=== PATIENT | male | born 1935 | race Caucasian/White ===

== ENCOUNTER → 2018-08-28 | Outpatient (CLI) | payer OTHER ==
[2014-10-12 15:00] VITALS: BP 136/66
[~2018-08-28] MED LIST: CYCL10TA2 PO; DIPH25CA58 PO; HYDR-3164 PO; IPRA4AER IH; METF10007 PO; METF500T16 PO; OXYC1TAB15 PO; POTA20TA12 PO; QUIN40TA16 PO; TORS20TA2 PO; TRAZ-85 PO
--- NOTE | 2018-08-28 11:48 | RAD ---
EXAM: Abdomen sonogram. HISTORY: Left upper quadrant pain. TECHNIQUE: Sonographic imaging of the abdomen was performed. COMPARISON: CT dated 01/02/2011. FINDINGS: The liver is normal in size. There is a 1 cm hepatic cyst. There is hepatic steatosis. The gallbladder is unremarkable. The common bile duct is normal in caliber. The kidneys are normal in size. There is a 6.5 cm cyst within the lower pole the left kidney. The pancreas, aorta and inferior vena cava are partially obscured due to bowel gas. The spleen is normal in size. IMPRESSION: 1. Hepatic steatosis and small hepatic cyst. 2. 6.5 cm left hepatic cyst. 3. Limited exam due to bowel gas. Electronically signed by: Nora Morrison MD (08/28/2018 11:45 AM) [id number]
== END | disposition home or self-care (01) ==
LOC: US 07:35
PROVIDERS: ATTEND Nurse Practitioner Gerontology
DX: K76.0 Fatty (change of) liver, not elsewhere classified (principal); K76.89 Other specified diseases of liver
CPT/HCPCS: 76700

== ENCOUNTER → 2018-09-17 | Outpatient (CLI) | payer MEDICARE, OTHER ==
[2014-10-12 15:00] VITALS: BP 136/66
[~2018-09-17] MED LIST changes: +TRAZ-118 PO; -TRAZ-85 PO
[2018-09-17 10:22] LABS: CREATININE 1.6 mg/dL (0.7-1.3); GFR 41.6
== END | disposition home or self-care (01) ==
LOC: CT 09:36
PROVIDERS: ATTEND Nurse Practitioner Gerontology
DX: R10.12 Left upper quadrant pain (principal)
CPT/HCPCS: 36415; 82565; 84520

== ENCOUNTER → 2018-10-07 | Outpatient (CLI) | payer MEDICARE ==
[2014-10-12 15:00] VITALS: BP 136/66
[~2018-10-07] MED LIST changes: +CONTRAST GIVEN. MC PRN; +IOHEXOL 240 MG/ML 50ML VIAL. PO ONE
--- NOTE | 2018-10-07 12:28 | RAD ---
CT of the abdomen and pelvis without contrast, 10/07/2018: HISTORY: Left upper quadrant pain Multidetector CT imaging was performed without IV contrast as requested. Oral contrast material was given for GI tract opacification. There is mild linear scarring and/or atelectasis in the lung bases. Scattered coronary artery calcifications are noted. The liver is of lower than normal density in a diffuse pattern compatible with hepatic steatosis. There are several tiny subcentimeter low-density lesions in the liver. These are too small to definitively characterize but are probably cysts. The unopacified liver is otherwise unremarkable. No dense gallstones are seen. No pancreatic abnormality is detected. The spleen is of normal size. A small accessory spleen is noted. There is a 7.5 cm cyst arising from the anterior aspect of left kidney. There is minimal calcification in its capsule anteriorly. A couple of other tiny vague low density areas in the left kidney are also probably cysts. There is a tiny cortical cyst arising from the anterolateral aspect of the right kidney. The kidneys show no evidence of obstruction. No adrenal abnormality is detected. Aortoiliac calcific plaquing is present without evidence of aneurysm. No abdominal or pelvic adenopathy is seen. The prostate gland measures 4.2 cm in width. Colonic diverticulosis is present, most extensive in the sigmoid region. No paracolonic inflammatory process is seen. The bowel loops are not dilated. No free fluid or free air is evident in the abdomen or pelvis. 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 There is fusion of the deformed L1 and T12 vertebral bodies with wedging of the T11 vertebral body. There is a vacuum disc phenomena at T11-12. IMPRESSION: 1. Extensive sigmoid diverticulosis. 2. Bilateral renal cysts, the largest of which lies on the left and measures 7.5 cm 3. Hepatic steatosis. 4. Probable small hepatic cysts. 5. 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 PQRS Compliance Statement: One or more of the following individualized dose reduction techniques were utilized for this examination: 1. Automated exposure control 2. Adjustment of the mA and/or kV according to patient size 3. Use of iterative reconstruction technique Electronically signed by: Donato Smith MD (10/07/2018 12:25 PM) [facility]
== END | disposition home or self-care (01) ==
LOC: CT 10:35
PROVIDERS: ATTEND Nurse Practitioner Gerontology
DX: K57.30 Diverticulosis of large intestine without perforation or abscess without bleeding (principal); K76.0 Fatty (change of) liver, not elsewhere classified; N28.1 Cyst of kidney, acquired; I25.10 Atherosclerotic heart disease of native coronary artery without angina pectoris; M43.8X5 Other specified deforming dorsopathies, thoracolumbar region
CPT/HCPCS: 74176; Q9966

== ENCOUNTER → 2018-10-28 | Outpatient (CLI) | payer MEDICARE ==
[2014-10-12 15:00] VITALS: BP 136/66
[~2018-10-28] MED LIST changes: -CONTRAST GIVEN. MC PRN; -IOHEXOL 240 MG/ML 50ML VIAL. PO ONE
--- NOTE | 2018-10-28 13:05 | RAD ---
CHEST PA LATERAL History: SHORT OF BREATH, WHEEZING Comparison: 01/20/2008 two-view chest x-ray exam. Findings: The cardiomediastinal silhouette is normal. Pulmonary vasculature is normal. The lungs are clear. No pleural effusion or pneumothorax is seen. Posterior basilar linear atelectasis is noted. Severe kyphosis at the low thoracic spine is noted with significant angulation dorsally at this site. It is unchanged compared to previous exam. Relatively less vertebral body height at this level is similar to prior examination. IMPRESSION: No acute cardiopulmonary process. Electronically signed by: Patrick Mckinnon MD (10/28/2018 1:02 PM) [id number]
== END | disposition home or self-care (01) ==
LOC: RAD 12:00
PROVIDERS: ATTEND Internal Medicine Pulmonary Disease
DX: J98.11 Atelectasis (principal); M40.294 Other kyphosis, thoracic region
CPT/HCPCS: 71046

== ENCOUNTER → 2019-01-05 | Outpatient (CLI) | payer MEDICARE ==
[2014-10-12 15:00] VITALS: BP 136/66
--- NOTE | 2019-01-05 11:04 | RAD ---
Examination: CT chest without contrast HISTORY: History of cough COMPARISON: None available TECHNIQUE: Axial CT images of the chest were performed without IV contrast. Coronal and sagittal reformats are performed Exposure: One or more of the following individualized dose reduction techniques were utilized for this examination: 1. Automated exposure control 2. Adjustment of the mA and/or kV according to patient size 3. Use of iterative reconstruction technique FINDINGS: The central airways are patent. Mild cardiomegaly. Diffuse coronary artery calcifications identified in the ascending aorta measures 3.5 cm in transverse dimension. Moderate aortic atherosclerosis Few minimally prominent mediastinal lymph nodes identified Mild linear bibasilar lung airspace opacities likely atelectasis or infiltrates. Calcified pleural plaque identified in the pleura of the left upper lobe of the lung posteriorly. Mild paraseptal emphysematous changes identified in the periphery the lungs. There is diffuse decreased attenuation noted in the liver likely hepatic steatosis. The visualized noncontrasted spleen, adrenals grossly appears unremarkable. Large cystic structure identified in the left kidney measuring 6.7 cm some peripheral calcification. Chronic gibbous deformity identified in the thoracolumbar junction with fusion of the deformed T12 and L1 vertebral bodies and wedging of the T11 vertebral body similar to prior exam. IMPRESSION: 1. Mild peripheral bilateral lung paraseptal emphysematous changes. 2. Hepatic steatosis. 2. 6.7 cm peripherally calcified cystic structure identified in the left kidney partially visualized probably a cyst. Electronically signed by: Shahbaz Topete MD (01/05/2019 11:00 AM) [id number]
== END | disposition home or self-care (01) ==
LOC: CT 10:02
PROVIDERS: ATTEND Internal Medicine Pulmonary Disease
DX: J43.9 Emphysema, unspecified (principal); K76.0 Fatty (change of) liver, not elsewhere classified; N28.89 Other specified disorders of kidney and ureter; I51.7 Cardiomegaly; I25.10 Atherosclerotic heart disease of native coronary artery without angina pectoris; J92.9 Pleural plaque without asbestos; I70.0 Atherosclerosis of aorta
CPT/HCPCS: 71250

== ENCOUNTER → 2019-11-26 | Outpatient (CLI) | payer MEDICARE ==
[2014-10-12 15:00] VITALS: BP 136/66
--- NOTE | 2019-11-26 10:04 | RAD ---
Examination: Ultrasound kidneys HISTORY: History of left renal cyst COMPARISON: CT from 10/07/2018 FINDINGS: The right kidney measures 9.9 x 4.6 x 5.1 cm. The left kidney measures 9.4 x 4.2 x 4.2 cm. There is a cystic structure identified in the left kidney in the inferior pole measuring 7.3 cm likely a cyst.The bilateral kidneys appear somewhat echogenic. Urinary bladder is mildly distended. No evidence of hydronephrosis. Partially visualized echogenic liver probably hepatic steatosis. IMPRESSION: 1. 7.3 cm cyst left kidney. 2. Mild echogenic kidneys probably due to medical renal disease. Electronically signed by: Shahbaz Topete MD (11/26/2019 10:01 AM) [id number]
== END ==
LOC: US 08:56
PROVIDERS: ATTEND Urology
DX: N28.1 Cyst of kidney, acquired (principal)
CPT/HCPCS: 76770

== ENCOUNTER → 2019-12-17 | Outpatient (CLI) | payer MEDICARE ==
[2014-10-12 15:00] VITALS: BP 136/66
--- NOTE | 2019-12-17 09:16 | RAD ---
CT CHEST WO CONTRAST History: Cough Technique: CT of the chest was performed without contrast. Coronal and sagittal reconstructions were performed. Exposure: One or more of the following individualized dose reduction techniques were utilized for this examination: 1. Automated exposure control 2. Adjustment of the mA and/or kV according to patient size 3. Use of iterative reconstruction technique. Comparison: January 05, 2019 Findings: Chest: Coronary artery calcification. Small subcarinal and paraseptal esophageal lymph nodes, unchanged. No pathologic lymphadenopathy. Atheromatous plaque throughout the aorta and branch vessels. Mild bilateral gynecomastia. Tortuous thoracic aorta. Mild emphysematous changes with peripheral reticulations, unchanged. No consolidation or pleural effusion. Mild bilateral lower lobe medial linear atelectasis. Secretions within the trachea. Mild bronchial wall thickening. 2 mm right upper lobe pulmonary nodule (series 3 image 24), unchanged. Calcified right upper lobe pulmonary nodule. Upper abdomen: Partially imaged left renal exophytic cyst with peripheral calcification, unchanged. Tiny right renal cyst, unchanged. Hepatic steatosis. Bones: Severe compression deformities and fusion with focal kyphosis at the lower thoracic and upper lumbar spine with associated degenerative changes, unchanged. There is moderate and mild neuroforaminal narrowing through this level, unchanged. Impression: 1. Tiny right upper lobe pulmonary nodule, unchanged. Recommend one-year follow-up. 2. Mild pulmonary emphysema. 3. Hepatic steatosis. 4. Left renal peripherally calcified cyst, unchanged. Electronically signed by: Markie Sepulveda DO (12/17/2019 9:14 AM) [facility]
== END ==
LOC: CT 08:39
PROVIDERS: ATTEND Internal Medicine Pulmonary Disease
DX: Z04.9 Encounter for examination and observation for unspecified reason (principal); R91.1 Solitary pulmonary nodule; J43.8 Other emphysema; K76.0 Fatty (change of) liver, not elsewhere classified; N28.1 Cyst of kidney, acquired; I25.10 Atherosclerotic heart disease of native coronary artery without angina pectoris
CPT/HCPCS: 71250

== ENCOUNTER 2020-02-29 09:48 | Inpatient (IN) | payer MEDICARE ==
[~2020-02-29] VITALS: Ht 160 cm; Wt 84.7 kg
--- NOTE | 2020-02-29 10:24 | PHYS DOC ---
Past Medical History Past Medical History: TB Additional Past Medical Histor: kyphosis Past Surgical History: Other Additional Past Surgical Histo: vasectomy Smoking Status: Current Every Day Smoker Alcohol Use: Rarely Drug Use: None General Adult EDM: Chief Complaint: SHORTNESS OF BREATH HPI: HPI: 84-year-old male who is hard of hearing presents with a variety of ailments today. Patient states he has been very short of breath over the last week or so. He has been coughing but it is been nonproductive. He denies any hemoptysis. He denies fever chills or sweats. There is report from the daughter that he has had some dark stool. Patient states that his biggest complaint is that he just feels wiped out like he has no energy at all. He states he is not been eating and drinking well lately. He denies any nausea or vomiting. He does not recall having dark stools. [] Review of Systems: Review of Systems: Constitutional: Denies fever or chills, reports generalized malaise. [] Eyes: Denies change in visual acuity. [] HENT: Denies nasal congestion or sore throat. [] Respiratory: Per HPI [] Cardiovascular: Denies chest pain or edema. [] GI: Dark stools per the daughter [] : Denies dysuria. [] Musculoskeletal: Denies back pain or joint pain. [] Integument: Denies rash. [] Neurologic: Denies headache, focal weakness or sensory changes. [] Endocrine: Denies polyuria or polydipsia. [] Lymphatic: Denies swollen glands. [] Psychiatric: Denies depression or anxiety. [] Heart Score: Risk Factors: Risk Factors: DM, Current or recent (<one month) smoker, HTN, HLP, family history of CAD, obesity. Risk Scores: Score 0 - 3: 2.5% MACE over next 6 weeks - Discharge Home Score 4 - 6: 20.3% MACE over next 6 weeks - Admit for Clinical Observation Score 7 - 10: 72.7% MACE over next 6 weeks - Early Invasive Strategies Allergies: Allergies: Allergies Coded Allergies Type Severity Reaction Last Updated Verified No Known Drug Allergies 10/07/14 No Physical Exam: PE: Constitutional: Frail, elderly appears acutely ill [] HENT: Normocephalic, atraumatic, bilateral external ears normal, oropharynx moist, no oral exudates, nose normal. [] Eyes: PERRLA, EOMI, conjunctiva normal, no discharge. [] Neck: Normal range of motion, no tenderness, supple, no stridor. [] Cardiovascular:Heart rate regular rhythm, no murmur [] Lungs & Thorax: Scattered wheezes throughout both lung [] Abdomen: Bowel sounds normal, soft, no tenderness, no masses, no pulsatile masses, dark red stool. [] Skin: Warm, dry, no erythema, no rash. [] Back: No tenderness, no CVA tenderness. [] Extremities: No tenderness, no cyanosis, no clubbing, ROM intact, no edema. [] Neurologic: Alert and oriented X 3, normal motor function, normal sensory function, no focal deficits noted. [] Psychologic: Depressed affect EKG: EKG: EKG: Normal sinus rhythm rate of [address]-T changes [] Radiology/Procedures: Radiology/Procedures: []REASON: SHORT OF BREATH PROCEDURE: CHEST AP ONLY Single AP view of the chest. Comparison: 10/28/2018. Indication: Shortness of breath Findings: The heart is at the upper limits of normal but stable. There is no pneumothorax or effusion. Mild pulmonary vascular congestion is identified. Impression: 1. Mild pulmonary vascular congestion seen. Course & Med Decision Making: Course & Med Decision Making Pertinent Labs and Imaging studies reviewed. (See chart for details) [ED course: Evaluation reveals an 84-year-old male who presents with shortness of breath and wheezing. He was given Solu-Medrol and a couple of duo nebs with resolution of his symptoms although he still maintains that he is short of breath. He does have an elevated d-dimer at 2.25 given his elevated creatinine were unable to perform a CT scan so a VQ scan is ordered. Given his bloody stool I held off on anticoagulation we will go ahead and wait for the VQ scan to come back before we decide on anticoagulation.] Ashleyon Disclaimer: Yanira Disclaimer: This electronic medical record was generated, in whole or in part, using a voice recognition dictation system. Departure Departure Impression: Primary Impression: COPD exacerbation Additional Impressions: Acute renal failure Qualified Codes: N17.9 - Acute kidney failure, unspecified GI bleeding Qualified Codes: K62.5 - Hemorrhage of anus and rectum Disposition: 09 ADMITTED INPATIENT Admitting Physician: LATASHA Condition: STABLE Referrals: DONNIE PARDO MD (PCP) Justicifation of Admission Dx: Justifications for Admission: Justification of Admission Dx: Yes Comments: COPD exacerbation MIGUEL GLOVER DO Feb 29, 2020 10:24
[2020-02-29] MEDS ORDERED: methylPREDNISolone SOD SUCC PF 125 MG/2 ML VIAL. IV ONE (10:30)
[2020-02-29] MEDS ORDERED: IPRATRPIUM/ALBUTEROL 0.5/2.5MG 3 ML NEBU. NEB ONE (10:30)
[2020-02-29 10:34] LABS: BASO % 0 % (0-3); EOS % 0 % (0-3); HEMATOCRIT 31.5 % (39.0-53.0); HEMOGLOBIN 10.4 g/dL (13.0-17.5); LYMPH # 1.1 x10^3/uL (1.0-4.8); LYMPH % 14 % (24-48); MEAN CORPUSCULAR HEMOGLOBIN 31 pg (25-35); MEAN CORPUSCULAR HGB CONC 33 g/dL (31-37); MEAN CORPUSCULAR VOLUME 95 fL (79-100); MONO # 0.8 x10^3/uL (0.0-1.1); MONO % 10 % (0-9); NEUT # 5.9 x10^3/uL (1.8-7.7); NEUT % 76 % (31-73); PLATELET COUNT 155 x10^3/uL (140-400); RED CELL DISTRIBUTION WIDTH 15.8 % (11.5-14.5); WHITE BLOOD COUNT 7.7 x10^3/uL (4.0-11.0)
[2020-02-29] MEDS ORDERED: OLME20TA17 PO (10:41)
[2020-02-29] MEDS ORDERED: TAMS0.4C97 PO (10:42)
[2020-02-29] MEDS ORDERED: FERR-36 PO (10:43)
[2020-02-29] MEDS ORDERED: ATOR20TA58 PO (10:45)
[2020-02-29] MEDS ORDERED: LEVO25TA4 PO (10:45)
[2020-02-29] MEDS ORDERED: PHOS250T3 PO (10:45)
[2020-02-29 10:55] LABS: CALCIUM 7.9 mg/dL (8.5-10.1); CREATININE 2.4 mg/dL (0.7-1.3); GFR 25.9
[2020-02-29 11:00] LABS: ALBUMIN 2.8 g/dL (3.4-5.0); ALBUMIN/GLOBULIN RATIO 0.8 (1.0-1.7); MAGNESIUM 2.1 mg/dL (1.8-2.4); TOTAL BILIRUBIN 0.5 mg/dL (0.2-1.0); TOTAL PROTEIN 6.3 g/dL (6.4-8.2)
--- NOTE | 2020-02-29 11:14 | RAD ---
Single AP view of the chest. Comparison: 10/28/2018. Indication: Shortness of breath Findings: The heart is at the upper limits of normal but stable. There is no pneumothorax or effusion. Mild pulmonary vascular congestion is identified. Impression: 1. Mild pulmonary vascular congestion seen. Electronically signed by: Patrick Basilio MD (02/29/2020 11:12 AM) [id number]
[2020-02-29 11:36] LABS: BASE EXCESS ABG -2 mmol/L (-3-3); HCO3 ABG 23 mmol/L (21-28); PCO2 ABG 41 mmHg (35-46); PO2 ABG 112 mmHg (65-108); SAT O2 ABG 98 % (92-99)
[2020-02-29 11:38] LABS: FIO2 ABG 28
--- NOTE | 2020-02-29 12:53 | EKG ---
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
[2020-02-29] MEDS ORDERED: IV NORMAL SALINE 1000ML BAG 1,000 ML IV ONE (13:15)
[2020-02-29] MEDS ORDERED: ONDANSETRON PF 4 MG/2 ML VIAL. IV PRN (13:30)
[2020-02-29] MEDS ORDERED: ACETAMINOPHEN 325 MG TABLET. PO PRN (13:30)
[2020-02-29] MEDS ORDERED: IPRATRPIUM/ALBUTEROL 0.5/2.5MG 3 ML NEBU. NEB PRN (14:00)
[2020-02-29 14:01] LABS: BILIRUBIN,URINE NEGATIVE (NEG); CLARITY,URINE CLEAR; COLOR,URINE YELLOW; NITRITE,URINE NEGATIVE (NEG); PROTEIN,URINE NEGATIVE (NEG-TRACE); UROBILINOGEN,URINE 0.2 mg/dL (0.2 mg/dL)
[2020-02-29 14:14] LABS: BACTERIA,URINE 0 /HPF (0-FEW); HYALINE CASTS, URINE MODERATE /HPF; RBC,URINE 0 /HPF (0-2); SQUAMOUS EPITHELIAL CELL,UR FEW /LPF; WBC,URINE 0 /HPF (0-4)
--- NOTE | 2020-02-29 14:19 | RAD ---
Perfusion lung scan Clinical history: shortness of breath COMPARISON: Chest x-ray 02/29/2020 at 10:45 AM TECHNIQUE: 5.5 mCi of Tc 99m MAA was administered intravenously and spot views were obtained the gamma camera for a nuclear medicine perfusion examination. Static images were reviewed as a Q scan in order to exclude pulmonary embolism. FINDINGS: There is mild diffuse heterogeneity of activity on the ventilation study. Perfusion images are without perfusion defects. This is low probability for pulmonary embolism based on the modified PIOPED criteria. Impression: low probability for pulmonary embolism. Electronically signed by: Jem Gordon MD (02/29/2020 2:16 PM) [facility]
--- NOTE | 2020-02-29 14:22 | HP ---
ADMIT DATE: 02/29/2020 CHIEF COMPLAINT: Shortness of breath. HISTORY OF PRESENT ILLNESS: The patient is a pleasant 84-year-old male who has been short of breath for a couple of days. He is also wheezing quite a bit. He also states he has some dark stool. While in the ER, we noticed that his D-dimer is little high, but his creatinine is also high, so we cannot do a CAT scan. We have sent him now for a V/Q scan where he is currently being examined. He also has azotemia with a BUN of 40, creatinine is 2.4. We gave him some steroids and breathing treatments because he was wheezing that seemed to have helped. He is satting in the mid 90s now. I discussed the case with ER physician. We are going to admit the patient and consult Nephrology, GI and Pulmonary. PAST MEDICAL HISTORY: Kyphosis, vasectomy, TB, tobacco abuse, probable COPD. ALLERGIES: None. FAMILY HISTORY: Diabetes. SOCIAL HISTORY: He smokes. No drinking or drugs. He is retired. MEDICATIONS: Reviewed, please refer to the MRAD. REVIEW OF SYSTEMS: GENERAL: No history of weight change, weakness or fevers. SKIN: No bruising, hair changes or rashes. EYES: No blurred, double or loss of vision. NOSE AND THROAT: No history of nosebleeds, hoarseness or sore throat. HEART: No history of palpitations, chest pain or shortness of breath on exertion. LUNGS: He complains of shortness of breath. GASTROINTESTINAL: He complains of dark stools. GENITOURINARY: No history of frequency, urgency, hesitancy or nocturia. NEUROLOGIC: Denies history of numbness, tingling, tremor or weakness. PSYCHIATRIC: No history of panic, anxiety or depression. ENDOCRINE: No history of heat or cold intolerance, polyuria or polydipsia. EXTREMITIES: Denies muscle weakness, joint pain, pain on walking or stiffness. PHYSICAL EXAMINATION: VITALS: Within normal limits and are stable. GENERAL: No apparent distress. Alert and oriented. HEENT: Normal cephalic atraumatic, external auditory canals are patent EYES: Extraocular muscles are intact, pupils are equally round and reactive to light and accommodation MUSCULOSKELETAL: Well developed, well nourished, good range of motion ENDOCRINE: No thyromegaly was palpated LYMPHATICS: No cervical chain or axillary nodes were noted HEMATOPOIETIC: No bruising NECK: Supple, no JVD, no thyromegaly was noted. LUNGS: He is wheezing quite a bit. HEART: RRR, S1, S2 present. Peripheral pulses intact, no obvious murmurs were noted. ABDOMEN: He has decreased bowel sounds. He abdomen is distended. EXTREMITIES: Trace edema. NEUROLOGIC: He has very decreased hearing. PSYCHIATRIC: He is stable. SKIN: No ulcerations or rashes, good skin turgor, no jaundice. VASCULAR: Good capillary refill, neurovascular bundle appears to be intact. ASSESSMENT: Shortness of breath with probable COPD exacerbation, probable incidental finding of a GI bleed, azotemia, acute renal failure, elevated D-dimer, hypoxia. PLAN: Consult Pulmonary. Consult GI. Consult Nephrology. We have sent him for a V/Q scan. IV steroids, DuoNebs. Trend hemoglobin. Home meds, DVT prophylaxis. Full code. PROGNOSIS: Guarded. MG TAPIA DO DR: GLENDA/maría JOB#: [id number] / [id number]
--- NOTE | 2020-02-29 14:58 | PDOC2 ---
GI CONSULT Date of Service: DATE: 02/29/20 TIME: 14:41 Reason For Consult: GI Bleed HPI: HPI: 84 y/o male to ER w/ SOA. Tells me has felt this way "for a long time," but might be worse recently. GI-carbone, there are reports of "tarry stools." He says stools always look dark because he takes iron, but he might have seen some "red and black mixed" blood in stools the last couple days. Labs notable for Hgb 10.4 (average 9-10 range on past labs), MCV 95, BUN 46, Cr 2.4, lactic 3.2, D- dimer 2.25, AST 65. Low probability for PE on VQ scan. COVID test pending. He denies reflux/heartburn, dysphagia, n/v, abd pain, change in appetite, bloating, early satiety, diarrhea, constipation, and weight loss. Called office for records - has seen Dr. Aldridge in the past. Colonoscopy @ [facility] in 2016 showed diverticulosis. EGD in 2017 showed nodular gastritis - biopsy +H. pylori. Then had SBCE in 2017 for anemia and hemoccult positive stool that showed numerous gastric erosions w/ recent bleeding, SB and cecal AVMs, and isolated area in jejunum w/ active oozing. Recommendation to continue Prilosec, add Carafate, and to avoid NSAIDs. Consideration for referral to for balloon enteroscopy w/ bleeding/anemia persisted. Past GI consult mentions h/o polyps and constipation. No GB, pancreas, or PUD history. Hepatic steatosis and hepatic cysts on past imaging. Denies NSAIDs - says takes Tylenol for pain. PMH: PMH: COPD, HLD, hypothyroidism, spinal TB, DM, neuropathy, DDD vasectomy FH: Family History: No pertinent hx Social History: Smoke: Quit ALCOHOL: rare Drugs: None ROS: GEN: Denies fevers, chills, sweats HEENT: Denies blurred vision, sore throat CV: Denies chest pain RESP: +SOA GI: Per HPI : Denies hematuria, dysuria ENDO: Denies weight changes NEURO: Denies confusion, dizziness MSK: Denies weakness, joint pain/swelling SKIN: Denies jaundice, pruritus Vitals: Vitals: Vital Signs Date Time Temp Pulse Resp B/P (MAP) Pulse Ox O2 Delivery O2 Flow Rate FiO2 02/29/20 13:00 78 24 142/63 (89) 98 Nasal Cannula 2.0 02/29/20 10:31 98.7 98.7 Labs: Labs: Laboratory Tests Test 02/29/20 10:18 02/29/20 11:20 02/29/20 13:10 White Blood Count 7.7 x10^3/uL (4.0-11.0) Red Blood Count 3.30 x10^6/uL (4.30-5.70) Hemoglobin 10.4 g/dL (13.0-17.5) Hematocrit 31.5 % (39.0-53.0) Mean Corpuscular Volume 95 fL (79-100) Mean Corpuscular Hemoglobin 31 pg (25-35) Mean Corpuscular Hemoglobin Concent 33 g/dL (31-37) Red Cell Distribution Width 15.8 % (11.5-14.5) Platelet Count 155 x10^3/uL (140-400) Neutrophils (%) (Auto) 76 % (31-73) Lymphocytes (%) (Auto) 14 % (24-48) Monocytes (%) (Auto) 10 % (0-9) Eosinophils (%) (Auto) 0 % (0-3) Basophils (%) (Auto) 0 % (0-3) Neutrophils # (Auto) 5.9 x10^3/uL (1.8-7.7) Lymphocytes # (Auto) 1.1 x10^3/uL (1.0-4.8) Monocytes # (Auto) 0.8 x10^3/uL (0.0-1.1) Eosinophils # (Auto) 0.0 x10^3/uL (0.0-0.7) Basophils # (Auto) 0.0 x10^3/uL (0.0-0.2) D-Dimer (Alisia) 2.25 ug/mlFEU (0.00-0.50) Sodium Level 140 mmol/L (136-145) Potassium Level 5.0 mmol/L (3.5-5.1) Chloride Level 103 mmol/L (98-107) Carbon Dioxide Level 24 mmol/L (21-32) Anion Gap 13 (6-14) Blood Urea Nitrogen 46 mg/dL (8-26) Creatinine 2.4 mg/dL (0.7-1.3) Estimated GFR (Cockcroft-Gault) 25.9 BUN/Creatinine Ratio 19 (6-20) Glucose Level 190 mg/dL (70-99) Lactic Acid Level 3.2 mmol/L (0.4-2.0) Calcium Level 7.9 mg/dL (8.5-10.1) Magnesium Level 2.1 mg/dL (1.8-2.4) Total Bilirubin 0.5 mg/dL (0.2-1.0) Aspartate Amino Transf (AST/SGOT) 65 U/L (15-37) Alanine Aminotransferase (ALT/SGPT) 51 U/L (16-63) Alkaline Phosphatase 56 U/L (46-116) Troponin I Quantitative < 0.017 ng/mL (0.000-0.055) ZS-Frb-A-Type Natriuretic Peptide 446 pg/mL (0-449) Total Protein 6.3 g/dL (6.4-8.2) Albumin 2.8 g/dL (3.4-5.0) Albumin/Globulin Ratio 0.8 (1.0-1.7) O2 Saturation 98 % (92-99) Arterial Blood pH 7.37 (7.35-7.45) Arterial Blood pCO2 at Patient Temp 41 mmHg (35-46) Arterial Blood pO2 at Patient Temp 112 mmHg (65-108) Arterial Blood HCO3 23 mmol/L (21-28) Arterial Blood Base Excess -2 mmol/L (-3-3) FiO2 28 Urine Collection Type Unknown Urine Color Yellow Urine Clarity Clear Urine pH 5.0 (<5.0-8.0) Urine Specific [place] 1.015 (1.000-1.030) Urine Protein Negative mg/dL (NEG-TRACE) Urine Glucose (UA) Negative mg/dL (NEG) Urine Ketones (Stick) Negative mg/dL (NEG) Urine Blood Negative (NEG) Urine Nitrite Negative (NEG) Urine Bilirubin Negative (NEG) Urine Urobilinogen Dipstick 0.2 mg/dL (0.2 mg/dL) Urine Leukocyte Esterase Negative (NEG) Urine RBC 0 /HPF (0-2) Urine WBC 0 /HPF (0-4) Urine Squamous Epithelial Cells Few /LPF Urine Bacteria 0 /HPF (0-FEW) Urine Hyaline Casts Moderate /HPF Urine Mucus Mod /LPF Allergies: Coded Allergies: No Known Drug Allergies (Unverified , 10/07/14) Medications: Current Medications Medications (Trade) Dose Ordered Sig/Ya Route PRN Reason Start Time Stop Time Status Last Admin Dose Admin Albuterol/ Ipratropium (Duoneb) 6 ml 1X ONCE NEB 02/29/20 10:30 02/29/20 10:31 DC 02/29/20 11:24 Methylprednisolone Sodium Succinate (SOLU-Medrol 125MG VIAL) 125 mg 1X ONCE IV 02/29/20 10:30 02/29/20 10:31 DC 02/29/20 10:23 Imaging: Imaging: CXR Impression: 1. Mild pulmonary vascular congestion seen. VQ Scan Impression: Low probability for pulmonary embolism. PE: GEN: NAD - was asleep, took a couple tries to rouse HEENT: Atraumatic, PERRL LUNGS: wheezing HEART: RRR ABD: NABS, S/ND/NT EXTREMITY: No edema SKIN: pale NEURO/PSYCH: A & O 3 A/P: A/P: SOA, dark stools DANIELA, elevated D-dimer, lactic acidosis Chronic anemia - stable, normocytic, on PO iron at home H/o H. pylori H/o SB/cecal AVMs CRC screen, ?h/o polyps - UTD (and no polyps on colonosocpy in 2016) Diverticulosis R/o COVID-19 -- Address pulm and renal issues, await COVID and Hemoccult tests. Check anemia parameters, add PPI (which I don't think he takes at home?) and Carafate. Monitor Hgb and for bleeding. Okay to eat per GI. Will review any additional recs w/ Dr. Aldridge. DEBBIE MURRAY Feb 29, 2020 14:58
[2020-02-29] MEDS ORDERED: POLYETHYLENE GLYCOL 3350 17 GM PACKET. PO PRN (15:15)
[2020-02-29] MEDS ORDERED: IPRATRPIUM/ALBUTEROL 0.5/2.5MG 3 ML NEBU. NEB SCH (16:00)
[2020-02-29 18:10] VITALS: BP 168/58
[2020-02-29 18:25] LABS: FECAL OB PT POSITIVE (NEG)
[2020-02-29] MEDS: SUCRALFATE 1 GM TABLET. PO SCH (20:09)
--- NOTE | 2020-02-29 20:56 | CONS ---
DATE OF CONSULTATION: 02/29/2020 PULMONARY CONSULTATION ATTENDING PHYSICIAN: Keny Christensen DO REASON FOR CONSULTATION: Dyspnea. HISTORY OF PRESENT ILLNESS: The patient is an 84-year-old male who has history of tobacco use for 60 years. He has recently been prescribed oxygen a few days ago. He was brought into the Emergency Room with complaint of shortness of breath and wheezing. His BUN and creatinine was high as well. He required 2 liters of oxygen in the Emergency Room with saturation of 92-98%. He denies any cough. No chest pain. He did have back pain. 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 The patient does not appear to be in any obvious respiratory distress at present. I have been asked to see him for further evaluation. He did receive IV steroids and his wheezing is better. PAST MEDICAL HISTORY: History of COPD, could be severe. 60 years of tobacco use. 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 He said he had treatment about close to 7-12 months. This was 70 years ago when he was arrested. PAST SURGICAL HISTORY: Vasectomy. ALLERGIES: None. FAMILY HISTORY: Diabetes. Noncontributory to lungs. SOCIAL HISTORY: Smoked for 60 years, quit 3 years ago. ALLERGIES: None. MEDICATIONS: Reviewed as listed in the [facility] including IV Solu-Medrol and DuoNeb, which he receives in the ER. REVIEW OF SYSTEMS: A 10-point system obtained. Pertinent positives discussed in my history of present illness, otherwise noncontributory. All systems that were negative were reviewed as well. PHYSICAL EXAMINATION: Which was done via telemedicine; VITAL SIGNS: Blood pressure was reviewed on the high side 162/58, afebrile, pulse ox 92% on 2 liters. He does not appear to be in any obvious respiratory distress. Appears to be obese. SKIN: No skin rash. LABORATORY DATA: Reviewed. White cell count 7.7, hemoglobin 10.4, platelets are 155. ABGs with a pH of 7.37, pCO2 of 41 and a pO2 of 112 on 28% FiO2. IMPRESSION: 1. Dyspnea with no significant hypoxia based on the ABG, likely related to mild congestive heart failure. However, cannot exclude the possibility of COVID pneumonia. 2. Abnormal chest x-ray with faint interstitial infiltrates, could be related to congestive heart failure versus COVID pneumonia. Although suspicion is less as he has been afebrile. 3. Suspected severe chronic obstructive pulmonary disease, 60 years of tobacco use, quit 3 years ago. 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 5. Acute kidney injury. RECOMMENDATIONS: 1. Continue present oxygen and keep saturations 92 and above. 2. The patient had wheezing in the Emergency Room, which according to the RN is improving. We will continue with IV steroids. 3. Continue with nebs. 4. The patient has DANIELA. We will hold off on any Lasix. 5. We will monitor the clinical course of his symptoms 6. Rule out COVID. 7. Discussed with RN and we will follow along with you. JIM DIAMOND MD DR: HELEN/maría JOB#: [id number] / [id number]
[2020-02-29 23:00] VITALS: BP 99/49
[2020-03-01 03:00] VITALS: BP 147/60
[2020-03-01 07:00] VITALS: BP 154/56
[2020-03-01 07:38] LABS: BASO % 0 % (0-3); EOS % 0 % (0-3); HEMATOCRIT 29.9 % (39.0-53.0); HEMOGLOBIN 9.8 g/dL (13.0-17.5); LYMPH # 0.5 x10^3/uL (1.0-4.8); LYMPH % 9 % (24-48); MEAN CORPUSCULAR HEMOGLOBIN 32 pg (25-35); MEAN CORPUSCULAR HGB CONC 33 g/dL (31-37); MEAN CORPUSCULAR VOLUME 96 fL (79-100); MONO # 0.5 x10^3/uL (0.0-1.1); MONO % 7 % (0-9); NEUT # 5.4 x10^3/uL (1.8-7.7); NEUT % 84 % (31-73); PLATELET COUNT 135 x10^3/uL (140-400); RED CELL DISTRIBUTION WIDTH 15.9 % (11.5-14.5); WHITE BLOOD COUNT 6.4 x10^3/uL (4.0-11.0)
[2020-03-01 08:09] LABS: ALBUMIN 2.2 g/dL (3.4-5.0); ALBUMIN/GLOBULIN RATIO 0.6 (1.0-1.7); CALCIUM 8.2 mg/dL (8.5-10.1); TOTAL BILIRUBIN 0.3 mg/dL (0.2-1.0); TOTAL PROTEIN 6.2 g/dL (6.4-8.2)
[2020-03-01 08:18] LABS: POTASSIUM 5.5 mmol/L (3.5-5.1)
[2020-03-01] MEDS: SUCRALFATE 1 GM TABLET. PO SCH ×2 (08:38→21:22)
[2020-03-01] MEDS: PANTOPRAZOLE 40 MG TABLET.DR. PO SCH (08:38)
--- NOTE | 2020-03-01 08:56 | PDOC ---
PULMONARY PROGRESS NOTES DATE: 03/01/20 TIME: 08:55 Subjective Pt. still having bloody stools, no increased SOB, or cough Remains on N/c oxygen Vitals Vital Signs Date Time Temp Pulse Resp B/P (MAP) Pulse Ox O2 Delivery O2 Flow Rate FiO2 03/01/20 07:00 97.6 80 16 154/56 (88) 96 Nasal Cannula 2.0 97.6 Comments pt. seen during ID pandemic visual exam preformed RRR N/C oxygen trace edema no rash Labs Laboratory Tests Test 02/29/20 04:30 02/29/20 10:18 02/29/20 11:20 02/29/20 13:10 Lactic Acid Level 2.3 mmol/L (0.4-2.0) 3.2 mmol/L (0.4-2.0) White Blood Count 7.7 x10^3/uL (4.0-11.0) Red Blood Count 3.30 x10^6/uL (4.30-5.70) Hemoglobin 10.4 g/dL (13.0-17.5) Hematocrit 31.5 % (39.0-53.0) Mean Corpuscular Volume 95 fL (79-100) Mean Corpuscular Hemoglobin 31 pg (25-35) Mean Corpuscular Hemoglobin Concent 33 g/dL (31-37) Red Cell Distribution Width 15.8 % (11.5-14.5) Platelet Count 155 x10^3/uL (140-400) Neutrophils (%) (Auto) 76 % (31-73) Lymphocytes (%) (Auto) 14 % (24-48) Monocytes (%) (Auto) 10 % (0-9) Eosinophils (%) (Auto) 0 % (0-3) Basophils (%) (Auto) 0 % (0-3) Neutrophils # (Auto) 5.9 x10^3/uL (1.8-7.7) Lymphocytes # (Auto) 1.1 x10^3/uL (1.0-4.8) Monocytes # (Auto) 0.8 x10^3/uL (0.0-1.1) Eosinophils # (Auto) 0.0 x10^3/uL (0.0-0.7) Basophils # (Auto) 0.0 x10^3/uL (0.0-0.2) D-Dimer (Alisia) 2.25 ug/mlFEU (0.00-0.50) Sodium Level 140 mmol/L (136-145) Potassium Level 5.0 mmol/L (3.5-5.1) Chloride Level 103 mmol/L (98-107) Carbon Dioxide Level 24 mmol/L (21-32) Anion Gap 13 (6-14) Blood Urea Nitrogen 46 mg/dL (8-26) Creatinine 2.4 mg/dL (0.7-1.3) Estimated GFR (Cockcroft-Gault) 25.9 BUN/Creatinine Ratio 19 (6-20) Glucose Level 190 mg/dL (70-99) Calcium Level 7.9 mg/dL (8.5-10.1) Magnesium Level 2.1 mg/dL (1.8-2.4) Iron Level 13 ug/dL (65-175) Total Iron Binding Capacity 289 ug/dL (250-450) Iron Saturation 4 % (15-34) Total Bilirubin 0.5 mg/dL (0.2-1.0) Aspartate Amino Transf (AST/SGOT) 65 U/L (15-37) Alanine Aminotransferase (ALT/SGPT) 51 U/L (16-63) Alkaline Phosphatase 56 U/L (46-116) Troponin I Quantitative < 0.017 ng/mL (0.000-0.055) GA-Sab-W-Type Natriuretic Peptide 446 pg/mL (0-449) Total Protein 6.3 g/dL (6.4-8.2) Albumin 2.8 g/dL (3.4-5.0) Albumin/Globulin Ratio 0.8 (1.0-1.7) O2 Saturation 98 % (92-99) Arterial Blood pH 7.37 (7.35-7.45) Arterial Blood pCO2 at Patient Temp 41 mmHg (35-46) Arterial Blood pO2 at Patient Temp 112 mmHg (65-108) Arterial Blood HCO3 23 mmol/L (21-28) Arterial Blood Base Excess -2 mmol/L (-3-3) FiO2 28 Urine Collection Type Unknown Urine Color Yellow Urine Clarity Clear Urine pH 5.0 (<5.0-8.0) Urine Specific [place] 1.015 (1.000-1.030) Urine Protein Negative mg/dL (NEG-TRACE) Urine Glucose (UA) Negative mg/dL (NEG) Urine Ketones (Stick) Negative mg/dL (NEG) Urine Blood Negative (NEG) Urine Nitrite Negative (NEG) Urine Bilirubin Negative (NEG) Urine Urobilinogen Dipstick 0.2 mg/dL (0.2 mg/dL) Urine Leukocyte Esterase Negative (NEG) Urine RBC 0 /HPF (0-2) Urine WBC 0 /HPF (0-4) Urine Squamous Epithelial Cells Few /LPF Urine Bacteria 0 /HPF (0-FEW) Urine Hyaline Casts Moderate /HPF Urine Mucus Mod /LPF Stool Occult Blood Positive (NEG) Test 02/29/20 16:45 02/29/20 19:25 03/01/20 05:40 Troponin I Quantitative < 0.017 ng/mL (0.000-0.055) < 0.017 ng/mL (0.000-0.055) White Blood Count 6.4 x10^3/uL (4.0-11.0) Red Blood Count 3.10 x10^6/uL (4.30-5.70) Hemoglobin 9.8 g/dL (13.0-17.5) Hematocrit 29.9 % (39.0-53.0) Mean Corpuscular Volume 96 fL (79-100) Mean Corpuscular Hemoglobin 32 pg (25-35) Mean Corpuscular Hemoglobin Concent 33 g/dL (31-37) Red Cell Distribution Width 15.9 % (11.5-14.5) Platelet Count 135 x10^3/uL (140-400) Neutrophils (%) (Auto) 84 % (31-73) Lymphocytes (%) (Auto) 9 % (24-48) Monocytes (%) (Auto) 7 % (0-9) Eosinophils (%) (Auto) 0 % (0-3) Basophils (%) (Auto) 0 % (0-3) Neutrophils # (Auto) 5.4 x10^3/uL (1.8-7.7) Lymphocytes # (Auto) 0.5 x10^3/uL (1.0-4.8) Monocytes # (Auto) 0.5 x10^3/uL (0.0-1.1) Eosinophils # (Auto) 0.0 x10^3/uL (0.0-0.7) Basophils # (Auto) 0.0 x10^3/uL (0.0-0.2) Sodium Level 141 mmol/L (136-145) Potassium Level 5.5 mmol/L (3.5-5.1) Chloride Level 107 mmol/L (98-107) Carbon Dioxide Level 24 mmol/L (21-32) Anion Gap 10 (6-14) Blood Urea Nitrogen 49 mg/dL (8-26) Creatinine 2.0 mg/dL (0.7-1.3) Estimated GFR (Cockcroft-Gault) 32.0 BUN/Creatinine Ratio 25 (6-20) Glucose Level 293 mg/dL (70-99) Calcium Level 8.2 mg/dL (8.5-10.1) Total Bilirubin 0.3 mg/dL (0.2-1.0) Aspartate Amino Transf (AST/SGOT) 82 U/L (15-37) Alanine Aminotransferase (ALT/SGPT) 68 U/L (16-63) Alkaline Phosphatase 44 U/L (46-116) Total Protein 6.2 g/dL (6.4-8.2) Albumin 2.2 g/dL (3.4-5.0) Albumin/Globulin Ratio 0.6 (1.0-1.7) Laboratory Tests Test 02/29/20 10:18 02/29/20 11:20 02/29/20 13:10 02/29/20 16:45 White Blood Count 7.7 x10^3/uL (4.0-11.0) Red Blood Count 3.30 x10^6/uL (4.30-5.70) Hemoglobin 10.4 g/dL (13.0-17.5) Hematocrit 31.5 % (39.0-53.0) Mean Corpuscular Volume 95 fL (79-100) Mean Corpuscular Hemoglobin 31 pg (25-35) Mean Corpuscular Hemoglobin Concent 33 g/dL (31-37) Red Cell Distribution Width 15.8 % (11.5-14.5) Platelet Count 155 x10^3/uL (140-400) Neutrophils (%) (Auto) 76 % (31-73) Lymphocytes (%) (Auto) 14 % (24-48) Monocytes (%) (Auto) 10 % (0-9) Eosinophils (%) (Auto) 0 % (0-3) Basophils (%) (Auto) 0 % (0-3) Neutrophils # (Auto) 5.9 x10^3/uL (1.8-7.7) Lymphocytes # (Auto) 1.1 x10^3/uL (1.0-4.8) Monocytes # (Auto) 0.8 x10^3/uL (0.0-1.1) Eosinophils # (Auto) 0.0 x10^3/uL (0.0-0.7) Basophils # (Auto) 0.0 x10^3/uL (0.0-0.2) D-Dimer (Alisia) 2.25 ug/mlFEU (0.00-0.50) Sodium Level 140 mmol/L (136-145) Potassium Level 5.0 mmol/L (3.5-5.1) Chloride Level 103 mmol/L (98-107) Carbon Dioxide Level 24 mmol/L (21-32) Anion Gap 13 (6-14) Blood Urea Nitrogen 46 mg/dL (8-26) Creatinine 2.4 mg/dL (0.7-1.3) Estimated GFR (Cockcroft-Gault) 25.9 BUN/Creatinine Ratio 19 (6-20) Glucose Level 190 mg/dL (70-99) Lactic Acid Level 3.2 mmol/L (0.4-2.0) Calcium Level 7.9 mg/dL (8.5-10.1) Magnesium Level 2.1 mg/dL (1.8-2.4) Iron Level 13 ug/dL (65-175) Total Iron Binding Capacity 289 ug/dL (250-450) Iron Saturation 4 % (15-34) Total Bilirubin 0.5 mg/dL (0.2-1.0) Aspartate Amino Transf (AST/SGOT) 65 U/L (15-37) Alanine Aminotransferase (ALT/SGPT) 51 U/L (16-63) Alkaline Phosphatase 56 U/L (46-116) Troponin I Quantitative < 0.017 ng/mL (0.000-0.055) < 0.017 ng/mL (0.000-0.055) VO-Lbu-X-Type Natriuretic Peptide 446 pg/mL (0-449) Total Protein 6.3 g/dL (6.4-8.2) Albumin 2.8 g/dL (3.4-5.0) Albumin/Globulin Ratio 0.8 (1.0-1.7) O2 Saturation 98 % (92-99) Arterial Blood pH 7.37 (7.35-7.45) Arterial Blood pCO2 at Patient Temp 41 mmHg (35-46) Arterial Blood pO2 at Patient Temp 112 mmHg (65-108) Arterial Blood HCO3 23 mmol/L (21-28) Arterial Blood Base Excess -2 mmol/L (-3-3) FiO2 28 Urine Collection Type Unknown Urine Color Yellow Urine Clarity Clear Urine pH 5.0 (<5.0-8.0) Urine Specific [place] 1.015 (1.000-1.030) Urine Protein Negative mg/dL (NEG-TRACE) Urine Glucose (UA) Negative mg/dL (NEG) Urine Ketones (Stick) Negative mg/dL (NEG) Urine Blood Negative (NEG) Urine Nitrite Negative (NEG) Urine Bilirubin Negative (NEG) Urine Urobilinogen Dipstick 0.2 mg/dL (0.2 mg/dL) Urine Leukocyte Esterase Negative (NEG) Urine RBC 0 /HPF (0-2) Urine WBC 0 /HPF (0-4) Urine Squamous Epithelial Cells Few /LPF Urine Bacteria 0 /HPF (0-FEW) Urine Hyaline Casts Moderate /HPF Urine Mucus Mod /LPF Stool Occult Blood Positive (NEG) Test 02/29/20 19:25 03/01/20 05:40 Troponin I Quantitative < 0.017 ng/mL (0.000-0.055) White Blood Count 6.4 x10^3/uL (4.0-11.0) Red Blood Count 3.10 x10^6/uL (4.30-5.70) Hemoglobin 9.8 g/dL (13.0-17.5) Hematocrit 29.9 % (39.0-53.0) Mean Corpuscular Volume 96 fL (79-100) Mean Corpuscular Hemoglobin 32 pg (25-35) Mean Corpuscular Hemoglobin Concent 33 g/dL (31-37) Red Cell Distribution Width 15.9 % (11.5-14.5) Platelet Count 135 x10^3/uL (140-400) Neutrophils (%) (Auto) 84 % (31-73) Lymphocytes (%) (Auto) 9 % (24-48) Monocytes (%) (Auto) 7 % (0-9) Eosinophils (%) (Auto) 0 % (0-3) Basophils (%) (Auto) 0 % (0-3) Neutrophils # (Auto) 5.4 x10^3/uL (1.8-7.7) Lymphocytes # (Auto) 0.5 x10^3/uL (1.0-4.8) Monocytes # (Auto) 0.5 x10^3/uL (0.0-1.1) Eosinophils # (Auto) 0.0 x10^3/uL (0.0-0.7) Basophils # (Auto) 0.0 x10^3/uL (0.0-0.2) Sodium Level 141 mmol/L (136-145) Potassium Level 5.5 mmol/L (3.5-5.1) Chloride Level 107 mmol/L (98-107) Carbon Dioxide Level 24 mmol/L (21-32) Anion Gap 10 (6-14) Blood Urea Nitrogen 49 mg/dL (8-26) Creatinine 2.0 mg/dL (0.7-1.3) Estimated GFR (Cockcroft-Gault) 32.0 BUN/Creatinine Ratio 25 (6-20) Glucose Level 293 mg/dL (70-99) Calcium Level 8.2 mg/dL (8.5-10.1) Total Bilirubin 0.3 mg/dL (0.2-1.0) Aspartate Amino Transf (AST/SGOT) 82 U/L (15-37) Alanine Aminotransferase (ALT/SGPT) 68 U/L (16-63) Alkaline Phosphatase 44 U/L (46-116) Total Protein 6.2 g/dL (6.4-8.2) Albumin 2.2 g/dL (3.4-5.0) Albumin/Globulin Ratio 0.6 (1.0-1.7) Medications Active Scripts Medications Dose Route/Sig Max Daily Dose Days Date Category Phospha 250 Neutral Tablet (Phosphorus #1) 250 Mg Tablet 1 Tab PO DAILY 30 02/29/20 Reported Atorvastatin Calcium 20 Mg Tablet 1 Tab PO DAILYWSUP 02/29/20 Reported Levothyroxine Sodium 25 Mcg Tablet 1 Tab PO DAILY 02/29/20 Reported Iron (Ferrous Sulfate) 325 Mg Tablet 1 Tab PO BID 30 02/29/20 Reported Flomax (Tamsulosin Hcl) 0.4 Mg Cap.er.24h 0.4 Mg PO DAILY 02/29/20 Reported Benicar (Olmesartan Medoxomil) 20 Mg Tablet 1 Tab PO DAILY 30 02/29/20 Reported Cyclobenzaprine Hcl 10 Mg Tablet 1 Tab PO BID PRN 10/08/14 Reported Torsemide 20 Mg Tablet 4 Tab PO DAILY 10/08/14 Reported Benadryl (Diphenhydramine Hcl) 25 Mg Capsule 1 Cap PO QHS 10/08/14 Reported Quinapril Hcl 40 Mg Tablet 1 Tab PO DAILY 10/08/14 Reported Metformin Hcl 500 Mg Tablet 1 Tab PO DAILYBFRSUP 10/08/14 Reported Trazodone Hcl 50 Mg Tablet 50 Mg PO HS 10/08/14 Reported [place] 5-325 Tablet (Acetaminophen/Hydrocodone Bitart) 1 Each Tablet 1 Tab PO Q8HRS PRN 10/08/14 Reported Percocet 5-325 Mg Tablet (Oxycodone/Acetaminophen) 1 Each Tablet 1-2 Tab PO Q6HRS PRN 10/08/14 Reported Potassium Chloride 20 Meq Tab.er.prt 20 Meq PO BID 10/08/14 Reported Combivent Respimat Inhal (Ipratropium/Albuterol Sulfate) 4 Gm Aer.w.adap 2 Inh IH QID PRN 10/08/14 Reported Metformin Hcl 1,000 Mg Tablet 1 Tab PO DAILY08 10/07/14 Reported Comments Impression: low probability for pulmonary embolism. Impression . IMPRESSION: 1. Dyspnea with no significant hypoxia based on the ABG, likely related to mild congestive heart failure. However, cannot exclude the possibility of COVID pneumonia.---improving 2. Abnormal chest x-ray with faint interstitial infiltrates, could be related to congestive heart failure versus COVID pneumonia. Although suspicion is less as he has been afebrile. 3. Suspected severe chronic obstructive pulmonary disease, 60 years of tobacco use, quit 3 years ago. 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 5. Acute kidney injury--improving Plan . RECOMMENDATIONS: Continue present oxygen and keep saturations 92 and above. continue steroids NEBS Follow renal function Follow GI recs and monitor HGB await COVID-19 results D/W JIM RODNEY MD Mar 01, 2020 08:56
--- NOTE | 2020-03-01 09:21 | PDOC2 ---
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 In the ER BUN and creatinine was high as well as LFTs elevated. He reports of "tarry stools." He says stools always look dark because he takes iron, but he might have seen some "red and black mixed" blood in stools the last couple days. He denies reflux/heartburn, dysphagia, n/v, abd pain, change in appetite, bloating, early satiety, diarrhea, constipation, and weight loss. Denies any urinary complaints Denies NSAIDs Colonoscopy in 2016 showed diverticulosis. EGD in 2017 showed nodular gastritis - biopsy +H. pylori. Then had SBCE in 2017 for anemia and hemoccult positive stool that showed numerous gastric erosions w/ recent bleeding, SB and cecal AVMs, and isolated area in jejunum w/ active oozing. Past Medical History Past Medical History COPD, HLD, hypothyroidism, spinal TB, DM, neuropathy, DDD vasectomy Cardiovascular: HTN, Hyperlipidemia Musculoskeletal: Other Past Surgical History Past Surgical History: Other Family History Family History: Hypertension Social History Quit ALCOHOL: rare Drugs: None Current Problem List Problem List Problems Medical Problems: (1) Acute renal failure Status: Acute (2) COPD exacerbation Status: Acute (3) GI bleeding Status: Acute Current Medications Current Medications Current Medications Albuterol/ Ipratropium (Duoneb) 6 ml 1X ONCE NEB Last administered on 02/29/20at 11:24; Start 02/29/20 at 10:30; Stop 02/29/20 at 10:31; Status DC Methylprednisolone Sodium Succinate (SOLU-Medrol 125MG VIAL) 125 mg 1X ONCE IV Last administered on 02/29/20at 10:23; Start 02/29/20 at 10:30; Stop 02/29/20 at 10:31; Status DC Sodium Chloride 1,000 ml @ 1,000 mls/hr 1X ONCE IV Last administered on 02/29/20at 17:42; Start 8/18/20 at 13:15; Stop 02/29/20 at 14:14; Status DC Ondansetron HCl (Zofran) 4 mg PRN Q8HRS PRN IV NAUSEA/VOMITING; Start 02/29/20 at 13:30; Stop 03/01/20 at 13:29 Acetaminophen (Tylenol) 650 mg PRN Q4HRS PRN PO FEVER > 100.3'F; Start 02/29/20 at 13:30; Stop 03/01/20 at 13:29 Albuterol/ Ipratropium (Duoneb) 3 ml RTQID NEB ; Start 02/29/20 at 16:00; Stop 02/29/20 at 13:58; Status DC Albuterol/ Ipratropium (Duoneb) 3 ml PRN QID PRN NEB SHORTNESS OF BREATH; Start 02/29/20 at 14:00; Stop 03/01/20 at 13:59 Pantoprazole Sodium (Protonix) 40 mg DAILYAC PO Last administered on 03/01/20at 08:38; Start 03/01/20 at 07:30 Sucralfate (Carafate) 1 gm BID PO Last administered on 03/01/20at 08:38; Start 02/29/20 at 21:00 Polyethylene Glycol (miraLAX PACKET) 17 gm PRN DAILY PRN PO CONSTIPATION; Start 02/29/20 at 15:15 Active Scripts Active Reported Phospha 250 Neutral Tablet (Phosphorus #1) 250 Mg Tablet 1 Tab PO DAILY 30 Days Atorvastatin Calcium 20 Mg Tablet 1 Tab PO DAILYWSUP Levothyroxine Sodium 25 Mcg Tablet 1 Tab PO DAILY Iron (Ferrous Sulfate) 325 Mg Tablet 1 Tab PO BID 30 Days Flomax (Tamsulosin Hcl) 0.4 Mg Cap.er.24h 0.4 Mg PO DAILY Benicar (Olmesartan Medoxomil) 20 Mg Tablet 1 Tab PO DAILY 30 Days Cyclobenzaprine Hcl 10 Mg Tablet 1 Tab PO BID PRN Torsemide 20 Mg Tablet 4 Tab PO DAILY Benadryl (Diphenhydramine Hcl) 25 Mg Capsule 1 Cap PO QHS Quinapril Hcl 40 Mg Tablet 1 Tab PO DAILY Metformin Hcl 500 Mg Tablet 1 Tab PO DAILYBFRSUP Trazodone Hcl 50 Mg Tablet 50 Mg PO HS Winner 5-325 Tablet (Acetaminophen/Hydrocodone Bitart) 1 Each Tablet 1 Tab PO Q8HRS PRN Percocet 5-325 Mg Tablet (Oxycodone/Acetaminophen) 1 Each Tablet 1-2 Tab PO Q6HRS PRN Potassium Chloride 20 Meq Tab.er.prt 20 Meq PO BID Combivent Respimat Inhal (Ipratropium/Albuterol Sulfate) 4 Gm Aer.w.adap 2 Inh IH QID PRN Metformin Hcl 1,000 Mg Tablet 1 Tab PO DAILY08 Allergies Allergies: Coded Allergies: No Known Drug Allergies (Unverified , 10/07/14) ROS Review of System As per HPI, rest of the ROS is negative Physical Exam Physical Exam GEN: NAD HEENT: OM mildly dry , O2 by NC Neck Supple LUNGS: wheezing, Non labored HEART: RRR ABD: Soft EXTREMITY: No edema SKIN: No rash NEURO: grossly normal No acevedo, NO CVA or SP tenderness Vital Signs Vital Signs Date Time Temp Pulse Resp B/P (MAP) Pulse Ox O2 Delivery O2 Flow Rate FiO2 03/01/20 07:00 97.6 80 16 154/56 (88) 96 Nasal Cannula 2.0 97.6 Assessment & Plan DANIELA - Suspect vasomotor , improving Per Home medlist on ?DANTE and ARB both and Loop Diuretic , Reconcile meds prior to dc US 11/2019- right kidney 9.9 x 4.6 x 5.1 cm, Lt kidney measures 9.4 x 4.2 x 4.2 cm. UA unremarkable , Per RN Good UOP (not recorded) Continue gentle IV hydration (2/2 Hx of CHF ) , Strict I/O , avoid Nephrotoxins, HyperKalemia- mild, Monitor CKD stage 3 - Baseline Cr 1.6- in 2014 and 2018 , No other records available Renal US in november - The bilateral kidneys appear somewhat echogenic. Urinary bladder is mildly distended. No evidence of hydronephrosis. Renal cyst- left kidney in the inferior pole measuring 7.3 cm likely a cyst. Ct in 2019 -Bilateral renal cysts, the largest of which lies on the left and measures 7.5 cm Dyspnea -Abnormal chest x-ray with faint interstitial infiltrates - likely CHF, COVID 19 negative COPD - 60 years of tobacco use, quit 3 years ago. 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 pylori- EGD in the past Diverticulosis- Ct in 09/2018- Extensive sigmoid diverticulosis. . Transaminitis- Hepatic steatosis/ Probable small hepatic cysts on CT Labs Labs Laboratory Tests Test 02/29/20 04:30 02/29/20 10:18 02/29/20 11:20 02/29/20 13:10 Lactic Acid Level 2.3 mmol/L (0.4-2.0) 3.2 mmol/L (0.4-2.0) White Blood Count 7.7 x10^3/uL (4.0-11.0) Red Blood Count 3.30 x10^6/uL (4.30-5.70) Hemoglobin 10.4 g/dL (13.0-17.5) Hematocrit 31.5 % (39.0-53.0) Mean Corpuscular Volume 95 fL (79-100) Mean Corpuscular Hemoglobin 31 pg (25-35) Mean Corpuscular Hemoglobin Concent 33 g/dL (31-37) Red Cell Distribution Width 15.8 % (11.5-14.5) Platelet Count 155 x10^3/uL (140-400) Neutrophils (%) (Auto) 76 % (31-73) Lymphocytes (%) (Auto) 14 % (24-48) Monocytes (%) (Auto) 10 % (0-9) Eosinophils (%) (Auto) 0 % (0-3) Basophils (%) (Auto) 0 % (0-3) Neutrophils # (Auto) 5.9 x10^3/uL (1.8-7.7) Lymphocytes # (Auto) 1.1 x10^3/uL (1.0-4.8) Monocytes # (Auto) 0.8 x10^3/uL (0.0-1.1) Eosinophils # (Auto) 0.0 x10^3/uL (0.0-0.7) Basophils # (Auto) 0.0 x10^3/uL (0.0-0.2) D-Dimer (Alisia) 2.25 ug/mlFEU (0.00-0.50) Sodium Level 140 mmol/L (136-145) Potassium Level 5.0 mmol/L (3.5-5.1) Chloride Level 103 mmol/L (98-107) Carbon Dioxide Level 24 mmol/L (21-32) Anion Gap 13 (6-14) Blood Urea Nitrogen 46 mg/dL (8-26) Creatinine 2.4 mg/dL (0.7-1.3) Estimated GFR (Cockcroft-Gault) 25.9 BUN/Creatinine Ratio 19 (6-20) Glucose Level 190 mg/dL (70-99) Calcium Level 7.9 mg/dL (8.5-10.1) Magnesium Level 2.1 mg/dL (1.8-2.4) Iron Level 13 ug/dL (65-175) Total Iron Binding Capacity 289 ug/dL (250-450) Iron Saturation 4 % (15-34) Total Bilirubin 0.5 mg/dL (0.2-1.0) Aspartate Amino Transf (AST/SGOT) 65 U/L (15-37) Alanine Aminotransferase (ALT/SGPT) 51 U/L (16-63) Alkaline Phosphatase 56 U/L (46-116) Troponin I Quantitative < 0.017 ng/mL (0.000-0.055) LO-Nof-O-Type Natriuretic Peptide 446 pg/mL (0-449) Total Protein 6.3 g/dL (6.4-8.2) Albumin 2.8 g/dL (3.4-5.0) Albumin/Globulin Ratio 0.8 (1.0-1.7) O2 Saturation 98 % (92-99) Arterial Blood pH 7.37 (7.35-7.45) Arterial Blood pCO2 at Patient Temp 41 mmHg (35-46) Arterial Blood pO2 at Patient Temp 112 mmHg (65-108) Arterial Blood HCO3 23 mmol/L (21-28) Arterial Blood Base Excess -2 mmol/L (-3-3) FiO2 28 Urine Collection Type Unknown Urine Color Yellow Urine Clarity Clear Urine pH 5.0 (<5.0-8.0) Urine Specific [place] 1.015 (1.000-1.030) Urine Protein Negative mg/dL (NEG-TRACE) Urine Glucose (UA) Negative mg/dL (NEG) Urine Ketones (Stick) Negative mg/dL (NEG) Urine Blood Negative (NEG) Urine Nitrite Negative (NEG) Urine Bilirubin Negative (NEG) Urine Urobilinogen Dipstick 0.2 mg/dL (0.2 mg/dL) Urine Leukocyte Esterase Negative (NEG) Urine RBC 0 /HPF (0-2) Urine WBC 0 /HPF (0-4) Urine Squamous Epithelial Cells Few /LPF Urine Bacteria 0 /HPF (0-FEW) Urine Hyaline Casts Moderate /HPF Urine Mucus Mod /LPF Stool Occult Blood Positive (NEG) Test 02/29/20 16:45 02/29/20 19:25 03/01/20 05:40 Troponin I Quantitative < 0.017 ng/mL (0.000-0.055) < 0.017 ng/mL (0.000-0.055) White Blood Count 6.4 x10^3/uL (4.0-11.0) Red Blood Count 3.10 x10^6/uL (4.30-5.70) Hemoglobin 9.8 g/dL (13.0-17.5) Hematocrit 29.9 % (39.0-53.0) Mean Corpuscular Volume 96 fL (79-100) Mean Corpuscular Hemoglobin 32 pg (25-35) Mean Corpuscular Hemoglobin Concent 33 g/dL (31-37) Red Cell Distribution Width 15.9 % (11.5-14.5) Platelet Count 135 x10^3/uL (140-400) Neutrophils (%) (Auto) 84 % (31-73) Lymphocytes (%) (Auto) 9 % (24-48) Monocytes (%) (Auto) 7 % (0-9) Eosinophils (%) (Auto) 0 % (0-3) Basophils (%) (Auto) 0 % (0-3) Neutrophils # (Auto) 5.4 x10^3/uL (1.8-7.7) Lymphocytes # (Auto) 0.5 x10^3/uL (1.0-4.8) Monocytes # (Auto) 0.5 x10^3/uL (0.0-1.1) Eosinophils # (Auto) 0.0 x10^3/uL (0.0-0.7) Basophils # (Auto) 0.0 x10^3/uL (0.0-0.2) Sodium Level 141 mmol/L (136-145) Potassium Level 5.5 mmol/L (3.5-5.1) Chloride Level 107 mmol/L (98-107) Carbon Dioxide Level 24 mmol/L (21-32) Anion Gap 10 (6-14) Blood Urea Nitrogen 49 mg/dL (8-26) Creatinine 2.0 mg/dL (0.7-1.3) Estimated GFR (Cockcroft-Gault) 32.0 BUN/Creatinine Ratio 25 (6-20) Glucose Level 293 mg/dL (70-99) Calcium Level 8.2 mg/dL (8.5-10.1) Total Bilirubin 0.3 mg/dL (0.2-1.0) Aspartate Amino Transf (AST/SGOT) 82 U/L (15-37) Alanine Aminotransferase (ALT/SGPT) 68 U/L (16-63) Alkaline Phosphatase 44 U/L (46-116) Total Protein 6.2 g/dL (6.4-8.2) Albumin 2.2 g/dL (3.4-5.0) Albumin/Globulin Ratio 0.6 (1.0-1.7) Laboratory Tests Test 02/29/20 10:18 02/29/20 11:20 02/29/20 13:10 02/29/20 16:45 White Blood Count 7.7 x10^3/uL (4.0-11.0) Red Blood Count 3.30 x10^6/uL (4.30-5.70) Hemoglobin 10.4 g/dL (13.0-17.5) Hematocrit 31.5 % (39.0-53.0) Mean Corpuscular Volume 95 fL (79-100) Mean Corpuscular Hemoglobin 31 pg (25-35) Mean Corpuscular Hemoglobin Concent 33 g/dL (31-37) Red Cell Distribution Width 15.8 % (11.5-14.5) Platelet Count 155 x10^3/uL (140-400) Neutrophils (%) (Auto) 76 % (31-73) Lymphocytes (%) (Auto) 14 % (24-48) Monocytes (%) (Auto) 10 % (0-9) Eosinophils (%) (Auto) 0 % (0-3) Basophils (%) (Auto) 0 % (0-3) Neutrophils # (Auto) 5.9 x10^3/uL (1.8-7.7) Lymphocytes # (Auto) 1.1 x10^3/uL (1.0-4.8) Monocytes # (Auto) 0.8 x10^3/uL (0.0-1.1) Eosinophils # (Auto) 0.0 x10^3/uL (0.0-0.7) Basophils # (Auto) 0.0 x10^3/uL (0.0-0.2) D-Dimer (Alisia) 2.25 ug/mlFEU (0.00-0.50) Sodium Level 140 mmol/L (136-145) Potassium Level 5.0 mmol/L (3.5-5.1) Chloride Level 103 mmol/L (98-107) Carbon Dioxide Level 24 mmol/L (21-32) Anion Gap 13 (6-14) Blood Urea Nitrogen 46 mg/dL (8-26) Creatinine 2.4 mg/dL (0.7-1.3) Estimated GFR (Cockcroft-Gault) 25.9 BUN/Creatinine Ratio 19 (6-20) Glucose Level 190 mg/dL (70-99) Lactic Acid Level 3.2 mmol/L (0.4-2.0) Calcium Level 7.9 mg/dL (8.5-10.1) Magnesium Level 2.1 mg/dL (1.8-2.4) Iron Level 13 ug/dL (65-175) Total Iron Binding Capacity 289 ug/dL (250-450) Iron Saturation 4 % (15-34) Total Bilirubin 0.5 mg/dL (0.2-1.0) Aspartate Amino Transf (AST/SGOT) 65 U/L (15-37) Alanine Aminotransferase (ALT/SGPT) 51 U/L (16-63) Alkaline Phosphatase 56 U/L (46-116) Troponin I Quantitative < 0.017 ng/mL (0.000-0.055) < 0.017 ng/mL (0.000-0.055) GJ-Cpe-P-Type Natriuretic Peptide 446 pg/mL (0-449) Total Protein 6.3 g/dL (6.4-8.2) Albumin 2.8 g/dL (3.4-5.0) Albumin/Globulin Ratio 0.8 (1.0-1.7) O2 Saturation 98 % (92-99) Arterial Blood pH 7.37 (7.35-7.45) Arterial Blood pCO2 at Patient Temp 41 mmHg (35-46) Arterial Blood pO2 at Patient Temp 112 mmHg (65-108) Arterial Blood HCO3 23 mmol/L (21-28) Arterial Blood Base Excess -2 mmol/L (-3-3) FiO2 28 Urine Collection Type Unknown Urine Color Yellow Urine Clarity Clear Urine pH 5.0 (<5.0-8.0) Urine Specific [place] 1.015 (1.000-1.030) Urine Protein Negative mg/dL (NEG-TRACE) Urine Glucose (UA) Negative mg/dL (NEG) Urine Ketones (Stick) Negative mg/dL (NEG) Urine Blood Negative (NEG) Urine Nitrite Negative (NEG) Urine Bilirubin Negative (NEG) Urine Urobilinogen Dipstick 0.2 mg/dL (0.2 mg/dL) Urine Leukocyte Esterase Negative (NEG) Urine RBC 0 /HPF (0-2) Urine WBC 0 /HPF (0-4) Urine Squamous Epithelial Cells Few /LPF Urine Bacteria 0 /HPF (0-FEW) Urine Hyaline Casts Moderate /HPF Urine Mucus Mod /LPF Stool Occult Blood Positive (NEG) Test 02/29/20 19:25 03/01/20 05:40 Troponin I Quantitative < 0.017 ng/mL (0.000-0.055) White Blood Count 6.4 x10^3/uL (4.0-11.0) Red Blood Count 3.10 x10^6/uL (4.30-5.70) Hemoglobin 9.8 g/dL (13.0-17.5) Hematocrit 29.9 % (39.0-53.0) Mean Corpuscular Volume 96 fL (79-100) Mean Corpuscular Hemoglobin 32 pg (25-35) Mean Corpuscular Hemoglobin Concent 33 g/dL (31-37) Red Cell Distribution Width 15.9 % (11.5-14.5) Platelet Count 135 x10^3/uL (140-400) Neutrophils (%) (Auto) 84 % (31-73) Lymphocytes (%) (Auto) 9 % (24-48) Monocytes (%) (Auto) 7 % (0-9) Eosinophils (%) (Auto) 0 % (0-3) Basophils (%) (Auto) 0 % (0-3) Neutrophils # (Auto) 5.4 x10^3/uL (1.8-7.7) Lymphocytes # (Auto) 0.5 x10^3/uL (1.0-4.8) Monocytes # (Auto) 0.5 x10^3/uL (0.0-1.1) Eosinophils # (Auto) 0.0 x10^3/uL (0.0-0.7) Basophils # (Auto) 0.0 x10^3/uL (0.0-0.2) Sodium Level 141 mmol/L (136-145) Potassium Level 5.5 mmol/L (3.5-5.1) Chloride Level 107 mmol/L (98-107) Carbon Dioxide Level 24 mmol/L (21-32) Anion Gap 10 (6-14) Blood Urea Nitrogen 49 mg/dL (8-26) Creatinine 2.0 mg/dL (0.7-1.3) Estimated GFR (Cockcroft-Gault) 32.0 BUN/Creatinine Ratio 25 (6-20) Glucose Level 293 mg/dL (70-99) Calcium Level 8.2 mg/dL (8.5-10.1) Total Bilirubin 0.3 mg/dL (0.2-1.0) Aspartate Amino Transf (AST/SGOT) 82 U/L (15-37) Alanine Aminotransferase (ALT/SGPT) 68 U/L (16-63) Alkaline Phosphatase 44 U/L (46-116) Total Protein 6.2 g/dL (6.4-8.2) Albumin 2.2 g/dL (3.4-5.0) Albumin/Globulin Ratio 0.6 (1.0-1.7) Review All relevant outside records, renal labs, imaging studies, telemetry/EKG's were reviewed. Images Images CT abdomen September 2018 1. Extensive sigmoid diverticulosis. 2. Bilateral renal cysts, the largest of which lies on the left and measures 7.5 cm 3. Hepatic steatosis. 4. Probable small hepatic cysts. 5. 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 WILNER DAVIS MD Mar 01, 2020 09:21
--- NOTE | 2020-03-01 09:51 | PDOC ---
[employer] PROGRESS NOTE Date of Service DOS: DATE: 03/01/20 TIME: 09:42 Chief Complaint Chief Complaint A/P: Dyspnea with no significant hypoxia based on the ABG, likely related to mild congestive heart failure. However, cannot exclude the possibility of COVID pneumonia. Abnormal chest x-ray with faint interstitial infiltrates - likely CHF, COVID 19 negative 3. Suspected severe chronic obstructive pulmonary disease, 60 years of tobacco use, quit 3 years ago. 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 5. Acute kidney injury. 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 His BUN and creatinine was high as well as LFTs. He required 2 liters of oxygen. LFTs also elevated. Still requiring O2. Significant wheezes and prolonged expiratory phase. He says he just wants to sleep. He says "Im 84 I have nothing to live for about my cats." Plan: Cont steroids Add zyprexa, consult psych Vitals/I&O Vitals/I&O: Vital Signs Date Time Temp Pulse Resp B/P (MAP) Pulse Ox O2 Delivery O2 Flow Rate FiO2 03/01/20 07:00 97.6 80 16 154/56 (88) 96 Nasal Cannula 2.0 97.6 Physical Exam General: Alert, Cooperative Lungs: Wheezing, Other Labs Labs: Laboratory Tests Test 02/29/20 10:18 02/29/20 11:20 02/29/20 13:10 02/29/20 16:45 White Blood Count 7.7 x10^3/uL (4.0-11.0) Red Blood Count 3.30 x10^6/uL (4.30-5.70) Hemoglobin 10.4 g/dL (13.0-17.5) Hematocrit 31.5 % (39.0-53.0) Mean Corpuscular Volume 95 fL (79-100) Mean Corpuscular Hemoglobin 31 pg (25-35) Mean Corpuscular Hemoglobin Concent 33 g/dL (31-37) Red Cell Distribution Width 15.8 % (11.5-14.5) Platelet Count 155 x10^3/uL (140-400) Neutrophils (%) (Auto) 76 % (31-73) Lymphocytes (%) (Auto) 14 % (24-48) Monocytes (%) (Auto) 10 % (0-9) Eosinophils (%) (Auto) 0 % (0-3) Basophils (%) (Auto) 0 % (0-3) Neutrophils # (Auto) 5.9 x10^3/uL (1.8-7.7) Lymphocytes # (Auto) 1.1 x10^3/uL (1.0-4.8) Monocytes # (Auto) 0.8 x10^3/uL (0.0-1.1) Eosinophils # (Auto) 0.0 x10^3/uL (0.0-0.7) Basophils # (Auto) 0.0 x10^3/uL (0.0-0.2) D-Dimer (Alisia) 2.25 ug/mlFEU (0.00-0.50) Sodium Level 140 mmol/L (136-145) Potassium Level 5.0 mmol/L (3.5-5.1) Chloride Level 103 mmol/L (98-107) Carbon Dioxide Level 24 mmol/L (21-32) Anion Gap 13 (6-14) Blood Urea Nitrogen 46 mg/dL (8-26) Creatinine 2.4 mg/dL (0.7-1.3) Estimated GFR (Cockcroft-Gault) 25.9 BUN/Creatinine Ratio 19 (6-20) Glucose Level 190 mg/dL (70-99) Lactic Acid Level 3.2 mmol/L (0.4-2.0) Calcium Level 7.9 mg/dL (8.5-10.1) Magnesium Level 2.1 mg/dL (1.8-2.4) Iron Level 13 ug/dL (65-175) Total Iron Binding Capacity 289 ug/dL (250-450) Iron Saturation 4 % (15-34) Total Bilirubin 0.5 mg/dL (0.2-1.0) Aspartate Amino Transf (AST/SGOT) 65 U/L (15-37) Alanine Aminotransferase (ALT/SGPT) 51 U/L (16-63) Alkaline Phosphatase 56 U/L (46-116) Troponin I Quantitative < 0.017 ng/mL (0.000-0.055) < 0.017 ng/mL (0.000-0.055) WK-Leo-Q-Type Natriuretic Peptide 446 pg/mL (0-449) Total Protein 6.3 g/dL (6.4-8.2) Albumin 2.8 g/dL (3.4-5.0) Albumin/Globulin Ratio 0.8 (1.0-1.7) O2 Saturation 98 % (92-99) Arterial Blood pH 7.37 (7.35-7.45) Arterial Blood pCO2 at Patient Temp 41 mmHg (35-46) Arterial Blood pO2 at Patient Temp 112 mmHg (65-108) Arterial Blood HCO3 23 mmol/L (21-28) Arterial Blood Base Excess -2 mmol/L (-3-3) FiO2 28 Urine Collection Type Unknown Urine Color Yellow Urine Clarity Clear Urine pH 5.0 (<5.0-8.0) Urine Specific [place] 1.015 (1.000-1.030) Urine Protein Negative mg/dL (NEG-TRACE) Urine Glucose (UA) Negative mg/dL (NEG) Urine Ketones (Stick) Negative mg/dL (NEG) Urine Blood Negative (NEG) Urine Nitrite Negative (NEG) Urine Bilirubin Negative (NEG) Urine Urobilinogen Dipstick 0.2 mg/dL (0.2 mg/dL) Urine Leukocyte Esterase Negative (NEG) Urine RBC 0 /HPF (0-2) Urine WBC 0 /HPF (0-4) Urine Squamous Epithelial Cells Few /LPF Urine Bacteria 0 /HPF (0-FEW) Urine Hyaline Casts Moderate /HPF Urine Mucus Mod /LPF Stool Occult Blood Positive (NEG) Test 02/29/20 19:25 03/01/20 05:40 Troponin I Quantitative < 0.017 ng/mL (0.000-0.055) White Blood Count 6.4 x10^3/uL (4.0-11.0) Red Blood Count 3.10 x10^6/uL (4.30-5.70) Hemoglobin 9.8 g/dL (13.0-17.5) Hematocrit 29.9 % (39.0-53.0) Mean Corpuscular Volume 96 fL (79-100) Mean Corpuscular Hemoglobin 32 pg (25-35) Mean Corpuscular Hemoglobin Concent 33 g/dL (31-37) Red Cell Distribution Width 15.9 % (11.5-14.5) Platelet Count 135 x10^3/uL (140-400) Neutrophils (%) (Auto) 84 % (31-73) Lymphocytes (%) (Auto) 9 % (24-48) Monocytes (%) (Auto) 7 % (0-9) Eosinophils (%) (Auto) 0 % (0-3) Basophils (%) (Auto) 0 % (0-3) Neutrophils # (Auto) 5.4 x10^3/uL (1.8-7.7) Lymphocytes # (Auto) 0.5 x10^3/uL (1.0-4.8) Monocytes # (Auto) 0.5 x10^3/uL (0.0-1.1) Eosinophils # (Auto) 0.0 x10^3/uL (0.0-0.7) Basophils # (Auto) 0.0 x10^3/uL (0.0-0.2) Sodium Level 141 mmol/L (136-145) Potassium Level 5.5 mmol/L (3.5-5.1) Chloride Level 107 mmol/L (98-107) Carbon Dioxide Level 24 mmol/L (21-32) Anion Gap 10 (6-14) Blood Urea Nitrogen 49 mg/dL (8-26) Creatinine 2.0 mg/dL (0.7-1.3) Estimated GFR (Cockcroft-Gault) 32.0 BUN/Creatinine Ratio 25 (6-20) Glucose Level 293 mg/dL (70-99) Calcium Level 8.2 mg/dL (8.5-10.1) Total Bilirubin 0.3 mg/dL (0.2-1.0) Aspartate Amino Transf (AST/SGOT) 82 U/L (15-37) Alanine Aminotransferase (ALT/SGPT) 68 U/L (16-63) Alkaline Phosphatase 44 U/L (46-116) Total Protein 6.2 g/dL (6.4-8.2) Albumin 2.2 g/dL (3.4-5.0) Albumin/Globulin Ratio 0.6 (1.0-1.7) Assessment and Plan Assessmemt and Plan Problems Medical Problems: (1) Acute renal failure Status: Acute (2) COPD exacerbation Status: Acute (3) GI bleeding Status: Acute Comment Review of Relevant I have reviewed the following items kamini (where applicable) has been applied. Medications: Current Medications Medications (Trade) Dose Ordered Sig/Ay Route PRN Reason Start Time Stop Time Status Last Admin Dose Admin Albuterol/ Ipratropium (Duoneb) 6 ml 1X ONCE NEB 02/29/20 10:30 02/29/20 10:31 DC 02/29/20 11:24 Methylprednisolone Sodium Succinate (SOLU-Medrol 125MG VIAL) 125 mg 1X ONCE IV 02/29/20 10:30 02/29/20 10:31 DC 02/29/20 10:23 Sodium Chloride 1,000 ml @ 1,000 mls/hr 1X ONCE IV 02/29/20 13:15 02/29/20 14:14 DC 02/29/20 17:42 Pantoprazole Sodium (Protonix) 40 mg DAILYAC PO 03/01/20 07:30 03/01/20 08:38 Sucralfate (Carafate) 1 gm BID PO 02/29/20 21:00 03/01/20 08:38 Justicifation of Admission Dx: Justifications for Admission: Justification of Admission Dx: Yes SAI SAN MD Mar 01, 2020 09:51
--- NOTE | 2020-03-01 10:09 | PDOC ---
Date of Service: DATE: 03/01/20 TIME: 09:59 Subjective: Subjective: Doesn't know if he's breathing better. Eating okay "I guess." Reports red and black stool. Denies abd pain. Objective: Vital Signs: Vital Signs Date Time Temp Pulse Resp B/P (MAP) Pulse Ox O2 Delivery O2 Flow Rate FiO2 03/01/20 07:00 97.6 80 16 154/56 (88) 96 Nasal Cannula 2.0 97.6 PE: GEN: NAD LUNGS: diminished - less wheezing HEART: RRR ABD: soft, tender epigastrium, left mid abdomen, also some in RLQ - nonspecific NEURO/PSYCH: A & O 3 A/P: Dyspnea (?CHF, h/o COPD, normal BNP), DANIELA, blood in stools LIZY, +Hemoccult - 'scopes in [id number], h/o AVMs and diverticulosis Elevated AST and ALT - new this admission; h/o hepatic steatosis and cysts R/o COVID-19 -- Continue PPI, Carafate. Resume iron. Awaiting COVID testing. Monitor LFTs. Justicifation of Admission Dx: Justifications for Admission: Justification of Admission Dx: Yes DEBBIE MURRAY Mar 01, 2020 10:09
[2020-03-01] MEDS ORDERED: POLYETHYLENE GLYCOL 3350 17 GM PACKET. PO PRN (10:15)
[2020-03-01 11:29] VITALS: BP 129/56
[2020-03-01] MEDS: methylPREDNISolone SOD SUCC PF 40 MG/ML VIAL. IV SCH (11:53)
--- NOTE | 2020-03-01 13:58 | NUR ---
critical result: SARS COV2 antigen positive, Dr. Licea notified at [id number].
[2020-03-01] MEDS ORDERED: PEG 3350/NA SULF,BICARB,CL/KCL 4,000 ML SOLUTION. PO ONE (14:00)
[2020-03-01 15:56] VITALS: BP 115/58
--- NOTE | 2020-03-01 16:44 | NUR ---
Notified Dr. Aldridge of the positive COVID result at 1645, order received to hold bowel prep. EGD and colonoscopy procedure will be cancelled.
[2020-03-01] MEDS: FERROUS SULFATE 325 MG TABLET. PO SCH (17:16)
--- NOTE | 2020-03-01 17:36 | NUR ---
SW following. Reviewed chart and discussed with RN. Pt from home, 2l 02, clear liquid diet. GI consulted per blood in stool per RN. Pt COVID positive. SW to follow.
[2020-03-01 19:00] VITALS: BP 164/71
[2020-03-01] MEDS: diphenhydrAMINE HCL 25 MG CAPSULE PO PRN (22:31)
[2020-03-01 23:00] VITALS: BP 110/54
[2020-03-02 03:00] VITALS: BP 133/60
[2020-03-02] MEDS: ACETAMINOPHEN 325 MG TABLET. PO PRN (03:42)
[2020-03-02] MEDS: ALBUTEROL SULFATE 8GM INHALER. INH PRN (03:43)
[2020-03-02 04:48] LABS: HEMATOCRIT 28.3 % (39.0-53.0); HEMOGLOBIN 9.2 g/dL (13.0-17.5); RED BLOOD COUNT 2.97 x10^6/uL (4.30-5.70); RED CELL DISTRIBUTION WIDTH 15.8 % (11.5-14.5)
[2020-03-02 04:54] LABS: ALBUMIN 2.3 g/dL (3.4-5.0); CALCIUM 7.6 mg/dL (8.5-10.1); CREATININE 1.9 mg/dL (0.7-1.3); GFR 33.9; PHOSPHORUS 2.4 mg/dL (2.6-4.7); POTASSIUM 5.2 mmol/L (3.5-5.1)
[2020-03-02 04:59] LABS: ALBUMIN 2.2 g/dL (3.4-5.0); DIRECT BILIRUBIN 0.2 mg/dL (0.0-0.2); TOTAL BILIRUBIN 0.4 mg/dL (0.2-1.0); TOTAL PROTEIN 6.1 g/dL (6.4-8.2)
[2020-03-02 07:00] VITALS: BP 122/62
[2020-03-02] MEDS ORDERED: IV RINGERS,LACTATED 1000ML 1,000 ML IV SCH (07:00)
--- NOTE | 2020-03-02 08:23 | PDOC ---
GI PROGRESS NOTES Date of Service: Date/Time DATE: 03/02/20 TIME: 08:19 Subjective Subjective Now COVID positive - plans for EGD and colonoscopy on hold. Hgb stable but trending slowly down and iron levels support chronic low grade GI blood loss Objective Vitals Vital Signs Date Time Temp Pulse Resp B/P (MAP) Pulse Ox O2 Delivery O2 Flow Rate FiO2 03/02/20 06:00 98.6 98.6 03/02/20 03:00 101.3 85 17 133/60 (84) 96 Nasal Cannula 2.0 101.3 03/01/20 23:00 99.8 82 16 110/54 (72) 98 Nasal Cannula 2.0 99.8 03/01/20 20:00 Nasal Cannula 2.0 03/01/20 19:00 98.6 82 17 164/71 (102) 98 Nasal Cannula 2.0 98.6 03/01/20 15:56 98.0 72 18 115/58 (77) 97 Nasal Cannula 2.0 98.0 03/01/20 11:29 97.5 67 18 129/56 (80) 98 Nasal Cannula 2.0 97.5 Labs Labs Laboratory Tests Test 03/01/20 13:10 03/02/20 04:00 SARS-CoV-2 Antigen (Rapid) Positive (NEGATIVE) White Blood Count 14.0 x10^3/uL (4.0-11.0) Red Blood Count 2.97 x10^6/uL (4.30-5.70) Hemoglobin 9.2 g/dL (13.0-17.5) Hematocrit 28.3 % (39.0-53.0) Mean Corpuscular Volume 95 fL (79-100) Mean Corpuscular Hemoglobin 31 pg (25-35) Mean Corpuscular Hemoglobin Concent 32 g/dL (31-37) Red Cell Distribution Width 15.8 % (11.5-14.5) Platelet Count 192 x10^3/uL (140-400) Sodium Level 142 mmol/L (136-145) Potassium Level 5.2 mmol/L (3.5-5.1) Chloride Level 107 mmol/L (98-107) Carbon Dioxide Level 28 mmol/L (21-32) Anion Gap 7 (6-14) Blood Urea Nitrogen 48 mg/dL (8-26) Creatinine 1.9 mg/dL (0.7-1.3) Estimated GFR (Cockcroft-Gault) 33.9 Glucose Level 276 mg/dL (70-99) Calcium Level 7.6 mg/dL (8.5-10.1) Phosphorus Level 2.4 mg/dL (2.6-4.7) Total Bilirubin 0.4 mg/dL (0.2-1.0) Direct Bilirubin 0.2 mg/dL (0.0-0.2) Aspartate Amino Transf (AST/SGOT) 53 U/L (15-37) Alanine Aminotransferase (ALT/SGPT) 54 U/L (16-63) Alkaline Phosphatase 48 U/L (46-116) Total Protein 6.1 g/dL (6.4-8.2) Albumin 2.3 g/dL (3.4-5.0) Assessment Assessment Anemia- iron def. with heme + stool and history of dark stools and some small amount of red blood in stool- planned EGD and colonoscopy but symptoms of SOA and fever with + COVID test have put those plans on hold Plan Plan Supportive care consider iron infusion at some point Justicifation of Admission Dx: Justifications for Admission: Justification of Admission Dx: Yes CLAUDY HUI MD Mar 02, 2020 08:23
[2020-03-02] MEDS: SUCRALFATE 1 GM TABLET. PO SCH ×2 (10:53→21:35)
[2020-03-02] MEDS: FERROUS SULFATE 325 MG TABLET. PO SCH ×2 (10:53→16:55)
[2020-03-02] MEDS: PANTOPRAZOLE 40 MG TABLET.DR. PO SCH (10:55)
[2020-03-02] MEDS: methylPREDNISolone SOD SUCC PF 40 MG/ML VIAL. IV SCH ×3 (10:56→21:35)
[2020-03-02 11:00] VITALS: BP 142/63
--- NOTE | 2020-03-02 11:03 | PDOC ---
PULMONARY PROGRESS NOTES DATE: 03/02/20 TIME: 11:00 Subjective Pt. still having bloody stools, Fever overnight per nursing no increased SOB, or cough Remains on N/C oxygen Vitals Vital Signs Date Time Temp Pulse Resp B/P (MAP) Pulse Ox O2 Delivery O2 Flow Rate FiO2 03/02/20 07:00 98.9 83 16 122/62 (82) 93 Nasal Cannula 2.0 98.9 Comments pt. seen during pandemic visual exam preformed RRR N/C oxygen audible wheezing SOB trace edema no rash Labs Laboratory Tests Test 02/29/20 11:20 02/29/20 13:10 02/29/20 16:45 02/29/20 19:25 O2 Saturation 98 % (92-99) Arterial Blood pH 7.37 (7.35-7.45) Arterial Blood pCO2 at Patient Temp 41 mmHg (35-46) Arterial Blood pO2 at Patient Temp 112 mmHg (65-108) Arterial Blood HCO3 23 mmol/L (21-28) Arterial Blood Base Excess -2 mmol/L (-3-3) FiO2 28 Urine Collection Type Unknown Urine Color Yellow Urine Clarity Clear Urine pH 5.0 (<5.0-8.0) Urine Specific [place] 1.015 (1.000-1.030) Urine Protein Negative mg/dL (NEG-TRACE) Urine Glucose (UA) Negative mg/dL (NEG) Urine Ketones (Stick) Negative mg/dL (NEG) Urine Blood Negative (NEG) Urine Nitrite Negative (NEG) Urine Bilirubin Negative (NEG) Urine Urobilinogen Dipstick 0.2 mg/dL (0.2 mg/dL) Urine Leukocyte Esterase Negative (NEG) Urine RBC 0 /HPF (0-2) Urine WBC 0 /HPF (0-4) Urine Squamous Epithelial Cells Few /LPF Urine Bacteria 0 /HPF (0-FEW) Urine Hyaline Casts Moderate /HPF Urine Mucus Mod /LPF Stool Occult Blood Positive (NEG) Troponin I Quantitative < 0.017 ng/mL (0.000-0.055) < 0.017 ng/mL (0.000-0.055) Test 03/01/20 05:40 03/01/20 13:10 03/02/20 04:00 White Blood Count 6.4 x10^3/uL (4.0-11.0) 14.0 x10^3/uL (4.0-11.0) Red Blood Count 3.10 x10^6/uL (4.30-5.70) 2.97 x10^6/uL (4.30-5.70) Hemoglobin 9.8 g/dL (13.0-17.5) 9.2 g/dL (13.0-17.5) Hematocrit 29.9 % (39.0-53.0) 28.3 % (39.0-53.0) Mean Corpuscular Volume 96 fL (79-100) 95 fL (79-100) Mean Corpuscular Hemoglobin 32 pg (25-35) 31 pg (25-35) Mean Corpuscular Hemoglobin Concent 33 g/dL (31-37) 32 g/dL (31-37) Red Cell Distribution Width 15.9 % (11.5-14.5) 15.8 % (11.5-14.5) Platelet Count 135 x10^3/uL (140-400) 192 x10^3/uL (140-400) Neutrophils (%) (Auto) 84 % (31-73) Lymphocytes (%) (Auto) 9 % (24-48) Monocytes (%) (Auto) 7 % (0-9) Eosinophils (%) (Auto) 0 % (0-3) Basophils (%) (Auto) 0 % (0-3) Neutrophils # (Auto) 5.4 x10^3/uL (1.8-7.7) Lymphocytes # (Auto) 0.5 x10^3/uL (1.0-4.8) Monocytes # (Auto) 0.5 x10^3/uL (0.0-1.1) Eosinophils # (Auto) 0.0 x10^3/uL (0.0-0.7) Basophils # (Auto) 0.0 x10^3/uL (0.0-0.2) Sodium Level 141 mmol/L (136-145) 142 mmol/L (136-145) Potassium Level 5.5 mmol/L (3.5-5.1) 5.2 mmol/L (3.5-5.1) Chloride Level 107 mmol/L (98-107) 107 mmol/L (98-107) Carbon Dioxide Level 24 mmol/L (21-32) 28 mmol/L (21-32) Anion Gap 10 (6-14) 7 (6-14) Blood Urea Nitrogen 49 mg/dL (8-26) 48 mg/dL (8-26) Creatinine 2.0 mg/dL (0.7-1.3) 1.9 mg/dL (0.7-1.3) Estimated GFR (Cockcroft-Gault) 32.0 33.9 BUN/Creatinine Ratio 25 (6-20) Glucose Level 293 mg/dL (70-99) 276 mg/dL (70-99) Calcium Level 8.2 mg/dL (8.5-10.1) 7.6 mg/dL (8.5-10.1) Total Bilirubin 0.3 mg/dL (0.2-1.0) 0.4 mg/dL (0.2-1.0) Aspartate Amino Transf (AST/SGOT) 82 U/L (15-37) 53 U/L (15-37) Alanine Aminotransferase (ALT/SGPT) 68 U/L (16-63) 54 U/L (16-63) Alkaline Phosphatase 44 U/L (46-116) 48 U/L (46-116) Total Protein 6.2 g/dL (6.4-8.2) 6.1 g/dL (6.4-8.2) Albumin 2.2 g/dL (3.4-5.0) 2.3 g/dL (3.4-5.0) Albumin/Globulin Ratio 0.6 (1.0-1.7) SARS-CoV-2 Antigen (Rapid) Positive (NEGATIVE) Phosphorus Level 2.4 mg/dL (2.6-4.7) Direct Bilirubin 0.2 mg/dL (0.0-0.2) Laboratory Tests Test 03/01/20 13:10 03/02/20 04:00 SARS-CoV-2 Antigen (Rapid) Positive (NEGATIVE) White Blood Count 14.0 x10^3/uL (4.0-11.0) Red Blood Count 2.97 x10^6/uL (4.30-5.70) Hemoglobin 9.2 g/dL (13.0-17.5) Hematocrit 28.3 % (39.0-53.0) Mean Corpuscular Volume 95 fL (79-100) Mean Corpuscular Hemoglobin 31 pg (25-35) Mean Corpuscular Hemoglobin Concent 32 g/dL (31-37) Red Cell Distribution Width 15.8 % (11.5-14.5) Platelet Count 192 x10^3/uL (140-400) Sodium Level 142 mmol/L (136-145) Potassium Level 5.2 mmol/L (3.5-5.1) Chloride Level 107 mmol/L (98-107) Carbon Dioxide Level 28 mmol/L (21-32) Anion Gap 7 (6-14) Blood Urea Nitrogen 48 mg/dL (8-26) Creatinine 1.9 mg/dL (0.7-1.3) Estimated GFR (Cockcroft-Gault) 33.9 Glucose Level 276 mg/dL (70-99) Calcium Level 7.6 mg/dL (8.5-10.1) Phosphorus Level 2.4 mg/dL (2.6-4.7) Total Bilirubin 0.4 mg/dL (0.2-1.0) Direct Bilirubin 0.2 mg/dL (0.0-0.2) Aspartate Amino Transf (AST/SGOT) 53 U/L (15-37) Alanine Aminotransferase (ALT/SGPT) 54 U/L (16-63) Alkaline Phosphatase 48 U/L (46-116) Total Protein 6.1 g/dL (6.4-8.2) Albumin 2.3 g/dL (3.4-5.0) Medications Active Scripts Medications Dose Route/Sig Max Daily Dose Days Date Category Phospha 250 Neutral Tablet (Phosphorus #1) 250 Mg Tablet 1 Tab PO DAILY 30 02/29/20 Reported Atorvastatin Calcium 20 Mg Tablet 1 Tab PO DAILYWSUP 02/29/20 Reported Levothyroxine Sodium 25 Mcg Tablet 1 Tab PO DAILY 02/29/20 Reported Iron (Ferrous Sulfate) 325 Mg Tablet 1 Tab PO BID 30 02/29/20 Reported Flomax (Tamsulosin Hcl) 0.4 Mg Cap.er.24h 0.4 Mg PO DAILY 02/29/20 Reported Benicar (Olmesartan Medoxomil) 20 Mg Tablet 1 Tab PO DAILY 30 02/29/20 Reported Cyclobenzaprine Hcl 10 Mg Tablet 1 Tab PO BID PRN 10/08/14 Reported Torsemide 20 Mg Tablet 4 Tab PO DAILY 10/08/14 Reported Benadryl (Diphenhydramine Hcl) 25 Mg Capsule 1 Cap PO QHS 10/08/14 Reported Quinapril Hcl 40 Mg Tablet 1 Tab PO DAILY 10/08/14 Reported Metformin Hcl 500 Mg Tablet 1 Tab PO DAILYBFRSUP 10/08/14 Reported Trazodone Hcl 50 Mg Tablet 50 Mg PO HS 10/08/14 Reported [place] 5-325 Tablet (Acetaminophen/Hydrocodone Bitart) 1 Each Tablet 1 Tab PO Q8HRS PRN 10/08/14 Reported Percocet 5-325 Mg Tablet (Oxycodone/Acetaminophen) 1 Each Tablet 1-2 Tab PO Q6HRS PRN 10/08/14 Reported Potassium Chloride 20 Meq Tab.er.prt 20 Meq PO BID 10/08/14 Reported Combivent Respimat Inhal (Ipratropium/Albuterol Sulfate) 4 Gm Aer.w.adap 2 Inh IH QID PRN 10/08/14 Reported Metformin Hcl 1,000 Mg Tablet 1 Tab PO DAILY08 10/07/14 Reported Comments Impression: low probability for pulmonary embolism. Impression . IMPRESSION: 1. Dyspnea with no significant hypoxia based on the ABG, likely related to mild congestive heart failure. However, cannot exclude the possibility of COVID pneumonia.---improving 2. Abnormal chest x-ray with faint interstitial infiltrates, could be related to congestive heart failure versus COVID pneumonia. Although suspicion is less as he has been afebrile. 3. Suspected severe chronic obstructive pulmonary disease, 60 years of tobacco use, quit 3 years ago. 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 5. Acute kidney injury--improving Plan . RECOMMENDATIONS: Continue present oxygen and keep saturations 92 and above continue steroids will increase dose bronchodilators Follow renal function Follow GI recs and monitor HGB COVID-19 positive will start antibiotics today D/W JIM RODNEY MD Mar 02, 2020 11:03
[2020-03-02] MEDS ORDERED: PIP/TAZO PER PHARMACY MC PRN (11:15)
[2020-03-02] MEDS ORDERED: methylPREDNISolone SOD SUCC PF 40 MG/ML VIAL. IV ONE (11:15)
--- NOTE | 2020-03-02 11:29 | PDOC ---
DATE OF SERVICE DATE: 03/02/20 TIME: 11:29 SUBJECTIVE ROS CoVid positive Still having blood in stools OBJECTIVE Vital Signs Vital Signs Date Time Temp Pulse Resp B/P (MAP) Pulse Ox O2 Delivery O2 Flow Rate FiO2 03/02/20 07:00 98.9 83 16 122/62 (82) 93 Nasal Cannula 2.0 98.9 I & 0 Intake and Output 03/02/20 07:00 Intake Total 1105 ml Output Total 800 ml Balance 305 ml Intake Oral 1105 ml Output Urine Total 800 ml # Voids 4 # Bowel Movements 6 PHYSICAL EXAM Physical Exam GEN: NAD HEENT: OM mildly dry , O2 by NC Neck Supple LUNGS: wheezing, Non labored HEART: RRR ABD: Soft EXTREMITY: No edema SKIN: No rash NEURO: grossly normal No acevedo, NO CVA or SP tenderness DIAGNOSIS/ASSESSMENT Assessment & Plan DANIELA - Suspect vasomotor , improving Per Home medlist on ?DANTE and ARB both and Loop Diuretic US 11/2019- right kidney 9.9 x 4.6 x 5.1 cm, Lt kidney measures 9.4 x 4.2 x 4.2 cm. UA unremarkable, Uop not accurate Strict I/O , avoid Nephrotoxins, HyperKalemia- mild, Monitor CKD stage 3 - Baseline Cr 1.6- in 2014 and 2018 , No other records available Renal US in november - The bilateral kidneys appear somewhat echogenic. Urinary bladder is mildly distended. No evidence of hydronephrosis. Renal cyst- left kidney in the inferior pole measuring 7.3 cm likely a cyst. Ct in 2019 -Bilateral renal cysts, the largest of which lies on the left and measures 7.5 cm Dyspnea -Abnormal chest x-ray with faint interstitial infiltrates - CoVid positive , On steroids, Pulm managing COPD - 60 years of tobacco use, quit 3 years ago. 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 pylori- EGD in the past Diverticulosis- Ct in 09/2018- Extensive sigmoid diverticulosis. . Transaminitis- Hepatic steatosis/ Probable small hepatic cysts on CT COMMENT/RELEVANT DATA Meds Current Medications Medications (Trade) Dose Ordered Sig/Ya Start Time Stop Time Status Last Admin Dose Admin Acetaminophen (Tylenol) 650 mg PRN Q6HRS PRN 03/02/20 03:30 03/02/20 03:42 650 MG Albuterol Sulfate (Ventolin Hfa) 1 puff PRN QID PRN 03/02/20 01:00 03/02/20 03:43 1 PUFF Albuterol/ Ipratropium (Duoneb) 3 ml PRN QID PRN 02/29/20 14:00 03/01/20 13:59 DC Diphenhydramine HCl (Benadryl) 25 mg PRN QHS PRN 03/01/20 22:15 03/01/20 22:31 25 MG Ferrous Sulfate (Feosol) 325 mg BIDWMEALS 03/01/20 17:00 03/02/20 10:53 325 MG Methylprednisolone Sodium Succinate (SOLU-Medrol 40MG VIAL) 60 mg Q8HRS 03/02/20 14:00 Methylprednisolone Sodium Succinate (SOLU-Medrol 125MG VIAL) 125 mg 1X ONCE 02/29/20 10:30 02/29/20 10:31 DC 02/29/20 10:23 125 MG Olanzapine (ZyPREXA ZYDIS) 5 mg PRN BID PRN 03/01/20 11:15 Ondansetron HCl (Zofran) 4 mg PRN Q8HRS PRN 02/29/20 13:30 03/01/20 13:29 DC Pantoprazole Sodium (Protonix) 40 mg DAILYAC 03/01/20 07:30 03/02/20 10:55 40 MG Piperacillin Sod/ Tazobactam Sod (Zosyn Per Pharmacy) 1 each PRN DAILY PRN 03/02/20 11:15 Piperacillin Sod/ Tazobactam Sod 2.25 gm/Sodium Chloride 50 ml @ 100 mls/hr Q6HRS 03/02/20 12:00 Polyethylene Glycol (miraLAX PACKET) 17 gm PRN DAILY PRN 03/01/20 10:15 03/01/20 10:12 DC Ringer's Solution 1,000 ml @ 50 mls/hr Q20H 03/02/20 07:00 03/02/20 18:59 Sodium Chloride 1,000 ml @ 1,000 mls/hr 1X ONCE 02/29/20 13:15 02/29/20 14:14 DC 02/29/20 17:42 1,000 MLS/HR Sodium Cl/Sod Bicarb/Potass Cl/ PEG (Golytely) 4,000 ml 1X ONCE 03/01/20 14:00 03/01/20 14:01 DC 03/01/20 14:47 4,000 ML Sucralfate (Carafate) 1 gm BID 02/29/20 21:00 03/02/20 10:53 1 GM Lab Laboratory Tests Test 03/01/20 13:10 03/02/20 04:00 SARS-CoV-2 Antigen (Rapid) Positive (NEGATIVE) White Blood Count 14.0 x10^3/uL (4.0-11.0) Red Blood Count 2.97 x10^6/uL (4.30-5.70) Hemoglobin 9.2 g/dL (13.0-17.5) Hematocrit 28.3 % (39.0-53.0) Mean Corpuscular Volume 95 fL (79-100) Mean Corpuscular Hemoglobin 31 pg (25-35) Mean Corpuscular Hemoglobin Concent 32 g/dL (31-37) Red Cell Distribution Width 15.8 % (11.5-14.5) Platelet Count 192 x10^3/uL (140-400) Sodium Level 142 mmol/L (136-145) Potassium Level 5.2 mmol/L (3.5-5.1) Chloride Level 107 mmol/L (98-107) Carbon Dioxide Level 28 mmol/L (21-32) Anion Gap 7 (6-14) Blood Urea Nitrogen 48 mg/dL (8-26) Creatinine 1.9 mg/dL (0.7-1.3) Estimated GFR (Cockcroft-Gault) 33.9 Glucose Level 276 mg/dL (70-99) Calcium Level 7.6 mg/dL (8.5-10.1) Phosphorus Level 2.4 mg/dL (2.6-4.7) Total Bilirubin 0.4 mg/dL (0.2-1.0) Direct Bilirubin 0.2 mg/dL (0.0-0.2) Aspartate Amino Transf (AST/SGOT) 53 U/L (15-37) Alanine Aminotransferase (ALT/SGPT) 54 U/L (16-63) Alkaline Phosphatase 48 U/L (46-116) Total Protein 6.1 g/dL (6.4-8.2) Albumin 2.3 g/dL (3.4-5.0) Results All relevant outside records, renal labs, imaging studies, telemetry/EKG's were reviewed. Justicifation of Admission Dx: Justifications for Admission: Justification of Admission Dx: Yes WILNER DAVIS MD Mar 02, 2020 11:29
[2020-03-02] MEDS: PIPERACILLIN/TAZOBACTAM 2.25 GM in IV NORMAL SALINE 50ML 50 ML IV SCH ×3 (12:00→23:57)
--- NOTE | 2020-03-02 12:10 | PDOC ---
[facility] PROGRESS NOTE Date of Service DOS: DATE: 03/02/20 TIME: 12:10 Chief Complaint Chief Complaint A/P: Dyspnea with no significant hypoxia based on the ABG, likely related to mild congestive heart failure. However, cannot exclude the possibility of COVID pneumonia. Abnormal chest x-ray with faint interstitial infiltrates - likely CHF and COVID 19 POSTIVE Severe chronic obstructive pulmonary disease, 60 years of tobacco use, quit 3 years ago. 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 His BUN and creatinine was high as well as LFTs. He required 2 liters of oxygen. LFTs also elevated. 03/01: Still requiring O2. Significant wheezes and prolonged expiratory phase. He says he just wants to sleep. He says "Im 84 I have nothing to live for about my cats." COVID-19 positive. He is having some back pain today. Still little hypoxic. EGD and colonoscopy on hold due to his COVID-19 positive status Plan: Cont steroids Add zyprexa, consult psych Lidoderm patch on back Vitals/I&O Vitals/I&O: Vital Signs Date Time Temp Pulse Resp B/P (MAP) Pulse Ox O2 Delivery O2 Flow Rate FiO2 03/02/20 11:00 98.7 92 18 142/63 (89) 95 Nasal Cannula 98.7 03/02/20 07:00 2.0 I & O 03/01/20 03/01/20 03/02/20 15:00 23:00 07:00 Intake Total 550 ml 555 ml Output Total 600 ml 200 ml Balance 550 ml -45 ml -200 ml Physical Exam General: Alert, Cooperative Labs Labs: Laboratory Tests Test 03/01/20 13:10 03/02/20 04:00 SARS-CoV-2 Antigen (Rapid) Positive (NEGATIVE) White Blood Count 14.0 x10^3/uL (4.0-11.0) Red Blood Count 2.97 x10^6/uL (4.30-5.70) Hemoglobin 9.2 g/dL (13.0-17.5) Hematocrit 28.3 % (39.0-53.0) Mean Corpuscular Volume 95 fL (79-100) Mean Corpuscular Hemoglobin 31 pg (25-35) Mean Corpuscular Hemoglobin Concent 32 g/dL (31-37) Red Cell Distribution Width 15.8 % (11.5-14.5) Platelet Count 192 x10^3/uL (140-400) Sodium Level 142 mmol/L (136-145) Potassium Level 5.2 mmol/L (3.5-5.1) Chloride Level 107 mmol/L (98-107) Carbon Dioxide Level 28 mmol/L (21-32) Anion Gap 7 (6-14) Blood Urea Nitrogen 48 mg/dL (8-26) Creatinine 1.9 mg/dL (0.7-1.3) Estimated GFR (Cockcroft-Gault) 33.9 Glucose Level 276 mg/dL (70-99) Calcium Level 7.6 mg/dL (8.5-10.1) Phosphorus Level 2.4 mg/dL (2.6-4.7) Total Bilirubin 0.4 mg/dL (0.2-1.0) Direct Bilirubin 0.2 mg/dL (0.0-0.2) Aspartate Amino Transf (AST/SGOT) 53 U/L (15-37) Alanine Aminotransferase (ALT/SGPT) 54 U/L (16-63) Alkaline Phosphatase 48 U/L (46-116) Total Protein 6.1 g/dL (6.4-8.2) Albumin 2.3 g/dL (3.4-5.0) Assessment and Plan Assessmemt and Plan Problems Medical Problems: (1) Acute renal failure Status: Acute (2) COPD exacerbation Status: Acute (3) GI bleeding Status: Acute Comment Review of Relevant I have reviewed the following items kamini (where applicable) has been applied. Medications: Current Medications Medications (Trade) Dose Ordered Sig/Ya Route PRN Reason Start Time Stop Time Status Last Admin Dose Admin Ferrous Sulfate (Feosol) 325 mg BIDWMEALS PO 03/01/20 17:00 03/02/20 10:53 Sodium Cl/Sod Bicarb/Potass Cl/ PEG (Golytely) 4,000 ml 1X ONCE PO 03/01/20 14:00 03/01/20 14:01 DC 03/01/20 14:47 Diphenhydramine HCl (Benadryl) 25 mg PRN QHS PRN PO INSOMNIA 03/01/20 22:15 03/01/20 22:31 Albuterol Sulfate (Ventolin Hfa) 1 puff PRN QID PRN INH SHORTNESS OF BREATH 03/02/20 01:00 03/02/20 03:43 Acetaminophen (Tylenol) 650 mg PRN Q6HRS PRN PO temperature 03/02/20 03:30 03/02/20 03:42 Methylprednisolone Sodium Succinate (SOLU-Medrol 40MG VIAL) 20 mg 1X ONCE IV 03/02/20 11:15 03/02/20 11:16 DC 03/02/20 11:15 Justicifation of Admission Dx: Justifications for Admission: Justification of Admission Dx: Yes SAI SAN MD Mar 02, 2020 12:10
--- NOTE | 2020-03-02 12:58 | NUR ---
SW following. Reviewed chart and discussed with RN. Pt from home alone. Pt on 2l 02 and has home 02. Pt NPO. Pt COVID positive. Pt remains on IV abx. Spoke with dtr Colleen ([phone]) who stated she has been trying to get pt to move in with her for the last several years. Pt's dtr stated pt went to [facility] 4 years ago and is agreeable to SNU referral on this admission. [facility] is taking COVID positive patients. JAVIER phoned and faxed a referral to [facility], , (fax). Patient Choice of Vendor form completed. SW to follow.
[2020-03-02] MEDS: LIDOCAINE (700MG/PATCH) PATCH. TD SCH (14:30)
[2020-03-02 15:00] VITALS: BP 142/68
[2020-03-02 19:00] VITALS: BP 136/75
--- NOTE | 2020-03-02 19:10 | NUR ---
PTS DAUGHTER NIK CALLED AD SPOKE WITH STAFF. PER PT DAUGHTER TO TAKE HOME PTS CLOTHES, [employer]. PTS DAUGHTER NIK
--- NOTE | 2020-03-02 19:13 | NUR ---
PTS DAUGHTER NIK PICKED UP BELONGINGS.
[2020-03-02] MEDS: PATCH REMOVAL. MC SCH (21:00)
[2020-03-02] MEDS: diphenhydrAMINE HCL 25 MG CAPSULE PO PRN (21:35)
--- NOTE | 2020-03-02 21:47 | PDOC1 ---
History & Psych Evaluation Date of Service: DOS: DATE: 03/02/20 TIME: 21:36 Source: Source: Caregiver, Chart review, Patient Identification: Identification 84-year-old gentleman with no prior psychiatric history appears to be struggling with depression Chief Complaint: Chief Complaint Depression, passive thoughts of not wanting to live History of Present Illness: HPI: Gentleman with multiple comorbidities seen for initial psychiatric assessment. Reportedly, he endorsed depression and said that he did not want to live. Upon interview he has severe hard of hearing at times very difficult to make him understand. Questions were asked in very short sentences. Endorsing depression and anxiety. Depression is rated as little bit. Mood is down and anxious. Regarding anxiety he could not rated " I do not know". Reporting insomnia which is far more troublesome for him. Last night he used Benadryl but did not get good sleep. Recommending to give trazodone for sleep. Denies suicidal or homicidal thoughts. Denies auditory or visual hallucinations. No evidence of cora or hypomania. Ruminating " I need a sleeping pill". Past Psychiatric History: No prior psych history Past Medical History: See medical chart for details. Family History: Denies family history of psychiatric illness or suicidality. Current Medications: Current Medications Current Medications Medications (Trade) Dose Ordered Sig/Ya Start Time Stop Time Status Last Admin Dose Admin Acetaminophen (Tylenol) 650 mg PRN Q6HRS PRN 03/02/20 03:30 03/02/20 03:42 650 MG Albuterol Sulfate (Ventolin Hfa) 1 puff PRN QID PRN 03/02/20 01:00 03/02/20 03:43 1 PUFF Albuterol/ Ipratropium (Duoneb) 3 ml PRN QID PRN 02/29/20 14:00 03/01/20 13:59 DC Diphenhydramine HCl (Benadryl) 25 mg PRN QHS PRN 03/01/20 22:15 03/01/20 22:31 25 MG Ferrous Sulfate (Feosol) 325 mg BIDWMEALS 03/01/20 17:00 03/02/20 16:55 325 MG Lidocaine (Lidoderm) 1 patch DAILY 03/02/20 14:30 03/02/20 14:30 1 PATCH Methylprednisolone Sodium Succinate (SOLU-Medrol 40MG VIAL) 60 mg Q8HRS 03/02/20 14:00 03/02/20 13:22 60 MG Methylprednisolone Sodium Succinate (SOLU-Medrol 125MG VIAL) 125 mg 1X ONCE 02/29/20 10:30 02/29/20 10:31 DC 02/29/20 10:23 125 MG Miscellaneous (Lidoderm Patch Removal) 1 ea QHS 03/02/20 21:00 Olanzapine (ZyPREXA ZYDIS) 5 mg PRN BID PRN 03/01/20 11:15 Ondansetron HCl (Zofran) 4 mg PRN Q8HRS PRN 02/29/20 13:30 03/01/20 13:29 DC Pantoprazole Sodium (Protonix) 40 mg DAILYAC 03/01/20 07:30 03/02/20 10:55 40 MG Piperacillin Sod/ Tazobactam Sod (Zosyn Per Pharmacy) 1 each PRN DAILY PRN 03/02/20 11:15 Piperacillin Sod/ Tazobactam Sod 2.25 gm/Sodium Chloride 50 ml @ 100 mls/hr Q6HRS 03/02/20 12:00 03/02/20 16:55 100 MLS/HR Polyethylene Glycol (miraLAX PACKET) 17 gm PRN DAILY PRN 03/01/20 10:15 03/01/20 10:12 DC Ringer's Solution 1,000 ml @ 50 mls/hr Q20H 03/02/20 07:00 03/02/20 18:59 DC Sodium Chloride 1,000 ml @ 1,000 mls/hr 1X ONCE 02/29/20 13:15 02/29/20 14:14 DC 02/29/20 17:42 1,000 MLS/HR Sodium Cl/Sod Bicarb/Potass Cl/ PEG (Golytely) 4,000 ml 1X ONCE 03/01/20 14:00 03/01/20 14:01 DC 03/01/20 14:47 4,000 ML Sucralfate (Carafate) 1 gm BID 02/29/20 21:00 03/02/20 10:53 1 GM Allergies: Allergies: Coded Allergies: No Known Drug Allergies (Unverified , 10/07/14) Mental Status Examination: Mental Status Examination gentleman with severe hard of hearing Cooperative Disoriented Thought process goal-directed Denies auditory or visual hallucinations Denies suicidal or homicidal thoughts Mood is depressed and anxious Affect is dysthymic Insight is fair Judgment is fair Impulse control is fair attention span and concentration fair Recent memory impaired Remote memory intact ROS: 14 point review of system is essentially negative except for stated above. Physical Exam: Refer to Physician's note. 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 MSK: No EPS, TDK, or abnormal involuntary movements Vitals: Vitals Vital Signs Date Time Temp Pulse Resp B/P (MAP) Pulse Ox O2 Delivery O2 Flow Rate FiO2 03/02/20 19:00 98.2 78 20 136/75 (95) 93 Nasal Cannula 3.0 98.2 Labs: Labs Laboratory Tests Test 03/01/20 05:40 03/01/20 13:10 03/02/20 04:00 White Blood Count 6.4 x10^3/uL (4.0-11.0) 14.0 x10^3/uL (4.0-11.0) Red Blood Count 3.10 x10^6/uL (4.30-5.70) 2.97 x10^6/uL (4.30-5.70) Hemoglobin 9.8 g/dL (13.0-17.5) 9.2 g/dL (13.0-17.5) Hematocrit 29.9 % (39.0-53.0) 28.3 % (39.0-53.0) Mean Corpuscular Volume 96 fL (79-100) 95 fL (79-100) Mean Corpuscular Hemoglobin 32 pg (25-35) 31 pg (25-35) Mean Corpuscular Hemoglobin Concent 33 g/dL (31-37) 32 g/dL (31-37) Red Cell Distribution Width 15.9 % (11.5-14.5) 15.8 % (11.5-14.5) Platelet Count 135 x10^3/uL (140-400) 192 x10^3/uL (140-400) Neutrophils (%) (Auto) 84 % (31-73) Lymphocytes (%) (Auto) 9 % (24-48) Monocytes (%) (Auto) 7 % (0-9) Eosinophils (%) (Auto) 0 % (0-3) Basophils (%) (Auto) 0 % (0-3) Neutrophils # (Auto) 5.4 x10^3/uL (1.8-7.7) Lymphocytes # (Auto) 0.5 x10^3/uL (1.0-4.8) Monocytes # (Auto) 0.5 x10^3/uL (0.0-1.1) Eosinophils # (Auto) 0.0 x10^3/uL (0.0-0.7) Basophils # (Auto) 0.0 x10^3/uL (0.0-0.2) Sodium Level 141 mmol/L (136-145) 142 mmol/L (136-145) Potassium Level 5.5 mmol/L (3.5-5.1) 5.2 mmol/L (3.5-5.1) Chloride Level 107 mmol/L (98-107) 107 mmol/L (98-107) Carbon Dioxide Level 24 mmol/L (21-32) 28 mmol/L (21-32) Anion Gap 10 (6-14) 7 (6-14) Blood Urea Nitrogen 49 mg/dL (8-26) 48 mg/dL (8-26) Creatinine 2.0 mg/dL (0.7-1.3) 1.9 mg/dL (0.7-1.3) Estimated GFR (Cockcroft-Gault) 32.0 33.9 BUN/Creatinine Ratio 25 (6-20) Glucose Level 293 mg/dL (70-99) 276 mg/dL (70-99) Calcium Level 8.2 mg/dL (8.5-10.1) 7.6 mg/dL (8.5-10.1) Total Bilirubin 0.3 mg/dL (0.2-1.0) 0.4 mg/dL (0.2-1.0) Aspartate Amino Transf (AST/SGOT) 82 U/L (15-37) 53 U/L (15-37) Alanine Aminotransferase (ALT/SGPT) 68 U/L (16-63) 54 U/L (16-63) Alkaline Phosphatase 44 U/L (46-116) 48 U/L (46-116) Total Protein 6.2 g/dL (6.4-8.2) 6.1 g/dL (6.4-8.2) Albumin 2.2 g/dL (3.4-5.0) 2.3 g/dL (3.4-5.0) Albumin/Globulin Ratio 0.6 (1.0-1.7) SARS-CoV-2 Antigen (Rapid) Positive (NEGATIVE) Phosphorus Level 2.4 mg/dL (2.6-4.7) Direct Bilirubin 0.2 mg/dL (0.0-0.2) Laboratory Tests Test 03/02/20 04:00 White Blood Count 14.0 x10^3/uL (4.0-11.0) Red Blood Count 2.97 x10^6/uL (4.30-5.70) Hemoglobin 9.2 g/dL (13.0-17.5) Hematocrit 28.3 % (39.0-53.0) Mean Corpuscular Volume 95 fL (79-100) Mean Corpuscular Hemoglobin 31 pg (25-35) Mean Corpuscular Hemoglobin Concent 32 g/dL (31-37) Red Cell Distribution Width 15.8 % (11.5-14.5) Platelet Count 192 x10^3/uL (140-400) Sodium Level 142 mmol/L (136-145) Potassium Level 5.2 mmol/L (3.5-5.1) Chloride Level 107 mmol/L (98-107) Carbon Dioxide Level 28 mmol/L (21-32) Anion Gap 7 (6-14) Blood Urea Nitrogen 48 mg/dL (8-26) Creatinine 1.9 mg/dL (0.7-1.3) Estimated GFR (Cockcroft-Gault) 33.9 Glucose Level 276 mg/dL (70-99) Calcium Level 7.6 mg/dL (8.5-10.1) Phosphorus Level 2.4 mg/dL (2.6-4.7) Total Bilirubin 0.4 mg/dL (0.2-1.0) Direct Bilirubin 0.2 mg/dL (0.0-0.2) Aspartate Amino Transf (AST/SGOT) 53 U/L (15-37) Alanine Aminotransferase (ALT/SGPT) 54 U/L (16-63) Alkaline Phosphatase 48 U/L (46-116) Total Protein 6.1 g/dL (6.4-8.2) Albumin 2.3 g/dL (3.4-5.0) Diagnosis: Diagnosis: Unspecified depression, rule out major depressive disorder Unspecified anxiety, rule out major depression anxiety disorder Assessment: Gentleman is a struggling with depression likely to his psychosocial circumstances. Additionally, he has multiple medical comorbidities which are perpetuating his depression. He is in agreement to start Zoloft 25 mg and trazodone for sleep. Plan: Zoloft 25 mg daily for depression and anxiety Trazodone 50 mg nightly for insomnia. Risks, benefits, alternatives of the treatment are discussed. Adverse drug reaction of the medications are also discussed Psychoeducation provided Supportive psychotherapy provided. VERONICA JACKSON MD Mar 02, 2020 21:47
[2020-03-02 23:00] VITALS: BP 146/78
[2020-03-03 03:00] VITALS: BP 130/60
[2020-03-03] MEDS: methylPREDNISolone SOD SUCC PF 40 MG/ML VIAL. IV SCH ×3 (06:03→21:52)
[2020-03-03] MEDS: PIPERACILLIN/TAZOBACTAM 2.25 GM in IV NORMAL SALINE 50ML 50 ML IV SCH ×4 (06:04→21:52)
[2020-03-03 07:00] VITALS: BP 148/69
--- NOTE | 2020-03-03 07:01 | PDOC ---
[employer] PROGRESS NOTE Date of Service DOS: DATE: 03/03/20 TIME: 07:01 Chief Complaint Chief Complaint A/P: Dyspnea with no significant hypoxia based on the ABG, likely related to mild congestive heart failure. also with COVID pneumonia. SARS-CoV-2 - with pneumonia. On steroids, Lovenox. Pulm consulted Abnormal chest x-ray with faint interstitial infiltrates - likely CHF and COVID 19 POSTIVE Severe chronic obstructive pulmonary disease, 60 years of tobacco use, quit 3 years ago. 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 His BUN and creatinine was high as well as LFTs. He required 2 liters of oxygen. LFTs also elevated. 03/01: Still requiring O2. Significant wheezes and prolonged expiratory phase. He says he just wants to sleep. He says "Im 84 I have nothing to live for about my cats." 03/02: COVID-19 positive. He is having some back pain today. Still little hypoxic. EGD and colonoscopy on hold due to his COVID-19 positive status Afebrile. Seen on 4 L nasal cannula, he is having a bowel movement, notes that he is having he is eating but is having loose bowels currently they are a little dark. No significant pain. His shortness of breath is stable. Slight cough. Back pain improved with Lidoderm patch. Plan: Cont steroids Lidoderm patch on back Wean O2 as tolerated Vitals/I&O Vitals/I&O: Vital Signs Date Time Temp Pulse Resp B/P (MAP) Pulse Ox O2 Delivery O2 Flow Rate FiO2 03/03/20 03:00 97.4 74 23 130/60 (83) 93 Nasal Cannula 3.0 97.4 I & O 03/02/20 03/02/20 03/03/20 15:00 23:00 07:00 Intake Total 100 ml Output Total 300 ml 450 ml Balance 100 ml -300 ml -450 ml Physical Exam General: Alert, Cooperative Assessment and Plan Assessmemt and Plan Problems Medical Problems: (1) Acute renal failure Status: Acute (2) COPD exacerbation Status: Acute (3) GI bleeding Status: Acute Comment Review of Relevant I have reviewed the following items kamini (where applicable) has been applied. Medications: Current Medications Medications (Trade) Dose Ordered Sig/Ya Route PRN Reason Start Time Stop Time Status Last Admin Dose Admin Methylprednisolone Sodium Succinate (SOLU-Medrol 40MG VIAL) 20 mg 1X ONCE IV 03/02/20 11:15 03/02/20 11:16 DC 03/02/20 11:15 Piperacillin Sod/ Tazobactam Sod 2.25 gm/Sodium Chloride 50 ml @ 100 mls/hr Q6HRS IV 03/02/20 12:00 03/03/20 06:04 Methylprednisolone Sodium Succinate (SOLU-Medrol 40MG VIAL) 60 mg Q8HRS IV 03/02/20 14:00 03/03/20 06:03 Lidocaine (Lidoderm) 1 patch DAILY TD 03/02/20 14:30 03/02/20 14:30 Miscellaneous (Lidoderm Patch Removal) 1 ea QHS MC 03/02/20 21:00 03/02/20 21:00 Justicifation of Admission Dx: Justifications for Admission: Justification of Admission Dx: Yes SAI SAN MD Mar 03, 2020 07:01
--- NOTE | 2020-03-03 09:31 | PDOC ---
DATE OF SERVICE DATE: 03/03/20 TIME: 09:31 SUBJECTIVE ROS Stable O2 4-5 lts OBJECTIVE Vital Signs Vital Signs Date Time Temp Pulse Resp B/P (MAP) Pulse Ox O2 Delivery O2 Flow Rate FiO2 03/03/20 07:00 96.9 83 18 148/69 (95) 92 Room Air 96.9 03/03/20 03:00 3.0 I & 0 Intake and Output 03/03/20 07:00 Intake Total 100 ml Output Total 750 ml Balance -650 ml Intake Oral 100 ml Output Urine Total 300 ml Stool Total 450 ml # Bowel Movements 3 PHYSICAL EXAM Physical Exam GEN: NAD HEENT: OM mildly dry , O2 by NC Neck Supple LUNGS: wheezing, Non labored HEART: RRR ABD: Soft EXTREMITY: No edema SKIN: No rash NEURO: grossly normal No acevedo, NO CVA or SP tenderness DIAGNOSIS/ASSESSMENT Assessment & Plan DANIELA - Suspect vasomotor , improving , No labs this am US 11/2019- right kidney 9.9 x 4.6 x 5.1 cm, Lt kidney measures 9.4 x 4.2 x 4.2 cm. UA unremarkable, Uop not accurate Strict I/O , avoid Nephrotoxins, daily BMP HyperKalemia- mild, Monitor CKD stage 3 - Baseline Cr 1.6- in 2014 and 2018 , No other records available Renal US in november - The bilateral kidneys appear somewhat echogenic. Urinary blanca dder is mildly distended. No evidence of hydronephrosis. Renal cyst- left kidney in the inferior pole measuring 7.3 cm likely a cyst. Ct in 2019 -Bilateral renal cysts, the largest of which lies on the left and measures 7.5 cm Dyspnea -Abnormal chest x-ray with faint interstitial infiltrates - CoVid positive , On steroids and Abx per Pulm COPD - 60 years of tobacco use, quit 3 years ago. 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 pylori- EGD in the past Diverticulosis- Ct in 09/2018- Extensive sigmoid diverticulosis. . Transaminitis- Hepatic steatosis/ Probable small hepatic cysts on CT HTN - Home meds listed in his chart- both ?DANTE and ARB both and Loop Diuretic COMMENT/RELEVANT DATA Meds Current Medications Medications (Trade) Dose Ordered Sig/Ya Start Time Stop Time Status Last Admin Dose Admin Acetaminophen (Tylenol) 650 mg PRN Q6HRS PRN 03/02/20 03:30 03/02/20 03:42 650 MG Albuterol Sulfate (Ventolin Hfa) 1 puff PRN QID PRN 03/02/20 01:00 03/02/20 03:43 1 PUFF Albuterol/ Ipratropium (Duoneb) 3 ml PRN QID PRN 02/29/20 14:00 03/01/20 13:59 DC Diphenhydramine HCl (Benadryl) 25 mg PRN QHS PRN 03/01/20 22:15 03/02/20 21:35 25 MG Ferrous Sulfate (Feosol) 325 mg BIDWMEALS 03/01/20 17:00 03/02/20 16:55 325 MG Lidocaine (Lidoderm) 1 patch DAILY 03/02/20 14:30 03/02/20 14:30 1 PATCH Methylprednisolone Sodium Succinate (SOLU-Medrol 40MG VIAL) 60 mg Q8HRS 03/02/20 14:00 03/03/20 06:03 60 MG Methylprednisolone Sodium Succinate (SOLU-Medrol 125MG VIAL) 125 mg 1X ONCE 02/29/20 10:30 02/29/20 10:31 DC 02/29/20 10:23 125 MG Miscellaneous (Lidoderm Patch Removal) 1 ea QHS 03/02/20 21:00 03/02/20 21:00 1 EA Olanzapine (ZyPREXA ZYDIS) 5 mg PRN BID PRN 03/01/20 11:15 Ondansetron HCl (Zofran) 4 mg PRN Q8HRS PRN 02/29/20 13:30 03/01/20 13:29 DC Pantoprazole Sodium (Protonix) 40 mg DAILYAC 03/01/20 07:30 03/02/20 10:55 40 MG Piperacillin Sod/ Tazobactam Sod (Zosyn Per Pharmacy) 1 each PRN DAILY PRN 03/02/20 11:15 Piperacillin Sod/ Tazobactam Sod 2.25 gm/Sodium Chloride 50 ml @ 100 mls/hr Q6HRS 03/02/20 12:00 03/03/20 06:04 100 MLS/HR Polyethylene Glycol (miraLAX PACKET) 17 gm PRN DAILY PRN 03/01/20 10:15 03/01/20 10:12 DC Ringer's Solution 1,000 ml @ 50 mls/hr Q20H 03/02/20 07:00 03/02/20 18:59 DC Sertraline HCl (Zoloft) 25 mg DAILY 03/03/20 09:00 Sodium Chloride 1,000 ml @ 1,000 mls/hr 1X ONCE 02/29/20 13:15 02/29/20 14:14 DC 02/29/20 17:42 1,000 MLS/HR Sodium Cl/Sod Bicarb/Potass Cl/ PEG (Golytely) 4,000 ml 1X ONCE 03/01/20 14:00 03/01/20 14:01 DC 03/01/20 14:47 4,000 ML Sucralfate (Carafate) 1 gm BID 02/29/20 21:00 03/02/20 21:35 1 GM Results All relevant outside records, renal labs, imaging studies, telemetry/EKG's were reviewed. Justicifation of Admission Dx: Justifications for Admission: Justification of Admission Dx: Yes WILNER DAVIS MD Mar 03, 2020 09:31
[2020-03-03] MEDS: FERROUS SULFATE 325 MG TABLET. PO SCH ×2 (09:39→17:26)
[2020-03-03] MEDS: SUCRALFATE 1 GM TABLET. PO SCH ×2 (09:39→21:52)
[2020-03-03] MEDS: PANTOPRAZOLE 40 MG TABLET.DR. PO SCH (09:39)
[2020-03-03] MEDS: SERTRALINE 25 MG TABLET. PO SCH (09:39)
[2020-03-03] MEDS: LIDOCAINE (700MG/PATCH) PATCH. TD SCH (09:44)
--- NOTE | 2020-03-03 10:28 | PDOC ---
Date of Service: DATE: 03/03/20 TIME: 10:24 Objective: Objective: D/w nurse - NPO this morning and not sure why - gave okay to eat from GI standpoint. Reports of "dark liquid stool" last night - no bleeding observed today. Vital Signs: Vital Signs Date Time Temp Pulse Resp B/P (MAP) Pulse Ox O2 Delivery O2 Flow Rate FiO2 03/03/20 07:00 96.9 83 18 148/69 (95) 92 Room Air 96.9 03/03/20 03:00 3.0 PE: GEN: in COVID isolation LUNGS: NC 3L HEART: RRR ABD: non-distended NEURO/PSYCH: A & O 3 A/P: +COVID-19 LIZY, +Hemoccult - 'scopes in [id number], h/o AVMs and diverticulosis Elevated AST and ALT - better; h/o hepatic steatosis and cysts COPD, CKD, depression -- Monitor Hgb and for bleeding. Continue PPI, Carafate, iron. Repeat 'scopes on hold w/ COVID. Justicifation of Admission Dx: Justifications for Admission: Justification of Admission Dx: Yes DEBBIE MURRAY Mar 03, 2020 10:28
[2020-03-03 11:00] VITALS: BP 154/67
--- NOTE | 2020-03-03 11:09 | PDOC ---
PULMONARY PROGRESS NOTES DATE: 03/03/20 TIME: 11:08 Subjective Remains on 4-5 liters N/C no increased SOB, or cough Vitals Vital Signs Date Time Temp Pulse Resp B/P (MAP) Pulse Ox O2 Delivery O2 Flow Rate FiO2 03/03/20 07:00 96.9 83 18 148/69 (95) 92 Room Air 96.9 03/03/20 03:00 3.0 Comments pt. seen during COVID- pandemic visual exam preformed RRR N/C oxygen audible wheezing SOB trace edema no rash Labs Laboratory Tests Test 03/01/20 13:10 03/02/20 04:00 SARS-CoV-2 Antigen (Rapid) Positive (NEGATIVE) White Blood Count 14.0 x10^3/uL (4.0-11.0) Red Blood Count 2.97 x10^6/uL (4.30-5.70) Hemoglobin 9.2 g/dL (13.0-17.5) Hematocrit 28.3 % (39.0-53.0) Mean Corpuscular Volume 95 fL (79-100) Mean Corpuscular Hemoglobin 31 pg (25-35) Mean Corpuscular Hemoglobin Concent 32 g/dL (31-37) Red Cell Distribution Width 15.8 % (11.5-14.5) Platelet Count 192 x10^3/uL (140-400) Sodium Level 142 mmol/L (136-145) Potassium Level 5.2 mmol/L (3.5-5.1) Chloride Level 107 mmol/L (98-107) Carbon Dioxide Level 28 mmol/L (21-32) Anion Gap 7 (6-14) Blood Urea Nitrogen 48 mg/dL (8-26) Creatinine 1.9 mg/dL (0.7-1.3) Estimated GFR (Cockcroft-Gault) 33.9 Glucose Level 276 mg/dL (70-99) Calcium Level 7.6 mg/dL (8.5-10.1) Phosphorus Level 2.4 mg/dL (2.6-4.7) Total Bilirubin 0.4 mg/dL (0.2-1.0) Direct Bilirubin 0.2 mg/dL (0.0-0.2) Aspartate Amino Transf (AST/SGOT) 53 U/L (15-37) Alanine Aminotransferase (ALT/SGPT) 54 U/L (16-63) Alkaline Phosphatase 48 U/L (46-116) Total Protein 6.1 g/dL (6.4-8.2) Albumin 2.3 g/dL (3.4-5.0) Medications Active Scripts Medications Dose Route/Sig Max Daily Dose Days Date Category Phospha 250 Neutral Tablet (Phosphorus #1) 250 Mg Tablet 1 Tab PO DAILY 30 02/29/20 Reported Atorvastatin Calcium 20 Mg Tablet 1 Tab PO DAILYWSUP 02/29/20 Reported Levothyroxine Sodium 25 Mcg Tablet 1 Tab PO DAILY 02/29/20 Reported Iron (Ferrous Sulfate) 325 Mg Tablet 1 Tab PO BID 30 02/29/20 Reported Flomax (Tamsulosin Hcl) 0.4 Mg Cap.er.24h 0.4 Mg PO DAILY 02/29/20 Reported Benicar (Olmesartan Medoxomil) 20 Mg Tablet 1 Tab PO DAILY 30 02/29/20 Reported Cyclobenzaprine Hcl 10 Mg Tablet 1 Tab PO BID PRN 10/08/14 Reported Torsemide 20 Mg Tablet 4 Tab PO DAILY 10/08/14 Reported Benadryl (Diphenhydramine Hcl) 25 Mg Capsule 1 Cap PO QHS 10/08/14 Reported Quinapril Hcl 40 Mg Tablet 1 Tab PO DAILY 10/08/14 Reported Metformin Hcl 500 Mg Tablet 1 Tab PO DAILYBFRSUP 10/08/14 Reported Trazodone Hcl 50 Mg Tablet 50 Mg PO HS 10/08/14 Reported [place] 5-325 Tablet (Acetaminophen/Hydrocodone Bitart) 1 Each Tablet 1 Tab PO Q8HRS PRN 10/08/14 Reported Percocet 5-325 Mg Tablet (Oxycodone/Acetaminophen) 1 Each Tablet 1-2 Tab PO Q6HRS PRN 10/08/14 Reported Potassium Chloride 20 Meq Tab.er.prt 20 Meq PO BID 10/08/14 Reported Combivent Respimat Inhal (Ipratropium/Albuterol Sulfate) 4 Gm Aer.w.adap 2 Inh IH QID PRN 10/08/14 Reported Metformin Hcl 1,000 Mg Tablet 1 Tab PO DAILY08 10/07/14 Reported Comments Impression: low probability for pulmonary embolism. Impression . IMPRESSION: 1. Dyspnea with no significant hypoxia based on the ABG, likely related to mild congestive heart failure. However, cannot exclude the possibility of COVID pneumonia.---improving 2. Abnormal chest x-ray with faint interstitial infiltrates, could be related to congestive heart failure versus COVID pneumonia. Although suspicion is less as he has been afebrile. 3. Suspected severe chronic obstructive pulmonary disease, 60 years of tobacco use, quit 3 years ago. 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 5. Acute kidney injury--improving Plan . RECOMMENDATIONS: Continue present oxygen and keep saturations 92 and above, remains on 4-5 liters NC continue steroids Continue antibiotics bronchodilators Follow renal function and nephrology recommendations Follow GI recs and monitor HGB-- stable COVID-19 positive D/W RN PT. is DNR JIM DIAMOND MD Mar 03, 2020 11:09
[2020-03-03] MEDS: ALBUTEROL SULFATE 8GM INHALER. INH PRN (12:43)
[2020-03-03 13:41] LABS: BASO % 0 % (0-3); EOS % 0 % (0-3); HEMATOCRIT 28.2 % (39.0-53.0); LYMPH # 0.3 x10^3/uL (1.0-4.8); LYMPH % 2 % (24-48); MEAN CORPUSCULAR HEMOGLOBIN 31 pg (25-35); MEAN CORPUSCULAR HGB CONC 32 g/dL (31-37); MEAN CORPUSCULAR VOLUME 97 fL (79-100); MONO # 0.6 x10^3/uL (0.0-1.1); MONO % 5 % (0-9); NEUT # 11.6 x10^3/uL (1.8-7.7); NEUT % 93 % (31-73); PLATELET COUNT 238 x10^3/uL (140-400); RED BLOOD COUNT 2.91 x10^6/uL (4.30-5.70); RED CELL DISTRIBUTION WIDTH 16.1 % (11.5-14.5); WHITE BLOOD COUNT 12.4 x10^3/uL (4.0-11.0)
[2020-03-03 13:50] LABS: ALBUMIN 2.2 g/dL (3.4-5.0); ALBUMIN/GLOBULIN RATIO 0.5 (1.0-1.7); CALCIUM 8.4 mg/dL (8.5-10.1); CREATININE 1.8 mg/dL (0.7-1.3); GFR 36.1; POTASSIUM 4.6 mmol/L (3.5-5.1); TOTAL BILIRUBIN 0.5 mg/dL (0.2-1.0); TOTAL PROTEIN 6.7 g/dL (6.4-8.2)
[2020-03-03 14:03] LABS: % BANDS 4 % (0-9); % LYMPHS 4 % (24-48); % MONOS 4 % (0-10); % SEGS 88 % (35-66)
[2020-03-03 14:05] LABS: ANISOCYTOSIS SLIGHT; PLT ESTIMATE ADEQUATE (ADEQUATE); POLYCHROMASIA SLIGHT; TOXIC GRANULATION SLIGHT
[2020-03-03 14:32] VITALS: BP 143/65
--- NOTE | 2020-03-03 17:33 | NUR ---
JAVIER following. Reviewed chart and discussed with RN. Pt has been accepted at [facility] and they have submitted for insurance authorization. Pt added to the weekend discharge list. Dtr updated. JAVIER following.
[2020-03-03 19:00] VITALS: BP 153/67
[2020-03-03] MEDS: PATCH REMOVAL. MC SCH (21:00)
[2020-03-03] MEDS: diphenhydrAMINE HCL 25 MG CAPSULE PO PRN (21:51)
[2020-03-03 23:00] VITALS: BP 166/75
[2020-03-04 03:00] VITALS: BP 175/71
[2020-03-04 04:16] LABS: CALCIUM 7.4 mg/dL (8.5-10.1); POTASSIUM 4.6 mmol/L (3.5-5.1)
[2020-03-04] MEDS: methylPREDNISolone SOD SUCC PF 40 MG/ML VIAL. IV SCH ×3 (06:29→21:13)
[2020-03-04] MEDS: PIPERACILLIN/TAZOBACTAM 2.25 GM in IV NORMAL SALINE 50ML 50 ML IV SCH ×4 (06:29→23:44)
[2020-03-04 07:15] VITALS: BP 152/69
[2020-03-04] MEDS: SUCRALFATE 1 GM TABLET. PO SCH ×2 (08:49→20:27)
[2020-03-04] MEDS: LIDOCAINE (700MG/PATCH) PATCH. TD SCH (08:49)
[2020-03-04] MEDS: SERTRALINE 25 MG TABLET. PO SCH (08:49)
[2020-03-04] MEDS: FERROUS SULFATE 325 MG TABLET. PO SCH ×2 (08:50→17:40)
[2020-03-04] MEDS: PANTOPRAZOLE 40 MG TABLET.DR. PO SCH (08:50)
--- NOTE | 2020-03-04 10:38 | PDOC ---
PULMONARY PROGRESS NOTES DATE: 03/04/20 TIME: 10:36 Subjective Remains on 4-5 liters N/C SOB at rest and exertion reports increased cough as well Vitals Vital Signs Date Time Temp Pulse Resp B/P (MAP) Pulse Ox O2 Delivery O2 Flow Rate FiO2 03/04/20 07:15 97.4 72 22 152/69 (96) 92 Nasal Cannula 5.0 97.4 Comments pt. seen during COVID- pandemic visual exam preformed RRR N/C oxygen audible wheezing SOB trace edema no rash Labs Laboratory Tests Test 03/03/20 13:20 03/04/20 03:40 White Blood Count 12.4 x10^3/uL (4.0-11.0) Red Blood Count 2.91 x10^6/uL (4.30-5.70) Hemoglobin 9.0 g/dL (13.0-17.5) Hematocrit 28.2 % (39.0-53.0) Mean Corpuscular Volume 97 fL (79-100) Mean Corpuscular Hemoglobin 31 pg (25-35) Mean Corpuscular Hemoglobin Concent 32 g/dL (31-37) Red Cell Distribution Width 16.1 % (11.5-14.5) Platelet Count 238 x10^3/uL (140-400) Neutrophils (%) (Auto) 93 % (31-73) Lymphocytes (%) (Auto) 2 % (24-48) Monocytes (%) (Auto) 5 % (0-9) Eosinophils (%) (Auto) 0 % (0-3) Basophils (%) (Auto) 0 % (0-3) Neutrophils # (Auto) 11.6 x10^3/uL (1.8-7.7) Lymphocytes # (Auto) 0.3 x10^3/uL (1.0-4.8) Monocytes # (Auto) 0.6 x10^3/uL (0.0-1.1) Eosinophils # (Auto) 0.0 x10^3/uL (0.0-0.7) Basophils # (Auto) 0.0 x10^3/uL (0.0-0.2) Segmented Neutrophils % 88 % (35-66) Band Neutrophils % 4 % (0-9) Lymphocytes % 4 % (24-48) Monocytes % 4 % (0-10) Toxic Granulation Slight Platelet Estimate Adequate (ADEQUATE) Polychromasia Slight Anisocytosis Slight Sodium Level 140 mmol/L (136-145) 141 mmol/L (136-145) Potassium Level 4.6 mmol/L (3.5-5.1) 4.6 mmol/L (3.5-5.1) Chloride Level 107 mmol/L (98-107) 107 mmol/L (98-107) Carbon Dioxide Level 23 mmol/L (21-32) 25 mmol/L (21-32) Anion Gap 10 (6-14) 9 (6-14) Blood Urea Nitrogen 45 mg/dL (8-26) 54 mg/dL (8-26) Creatinine 1.8 mg/dL (0.7-1.3) 2.0 mg/dL (0.7-1.3) Estimated GFR (Cockcroft-Gault) 36.1 32.0 BUN/Creatinine Ratio 25 (6-20) Glucose Level 434 mg/dL (70-99) 457 mg/dL (70-99) Calcium Level 8.4 mg/dL (8.5-10.1) 7.4 mg/dL (8.5-10.1) Total Bilirubin 0.5 mg/dL (0.2-1.0) Aspartate Amino Transf (AST/SGOT) 50 U/L (15-37) Alanine Aminotransferase (ALT/SGPT) 57 U/L (16-63) Alkaline Phosphatase 49 U/L (46-116) Total Protein 6.7 g/dL (6.4-8.2) Albumin 2.2 g/dL (3.4-5.0) Albumin/Globulin Ratio 0.5 (1.0-1.7) Laboratory Tests Test 03/03/20 13:20 03/04/20 03:40 White Blood Count 12.4 x10^3/uL (4.0-11.0) Red Blood Count 2.91 x10^6/uL (4.30-5.70) Hemoglobin 9.0 g/dL (13.0-17.5) Hematocrit 28.2 % (39.0-53.0) Mean Corpuscular Volume 97 fL (79-100) Mean Corpuscular Hemoglobin 31 pg (25-35) Mean Corpuscular Hemoglobin Concent 32 g/dL (31-37) Red Cell Distribution Width 16.1 % (11.5-14.5) Platelet Count 238 x10^3/uL (140-400) Neutrophils (%) (Auto) 93 % (31-73) Lymphocytes (%) (Auto) 2 % (24-48) Monocytes (%) (Auto) 5 % (0-9) Eosinophils (%) (Auto) 0 % (0-3) Basophils (%) (Auto) 0 % (0-3) Neutrophils # (Auto) 11.6 x10^3/uL (1.8-7.7) Lymphocytes # (Auto) 0.3 x10^3/uL (1.0-4.8) Monocytes # (Auto) 0.6 x10^3/uL (0.0-1.1) Eosinophils # (Auto) 0.0 x10^3/uL (0.0-0.7) Basophils # (Auto) 0.0 x10^3/uL (0.0-0.2) Segmented Neutrophils % 88 % (35-66) Band Neutrophils % 4 % (0-9) Lymphocytes % 4 % (24-48) Monocytes % 4 % (0-10) Toxic Granulation Slight Platelet Estimate Adequate (ADEQUATE) Polychromasia Slight Anisocytosis Slight Sodium Level 140 mmol/L (136-145) 141 mmol/L (136-145) Potassium Level 4.6 mmol/L (3.5-5.1) 4.6 mmol/L (3.5-5.1) Chloride Level 107 mmol/L (98-107) 107 mmol/L (98-107) Carbon Dioxide Level 23 mmol/L (21-32) 25 mmol/L (21-32) Anion Gap 10 (6-14) 9 (6-14) Blood Urea Nitrogen 45 mg/dL (8-26) 54 mg/dL (8-26) Creatinine 1.8 mg/dL (0.7-1.3) 2.0 mg/dL (0.7-1.3) Estimated GFR (Cockcroft-Gault) 36.1 32.0 BUN/Creatinine Ratio 25 (6-20) Glucose Level 434 mg/dL (70-99) 457 mg/dL (70-99) Calcium Level 8.4 mg/dL (8.5-10.1) 7.4 mg/dL (8.5-10.1) Total Bilirubin 0.5 mg/dL (0.2-1.0) Aspartate Amino Transf (AST/SGOT) 50 U/L (15-37) Alanine Aminotransferase (ALT/SGPT) 57 U/L (16-63) Alkaline Phosphatase 49 U/L (46-116) Total Protein 6.7 g/dL (6.4-8.2) Albumin 2.2 g/dL (3.4-5.0) Albumin/Globulin Ratio 0.5 (1.0-1.7) Medications Active Scripts Medications Dose Route/Sig Max Daily Dose Days Date Category Phospha 250 Neutral Tablet (Phosphorus #1) 250 Mg Tablet 1 Tab PO DAILY 30 02/29/20 Reported Atorvastatin Calcium 20 Mg Tablet 1 Tab PO DAILYWSUP 02/29/20 Reported Levothyroxine Sodium 25 Mcg Tablet 1 Tab PO DAILY 02/29/20 Reported Iron (Ferrous Sulfate) 325 Mg Tablet 1 Tab PO BID 30 02/29/20 Reported Flomax (Tamsulosin Hcl) 0.4 Mg Cap.er.24h 0.4 Mg PO DAILY 02/29/20 Reported Benicar (Olmesartan Medoxomil) 20 Mg Tablet 1 Tab PO DAILY 30 02/29/20 Reported Cyclobenzaprine Hcl 10 Mg Tablet 1 Tab PO BID PRN 10/08/14 Reported Torsemide 20 Mg Tablet 4 Tab PO DAILY 10/08/14 Reported Benadryl (Diphenhydramine Hcl) 25 Mg Capsule 1 Cap PO QHS 10/08/14 Reported Quinapril Hcl 40 Mg Tablet 1 Tab PO DAILY 10/08/14 Reported Metformin Hcl 500 Mg Tablet 1 Tab PO DAILYBFRSUP 10/08/14 Reported Trazodone Hcl 50 Mg Tablet 50 Mg PO HS 10/08/14 Reported [place] 5-325 Tablet (Acetaminophen/Hydrocodone Bitart) 1 Each Tablet 1 Tab PO Q8HRS PRN 10/08/14 Reported Percocet 5-325 Mg Tablet (Oxycodone/Acetaminophen) 1 Each Tablet 1-2 Tab PO Q6HRS PRN 10/08/14 Reported Potassium Chloride 20 Meq Tab.er.prt 20 Meq PO BID 10/08/14 Reported Combivent Respimat Inhal (Ipratropium/Albuterol Sulfate) 4 Gm Aer.w.adap 2 Inh IH QID PRN 10/08/14 Reported Metformin Hcl 1,000 Mg Tablet 1 Tab PO DAILY08 10/07/14 Reported Comments Impression: low probability for pulmonary embolism. Impression . IMPRESSION: 1. Dyspnea with no significant hypoxia based on the ABG, likely related to mild congestive heart failure. However, cannot exclude the possibility of COVID pneumonia.---improving 2. Abnormal chest x-ray with faint interstitial infiltrates, could be related to congestive heart failure versus COVID pneumonia. Although suspicion is less as he has been afebrile. 3. Suspected severe chronic obstructive pulmonary disease, 60 years of tobacco use, quit 3 years ago. 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 5. Acute kidney injury Plan . RECOMMENDATIONS: Continue present oxygen and keep saturations 92 and above, remains on 4-5 liters NC continue steroids Continue antibiotics bronchodilators MDI changed to 2 puffs and Q4 scheduled one time lasix today Follow renal function and nephrology recommendations Follow GI recs and monitor HGB-- stable COVID-19 positive D/W RN PT. is DNR JIM DIAMOND MD Mar 04, 2020 10:38
[2020-03-04] MEDS ORDERED: FUROSEMIDE 20 MG/2 ML VIAL. IVP ONE (11:00)
--- NOTE | 2020-03-04 11:18 | PDOC ---
DATE OF SERVICE DATE: 03/04/20 TIME: 11:18 SUBJECTIVE ROS On stable O2 4-5 lts Still having loose , black stools On Fe, GI following OBJECTIVE Vital Signs Vital Signs Date Time Temp Pulse Resp B/P (MAP) Pulse Ox O2 Delivery O2 Flow Rate FiO2 03/04/20 07:15 97.4 72 22 152/69 (96) 92 Nasal Cannula 5.0 97.4 I & 0 Intake and Output 03/04/20 07:00 Intake Total 1040 ml Output Total 250 ml Balance 790 ml Intake Oral 1040 ml Stool Total 250 ml # Bowel Movements 1 PHYSICAL EXAM Physical Exam GEN: NAD HEENT: OM mildly dry , O2 by NC Neck Supple LUNGS: wheezing, Non labored HEART: RRR ABD: Soft EXTREMITY: No edema SKIN: No rash NEURO: grossly normal No acevedo, NO CVA or SP tenderness DIAGNOSIS/ASSESSMENT Assessment & Plan DANIELA - Suspect vasomotor US 11/2019- right kidney 9.9 x 4.6 x 5.1 cm, Lt kidney measures 9.4 x 4.2 x 4.2 cm. UA unremarkable, Uop not accurate , Having Loose stools Strict I/O , avoid Nephrotoxins, daily BMP HyperKalemia- mild, Monitor CKD stage 3 - Baseline Cr 1.6- in 2014 and 2018 , No other records available Renal US in november - The bilateral kidneys appear somewhat echogenic. Urinary bladder is mildly distended. No evidence of hydronephrosis. Renal cyst- left kidney in the inferior pole measuring 7.3 cm likely a cyst. Ct in 2019 -Bilateral renal cysts, the largest of which lies on the left and measures 7.5 cm Dyspnea -Abnormal chest x-ray with faint interstitial infiltrates - CoVid positive , On steroids and Abx per Pulm COPD - 60 years of tobacco use, quit 3 years ago. 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 pylori- EGD in the past Diverticulosis- Ct in 09/2018- Extensive sigmoid diverticulosis. . Transaminitis- Hepatic steatosis/ Probable small hepatic cysts on CT HTN - Home meds listed in his chart- both ?DANTE and ARB both and Loop Diuretic COMMENT/RELEVANT DATA Meds Current Medications Medications (Trade) Dose Ordered Sig/Ya Start Time Stop Time Status Last Admin Dose Admin Acetaminophen (Tylenol) 650 mg PRN Q6HRS PRN 03/02/20 03:30 03/02/20 03:42 650 MG Albuterol Sulfate (Ventolin Hfa) 2 puff Q4HRS 03/04/20 12:00 Albuterol/ Ipratropium (Duoneb) 3 ml PRN QID PRN 02/29/20 14:00 03/01/20 13:59 DC Diphenhydramine HCl (Benadryl) 25 mg PRN QHS PRN 03/01/20 22:15 03/03/20 21:51 25 MG Ferrous Sulfate (Feosol) 325 mg BIDWMEALS 03/01/20 17:00 03/04/20 08:50 325 MG Furosemide (Lasix) 20 mg 1X ONCE 03/04/20 11:00 03/04/20 11:01 DC Lidocaine (Lidoderm) 1 patch DAILY 03/02/20 14:30 03/04/20 08:49 1 PATCH Methylprednisolone Sodium Succinate (SOLU-Medrol 40MG VIAL) 60 mg Q8HRS 03/02/20 14:00 03/04/20 06:29 60 MG Methylprednisolone Sodium Succinate (SOLU-Medrol 125MG VIAL) 125 mg 1X ONCE 02/29/20 10:30 02/29/20 10:31 DC 02/29/20 10:23 125 MG Miscellaneous (Lidoderm Patch Removal) 1 ea QHS 03/02/20 21:00 03/02/20 21:00 1 EA Olanzapine (ZyPREXA ZYDIS) 5 mg PRN BID PRN 03/01/20 11:15 Ondansetron HCl (Zofran) 4 mg PRN Q8HRS PRN 02/29/20 13:30 03/01/20 13:29 DC Pantoprazole Sodium (Protonix) 40 mg DAILYAC 03/01/20 07:30 03/04/20 08:50 40 MG Piperacillin Sod/ Tazobactam Sod (Zosyn Per Pharmacy) 1 each PRN DAILY PRN 03/02/20 11:15 Piperacillin Sod/ Tazobactam Sod 2.25 gm/Sodium Chloride 50 ml @ 100 mls/hr Q6HRS 03/02/20 12:00 03/04/20 06:29 100 MLS/HR Polyethylene Glycol (miraLAX PACKET) 17 gm PRN DAILY PRN 03/01/20 10:15 03/01/20 10:12 DC Ringer's Solution 1,000 ml @ 50 mls/hr Q20H 03/02/20 07:00 03/02/20 18:59 DC Sertraline HCl (Zoloft) 25 mg DAILY 03/03/20 09:00 03/04/20 08:49 25 MG Sodium Chloride 1,000 ml @ 1,000 mls/hr 1X ONCE 02/29/20 13:15 02/29/20 14:14 DC 02/29/20 17:42 1,000 MLS/HR Sodium Cl/Sod Bicarb/Potass Cl/ PEG (Golytely) 4,000 ml 1X ONCE 03/01/20 14:00 03/01/20 14:01 DC 03/01/20 14:47 4,000 ML Sucralfate (Carafate) 1 gm BID 02/29/20 21:00 03/04/20 08:49 1 GM Lab Laboratory Tests Test 03/03/20 13:20 03/04/20 03:40 White Blood Count 12.4 x10^3/uL (4.0-11.0) Red Blood Count 2.91 x10^6/uL (4.30-5.70) Hemoglobin 9.0 g/dL (13.0-17.5) Hematocrit 28.2 % (39.0-53.0) Mean Corpuscular Volume 97 fL (79-100) Mean Corpuscular Hemoglobin 31 pg (25-35) Mean Corpuscular Hemoglobin Concent 32 g/dL (31-37) Red Cell Distribution Width 16.1 % (11.5-14.5) Platelet Count 238 x10^3/uL (140-400) Neutrophils (%) (Auto) 93 % (31-73) Lymphocytes (%) (Auto) 2 % (24-48) Monocytes (%) (Auto) 5 % (0-9) Eosinophils (%) (Auto) 0 % (0-3) Basophils (%) (Auto) 0 % (0-3) Neutrophils # (Auto) 11.6 x10^3/uL (1.8-7.7) Lymphocytes # (Auto) 0.3 x10^3/uL (1.0-4.8) Monocytes # (Auto) 0.6 x10^3/uL (0.0-1.1) Eosinophils # (Auto) 0.0 x10^3/uL (0.0-0.7) Basophils # (Auto) 0.0 x10^3/uL (0.0-0.2) Segmented Neutrophils % 88 % (35-66) Band Neutrophils % 4 % (0-9) Lymphocytes % 4 % (24-48) Monocytes % 4 % (0-10) Toxic Granulation Slight Platelet Estimate Adequate (ADEQUATE) Polychromasia Slight Anisocytosis Slight Sodium Level 140 mmol/L (136-145) 141 mmol/L (136-145) Potassium Level 4.6 mmol/L (3.5-5.1) 4.6 mmol/L (3.5-5.1) Chloride Level 107 mmol/L (98-107) 107 mmol/L (98-107) Carbon Dioxide Level 23 mmol/L (21-32) 25 mmol/L (21-32) Anion Gap 10 (6-14) 9 (6-14) Blood Urea Nitrogen 45 mg/dL (8-26) 54 mg/dL (8-26) Creatinine 1.8 mg/dL (0.7-1.3) 2.0 mg/dL (0.7-1.3) Estimated GFR (Cockcroft-Gault) 36.1 32.0 BUN/Creatinine Ratio 25 (6-20) Glucose Level 434 mg/dL (70-99) 457 mg/dL (70-99) Calcium Level 8.4 mg/dL (8.5-10.1) 7.4 mg/dL (8.5-10.1) Total Bilirubin 0.5 mg/dL (0.2-1.0) Aspartate Amino Transf (AST/SGOT) 50 U/L (15-37) Alanine Aminotransferase (ALT/SGPT) 57 U/L (16-63) Alkaline Phosphatase 49 U/L (46-116) Total Protein 6.7 g/dL (6.4-8.2) Albumin 2.2 g/dL (3.4-5.0) Albumin/Globulin Ratio 0.5 (1.0-1.7) Results All relevant outside records, renal labs, imaging studies, telemetry/EKG's were reviewed. Justicifation of Admission Dx: Justifications for Admission: Justification of Admission Dx: Yes WILNER DAVIS MD Mar 04, 2020 11:18
[2020-03-04 11:37] VITALS: BP 155/68
[2020-03-04] MEDS: ALBUTEROL SULFATE 8GM INHALER. INH SCH ×4 (12:18→23:44)
--- NOTE | 2020-03-04 12:57 | PDOC ---
[facility] [facility] PROGRESS NOTE Date of Service DOS: DATE: 03/04/20 TIME: 12:56 Chief Complaint Chief Complaint A/P: Dyspnea with no significant hypoxia based on the ABG, likely related to mild congestive heart failure. also with COVID pneumonia. SARS-CoV-2 - with pneumonia. On steroids, Lovenox. Pulm consulted Abnormal chest x-ray with faint interstitial infiltrates - likely CHF and COVID 19 POSTIVE Severe chronic obstructive pulmonary disease, 60 years of tobacco use, quit 3 years ago. 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 His BUN and creatinine was high as well as LFTs. He required 2 liters of oxygen. LFTs also elevated. 03/01: Still requiring O2. Significant wheezes and prolonged expiratory phase. He says he just wants to sleep. He says "Im 84 I have nothing to live for about my cats." 03/02: COVID-19 positive. He is having some back pain today. Still little hypoxic. EGD and colonoscopy on hold due to his COVID-19 positive status 03/03: Afebrile. Seen on 4 L nasal cannula, he is having a bowel movement, notes that he is having he is eating but is having loose bowels currently they are a little dark. No significant pain. His shortness of breath is stable. Slight cough. Back pain improved with Lidoderm patch. Still afebrile with 4 liters nasal cannula O2. His glucose has become very elevated. He feels no worse than yesterday. Plan: Cont steroids Lidoderm patch on back Wean O2 as tolerated Vitals/I&O Vitals/I&O: Vital Signs Date Time Temp Pulse Resp B/P (MAP) Pulse Ox O2 Delivery O2 Flow Rate FiO2 03/04/20 11:37 98.0 82 18 155/68 (97) 94 Nasal Cannula 5.0 98.0 I & O 03/03/20 03/03/20 03/04/20 15:00 23:00 07:00 Intake Total 600 ml 240 ml 200 ml Output Total 150 ml 100 ml Balance 600 ml 90 ml 100 ml Physical Exam General: Alert, Cooperative Labs Labs: Laboratory Tests Test 03/03/20 13:20 03/04/20 03:40 White Blood Count 12.4 x10^3/uL (4.0-11.0) Red Blood Count 2.91 x10^6/uL (4.30-5.70) Hemoglobin 9.0 g/dL (13.0-17.5) Hematocrit 28.2 % (39.0-53.0) Mean Corpuscular Volume 97 fL (79-100) Mean Corpuscular Hemoglobin 31 pg (25-35) Mean Corpuscular Hemoglobin Concent 32 g/dL (31-37) Red Cell Distribution Width 16.1 % (11.5-14.5) Platelet Count 238 x10^3/uL (140-400) Neutrophils (%) (Auto) 93 % (31-73) Lymphocytes (%) (Auto) 2 % (24-48) Monocytes (%) (Auto) 5 % (0-9) Eosinophils (%) (Auto) 0 % (0-3) Basophils (%) (Auto) 0 % (0-3) Neutrophils # (Auto) 11.6 x10^3/uL (1.8-7.7) Lymphocytes # (Auto) 0.3 x10^3/uL (1.0-4.8) Monocytes # (Auto) 0.6 x10^3/uL (0.0-1.1) Eosinophils # (Auto) 0.0 x10^3/uL (0.0-0.7) Basophils # (Auto) 0.0 x10^3/uL (0.0-0.2) Segmented Neutrophils % 88 % (35-66) Band Neutrophils % 4 % (0-9) Lymphocytes % 4 % (24-48) Monocytes % 4 % (0-10) Toxic Granulation Slight Platelet Estimate Adequate (ADEQUATE) Polychromasia Slight Anisocytosis Slight Sodium Level 140 mmol/L (136-145) 141 mmol/L (136-145) Potassium Level 4.6 mmol/L (3.5-5.1) 4.6 mmol/L (3.5-5.1) Chloride Level 107 mmol/L (98-107) 107 mmol/L (98-107) Carbon Dioxide Level 23 mmol/L (21-32) 25 mmol/L (21-32) Anion Gap 10 (6-14) 9 (6-14) Blood Urea Nitrogen 45 mg/dL (8-26) 54 mg/dL (8-26) Creatinine 1.8 mg/dL (0.7-1.3) 2.0 mg/dL (0.7-1.3) Estimated GFR (Cockcroft-Gault) 36.1 32.0 BUN/Creatinine Ratio 25 (6-20) Glucose Level 434 mg/dL (70-99) 457 mg/dL (70-99) Calcium Level 8.4 mg/dL (8.5-10.1) 7.4 mg/dL (8.5-10.1) Total Bilirubin 0.5 mg/dL (0.2-1.0) Aspartate Amino Transf (AST/SGOT) 50 U/L (15-37) Alanine Aminotransferase (ALT/SGPT) 57 U/L (16-63) Alkaline Phosphatase 49 U/L (46-116) Total Protein 6.7 g/dL (6.4-8.2) Albumin 2.2 g/dL (3.4-5.0) Albumin/Globulin Ratio 0.5 (1.0-1.7) Assessment and Plan Assessmemt and Plan Problems Medical Problems: (1) Acute renal failure Status: Acute (2) COPD exacerbation Status: Acute (3) GI bleeding Status: Acute Comment Review of Relevant I have reviewed the following items kamini (where applicable) has been applied. Medications: Current Medications Medications (Trade) Dose Ordered Sig/Ya Route PRN Reason Start Time Stop Time Status Last Admin Dose Admin Furosemide (Lasix) 20 mg 1X ONCE IVP 03/04/20 11:00 03/04/20 11:01 DC 03/04/20 12:17 Albuterol Sulfate (Ventolin Hfa) 2 puff Q4HRS INH 03/04/20 12:00 03/04/20 12:18 Justicifation of Admission Dx: Justifications for Admission: Justification of Admission Dx: Yes SAI SAN MD Mar 04, 2020 12:56
[2020-03-04] MEDS ORDERED: DEXTROSE 50% 25 GM / 50ML DISP.SYRIN. IV PRN (13:00)
[2020-03-04] MEDS ORDERED: INSULIN LISPRO 300 UNITS/3 ML VIAL. SQ ONE (13:30)
[2020-03-04] MEDS: LACTOBACILLUS RHAMNOSUS GG 1 CAPSULE. PO SCH ×2 (13:49→20:27)
[2020-03-04] MEDS: INSULIN LISPRO 300 UNITS/3 ML VIAL. SQ SCH ×3 (13:53→21:00)
[2020-03-04 15:30] VITALS: BP 177/70
[2020-03-04] MEDS: PATCH REMOVAL. MC SCH (20:28)
[2020-03-04 20:40] VITALS: BP 150/68
[2020-03-04] MEDS ORDERED: INSULIN GLARGINE SYRINGE. SQ SCH (21:00)
[2020-03-04 23:40] VITALS: BP 171/76
[2020-03-05] MEDS: ALBUTEROL SULFATE 8GM INHALER. INH SCH ×5 (02:32→21:04)
[2020-03-05 04:40] VITALS: BP 175/74
[2020-03-05] MEDS: methylPREDNISolone SOD SUCC PF 40 MG/ML VIAL. IV SCH ×3 (05:22→21:13)
[2020-03-05] MEDS: PIPERACILLIN/TAZOBACTAM 2.25 GM in IV NORMAL SALINE 50ML 50 ML IV SCH ×3 (05:23→17:58)
--- NOTE | 2020-03-05 07:42 | PDOC ---
[facility] [facility] PROGRESS NOTE Date of Service DOS: DATE: 03/05/20 TIME: 07:42 Chief Complaint Chief Complaint A/P: Dyspnea with no significant hypoxia based on the ABG, likely related to mild congestive heart failure. also with COVID pneumonia. SARS-CoV-2 - with pneumonia. On steroids, Lovenox. Pulm consulted Abnormal chest x-ray with faint interstitial infiltrates - likely CHF and COVID 19 POSTIVE Severe chronic obstructive pulmonary disease, 60 years of tobacco use, quit 3 years ago. 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 His BUN and creatinine was high as well as LFTs. He required 2 liters of oxygen. LFTs also elevated. 03/01: Still requiring O2. Significant wheezes and prolonged expiratory phase. He says he just wants to sleep. He says "Im 84 I have nothing to live for about my cats." 03/02: COVID-19 positive. He is having some back pain today. Still little hypoxic. EGD and colonoscopy on hold due to his COVID-19 positive status 03/03: Afebrile. Seen on 4 L nasal cannula, he is having a bowel movement, notes that he is having he is eating but is having loose bowels currently they are a little dark. No significant pain. His shortness of breath is stable. Slight cough. Back pain improved with Lidoderm patch. 03/03: Still afebrile with 4 liters nasal cannula O2. His glucose has become very elevated. He feels no worse than yesterday. Afebrile, now on 6 L nasal cannula, he is having more diarrhea, he does not notice much blood. Glucose has been in the 400s, unfortunately he did not receive his Lantus in the evening yesterday evening. C diff negative Plan: Cont steroids Increase insulin coverage Wean O2 as tolerated Vitals/I&O Vitals/I&O: Vital Signs Date Time Temp Pulse Resp B/P (MAP) Pulse Ox O2 Delivery O2 Flow Rate FiO2 03/05/20 04:40 97.6 67 22 175/74 (107) 94 Nasal Cannula 6.0 97.6 I & O 03/04/20 03/04/20 03/05/20 15:00 23:00 07:00 Intake Total 580 ml 400 ml 120 ml Output Total 850 ml 650 ml Balance -270 ml -250 ml 120 ml Physical Exam General: Alert, Cooperative Labs Labs: Laboratory Tests Test 03/04/20 13:24 03/04/20 16:04 03/04/20 21:00 03/05/20 07:08 Glucose (Fingerstick) 503 mg/dL (70-99) 342 mg/dL (70-99) 124 mg/dL (70-99) 375 mg/dL (70-99) Assessment and Plan Assessmemt and Plan Problems Medical Problems: (1) Acute renal failure Status: Acute (2) COPD exacerbation Status: Acute (3) GI bleeding Status: Acute Comment Review of Relevant I have reviewed the following items kamini (where applicable) has been applied. Medications: Current Medications Medications (Trade) Dose Ordered Sig/Ya Route PRN Reason Start Time Stop Time Status Last Admin Dose Admin Furosemide (Lasix) 20 mg 1X ONCE IVP 03/04/20 11:00 03/04/20 11:01 DC 03/04/20 12:17 Albuterol Sulfate (Ventolin Hfa) 2 puff Q4HRS INH 03/04/20 12:00 03/05/20 02:32 Insulin Human Lispro (HumaLOG) 0-9 UNITS TIDACHC SQ 03/04/20 13:00 03/04/20 16:24 Lactobacillus Rhamnosus (Culturelle) 1 cap BID PO 03/04/20 13:00 03/04/20 20:27 Insulin Human Lispro (HumaLOG) 9 units 1X ONCE SQ 03/04/20 13:30 03/04/20 13:35 DC 03/04/20 13:53 Justicifation of Admission Dx: Justifications for Admission: Justification of Admission Dx: Yes SAI SAN MD Mar 05, 2020 07:42
[2020-03-05 07:45] VITALS: BP 175/82
[2020-03-05] MEDS: PANTOPRAZOLE 40 MG TABLET.DR. PO SCH (08:39)
[2020-03-05] MEDS: LIDOCAINE (700MG/PATCH) PATCH. TD SCH (08:39)
[2020-03-05] MEDS: FERROUS SULFATE 325 MG TABLET. PO SCH ×2 (08:39→17:58)
[2020-03-05] MEDS: SUCRALFATE 1 GM TABLET. PO SCH ×2 (08:39→21:05)
[2020-03-05] MEDS: LACTOBACILLUS RHAMNOSUS GG 1 CAPSULE. PO SCH ×2 (08:39→21:05)
[2020-03-05] MEDS: SERTRALINE 25 MG TABLET. PO SCH (08:39)
[2020-03-05] MEDS: INSULIN LISPRO 300 UNITS/3 ML VIAL. SQ SCH ×7 (08:43→21:07)
--- NOTE | 2020-03-05 08:47 | PDOC ---
PULMONARY PROGRESS NOTES DATE: 03/05/20 TIME: 08:46 Subjective Remains on N/C Feeling much better today S/P lasix NO increase cough or SOA Vitals Vital Signs Date Time Temp Pulse Resp B/P (MAP) Pulse Ox O2 Delivery O2 Flow Rate FiO2 03/05/20 04:40 97.6 67 22 175/74 (107) 94 Nasal Cannula 6.0 97.6 Comments pt. seen during COVID- pandemic visual exam preformed RRR N/C oxygen audible wheezing SOB trace edema no rash Labs Laboratory Tests Test 03/03/20 13:20 03/04/20 03:40 03/04/20 13:24 03/04/20 16:04 White Blood Count 12.4 x10^3/uL (4.0-11.0) Red Blood Count 2.91 x10^6/uL (4.30-5.70) Hemoglobin 9.0 g/dL (13.0-17.5) Hematocrit 28.2 % (39.0-53.0) Mean Corpuscular Volume 97 fL (79-100) Mean Corpuscular Hemoglobin 31 pg (25-35) Mean Corpuscular Hemoglobin Concent 32 g/dL (31-37) Red Cell Distribution Width 16.1 % (11.5-14.5) Platelet Count 238 x10^3/uL (140-400) Neutrophils (%) (Auto) 93 % (31-73) Lymphocytes (%) (Auto) 2 % (24-48) Monocytes (%) (Auto) 5 % (0-9) Eosinophils (%) (Auto) 0 % (0-3) Basophils (%) (Auto) 0 % (0-3) Neutrophils # (Auto) 11.6 x10^3/uL (1.8-7.7) Lymphocytes # (Auto) 0.3 x10^3/uL (1.0-4.8) Monocytes # (Auto) 0.6 x10^3/uL (0.0-1.1) Eosinophils # (Auto) 0.0 x10^3/uL (0.0-0.7) Basophils # (Auto) 0.0 x10^3/uL (0.0-0.2) Segmented Neutrophils % 88 % (35-66) Band Neutrophils % 4 % (0-9) Lymphocytes % 4 % (24-48) Monocytes % 4 % (0-10) Toxic Granulation Slight Platelet Estimate Adequate (ADEQUATE) Polychromasia Slight Anisocytosis Slight Sodium Level 140 mmol/L (136-145) 141 mmol/L (136-145) Potassium Level 4.6 mmol/L (3.5-5.1) 4.6 mmol/L (3.5-5.1) Chloride Level 107 mmol/L (98-107) 107 mmol/L (98-107) Carbon Dioxide Level 23 mmol/L (21-32) 25 mmol/L (21-32) Anion Gap 10 (6-14) 9 (6-14) Blood Urea Nitrogen 45 mg/dL (8-26) 54 mg/dL (8-26) Creatinine 1.8 mg/dL (0.7-1.3) 2.0 mg/dL (0.7-1.3) Estimated GFR (Cockcroft-Gault) 36.1 32.0 BUN/Creatinine Ratio 25 (6-20) Glucose Level 434 mg/dL (70-99) 457 mg/dL (70-99) Calcium Level 8.4 mg/dL (8.5-10.1) 7.4 mg/dL (8.5-10.1) Total Bilirubin 0.5 mg/dL (0.2-1.0) Aspartate Amino Transf (AST/SGOT) 50 U/L (15-37) Alanine Aminotransferase (ALT/SGPT) 57 U/L (16-63) Alkaline Phosphatase 49 U/L (46-116) Total Protein 6.7 g/dL (6.4-8.2) Albumin 2.2 g/dL (3.4-5.0) Albumin/Globulin Ratio 0.5 (1.0-1.7) Glucose (Fingerstick) 503 mg/dL (70-99) 342 mg/dL (70-99) Test 03/04/20 21:00 03/05/20 07:08 Glucose (Fingerstick) 124 mg/dL (70-99) 375 mg/dL (70-99) Laboratory Tests Test 03/04/20 13:24 03/04/20 16:04 03/04/20 21:00 03/05/20 07:08 Glucose (Fingerstick) 503 mg/dL (70-99) 342 mg/dL (70-99) 124 mg/dL (70-99) 375 mg/dL (70-99) Medications Active Scripts Medications Dose Route/Sig Max Daily Dose Days Date Category Phospha 250 Neutral Tablet (Phosphorus #1) 250 Mg Tablet 1 Tab PO DAILY 30 02/29/20 Reported Atorvastatin Calcium 20 Mg Tablet 1 Tab PO DAILYWSUP 02/29/20 Reported Levothyroxine Sodium 25 Mcg Tablet 1 Tab PO DAILY 02/29/20 Reported Iron (Ferrous Sulfate) 325 Mg Tablet 1 Tab PO BID 30 02/29/20 Reported Flomax (Tamsulosin Hcl) 0.4 Mg Cap.er.24h 0.4 Mg PO DAILY 02/29/20 Reported Benicar (Olmesartan Medoxomil) 20 Mg Tablet 1 Tab PO DAILY 30 02/29/20 Reported Cyclobenzaprine Hcl 10 Mg Tablet 1 Tab PO BID PRN 10/08/14 Reported Torsemide 20 Mg Tablet 4 Tab PO DAILY 10/08/14 Reported Benadryl (Diphenhydramine Hcl) 25 Mg Capsule 1 Cap PO QHS 10/08/14 Reported Quinapril Hcl 40 Mg Tablet 1 Tab PO DAILY 10/08/14 Reported Metformin Hcl 500 Mg Tablet 1 Tab PO DAILYBFRSUP 10/08/14 Reported Trazodone Hcl 50 Mg Tablet 50 Mg PO HS 10/08/14 Reported [place] 5-325 Tablet (Acetaminophen/Hydrocodone Bitart) 1 Each Tablet 1 Tab PO Q8HRS PRN 10/08/14 Reported Percocet 5-325 Mg Tablet (Oxycodone/Acetaminophen) 1 Each Tablet 1-2 Tab PO Q6HRS PRN 10/08/14 Reported Potassium Chloride 20 Meq Tab.er.prt 20 Meq PO BID 10/08/14 Reported Combivent Respimat Inhal (Ipratropium/Albuterol Sulfate) 4 Gm Aer.w.adap 2 Inh IH QID PRN 10/08/14 Reported Metformin Hcl 1,000 Mg Tablet 1 Tab PO DAILY08 10/07/14 Reported Comments Impression: low probability for pulmonary embolism. Impression . IMPRESSION: 1. Dyspnea with no significant hypoxia based on the ABG, likely related to mild congestive heart failure. However, cannot exclude the possibility of COVID pneumonia.---improving 2. Abnormal chest x-ray with faint interstitial infiltrates, could be related to congestive heart failure versus COVID pneumonia. Although suspicion is less as he has been afebrile. 3. Suspected severe chronic obstructive pulmonary disease, 60 years of tobacco use, quit 3 years ago. 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 5. Acute kidney injury Plan . RECOMMENDATIONS: Continue present oxygen and keep saturations 92 and above, remains on 4-5 liters NC continue steroids Continue antibiotics bronchodilators MDI 2 puffs and Q4 scheduled Follow renal function and nephrology recommendations Follow GI recs and monitor HGB-- stable COVID-19 positive D/W RN PT. is DNR JIM DIAMOND MD Mar 05, 2020 08:47
[2020-03-05 11:33] VITALS: BP 165/68
[2020-03-05] MEDS ORDERED: LOPERAMIDE 2 MG CAPSULE PO PRN (15:15)
--- NOTE | 2020-03-05 15:46 | PDOC ---
DATE OF SERVICE DATE: 03/05/20 TIME: 1300 SUBJECTIVE ROS c/o Diarrhea OBJECTIVE Vital Signs Vital Signs Date Time Temp Pulse Resp B/P (MAP) Pulse Ox O2 Delivery O2 Flow Rate FiO2 03/05/20 11:33 98.1 100 26 165/68 (100) 91 Nasal Cannula 6.0 98.1 I & 0 Intake and Output 03/05/20 07:00 Intake Total 1100 ml Output Total 1500 ml Balance -400 ml Intake Oral 1100 ml Output Urine Total 500 ml Stool Total 1000 ml # Voids 3 # Bowel Movements 6 PHYSICAL EXAM Physical Exam GEN: NAD HEENT: OM mildly dry , O2 by NC Neck Supple LUNGS: wheezing, Non labored HEART: RRR ABD: Soft EXTREMITY: No edema SKIN: No rash NEURO: grossly normal No acevedo, NO CVA or SP tenderness DIAGNOSIS/ASSESSMENT Assessment & Plan DANIELA - Suspect vasomotor UA unremarkable, Uop not accurate , Having diarrhea , High BS Strict I/O , avoid Nephrotoxins, daily BMP CKD stage 3 - Baseline Cr 1.6- in 2014 and 2018 Renal cyst- left kidney in the inferior pole measuring 7.3 cm likely a cyst. Ct in 2019 -Bilateral renal cysts, the largest of which lies on the left and measures 7.5 cm Dyspnea -Abnormal chest x-ray with faint interstitial infiltrates - CoVid positive , On steroids and Abx per Pulm COPD - 60 years of tobacco use, quit 3 years ago. 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 pylori- EGD in the past Diverticulosis- Ct in 09/2018- Extensive sigmoid diverticulosis. . Transaminitis- Hepatic steatosis/ Probable small hepatic cysts on CT HTN - Home meds listed in his chart- both ?DANTE and ARB both and Loop Diuretic COMMENT/RELEVANT DATA Meds Current Medications Medications (Trade) Dose Ordered Sig/Ya Start Time Stop Time Status Last Admin Dose Admin Acetaminophen (Tylenol) 650 mg PRN Q6HRS PRN 03/02/20 03:30 03/02/20 03:42 650 MG Albuterol Sulfate (Ventolin Hfa) 2 puff Q4HRS 03/04/20 12:00 03/05/20 13:02 2 PUFF Albuterol/ Ipratropium (Duoneb) 3 ml PRN QID PRN 02/29/20 14:00 03/01/20 13:59 DC Dextrose (Dextrose 50%-Water Syringe) 12.5 gm PRN Q15MIN PRN 03/04/20 13:00 Diphenhydramine HCl (Benadryl) 25 mg PRN QHS PRN 03/01/20 22:15 03/03/20 21:51 25 MG Ferrous Sulfate (Feosol) 325 mg BIDWMEALS 03/01/20 17:00 03/05/20 08:39 325 MG Furosemide (Lasix) 20 mg 1X ONCE 03/04/20 11:00 03/04/20 11:01 DC 03/04/20 12:17 20 MG Insulin Glargine (Lantus Syringe) 25 unit QHS 03/05/20 21:00 Insulin Human Lispro (HumaLOG) 5 units TIDAC 03/05/20 08:00 03/05/20 13:02 5 UNITS Lactobacillus Rhamnosus (Culturelle) 1 cap BID 03/04/20 13:00 03/05/20 08:39 1 CAP Lidocaine (Lidoderm) 1 patch DAILY 03/02/20 14:30 03/05/20 08:39 1 PATCH Loperamide HCl (Imodium) 2 mg PRN Q15MIN PRN 03/05/20 15:15 Methylprednisolone Sodium Succinate (SOLU-Medrol 40MG VIAL) 60 mg Q8HRS 03/02/20 14:00 03/05/20 14:05 60 MG Methylprednisolone Sodium Succinate (SOLU-Medrol 125MG VIAL) 125 mg 1X ONCE 02/29/20 10:30 02/29/20 10:31 DC 02/29/20 10:23 125 MG Miscellaneous (Lidoderm Patch Removal) 1 ea QHS 03/02/20 21:00 03/02/20 21:00 1 EA Olanzapine (ZyPREXA ZYDIS) 5 mg PRN BID PRN 03/01/20 11:15 Ondansetron HCl (Zofran) 4 mg PRN Q8HRS PRN 02/29/20 13:30 03/01/20 13:29 DC Pantoprazole Sodium (Protonix) 40 mg DAILYAC 03/01/20 07:30 03/05/20 08:39 40 MG Piperacillin Sod/ Tazobactam Sod (Zosyn Per Pharmacy) 1 each PRN DAILY PRN 03/02/20 11:15 Piperacillin Sod/ Tazobactam Sod 2.25 gm/Sodium Chloride 50 ml @ 100 mls/hr Q6HRS 03/02/20 12:00 03/05/20 13:03 100 MLS/HR Polyethylene Glycol (miraLAX PACKET) 17 gm PRN DAILY PRN 03/01/20 10:15 03/01/20 10:12 DC Ringer's Solution 1,000 ml @ 50 mls/hr Q20H 03/02/20 07:00 03/02/20 18:59 DC Sertraline HCl (Zoloft) 25 mg DAILY 03/03/20 09:00 03/05/20 08:39 25 MG Sodium Chloride 1,000 ml @ 1,000 mls/hr 1X ONCE 02/29/20 13:15 02/29/20 14:14 DC 02/29/20 17:42 1,000 MLS/HR Sodium Cl/Sod Bicarb/Potass Cl/ PEG (Golytely) 4,000 ml 1X ONCE 03/01/20 14:00 03/01/20 14:01 DC 03/01/20 14:47 4,000 ML Sucralfate (Carafate) 1 gm BID 02/29/20 21:00 03/05/20 08:39 1 GM Lab Laboratory Tests Test 03/04/20 16:04 03/04/20 18:10 03/04/20 21:00 03/05/20 07:08 Glucose (Fingerstick) 342 mg/dL (70-99) 124 mg/dL (70-99) 375 mg/dL (70-99) Clostridium difficile Toxin (PCR) Negative (NEGATIVE) Test 03/05/20 10:55 Glucose (Fingerstick) 354 mg/dL (70-99) Results All relevant outside records, renal labs, imaging studies, telemetry/EKG's were reviewed. Justicifation of Admission Dx: Justifications for Admission: Justification of Admission Dx: Yes WILNER DAVIS MD Mar 05, 2020 15:46
[2020-03-05 15:56] VITALS: BP 165/71
--- NOTE | 2020-03-05 15:57 | PDOC ---
F/U PHYSCH PROG NOTE Subjective: Gentleman is seen for routine follow-up. Progress is reviewed with nursing staff. No major event reported overnight. Stating, with respect to depression he is feeling all right, mood is improving gradually. Denies overt anxiety. Denies suicidal or homicidal thoughts. Denies auditory or visual hallucinations. No evidence of cora or hypomania. Tolerating Zoloft 25 denies adverse drug reaction. He is in agreement to increase the dose of Zoloft. Objective: 14 point review of system is otherwise negative except for stated above. Vital Signs: Vital Signs Date Time Temp Pulse Resp B/P (MAP) Pulse Ox O2 Delivery O2 Flow Rate FiO2 03/05/20 11:33 98.1 100 26 165/68 (100) 91 Nasal Cannula 6.0 98.1 Labs: Laboratory Tests Test 03/04/20 16:04 03/04/20 18:10 03/04/20 21:00 03/05/20 07:08 Glucose (Fingerstick) 342 mg/dL (70-99) H 124 mg/dL (70-99) H 375 mg/dL (70-99) H Clostridioides difficile Toxin (PCR) Negative (NEGATIVE) Test 03/05/20 10:55 Glucose (Fingerstick) 354 mg/dL (70-99) H Medications: Current Medications Medications (Trade) Dose Ordered Sig/Ya Start Time Stop Time Status Last Admin Dose Admin Acetaminophen (Tylenol) 650 mg PRN Q6HRS PRN 03/02/20 03:30 03/02/20 03:42 650 MG Albuterol Sulfate (Ventolin Hfa) 2 puff Q4HRS 03/04/20 12:00 03/05/20 13:02 2 PUFF Albuterol/ Ipratropium (Duoneb) 3 ml PRN QID PRN 02/29/20 14:00 03/01/20 13:59 DC Dextrose (Dextrose 50%-Water Syringe) 12.5 gm PRN Q15MIN PRN 03/04/20 13:00 Diphenhydramine HCl (Benadryl) 25 mg PRN QHS PRN 03/01/20 22:15 03/03/20 21:51 25 MG Ferrous Sulfate (Feosol) 325 mg BIDWMEALS 03/01/20 17:00 03/05/20 08:39 325 MG Furosemide (Lasix) 20 mg 1X ONCE 03/04/20 11:00 03/04/20 11:01 DC 03/04/20 12:17 20 MG Insulin Glargine (Lantus Syringe) 25 unit QHS 03/05/20 21:00 Insulin Human Lispro (HumaLOG) 5 units TIDAC 03/05/20 08:00 03/05/20 13:02 5 UNITS Lactobacillus Rhamnosus (Culturelle) 1 cap BID 03/04/20 13:00 03/05/20 08:39 1 CAP Lidocaine (Lidoderm) 1 patch DAILY 03/02/20 14:30 03/05/20 08:39 1 PATCH Loperamide HCl (Imodium) 2 mg PRN Q15MIN PRN 03/05/20 15:15 Methylprednisolone Sodium Succinate (SOLU-Medrol 40MG VIAL) 60 mg Q8HRS 03/02/20 14:00 03/05/20 14:05 60 MG Methylprednisolone Sodium Succinate (SOLU-Medrol 125MG VIAL) 125 mg 1X ONCE 02/29/20 10:30 02/29/20 10:31 DC 02/29/20 10:23 125 MG Miscellaneous (Lidoderm Patch Removal) 1 ea QHS 03/02/20 21:00 03/02/20 21:00 1 EA Olanzapine (ZyPREXA ZYDIS) 5 mg PRN BID PRN 03/01/20 11:15 Ondansetron HCl (Zofran) 4 mg PRN Q8HRS PRN 02/29/20 13:30 03/01/20 13:29 DC Pantoprazole Sodium (Protonix) 40 mg DAILYAC 03/01/20 07:30 03/05/20 08:39 40 MG Piperacillin Sod/ Tazobactam Sod (Zosyn Per Pharmacy) 1 each PRN DAILY PRN 03/02/20 11:15 Piperacillin Sod/ Tazobactam Sod 2.25 gm/Sodium Chloride 50 ml @ 100 mls/hr Q6HRS 03/02/20 12:00 03/05/20 13:03 100 MLS/HR Polyethylene Glycol (miraLAX PACKET) 17 gm PRN DAILY PRN 03/01/20 10:15 03/01/20 10:12 DC Ringer's Solution 1,000 ml @ 50 mls/hr Q20H 03/02/20 07:00 03/02/20 18:59 DC Sertraline HCl (Zoloft) 25 mg DAILY 03/03/20 09:00 03/05/20 08:39 25 MG Sodium Chloride 1,000 ml @ 1,000 mls/hr 1X ONCE 02/29/20 13:15 02/29/20 14:14 DC 02/29/20 17:42 1,000 MLS/HR Sodium Cl/Sod Bicarb/Potass Cl/ PEG (Golytely) 4,000 ml 1X ONCE 03/01/20 14:00 03/01/20 14:01 DC 03/01/20 14:47 4,000 ML Sucralfate (Carafate) 1 gm BID 02/29/20 21:00 03/05/20 08:39 1 GM Physical Exam: Mental Status Exam: gentleman with severe hard of hearing Cooperative Disoriented Thought process goal-directed Denies auditory or visual hallucinations Denies suicidal or homicidal thoughts Mood is depressed and anxious Affect is dysthymic Insight is fair Judgment is fair Impulse control is fair attention span and concentration fair Recent memory impaired Remote memory intact Physical Exam: Refer to Physician's note. OUTPATIENT PHYSICAL THERAPIST ASSISTANT: No focal deficit MSK: No EPS, TDK, or abnormal involuntary movements Diagnosis: Unspecified depression, rule out major depressive disorder Unspecified anxiety, rule out major depression anxiety disorder Assessment: Gentleman is a struggling with depression likely to his psychosocial circumstances. Additionally, he has multiple medical comorbidities which are perpetuating his depression. He is in agreement to start Zoloft 25 mg and trazodone for sleep. 03/05/2020 today he is reporting improvement in mood and depression. Plan: Increase Zoloft to 50 mg daily for depression and anxiety Trazodone 50 mg nightly for insomnia. Risks, benefits, alternatives of the treatment are discussed. Adverse drug reaction of the medications are also discussed Psychoeducation provided Supportive psychotherapy provided. VERONICA JACKSON MD Mar 05, 2020 15:57
[2020-03-05 19:45] VITALS: BP 188/74
[2020-03-05] MEDS: PATCH REMOVAL. MC SCH (21:00)
[2020-03-05] MEDS: INSULIN GLARGINE SYRINGE. SQ SCH (21:06)
[2020-03-05 23:44] VITALS: BP 167/71
[2020-03-06] MEDS: PIPERACILLIN/TAZOBACTAM 2.25 GM in IV NORMAL SALINE 50ML 50 ML IV SCH ×5 (00:48→23:27)
[2020-03-06] MEDS: ALBUTEROL SULFATE 8GM INHALER. INH SCH ×7 (00:49→23:27)
[2020-03-06 03:53] VITALS: BP 138/63
[2020-03-06] MEDS: methylPREDNISolone SOD SUCC PF 40 MG/ML VIAL. IV SCH ×3 (05:22→21:23)
[2020-03-06 07:00] VITALS: BP 172/74
[2020-03-06] MEDS: PANTOPRAZOLE 40 MG TABLET.DR. PO SCH (08:34)
[2020-03-06] MEDS: SERTRALINE 50 MG TABLET. PO SCH (08:34)
[2020-03-06] MEDS: LACTOBACILLUS RHAMNOSUS GG 1 CAPSULE. PO SCH ×2 (08:34→21:23)
[2020-03-06] MEDS: SUCRALFATE 1 GM TABLET. PO SCH ×2 (08:34→21:23)
[2020-03-06] MEDS: LIDOCAINE (700MG/PATCH) PATCH. TD SCH (08:34)
[2020-03-06] MEDS: FERROUS SULFATE 325 MG TABLET. PO SCH ×2 (08:35→18:00)
[2020-03-06] MEDS: INSULIN LISPRO 300 UNITS/3 ML VIAL. SQ SCH ×7 (08:37→21:00)
[2020-03-06 08:41] LABS: BASO % 0 % (0-3); EOS % 0 % (0-3); HEMATOCRIT 24.9 % (39.0-53.0); LYMPH # 0.4 x10^3/uL (1.0-4.8); LYMPH % 3 % (24-48); MEAN CORPUSCULAR HEMOGLOBIN 31 pg (25-35); MEAN CORPUSCULAR HGB CONC 32 g/dL (31-37); MEAN CORPUSCULAR VOLUME 97 fL (79-100); MONO # 0.5 x10^3/uL (0.0-1.1); MONO % 4 % (0-9); NEUT # 11.2 x10^3/uL (1.8-7.7); NEUT % 92 % (31-73); PLATELET COUNT 323 x10^3/uL (140-400); RED BLOOD COUNT 2.57 x10^6/uL (4.30-5.70); RED CELL DISTRIBUTION WIDTH 15.8 % (11.5-14.5); WHITE BLOOD COUNT 12.2 x10^3/uL (4.0-11.0)
[2020-03-06 09:13] LABS: ALBUMIN 2.2 g/dL (3.4-5.0); ALBUMIN/GLOBULIN RATIO 0.5 (1.0-1.7); CREATININE 1.8 mg/dL (0.7-1.3); GFR 36.1; POTASSIUM 4.8 mmol/L (3.5-5.1); TOTAL BILIRUBIN 0.7 mg/dL (0.2-1.0); TOTAL PROTEIN 6.3 g/dL (6.4-8.2)
[2020-03-06 11:00] VITALS: BP 161/67
--- NOTE | 2020-03-06 11:14 | PDOC ---
Date of Service: DATE: 03/06/20 TIME: 11:06 Objective: Objective: D/w nurse - 3 stools so far today - dark brown with some dark red - looks more normal compared to when she cared for him last week. Increasing oxygen demands. Has Imodium PRN ordered (but hasn't taken). On IV antibiotics and IV steroids. Vital Signs: Vital Signs Date Time Temp Pulse Resp B/P (MAP) Pulse Ox O2 Delivery O2 Flow Rate FiO2 03/06/20 08:00 Venturi Mask 15.0 03/06/20 07:00 98.0 71 20 172/74 (106) 94 98.0 Labs: Laboratory Tests Test 03/05/20 16:14 03/05/20 21:01 03/06/20 08:05 03/06/20 08:07 Glucose (Fingerstick) 164 mg/dL 168 mg/dL 327 mg/dL White Blood Count 12.2 x10^3/uL Red Blood Count 2.57 x10^6/uL Hemoglobin 8.0 g/dL Hematocrit 24.9 % Mean Corpuscular Volume 97 fL Mean Corpuscular Hemoglobin 31 pg Mean Corpuscular Hemoglobin Concent 32 g/dL Red Cell Distribution Width 15.8 % Platelet Count 323 x10^3/uL Neutrophils (%) (Auto) 92 % Lymphocytes (%) (Auto) 3 % Monocytes (%) (Auto) 4 % Eosinophils (%) (Auto) 0 % Basophils (%) (Auto) 0 % Neutrophils # (Auto) 11.2 x10^3/uL Lymphocytes # (Auto) 0.4 x10^3/uL Monocytes # (Auto) 0.5 x10^3/uL Eosinophils # (Auto) 0.0 x10^3/uL Basophils # (Auto) 0.0 x10^3/uL Sodium Level 144 mmol/L Potassium Level 4.8 mmol/L Chloride Level 109 mmol/L Carbon Dioxide Level 26 mmol/L Anion Gap 9 Blood Urea Nitrogen 57 mg/dL Creatinine 1.8 mg/dL Estimated GFR (Cockcroft-Gault) 36.1 BUN/Creatinine Ratio 32 Glucose Level 338 mg/dL Calcium Level 8.0 mg/dL Total Bilirubin 0.7 mg/dL Aspartate Amino Transf (AST/SGOT) 55 U/L Alanine Aminotransferase (ALT/SGPT) 58 U/L Alkaline Phosphatase 53 U/L Total Protein 6.3 g/dL Albumin 2.2 g/dL Albumin/Globulin Ratio 0.5 Note was checked for C Diff and negative. PE: GEN: in COVID isolation LUNGS: venturi mask HEART: RR ABD: NABS, S/ND/NT, no masses NEURO/PSYCH: A & O 3 A/P: +COVID-19 resp failure, h/o COPD LIZY, melena/hematochezia - slowing? - last EGD, colonoscopy, SBCE in [id number], h/o AVMs and diverticulosis - on PO iron, PPI, Carafate Diarrhea - C Diff negative Mildly elevated AST, h/o hepatic steatosis and cysts CKD, depression -- Continue treatment of respiratory issues. Can also check stool culture for completeness. ?IV iron Justicifation of Admission Dx: Justifications for Admission: Justification of Admission Dx: Yes DEBBIE MURRAY Mar 06, 2020 11:14
--- NOTE | 2020-03-06 11:17 | PDOC ---
PULMONARY PROGRESS NOTES DATE: 03/06/20 TIME: 11:16 Subjective Remains on N/C Feeling much better today S/P lasix NO increase cough or SOA Vitals Vital Signs Date Time Temp Pulse Resp B/P (MAP) Pulse Ox O2 Delivery O2 Flow Rate FiO2 03/06/20 08:00 Venturi Mask 15.0 03/06/20 07:00 98.0 71 20 172/74 (106) 94 98.0 Comments pt. seen during ID- pandemic visual exam preformed RRR N/C oxygen audible wheezing SOB trace edema no rash Labs Laboratory Tests Test 03/04/20 13:24 03/04/20 16:04 03/04/20 18:10 03/04/20 21:00 Glucose (Fingerstick) 503 mg/dL (70-99) 342 mg/dL (70-99) 124 mg/dL (70-99) Clostridium difficile Toxin (PCR) Negative (NEGATIVE) Test 03/05/20 07:08 03/05/20 10:55 03/05/20 16:14 03/05/20 21:01 Glucose (Fingerstick) 375 mg/dL (70-99) 354 mg/dL (70-99) 164 mg/dL (70-99) 168 mg/dL (70-99) Test 03/06/20 08:05 03/06/20 08:07 White Blood Count 12.2 x10^3/uL (4.0-11.0) Red Blood Count 2.57 x10^6/uL (4.30-5.70) Hemoglobin 8.0 g/dL (13.0-17.5) Hematocrit 24.9 % (39.0-53.0) Mean Corpuscular Volume 97 fL (79-100) Mean Corpuscular Hemoglobin 31 pg (25-35) Mean Corpuscular Hemoglobin Concent 32 g/dL (31-37) Red Cell Distribution Width 15.8 % (11.5-14.5) Platelet Count 323 x10^3/uL (140-400) Neutrophils (%) (Auto) 92 % (31-73) Lymphocytes (%) (Auto) 3 % (24-48) Monocytes (%) (Auto) 4 % (0-9) Eosinophils (%) (Auto) 0 % (0-3) Basophils (%) (Auto) 0 % (0-3) Neutrophils # (Auto) 11.2 x10^3/uL (1.8-7.7) Lymphocytes # (Auto) 0.4 x10^3/uL (1.0-4.8) Monocytes # (Auto) 0.5 x10^3/uL (0.0-1.1) Eosinophils # (Auto) 0.0 x10^3/uL (0.0-0.7) Basophils # (Auto) 0.0 x10^3/uL (0.0-0.2) Sodium Level 144 mmol/L (136-145) Potassium Level 4.8 mmol/L (3.5-5.1) Chloride Level 109 mmol/L (98-107) Carbon Dioxide Level 26 mmol/L (21-32) Anion Gap 9 (6-14) Blood Urea Nitrogen 57 mg/dL (8-26) Creatinine 1.8 mg/dL (0.7-1.3) Estimated GFR (Cockcroft-Gault) 36.1 BUN/Creatinine Ratio 32 (6-20) Glucose Level 338 mg/dL (70-99) Calcium Level 8.0 mg/dL (8.5-10.1) Total Bilirubin 0.7 mg/dL (0.2-1.0) Aspartate Amino Transf (AST/SGOT) 55 U/L (15-37) Alanine Aminotransferase (ALT/SGPT) 58 U/L (16-63) Alkaline Phosphatase 53 U/L (46-116) Total Protein 6.3 g/dL (6.4-8.2) Albumin 2.2 g/dL (3.4-5.0) Albumin/Globulin Ratio 0.5 (1.0-1.7) Glucose (Fingerstick) 327 mg/dL (70-99) Laboratory Tests Test 03/05/20 16:14 03/05/20 21:01 03/06/20 08:05 03/06/20 08:07 Glucose (Fingerstick) 164 mg/dL (70-99) 168 mg/dL (70-99) 327 mg/dL (70-99) White Blood Count 12.2 x10^3/uL (4.0-11.0) Red Blood Count 2.57 x10^6/uL (4.30-5.70) Hemoglobin 8.0 g/dL (13.0-17.5) Hematocrit 24.9 % (39.0-53.0) Mean Corpuscular Volume 97 fL (79-100) Mean Corpuscular Hemoglobin 31 pg (25-35) Mean Corpuscular Hemoglobin Concent 32 g/dL (31-37) Red Cell Distribution Width 15.8 % (11.5-14.5) Platelet Count 323 x10^3/uL (140-400) Neutrophils (%) (Auto) 92 % (31-73) Lymphocytes (%) (Auto) 3 % (24-48) Monocytes (%) (Auto) 4 % (0-9) Eosinophils (%) (Auto) 0 % (0-3) Basophils (%) (Auto) 0 % (0-3) Neutrophils # (Auto) 11.2 x10^3/uL (1.8-7.7) Lymphocytes # (Auto) 0.4 x10^3/uL (1.0-4.8) Monocytes # (Auto) 0.5 x10^3/uL (0.0-1.1) Eosinophils # (Auto) 0.0 x10^3/uL (0.0-0.7) Basophils # (Auto) 0.0 x10^3/uL (0.0-0.2) Sodium Level 144 mmol/L (136-145) Potassium Level 4.8 mmol/L (3.5-5.1) Chloride Level 109 mmol/L (98-107) Carbon Dioxide Level 26 mmol/L (21-32) Anion Gap 9 (6-14) Blood Urea Nitrogen 57 mg/dL (8-26) Creatinine 1.8 mg/dL (0.7-1.3) Estimated GFR (Cockcroft-Gault) 36.1 BUN/Creatinine Ratio 32 (6-20) Glucose Level 338 mg/dL (70-99) Calcium Level 8.0 mg/dL (8.5-10.1) Total Bilirubin 0.7 mg/dL (0.2-1.0) Aspartate Amino Transf (AST/SGOT) 55 U/L (15-37) Alanine Aminotransferase (ALT/SGPT) 58 U/L (16-63) Alkaline Phosphatase 53 U/L (46-116) Total Protein 6.3 g/dL (6.4-8.2) Albumin 2.2 g/dL (3.4-5.0) Albumin/Globulin Ratio 0.5 (1.0-1.7) Medications Active Scripts Medications Dose Route/Sig Max Daily Dose Days Date Category Phospha 250 Neutral Tablet (Phosphorus #1) 250 Mg Tablet 1 Tab PO DAILY 30 02/29/20 Reported Atorvastatin Calcium 20 Mg Tablet 1 Tab PO DAILYWSUP 02/29/20 Reported Levothyroxine Sodium 25 Mcg Tablet 1 Tab PO DAILY 02/29/20 Reported Iron (Ferrous Sulfate) 325 Mg Tablet 1 Tab PO BID 30 02/29/20 Reported Flomax (Tamsulosin Hcl) 0.4 Mg Cap.er.24h 0.4 Mg PO DAILY 02/29/20 Reported Benicar (Olmesartan Medoxomil) 20 Mg Tablet 1 Tab PO DAILY 30 02/29/20 Reported Cyclobenzaprine Hcl 10 Mg Tablet 1 Tab PO BID PRN 10/08/14 Reported Torsemide 20 Mg Tablet 4 Tab PO DAILY 10/08/14 Reported Benadryl (Diphenhydramine Hcl) 25 Mg Capsule 1 Cap PO QHS 10/08/14 Reported Quinapril Hcl 40 Mg Tablet 1 Tab PO DAILY 10/08/14 Reported Metformin Hcl 500 Mg Tablet 1 Tab PO DAILYBFRSUP 10/08/14 Reported Trazodone Hcl 50 Mg Tablet 50 Mg PO HS 10/08/14 Reported [place] 5-325 Tablet (Acetaminophen/Hydrocodone Bitart) 1 Each Tablet 1 Tab PO Q8HRS PRN 10/08/14 Reported Percocet 5-325 Mg Tablet (Oxycodone/Acetaminophen) 1 Each Tablet 1-2 Tab PO Q6HRS PRN 10/08/14 Reported Potassium Chloride 20 Meq Tab.er.prt 20 Meq PO BID 10/08/14 Reported Combivent Respimat Inhal (Ipratropium/Albuterol Sulfate) 4 Gm Aer.w.adap 2 Inh IH QID PRN 10/08/14 Reported Metformin Hcl 1,000 Mg Tablet 1 Tab PO DAILY08 10/07/14 Reported Comments Impression: low probability for pulmonary embolism. Impression . IMPRESSION: 1. Dyspnea with no significant hypoxia based on the ABG, likely related to mild congestive heart failure. in addition to COVID pneumonia.---improving 2. Abnormal chest x-ray with faint interstitial infiltrates, related to congestive heart failure / COVID pneumonia. 3. Suspected severe chronic obstructive pulmonary disease, 60 years of tobacco use, quit 3 years ago. 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 5. Acute kidney injury Plan . RECOMMENDATIONS: Continue present oxygen and keep saturations 92 and above, remains on 4-5 liters NC continue steroids Continue antibiotics bronchodilators MDI 2 puffs and Q4 scheduled Follow renal function and nephrology recommendations Follow GI recs and monitor HGB-- stable COVID-19 positive D/W RN PT. is DNR JIM DIAMOND MD Mar 06, 2020 11:17
--- NOTE | 2020-03-06 12:39 | NUR ---
SW following. Reviewed chart and discussed with RN. Pt on a venti-mask and IV abx. Spoke with Sabine today and insurance approved SN[facility]. Notified RN and Dr. Arroyo. Pt likely not ready for discharge today. Nephrology following. Returned call to dtr Colleen at [phone] to update. SW to continue following.
--- NOTE | 2020-03-06 13:54 | PDOC ---
Renal-Progress Notes Subjective Notes Notes NO NEW COMPLAINTS History of Present Illness Hx of present illness SOME MILD SOB Vitals Vitals Vital Signs Date Time Temp Pulse Resp B/P (MAP) Pulse Ox O2 Delivery O2 Flow Rate FiO2 03/06/20 11:00 98.1 107 24 161/67 (98) 91 98.1 03/06/20 08:00 Venturi Mask 15.0 Weight Weight [ ] I.O. Intake and Output Intake and Output 03/06/20 07:00 Intake Total 1080 ml Output Total 550 ml Balance 530 ml Intake Oral 880 ml Other 200 ml Output Urine Total 200 ml Stool Total 350 ml # Bowel Movements 5 Labs Labs Laboratory Tests Test 03/05/20 16:14 03/05/20 21:01 03/06/20 08:05 03/06/20 08:07 Glucose (Fingerstick) 164 mg/dL (70-99) 168 mg/dL (70-99) 327 mg/dL (70-99) White Blood Count 12.2 x10^3/uL (4.0-11.0) Red Blood Count 2.57 x10^6/uL (4.30-5.70) Hemoglobin 8.0 g/dL (13.0-17.5) Hematocrit 24.9 % (39.0-53.0) Mean Corpuscular Volume 97 fL (79-100) Mean Corpuscular Hemoglobin 31 pg (25-35) Mean Corpuscular Hemoglobin Concent 32 g/dL (31-37) Red Cell Distribution Width 15.8 % (11.5-14.5) Platelet Count 323 x10^3/uL (140-400) Neutrophils (%) (Auto) 92 % (31-73) Lymphocytes (%) (Auto) 3 % (24-48) Monocytes (%) (Auto) 4 % (0-9) Eosinophils (%) (Auto) 0 % (0-3) Basophils (%) (Auto) 0 % (0-3) Neutrophils # (Auto) 11.2 x10^3/uL (1.8-7.7) Lymphocytes # (Auto) 0.4 x10^3/uL (1.0-4.8) Monocytes # (Auto) 0.5 x10^3/uL (0.0-1.1) Eosinophils # (Auto) 0.0 x10^3/uL (0.0-0.7) Basophils # (Auto) 0.0 x10^3/uL (0.0-0.2) Sodium Level 144 mmol/L (136-145) Potassium Level 4.8 mmol/L (3.5-5.1) Chloride Level 109 mmol/L (98-107) Carbon Dioxide Level 26 mmol/L (21-32) Anion Gap 9 (6-14) Blood Urea Nitrogen 57 mg/dL (8-26) Creatinine 1.8 mg/dL (0.7-1.3) Estimated GFR (Cockcroft-Gault) 36.1 BUN/Creatinine Ratio 32 (6-20) Glucose Level 338 mg/dL (70-99) Calcium Level 8.0 mg/dL (8.5-10.1) Total Bilirubin 0.7 mg/dL (0.2-1.0) Aspartate Amino Transf (AST/SGOT) 55 U/L (15-37) Alanine Aminotransferase (ALT/SGPT) 58 U/L (16-63) Alkaline Phosphatase 53 U/L (46-116) Total Protein 6.3 g/dL (6.4-8.2) Albumin 2.2 g/dL (3.4-5.0) Albumin/Globulin Ratio 0.5 (1.0-1.7) Test 03/06/20 11:24 Glucose (Fingerstick) 385 mg/dL (70-99) Micro Micro Microbiology 02/29/20 Blood Culture - Final, Complete NO GROWTH AFTER 5 DAYS Review of Systems Constitutional: yes: other (CONFUSED) Physical Exam General Appearance: no apparent distress Skin: warm Respiratory: decreased breath sounds Heart: S1S2 Abdomen: soft, bowel sounds present Genitourinary: bladder flat Extremities: pulses present Neurology: alert, confused Musculoskeletal: Other Assessment Assessment . IMP CKD STAGE 3B WITH CR OF 1.6 DANIELA - ATN WITH CR OF 2.4 COVID 19 PNEUMONIA HX OF ZAVALA DZ COPD HX DM II HYPERGLYCEMIA PLAN GENTLY HYDRATION CONTROL BG WILL FOLLOW LUKE ALCANTARA MD Mar 06, 2020 13:54
[2020-03-06] MEDS: IV NORMAL SALINE 1000ML BAG 1,000 ML IV SCH (14:22)
[2020-03-06 15:00] VITALS: BP 167/66
--- NOTE | 2020-03-06 16:20 | PDOC ---
[employer] PROGRESS NOTE Date of Service DOS: DATE: 03/06/20 TIME: 16:18 Chief Complaint Chief Complaint A/P: Dyspnea with no significant hypoxia based on the ABG, likely related to mild congestive heart failure. also with COVID pneumonia. SARS-CoV-2 - with pneumonia. On steroids, Lovenox. Pulm consulted Abnormal chest x-ray with faint interstitial infiltrates - likely CHF and COVID 19 POSTIVE Severe chronic obstructive pulmonary disease, 60 years of tobacco use, quit 3 years ago. 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 His BUN and creatinine was high as well as LFTs. He required 2 liters of oxygen. LFTs also elevated. 03/01: Still requiring O2. Significant wheezes and prolonged expiratory phase. He says he just wants to sleep. He says "Im 84 I have nothing to live for about my cats." 03/02: COVID-19 positive. He is having some back pain today. Still little hypoxic. EGD and colonoscopy on hold due to his COVID-19 positive status 03/03: Afebrile. Seen on 4 L nasal cannula, he is having a bowel movement, notes that he is having he is eating but is having loose bowels currently they are a little dark. No significant pain. His shortness of breath is stable. Slight cough. Back pain improved with Lidoderm patch. 03/03: Still afebrile with 4 liters nasal cannula O2. His glucose has become very elevated. He feels no worse than yesterday. Afebrile, now on 6 L nasal cannula, he is having more diarrhea, he does not notice much blood. Glucose has been in the 400s, unfortunately he did not receive his Lantus in the evening yesterday evening. C diff negative Plan: Cont steroids Increase insulin coverage Wean O2 as tolerated Vitals/I&O Vitals/I&O: Vital Signs Date Time Temp Pulse Resp B/P (MAP) Pulse Ox O2 Delivery O2 Flow Rate FiO2 03/06/20 15:00 98.0 107 22 167/66 (99) 90 98.0 03/06/20 08:00 Venturi Mask 15.0 l I & O 03/05/20 03/05/20 03/06/20 15:00 23:00 07:00 Intake Total 480 ml 400 ml 200 ml Output Total 350 ml 200 ml Balance 130 ml 200 ml 200 ml Physical Exam Physical Exam: GEN: No apparent distress. Alert and oriented HEENT: Normal cephalic, atraumatic, external auditory canals are patent NECK: Supple, no JVD, no thyromegaly was noted LUNGS: Bilateral crackles HEART: RRR, S1, S2 present. Peripheral pulses intact, no obvious murmurs noted ABDOMEN: Soft, nontender. Positive bowel sounds, no organomegaly, normal bowel sounds EXTREMITIES: Without clubbing, cyanosis, or edema. Pedal pulses intact. Negative Homans sign General: Alert, Cooperative Labs Labs: Laboratory Tests Test 03/05/20 21:01 03/06/20 08:05 03/06/20 08:07 03/06/20 11:24 Glucose (Fingerstick) 168 mg/dL (70-99) 327 mg/dL (70-99) 385 mg/dL (70-99) White Blood Count 12.2 x10^3/uL (4.0-11.0) Red Blood Count 2.57 x10^6/uL (4.30-5.70) Hemoglobin 8.0 g/dL (13.0-17.5) Hematocrit 24.9 % (39.0-53.0) Mean Corpuscular Volume 97 fL (79-100) Mean Corpuscular Hemoglobin 31 pg (25-35) Mean Corpuscular Hemoglobin Concent 32 g/dL (31-37) Red Cell Distribution Width 15.8 % (11.5-14.5) Platelet Count 323 x10^3/uL (140-400) Neutrophils (%) (Auto) 92 % (31-73) Lymphocytes (%) (Auto) 3 % (24-48) Monocytes (%) (Auto) 4 % (0-9) Eosinophils (%) (Auto) 0 % (0-3) Basophils (%) (Auto) 0 % (0-3) Neutrophils # (Auto) 11.2 x10^3/uL (1.8-7.7) Lymphocytes # (Auto) 0.4 x10^3/uL (1.0-4.8) Monocytes # (Auto) 0.5 x10^3/uL (0.0-1.1) Eosinophils # (Auto) 0.0 x10^3/uL (0.0-0.7) Basophils # (Auto) 0.0 x10^3/uL (0.0-0.2) Sodium Level 144 mmol/L (136-145) Potassium Level 4.8 mmol/L (3.5-5.1) Chloride Level 109 mmol/L (98-107) Carbon Dioxide Level 26 mmol/L (21-32) Anion Gap 9 (6-14) Blood Urea Nitrogen 57 mg/dL (8-26) Creatinine 1.8 mg/dL (0.7-1.3) Estimated GFR (Cockcroft-Gault) 36.1 BUN/Creatinine Ratio 32 (6-20) Glucose Level 338 mg/dL (70-99) Calcium Level 8.0 mg/dL (8.5-10.1) Total Bilirubin 0.7 mg/dL (0.2-1.0) Aspartate Amino Transf (AST/SGOT) 55 U/L (15-37) Alanine Aminotransferase (ALT/SGPT) 58 U/L (16-63) Alkaline Phosphatase 53 U/L (46-116) Total Protein 6.3 g/dL (6.4-8.2) Albumin 2.2 g/dL (3.4-5.0) Albumin/Globulin Ratio 0.5 (1.0-1.7) Assessment and Plan Assessmemt and Plan Problems Medical Problems: (1) Acute renal failure Status: Acute (2) COPD exacerbation Status: Acute (3) GI bleeding Status: Acute Comment Review of Relevant I have reviewed the following items kamini (where applicable) has been applied. Medications: Current Medications Medications (Trade) Dose Ordered Sig/Ya Route PRN Reason Start Time Stop Time Status Last Admin Dose Admin Insulin Glargine (Lantus Syringe) 25 unit QHS SQ 8/23/20 21:00 03/05/20 21:06 Sertraline HCl (Zoloft) 50 mg DAILY PO 03/06/20 09:00 03/06/20 08:34 Sodium Chloride 1,000 ml @ 75 mls/hr [id number] IV 03/06/20 14:00 03/06/20 14:22 BENSON WATERS MD Mar 06, 2020 16:20
--- NOTE | 2020-03-06 18:55 | PDOC ---
F/U PHYSCH PROG NOTE Subjective: Gentleman is seen for routine follow-up. Progress is reviewed with nursing staff. No major event reported overnight. He states, I do not know what is going on. Feeling not good. Sleep is fragmented and nonrestorative. Appears s omewhat dysphoric likely to lack of sleep. Denies suicidal or homicidal thoughts. Denies auditory or visual hallucinations. Objective: 14 point review of system is otherwise negative except for stated above Vital Signs: Vital Signs Date Time Temp Pulse Resp B/P (MAP) Pulse Ox O2 Delivery O2 Flow Rate FiO2 03/06/20 15:00 98.0 107 22 167/66 (99) 90 98.0 03/06/20 08:00 Venturi Mask 15.0 Labs: Laboratory Tests Test 03/05/20 21:01 03/06/20 08:05 03/06/20 08:07 03/06/20 11:24 Glucose (Fingerstick) 168 mg/dL (70-99) H 327 mg/dL (70-99) H 385 mg/dL (70-99) H White Blood Count 12.2 x10^3/uL (4.0-11.0) H Red Blood Count 2.57 x10^6/uL (4.30-5.70) L Hemoglobin 8.0 g/dL (13.0-17.5) L Hematocrit 24.9 % (39.0-53.0) L Mean Corpuscular Volume 97 fL (79-100) Mean Corpuscular Hemoglobin 31 pg (25-35) Mean Corpuscular Hemoglobin Concent 32 g/dL (31-37) Red Cell Distribution Width 15.8 % (11.5-14.5) H Platelet Count 323 x10^3/uL (140-400) Neutrophils (%) (Auto) 92 % (31-73) H Lymphocytes (%) (Auto) 3 % (24-48) L Monocytes (%) (Auto) 4 % (0-9) Eosinophils (%) (Auto) 0 % (0-3) Basophils (%) (Auto) 0 % (0-3) Neutrophils # (Auto) 11.2 x10^3/uL (1.8-7.7) H Lymphocytes # (Auto) 0.4 x10^3/uL (1.0-4.8) L Monocytes # (Auto) 0.5 x10^3/uL (0.0-1.1) Eosinophils # (Auto) 0.0 x10^3/uL (0.0-0.7) Basophils # (Auto) 0.0 x10^3/uL (0.0-0.2) Sodium Level 144 mmol/L (136-145) Potassium Level 4.8 mmol/L (3.5-5.1) Chloride Level 109 mmol/L (98-107) H Carbon Dioxide Level 26 mmol/L (21-32) Anion Gap 9 (6-14) Blood Urea Nitrogen 57 mg/dL (8-26) H Creatinine 1.8 mg/dL (0.7-1.3) H Estimated GFR (Cockcroft-Gault) 36.1 BUN/Creatinine Ratio 32 (6-20) H Glucose Level 338 mg/dL (70-99) H Calcium Level 8.0 mg/dL (8.5-10.1) L Total Bilirubin 0.7 mg/dL (0.2-1.0) Aspartate Amino Transferase (AST) 55 U/L (15-37) H Alanine Aminotransferase (ALT) 58 U/L (16-63) Alkaline Phosphatase 53 U/L (46-116) Total Protein 6.3 g/dL (6.4-8.2) L Albumin 2.2 g/dL (3.4-5.0) L Albumin/Globulin Ratio 0.5 (1.0-1.7) L Test 03/06/20 17:18 Glucose (Fingerstick) 353 mg/dL (70-99) H Laboratory Tests 03/06/20 08:05 Laboratory Tests 03/06/20 08:05 Medications: Current Medications Medications (Trade) Dose Ordered Sig/Ya Start Time Stop Time Status Last Admin Dose Admin Acetaminophen (Tylenol) 650 mg PRN Q6HRS PRN 03/02/20 03:30 03/02/20 03:42 650 MG Albuterol Sulfate (Ventolin Hfa) 2 puff Q4HRS 03/04/20 12:00 03/06/20 18:00 2 PUFF Albuterol/ Ipratropium (Duoneb) 3 ml PRN QID PRN 02/29/20 14:00 03/01/20 13:59 DC Dextrose (Dextrose 50%-Water Syringe) 12.5 gm PRN Q15MIN PRN 03/04/20 13:00 Diphenhydramine HCl (Benadryl) 25 mg PRN QHS PRN 03/01/20 22:15 03/03/20 21:51 25 MG Ferrous Sulfate (Feosol) 325 mg BIDWMEALS 03/01/20 17:00 03/06/20 18:00 325 MG Furosemide (Lasix) 20 mg 1X ONCE 03/04/20 11:00 03/04/20 11:01 DC 03/04/20 12:17 20 MG Insulin Glargine (Lantus Syringe) 25 unit QHS 03/05/20 21:00 03/05/20 21:06 25 UNIT Insulin Human Lispro (HumaLOG) 5 units TIDAC 03/05/20 08:00 03/06/20 18:03 5 UNITS Lactobacillus Rhamnosus (Culturelle) 1 cap BID 03/04/20 13:00 03/06/20 08:34 1 CAP Lidocaine (Lidoderm) 1 patch DAILY 03/02/20 14:30 03/06/20 08:34 1 PATCH Loperamide HCl (Imodium) 2 mg PRN Q15MIN PRN 03/05/20 15:15 Methylprednisolone Sodium Succinate (SOLU-Medrol 40MG VIAL) 60 mg Q8HRS 03/02/20 14:00 03/06/20 14:22 60 MG Methylprednisolone Sodium Succinate (SOLU-Medrol 125MG VIAL) 125 mg 1X ONCE 02/29/20 10:30 02/29/20 10:31 DC 02/29/20 10:23 125 MG Miscellaneous (Lidoderm Patch Removal) 1 ea QHS 03/02/20 21:00 03/02/20 21:00 1 EA Olanzapine (ZyPREXA ZYDIS) 5 mg PRN BID PRN 03/01/20 11:15 Ondansetron HCl (Zofran) 4 mg PRN Q8HRS PRN 02/29/20 13:30 03/01/20 13:29 DC Pantoprazole Sodium (Protonix) 40 mg DAILYAC 03/01/20 07:30 03/06/20 08:34 40 MG Piperacillin Sod/ Tazobactam Sod (Zosyn Per Pharmacy) 1 each PRN DAILY PRN 03/02/20 11:15 Piperacillin Sod/ Tazobactam Sod 2.25 gm/Sodium Chloride 50 ml @ 100 mls/hr Q6HRS 03/02/20 12:00 03/06/20 18:00 100 MLS/HR Polyethylene Glycol (miraLAX PACKET) 17 gm PRN DAILY PRN 03/01/20 10:15 03/01/20 10:12 DC Ringer's Solution 1,000 ml @ 50 mls/hr Q20H 03/02/20 07:00 03/02/20 18:59 DC Sertraline HCl (Zoloft) 50 mg DAILY 03/06/20 09:00 03/06/20 08:34 50 MG Sodium Chloride 1,000 ml @ 75 mls/hr [id number] 03/06/20 14:00 03/06/20 14:22 75 MLS/HR Sodium Cl/Sod Bicarb/Potass Cl/ PEG (Golytely) 4,000 ml 1X ONCE 03/01/20 14:00 03/01/20 14:01 DC 03/01/20 14:47 4,000 ML Sucralfate (Carafate) 1 gm BID 02/29/20 21:00 03/06/20 08:34 1 GM Physical Exam: Mental Status Exam: gentleman with severe hard of hearing Cooperative Disoriented Thought process goal-directed Denies auditory or visual hallucinations Denies suicidal or homicidal thoughts Mood is depressed and anxious Affect is dysthymic Insight is fair Judgment is fair Impulse control is fair attention span and concentration fair Recent memory impaired Remote memory intact Physical Exam: Refer to Physician's note. AIR BAG STRIPPER: No focal deficit MSK: No EPS, TDK, or abnormal involuntary movements Diagnosis: Unspecified depression, rule out major depressive disorder Unspecified anxiety, rule out major depression anxiety disorder Assessment: Gentleman is struggling with depression likely to his psychosocial circumstances. Additionally, he has multiple medical comorbidities which are perpetuating his depression. He is in agreement to start Zoloft 25 mg and trazodone for sleep. 03/05/2020 today he is reporting improvement in mood and depression. 03/06/2020. Today he appears somewhat dysphoric and ambivalent likely due to lack of sleep. Requesting something for sleep as trazodone is not helpful Plan: Add Remeron 15 mg nightly for depression adjunct, anxiety, and insomnia. Continue Zoloft to 50 mg daily for depression and anxiety Trazodone 50 mg nightly for insomnia. Risks, benefits, alternatives of the treatment are discussed. Adverse drug reaction of the medications are also discussed Psychoeducation provided Supportive psychotherapy provided. VERONICA JACKSON MD Mar 06, 2020 18:55
[2020-03-06 19:00] VITALS: BP 164/73
--- NOTE | 2020-03-06 19:16 | NUR ---
Blood glucose in the 300s today, notified Dr. Arroyo, pt on sliding scale and glargine, no new orders received.
[2020-03-06] MEDS: PATCH REMOVAL. MC SCH (19:54)
[2020-03-06] MEDS: INSULIN GLARGINE SYRINGE. SQ SCH (21:23)
[2020-03-06] MEDS: MIRTAZAPINE 15 MG TABLET PO SCH (21:23)
[2020-03-06 23:00] VITALS: BP 183/78
[2020-03-07] VITALS (15 sets, daily range): BP systolic 150–200; BP diastolic 63–84
[2020-03-07] MEDS: IV NORMAL SALINE 1000ML BAG 1,000 ML IV SCH (00:53)
[2020-03-07] MEDS: ALBUTEROL SULFATE 8GM INHALER. INH SCH ×3 (04:08→12:00)
[2020-03-07] MEDS: PIPERACILLIN/TAZOBACTAM 2.25 GM in IV NORMAL SALINE 50ML 50 ML IV SCH ×4 (05:00→23:18)
[2020-03-07] MEDS: methylPREDNISolone SOD SUCC PF 40 MG/ML VIAL. IV SCH ×3 (05:00→20:56)
[2020-03-07 07:37] LABS: CALCIUM 8.1 mg/dL (8.5-10.1); CREATININE 1.6 mg/dL (0.7-1.3); GFR 41.4; POTASSIUM 4.6 mmol/L (3.5-5.1)
[2020-03-07] MEDS: FERROUS SULFATE 325 MG TABLET. PO SCH ×2 (07:51→17:43)
[2020-03-07] MEDS: PANTOPRAZOLE 40 MG TABLET.DR. PO SCH (07:51)
[2020-03-07] MEDS: INSULIN LISPRO 300 UNITS/3 ML VIAL. SQ SCH ×7 (07:58→20:55)
[2020-03-07] MEDS: SUCRALFATE 1 GM TABLET. PO SCH ×2 (08:00→20:56)
[2020-03-07] MEDS: LACTOBACILLUS RHAMNOSUS GG 1 CAPSULE. PO SCH ×2 (08:00→20:56)
[2020-03-07] MEDS: SERTRALINE 50 MG TABLET. PO SCH (08:01)
[2020-03-07] MEDS: LIDOCAINE (700MG/PATCH) PATCH. TD SCH (08:01)
--- NOTE | 2020-03-07 09:39 | NUR ---
JAVIER following. Reviewed chart and discussed with RN. Spoke with Dr. Arroyo. Pt remains on a venturi mask and IV abx. Pt not ready for discharge today as pt remains at 15l on the venturi mask. Coordinated care with Sabine at [facility]. Pt will discharge to [facility] when stable and dtr agreeable. JAVIER following. Addendum: 03/07/20 at 1615 by LEV HERRERA Pt transferred to ICU. Sabine with [employer] notified. Addendum: 03/07/20 at 1632 by LEV HERRERA Phone call from genna Macias ([phone]). JAVIER notified dtr that pt was transferred to ICU. Dtr tearful. JAVIER provided support.
[2020-03-07] MEDS: hydrALAZINE 20 MG/ML VIAL. IVP PRN ×2 (09:47→23:18)
[2020-03-07] MEDS ORDERED: methylPREDNISolone SOD SUCC PF 125 MG/2 ML VIAL. IV ONE (10:45)
--- NOTE | 2020-03-07 10:55 | NUR ---
Patient complained of increasing shortness of breath. He's alert, awake, oriented VS 170/69 HR 114 RR 26 O2 sat 92 % 50% FiO2 at [address] Toledo, new orders received. Patient encouraged to have head of bed elevated. We will continue to monitor.
[2020-03-07] MEDS: FLUTICASONE/VILANTEROL 100/25 INHALER. INH SCH ×2 (11:12→11:25)
[2020-03-07] MEDS ORDERED: FLUTICASONE/VILANTEROL 100/25 INHALER. INH SCH ×2 (11:30)
--- NOTE | 2020-03-07 11:31 | RAD ---
EXAM: CHEST AP ONLY INDICATION: Reason: increasing dyspnea, COPD, COVID / Spl. Instructions: / History: . TECHNIQUE: Single view COMPARISON: 02/29/2020 chest x-ray FINDINGS: The heart size is normal. The great vessels appear unremarkable. There is no hilar or mediastinal mass. The lungs are lower in volume and show patchy bilateral peripheral predominant airspace opacities, more conspicuous in the interval. There is no pleural effusion or pneumothorax. There are no significant osseous abnormalities. IMPRESSION: Developing bilateral peripheral predominant patchy airspace opacities, compatible with atypical pneumonia in the appropriate clinical context. Electronically signed by: Jem Gordon MD (03/07/2020 11:28 AM) [id number]
--- NOTE | 2020-03-07 12:38 | PDOC ---
PULMONARY PROGRESS NOTES DATE: 03/07/20 TIME: 12:34 Subjective Remains on VM increase soa/ wheezing Vitals Vital Signs Date Time Temp Pulse Resp B/P (MAP) Pulse Ox O2 Delivery O2 Flow Rate FiO2 03/07/20 11:01 108 26 170/69 (102) 92 Venturi Mask 15.0 03/07/20 11:00 96.7 96.7 Comments pt. seen during COVID-19 pandemic visual exam preformed RRR N/C oxygen faint audible wheezing SOB trace edema no rash General: Lethargic Labs Laboratory Tests Test 03/05/20 16:14 03/05/20 21:01 03/06/20 08:05 03/06/20 08:07 Glucose (Fingerstick) 164 mg/dL (70-99) 168 mg/dL (70-99) 327 mg/dL (70-99) White Blood Count 12.2 x10^3/uL (4.0-11.0) Red Blood Count 2.57 x10^6/uL (4.30-5.70) Hemoglobin 8.0 g/dL (13.0-17.5) Hematocrit 24.9 % (39.0-53.0) Mean Corpuscular Volume 97 fL (79-100) Mean Corpuscular Hemoglobin 31 pg (25-35) Mean Corpuscular Hemoglobin Concent 32 g/dL (31-37) Red Cell Distribution Width 15.8 % (11.5-14.5) Platelet Count 323 x10^3/uL (140-400) Neutrophils (%) (Auto) 92 % (31-73) Lymphocytes (%) (Auto) 3 % (24-48) Monocytes (%) (Auto) 4 % (0-9) Eosinophils (%) (Auto) 0 % (0-3) Basophils (%) (Auto) 0 % (0-3) Neutrophils # (Auto) 11.2 x10^3/uL (1.8-7.7) Lymphocytes # (Auto) 0.4 x10^3/uL (1.0-4.8) Monocytes # (Auto) 0.5 x10^3/uL (0.0-1.1) Eosinophils # (Auto) 0.0 x10^3/uL (0.0-0.7) Basophils # (Auto) 0.0 x10^3/uL (0.0-0.2) Sodium Level 144 mmol/L (136-145) Potassium Level 4.8 mmol/L (3.5-5.1) Chloride Level 109 mmol/L (98-107) Carbon Dioxide Level 26 mmol/L (21-32) Anion Gap 9 (6-14) Blood Urea Nitrogen 57 mg/dL (8-26) Creatinine 1.8 mg/dL (0.7-1.3) Estimated GFR (Cockcroft-Gault) 36.1 BUN/Creatinine Ratio 32 (6-20) Glucose Level 338 mg/dL (70-99) Calcium Level 8.0 mg/dL (8.5-10.1) Total Bilirubin 0.7 mg/dL (0.2-1.0) Aspartate Amino Transf (AST/SGOT) 55 U/L (15-37) Alanine Aminotransferase (ALT/SGPT) 58 U/L (16-63) Alkaline Phosphatase 53 U/L (46-116) Total Protein 6.3 g/dL (6.4-8.2) Albumin 2.2 g/dL (3.4-5.0) Albumin/Globulin Ratio 0.5 (1.0-1.7) Test 03/06/20 11:24 03/06/20 17:18 03/06/20 20:54 03/07/20 06:30 Glucose (Fingerstick) 385 mg/dL (70-99) 353 mg/dL (70-99) 352 mg/dL (70-99) Sodium Level 147 mmol/L (136-145) Potassium Level 4.6 mmol/L (3.5-5.1) Chloride Level 113 mmol/L (98-107) Carbon Dioxide Level 25 mmol/L (21-32) Anion Gap 9 (6-14) Blood Urea Nitrogen 54 mg/dL (8-26) Creatinine 1.6 mg/dL (0.7-1.3) Estimated GFR (Cockcroft-Gault) 41.4 Glucose Level 314 mg/dL (70-99) Calcium Level 8.1 mg/dL (8.5-10.1) Test 03/07/20 07:38 03/07/20 11:24 Glucose (Fingerstick) 281 mg/dL (70-99) 339 mg/dL (70-99) Laboratory Tests Test 03/06/20 17:18 03/06/20 20:54 03/07/20 06:30 03/07/20 07:38 Glucose (Fingerstick) 353 mg/dL (70-99) 352 mg/dL (70-99) 281 mg/dL (70-99) Sodium Level 147 mmol/L (136-145) Potassium Level 4.6 mmol/L (3.5-5.1) Chloride Level 113 mmol/L (98-107) Carbon Dioxide Level 25 mmol/L (21-32) Anion Gap 9 (6-14) Blood Urea Nitrogen 54 mg/dL (8-26) Creatinine 1.6 mg/dL (0.7-1.3) Estimated GFR (Cockcroft-Gault) 41.4 Glucose Level 314 mg/dL (70-99) Calcium Level 8.1 mg/dL (8.5-10.1) Test 03/07/20 11:24 Glucose (Fingerstick) 339 mg/dL (70-99) Medications Active Scripts Medications Dose Route/Sig Max Daily Dose Days Date Category Phospha 250 Neutral Tablet (Phosphorus #1) 250 Mg Tablet 1 Tab PO DAILY 30 02/29/20 Reported Atorvastatin Calcium 20 Mg Tablet 1 Tab PO DAILYWSUP 02/29/20 Reported Levothyroxine Sodium 25 Mcg Tablet 1 Tab PO DAILY 02/29/20 Reported Iron (Ferrous Sulfate) 325 Mg Tablet 1 Tab PO BID 30 02/29/20 Reported Flomax (Tamsulosin Hcl) 0.4 Mg Cap.er.24h 0.4 Mg PO DAILY 02/29/20 Reported Benicar (Olmesartan Medoxomil) 20 Mg Tablet 1 Tab PO DAILY 30 02/29/20 Reported Cyclobenzaprine Hcl 10 Mg Tablet 1 Tab PO BID PRN 10/08/14 Reported Torsemide 20 Mg Tablet 4 Tab PO DAILY 10/08/14 Reported Benadryl (Diphenhydramine Hcl) 25 Mg Capsule 1 Cap PO QHS 10/08/14 Reported Quinapril Hcl 40 Mg Tablet 1 Tab PO DAILY 10/08/14 Reported Metformin Hcl 500 Mg Tablet 1 Tab PO DAILYBFRSUP 10/08/14 Reported Trazodone Hcl 50 Mg Tablet 50 Mg PO HS 10/08/14 Reported Remington 5-325 Tablet (Acetaminophen/Hydrocodone Bitart) 1 Each Tablet 1 Tab PO Q8HRS PRN 10/08/14 Reported Percocet 5-325 Mg Tablet (Oxycodone/Acetaminophen) 1 Each Tablet 1-2 Tab PO Q6HRS PRN 10/08/14 Reported Potassium Chloride 20 Meq Tab.er.prt 20 Meq PO BID 10/08/14 Reported Combivent Respimat Inhal (Ipratropium/Albuterol Sulfate) 4 Gm Aer.w.adap 2 Inh IH QID PRN 10/08/14 Reported Metformin Hcl 1,000 Mg Tablet 1 Tab PO DAILY08 10/07/14 Reported Comments Impression: low probability for pulmonary embolism. Impression . IMPRESSION: 1. Dyspnea ,worse cxr with bilateral interstitial infiltrates 03/07. suspect combination of congestive heart failure. in addition to COVID pneumonia.--/ AECOPD 2. Abnormal chest x-ray with interstitial infiltrates, related to congestive heart failure / COVID pneumonia. 3. Suspected severe chronic obstructive pulmonary disease, 60 years of tobacco use, quit 3 years ago. 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 5. Acute kidney injury Plan . RECOMMENDATIONS: Transfer to neg flow room and initiate BIPAP extra IV lasix continue steroids Continue antibiotics bronchodilators MDI 2 puffs and Q4 scheduled / add Breo Follow renal function and nephrology recommendations Follow GI recs and monitor HGB-- stable COVID-19 positive D/W RN /RT PT. is DNR JIM DIAMOND MD Mar 07, 2020 12:38
[2020-03-07] MEDS ORDERED: FUROSEMIDE 40 MG/4 ML VIAL. IVP ONE (12:45)
--- NOTE | 2020-03-07 13:07 | PDOC ---
Date of Service: DATE: 03/07/20 TIME: 13:04 Objective: Objective: D/w nurse - once black liquid stool this morning. Resp status worse - thinks transitioning to BiPAP. Vital Signs: Vital Signs Date Time Temp Pulse Resp B/P (MAP) Pulse Ox O2 Delivery O2 Flow Rate FiO2 03/07/20 11:01 108 26 170/69 (102) 92 Venturi Mask 15.0 03/07/20 11:00 96.7 96.7 Labs: Laboratory Tests Test 03/06/20 17:18 03/06/20 20:54 03/07/20 06:30 03/07/20 07:38 Glucose (Fingerstick) 353 mg/dL 352 mg/dL 281 mg/dL Sodium Level 147 mmol/L Potassium Level 4.6 mmol/L Chloride Level 113 mmol/L Carbon Dioxide Level 25 mmol/L Anion Gap 9 Blood Urea Nitrogen 54 mg/dL Creatinine 1.6 mg/dL Estimated GFR (Cockcroft-Gault) 41.4 Glucose Level 314 mg/dL Calcium Level 8.1 mg/dL Test 03/07/20 11:24 Glucose (Fingerstick) 339 mg/dL PE: GEN: in COVID isolation LUNGS: per chart - 15L Venturi mask HEART: tachycardic per monitor A/P: Resp failure - +COVID-19, COPD LIZY, melena, h/o SB AVMs - on PPI, Carafate, iron -- Recheck Hgb. Scopes on hold. Justicifation of Admission Dx: Justifications for Admission: Justification of Admission Dx: Yes DEBBIE MURRAY Mar 07, 2020 13:07
[2020-03-07 13:27] LABS: HEMATOCRIT 25.5 % (39.0-53.0); HEMOGLOBIN 8.2 g/dL (13.0-17.5)
--- NOTE | 2020-03-07 13:49 | PDOC ---
Renal-Progress Notes Subjective Notes Notes NO NEW COMPLAINTS History of Present Illness Hx of present illness STABLE Vitals Vitals Vital Signs Date Time Temp Pulse Resp B/P (MAP) Pulse Ox O2 Delivery O2 Flow Rate FiO2 03/07/20 11:01 108 26 170/69 (102) 92 Venturi Mask 15.0 03/07/20 11:00 96.7 96.7 Weight Weight [ ] I.O. Intake and Output Intake and Output 03/07/20 07:00 Intake Total 320 ml Output Total 0 ml Balance 320 ml Intake Oral 320 ml Output Urine Total 0 ml # Voids 6 # Bowel Movements 4 Labs Labs Laboratory Tests Test 03/06/20 17:18 03/06/20 20:54 03/07/20 06:30 03/07/20 07:38 Glucose (Fingerstick) 353 mg/dL (70-99) 352 mg/dL (70-99) 281 mg/dL (70-99) Hemoglobin 8.2 g/dL (13.0-17.5) Hematocrit 25.5 % (39.0-53.0) Mean Corpuscular Hemoglobin Concent 32 g/dL (31-37) Sodium Level 147 mmol/L (136-145) Potassium Level 4.6 mmol/L (3.5-5.1) Chloride Level 113 mmol/L (98-107) Carbon Dioxide Level 25 mmol/L (21-32) Anion Gap 9 (6-14) Blood Urea Nitrogen 54 mg/dL (8-26) Creatinine 1.6 mg/dL (0.7-1.3) Estimated GFR (Cockcroft-Gault) 41.4 Glucose Level 314 mg/dL (70-99) Calcium Level 8.1 mg/dL (8.5-10.1) Test 03/07/20 11:24 Glucose (Fingerstick) 339 mg/dL (70-99) Micro Micro Microbiology 02/29/20 Blood Culture - Final, Complete NO GROWTH AFTER 5 DAYS Review of Systems Constitutional: yes: other (CONFUSED) Physical Exam General Appearance: no apparent distress Skin: warm Respiratory: decreased breath sounds Heart: S1S2 Abdomen: soft, bowel sounds present Genitourinary: bladder flat Extremities: pulses present Neurology: alert, confused Musculoskeletal: Other Assessment Assessment . IMP CKD STAGE 3B WITH CR OF 1.6 DANIELA - ATN WITH IMPROVEMENT-CR OF 1.6 TODAY NEAR BL HYPERKALEMIA-RESOLVED HYPERNATREMIA COVID 19 PNEUMONIA HX OF ZAVALA DZ COPD HX DM II HYPERGLYCEMIA PLAN GENTLY HYDRATION CHANGE IVF TO HYPOTONIC SALINE CONTROL BG WILL FOLLOW LUKE ALCANTARA MD Mar 07, 2020 13:49
[2020-03-07] MEDS: IV 1/2 NORMAL SALINE 1,000 ML IV SCH (14:06)
--- NOTE | 2020-03-07 15:03 | RAD ---
Perfusion lung scan Clinical history: shortness of breath COMPARISON: Chest x-ray 02/29/2020 at 10:45 AM TECHNIQUE: 5.5 mCi of Tc 99m MAA was administered intravenously and spot views were obtained the gamma camera for a nuclear medicine perfusion examination. Static images were reviewed as a Q scan in order to exclude pulmonary embolism. FINDINGS: There is mild diffuse heterogeneity of activity on the ventilation study. Perfusion images are without perfusion defects. This is low probability for pulmonary embolism based on the modified PIOPED criteria. Impression: low probability for pulmonary embolism. MTDD
--- NOTE | 2020-03-07 15:44 | PDOC ---
[facility] [facility] PROGRESS NOTE Date of Service DOS: DATE: 03/07/20 TIME: 15:42 Chief Complaint Chief Complaint A/P: Dyspnea with no significant hypoxia based on the ABG, likely related to mild congestive heart failure. also with COVID pneumonia. SARS-CoV-2 - with pneumonia. On steroids, Lovenox. Pulm consulted Abnormal chest x-ray with faint interstitial infiltrates - likely CHF and COVID 19 POSTIVE Severe chronic obstructive pulmonary disease, 60 years of tobacco use, quit 3 years ago. 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 His BUN and creatinine was high as well as LFTs. He required 2 liters of oxygen. LFTs also elevated. 03/01: Still requiring O2. Significant wheezes and prolonged expiratory phase. He says he just wants to sleep. He says "Im 84 I have nothing to live for about my cats." 03/02: COVID-19 positive. He is having some back pain today. Still little hypoxic. EGD and colonoscopy on hold due to his COVID-19 positive status 03/03: Afebrile. Seen on 4 L nasal cannula, he is having a bowel movement, notes that he is having he is eating but is having loose bowels currently they are a little dark. No significant pain. His shortness of breath is stable. Slight cough. Back pain improved with Lidoderm patch. 03/03: Still afebrile with 4 liters nasal cannula O2. His glucose has become very elevated. He feels no worse than yesterday. Afebrile, now on 6 L nasal cannula, he is having more diarrhea, he does not notice much blood. Glucose has been in the 400s, unfortunately he did not receive his Lantus in the evening yesterday evening. C diff negative 03/06/2020 Patient with increasing O2 requirements this morning. Patient has increasing dyspnea but still maintaining sats of 94% on 15 L Venturi mask. Pulmonary evaluated and recommends for patient to be transferred to the ICU with BiPAP. Vitals/I&O Vitals/I&O: Vital Signs Date Time Temp Pulse Resp B/P (MAP) Pulse Ox O2 Delivery O2 Flow Rate FiO2 03/07/20 11:01 108 26 170/69 (102) 92 Venturi Mask 15.0 03/07/20 11:00 96.7 96.7 I & O 03/06/20 03/06/20 03/07/20 15:00 23:00 07:00 Intake Total 200 ml 120 ml Output Total 0 ml Balance 200 ml 120 ml 0 ml Physical Exam Physical Exam: GEN: No apparent distress. Alert and oriented HEENT: Normal cephalic, atraumatic, external auditory canals are patent NECK: Supple, no JVD, no thyromegaly was noted LUNGS: Bilateral crackles and wheezing HEART: RRR, S1, S2 present. Peripheral pulses intact, no obvious murmurs noted ABDOMEN: Soft, nontender. Positive bowel sounds, no organomegaly, normal bowel sounds EXTREMITIES: Without clubbing, cyanosis, or edema. Pedal pulses intact. Negative Homans sign General: Alert, Cooperative Labs Labs: Laboratory Tests Test 03/06/20 17:18 03/06/20 18:55 03/06/20 20:54 03/07/20 06:30 Glucose (Fingerstick) 353 mg/dL (70-99) 352 mg/dL (70-99) Stool Campylobacter PCR Negative (NEGATIVE) Stool E. coli Shiga Toxins (PCR) Negative (NEGATIVE) Stool Salmonella PCR Negative (NEGATIVE) Stool Shigella PCR Negative (NEGATIVE) Hemoglobin 8.2 g/dL (13.0-17.5) Hematocrit 25.5 % (39.0-53.0) Mean Corpuscular Hemoglobin Concent 32 g/dL (31-37) Sodium Level 147 mmol/L (136-145) Potassium Level 4.6 mmol/L (3.5-5.1) Chloride Level 113 mmol/L (98-107) Carbon Dioxide Level 25 mmol/L (21-32) Anion Gap 9 (6-14) Blood Urea Nitrogen 54 mg/dL (8-26) Creatinine 1.6 mg/dL (0.7-1.3) Estimated GFR (Cockcroft-Gault) 41.4 Glucose Level 314 mg/dL (70-99) Calcium Level 8.1 mg/dL (8.5-10.1) Test 03/07/20 07:38 03/07/20 11:24 Glucose (Fingerstick) 281 mg/dL (70-99) 339 mg/dL (70-99) Assessment and Plan Assessmemt and Plan Problems Medical Problems: (1) Acute renal failure Status: Acute (2) COPD exacerbation Status: Acute (3) GI bleeding Status: Acute Comment Review of Relevant I have reviewed the following items kamini (where applicable) has been applied. Medications: Current Medications Medications (Trade) Dose Ordered Sig/Ya Route PRN Reason Start Time Stop Time Status Last Admin Dose Admin Mirtazapine (Remeron) 15 mg QHS PO 03/06/20 21:00 03/06/20 21:23 Hydralazine HCl (Apresoline Inj) 10 mg PRN Q4HRS PRN IVP ELEVATED BP, SEE COMMENTS 03/07/20 09:30 03/07/20 09:47 Methylprednisolone Sodium Succinate (SOLU-Medrol 125MG VIAL) 125 mg 1X ONCE IV 03/07/20 10:45 03/07/20 10:46 DC 03/07/20 10:48 Furosemide (Lasix) 40 mg 1X ONCE IVP 03/07/20 12:45 03/07/20 12:46 DC 03/07/20 12:49 Sodium Chloride 1,000 ml @ 75 mls/hr [id number] IV 03/07/20 14:00 03/07/20 14:06 BENSON WATERS MD Mar 07, 2020 15:44
[2020-03-07 15:46] LABS: BASE EXCESS ABG -1 mmol/L (-3-3); HCO3 ABG 23 mmol/L (21-28); PCO2 ABG 32 mmHg (35-46); PO2 ABG 68 mmHg (65-108); SAT O2 ABG 93 % (92-99)
--- NOTE | 2020-03-07 16:58 | NUR ---
Pt to room 111 via bed from 6s with nurse, and nurse aide. Pt on venti mask with 15L or 505 FiO2. Pt transferred to ICU bed and placed on monitoring equipment. 16 Green[place]ic acevedo placed without difficulties with return of clear yellow urine. #22 IV in right wrist flushed easily. SR with PAC's noted on monitor. Pt placed on Bipap with O2 sats improving to 95% with FiO2 of 50%.
--- NOTE | 2020-03-07 17:05 | PDOC ---
PULMONARY PROGRESS NOTES DATE: 03/07/20 TIME: 17:01 Subjective Remains on VM increase soa/ wheezing Vitals Vital Signs Date Time Temp Pulse Resp B/P (MAP) Pulse Ox O2 Delivery O2 Flow Rate FiO2 03/07/20 15:00 96.2 81 24 168/72 (104) 94 Venturi Mask 15.0 96.2 Comments pt. seen during COVID-19 pandemic visual exam preformed RRR N/C oxygen faint audible wheezing SOB trace edema no rash General: Lethargic Labs Laboratory Tests Test 03/05/20 21:01 03/06/20 08:05 03/06/20 08:07 03/06/20 11:24 Glucose (Fingerstick) 168 mg/dL (70-99) 327 mg/dL (70-99) 385 mg/dL (70-99) White Blood Count 12.2 x10^3/uL (4.0-11.0) Red Blood Count 2.57 x10^6/uL (4.30-5.70) Hemoglobin 8.0 g/dL (13.0-17.5) Hematocrit 24.9 % (39.0-53.0) Mean Corpuscular Volume 97 fL (79-100) Mean Corpuscular Hemoglobin 31 pg (25-35) Mean Corpuscular Hemoglobin Concent 32 g/dL (31-37) Red Cell Distribution Width 15.8 % (11.5-14.5) Platelet Count 323 x10^3/uL (140-400) Neutrophils (%) (Auto) 92 % (31-73) Lymphocytes (%) (Auto) 3 % (24-48) Monocytes (%) (Auto) 4 % (0-9) Eosinophils (%) (Auto) 0 % (0-3) Basophils (%) (Auto) 0 % (0-3) Neutrophils # (Auto) 11.2 x10^3/uL (1.8-7.7) Lymphocytes # (Auto) 0.4 x10^3/uL (1.0-4.8) Monocytes # (Auto) 0.5 x10^3/uL (0.0-1.1) Eosinophils # (Auto) 0.0 x10^3/uL (0.0-0.7) Basophils # (Auto) 0.0 x10^3/uL (0.0-0.2) Sodium Level 144 mmol/L (136-145) Potassium Level 4.8 mmol/L (3.5-5.1) Chloride Level 109 mmol/L (98-107) Carbon Dioxide Level 26 mmol/L (21-32) Anion Gap 9 (6-14) Blood Urea Nitrogen 57 mg/dL (8-26) Creatinine 1.8 mg/dL (0.7-1.3) Estimated GFR (Cockcroft-Gault) 36.1 BUN/Creatinine Ratio 32 (6-20) Glucose Level 338 mg/dL (70-99) Calcium Level 8.0 mg/dL (8.5-10.1) Total Bilirubin 0.7 mg/dL (0.2-1.0) Aspartate Amino Transf (AST/SGOT) 55 U/L (15-37) Alanine Aminotransferase (ALT/SGPT) 58 U/L (16-63) Alkaline Phosphatase 53 U/L (46-116) Total Protein 6.3 g/dL (6.4-8.2) Albumin 2.2 g/dL (3.4-5.0) Albumin/Globulin Ratio 0.5 (1.0-1.7) Test 03/06/20 17:18 03/06/20 18:55 03/06/20 20:54 03/07/20 06:30 Glucose (Fingerstick) 353 mg/dL (70-99) 352 mg/dL (70-99) Stool Campylobacter PCR Negative (NEGATIVE) Stool E. coli Shiga Toxins (PCR) Negative (NEGATIVE) Stool Salmonella PCR Negative (NEGATIVE) Stool Shigella PCR Negative (NEGATIVE) Hemoglobin 8.2 g/dL (13.0-17.5) Hematocrit 25.5 % (39.0-53.0) Mean Corpuscular Hemoglobin Concent 32 g/dL (31-37) Sodium Level 147 mmol/L (136-145) Potassium Level 4.6 mmol/L (3.5-5.1) Chloride Level 113 mmol/L (98-107) Carbon Dioxide Level 25 mmol/L (21-32) Anion Gap 9 (6-14) Blood Urea Nitrogen 54 mg/dL (8-26) Creatinine 1.6 mg/dL (0.7-1.3) Estimated GFR (Cockcroft-Gault) 41.4 Glucose Level 314 mg/dL (70-99) Calcium Level 8.1 mg/dL (8.5-10.1) Test 03/07/20 07:38 03/07/20 11:24 03/07/20 15:48 Glucose (Fingerstick) 281 mg/dL (70-99) 339 mg/dL (70-99) 213 mg/dL (70-99) Laboratory Tests Test 03/06/20 17:18 03/06/20 18:55 03/06/20 20:54 03/07/20 06:30 Glucose (Fingerstick) 353 mg/dL (70-99) 352 mg/dL (70-99) Stool Campylobacter PCR Negative (NEGATIVE) Stool E. coli Shiga Toxins (PCR) Negative (NEGATIVE) Stool Salmonella PCR Negative (NEGATIVE) Stool Shigella PCR Negative (NEGATIVE) Hemoglobin 8.2 g/dL (13.0-17.5) Hematocrit 25.5 % (39.0-53.0) Mean Corpuscular Hemoglobin Concent 32 g/dL (31-37) Sodium Level 147 mmol/L (136-145) Potassium Level 4.6 mmol/L (3.5-5.1) Chloride Level 113 mmol/L (98-107) Carbon Dioxide Level 25 mmol/L (21-32) Anion Gap 9 (6-14) Blood Urea Nitrogen 54 mg/dL (8-26) Creatinine 1.6 mg/dL (0.7-1.3) Estimated GFR (Cockcroft-Gault) 41.4 Glucose Level 314 mg/dL (70-99) Calcium Level 8.1 mg/dL (8.5-10.1) Test 03/07/20 07:38 03/07/20 11:24 03/07/20 15:48 Glucose (Fingerstick) 281 mg/dL (70-99) 339 mg/dL (70-99) 213 mg/dL (70-99) Medications Active Scripts Medications Dose Route/Sig Max Daily Dose Days Date Category Phospha 250 Neutral Tablet (Phosphorus #1) 250 Mg Tablet 1 Tab PO DAILY 30 02/29/20 Reported Atorvastatin Calcium 20 Mg Tablet 1 Tab PO DAILYWSUP 02/29/20 Reported Levothyroxine Sodium 25 Mcg Tablet 1 Tab PO DAILY 02/29/20 Reported Iron (Ferrous Sulfate) 325 Mg Tablet 1 Tab PO BID 30 02/29/20 Reported Flomax (Tamsulosin Hcl) 0.4 Mg Cap.er.24h 0.4 Mg PO DAILY 02/29/20 Reported Benicar (Olmesartan Medoxomil) 20 Mg Tablet 1 Tab PO DAILY 30 02/29/20 Reported Cyclobenzaprine Hcl 10 Mg Tablet 1 Tab PO BID PRN 10/08/14 Reported Torsemide 20 Mg Tablet 4 Tab PO DAILY 10/08/14 Reported Benadryl (Diphenhydramine Hcl) 25 Mg Capsule 1 Cap PO QHS 10/08/14 Reported Quinapril Hcl 40 Mg Tablet 1 Tab PO DAILY 10/08/14 Reported Metformin Hcl 500 Mg Tablet 1 Tab PO DAILYBFRSUP 10/08/14 Reported Trazodone Hcl 50 Mg Tablet 50 Mg PO HS 10/08/14 Reported Tuttle 5-325 Tablet (Acetaminophen/Hydrocodone Bitart) 1 Each Tablet 1 Tab PO Q8HRS PRN 10/08/14 Reported Percocet 5-325 Mg Tablet (Oxycodone/Acetaminophen) 1 Each Tablet 1-2 Tab PO Q6HRS PRN 10/08/14 Reported Potassium Chloride 20 Meq Tab.er.prt 20 Meq PO BID 10/08/14 Reported Combivent Respimat Inhal (Ipratropium/Albuterol Sulfate) 4 Gm Aer.w.adap 2 Inh IH QID PRN 10/08/14 Reported Metformin Hcl 1,000 Mg Tablet 1 Tab PO DAILY08 10/07/14 Reported Comments Impression: low probability for pulmonary embolism. Impression . IMPRESSION: 1. Dyspnea worse due to AECOPD.. 2. cxr with bilateral interstitial infiltrates 03/07. suspect combination of congestive heart failure. COVID pneumonia. 3. Suspected severe chronic obstructive pulmonary disease, 60 years of tobacco use, quit 3 years ago. 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 5. Acute kidney injury Plan . RECOMMENDATIONS: Transfer to neg flow room and initiate BIPAP/ will move to ICU for close observation. extra IV lasix continue steroids Continue antibiotics bronchodilators MDI 2 puffs and Q4 scheduled / add Breo will give Plasma today and start Remdedvir in am d/w daughter in detail. will update the progress. Follow renal function and nephrology recommendations Follow GI recs and monitor HGB-- stable COVID-19 positive D/W RN /RT PT. is DNR but daughter would like to re discuss intubation option if hypoxia worsens JIM DIAMOND MD Mar 07, 2020 17:05
[2020-03-07 17:34] LABS: FIO2 ABG 50
[2020-03-07] MEDS: IPRATRPIUM/ALBUTEROL 0.5/2.5MG 3 ML NEBU. NEB SCH ×2 (20:00→23:20)
[2020-03-07] MEDS: BUDESONIDE 0.5 MG/2 ML NEBU. NEB SCH (20:00)
[2020-03-07] MEDS: PATCH REMOVAL. MC SCH (20:48)
[2020-03-07] MEDS: INSULIN GLARGINE SYRINGE. SQ SCH (20:55)
[2020-03-07] MEDS: MIRTAZAPINE 15 MG TABLET PO SCH (20:56)
[2020-03-08] VITALS (25 sets, daily range): BP systolic 127–171; BP diastolic 52–75
--- NOTE | 2020-03-08 03:00 | NUR ---
Pt's unit of convalescent plasma complete. No signs/symptoms of a reaction seen. Will continue to monitor.
[2020-03-08] MEDS: IPRATRPIUM/ALBUTEROL 0.5/2.5MG 3 ML NEBU. NEB SCH ×5 (03:50→20:00)
[2020-03-08] MEDS: PIPERACILLIN/TAZOBACTAM 2.25 GM in IV NORMAL SALINE 50ML 50 ML IV SCH ×2 (05:32→12:38)
[2020-03-08] MEDS: methylPREDNISolone SOD SUCC PF 40 MG/ML VIAL. IV SCH ×3 (05:32→20:57)
[2020-03-08] MEDS: IV 1/2 NORMAL SALINE 1,000 ML IV SCH ×2 (05:33→20:47)
[2020-03-08 05:47] LABS: CALCIUM 7.9 mg/dL (8.5-10.1); CREATININE 1.6 mg/dL (0.7-1.3); GFR 41.4; POTASSIUM 4.1 mmol/L (3.5-5.1)
[2020-03-08] MEDS: INSULIN LISPRO 300 UNITS/3 ML VIAL. SQ SCH ×7 (07:30→21:05)
[2020-03-08] MEDS: BUDESONIDE 0.5 MG/2 ML NEBU. NEB SCH ×2 (08:23→20:00)
[2020-03-08 08:32] LABS: BASE EXCESS ABG 1 mmol/L (-3-3); HCO3 ABG 24 mmol/L (21-28); PCO2 ABG 30 mmHg (35-46); PO2 ABG 83 mmHg (65-108); SAT O2 ABG 95 % (92-99)
[2020-03-08 08:34] LABS: FIO2 ABG 50
[2020-03-08] MEDS: LIDOCAINE (700MG/PATCH) PATCH. TD SCH (08:56)
[2020-03-08] MEDS: LACTOBACILLUS RHAMNOSUS GG 1 CAPSULE. PO SCH ×2 (08:57→20:58)
[2020-03-08] MEDS: SUCRALFATE 1 GM TABLET. PO SCH ×2 (08:57→20:58)
[2020-03-08] MEDS: FERROUS SULFATE 325 MG TABLET. PO SCH ×2 (08:57→17:11)
[2020-03-08] MEDS: SERTRALINE 50 MG TABLET. PO SCH (08:57)
[2020-03-08] MEDS: PANTOPRAZOLE 40 MG TABLET.DR. PO SCH (08:57)
[2020-03-08] MEDS ORDERED: REMDESIVIR LOAD in IV NORMAL SALINE 250ML TV IV ONE (09:00)
--- NOTE | 2020-03-08 09:13 | PDOC ---
Date of Service: DATE: 03/08/20 TIME: 09:11 Objective: Objective: Moved to ICU, on BiPAP. No melena per nurse. Vital Signs: Vital Signs Date Time Temp Pulse Resp B/P (MAP) Pulse Ox O2 Delivery O2 Flow Rate FiO2 03/08/20 08:23 98 Ventilator 03/08/20 08:00 97.4 73 18 171/74 (106) 97.4 03/07/20 16:45 15.0 Labs: Laboratory Tests Test 03/07/20 11:24 03/07/20 15:48 03/07/20 17:48 03/07/20 20:52 Glucose (Fingerstick) 339 mg/dL (70-99) 213 mg/dL (70-99) 306 mg/dL (70-99) 288 mg/dL (70-99) PE: GEN: in COVID isolation LUNGS: BiPAP HEART: RR ABD: non-distended NEURO/PSYCH: A & O 3 A/P: Resp failure ---> +COVID-19, COPD LIZY, melena, h/o SB AVMs - on PPI, Carafate, iron - Hgb stable (checked 03/07) -- Continue same per GI. Justicifation of Admission Dx: Justifications for Admission: Justification of Admission Dx: Yes DEBBIE MURRAY Mar 08, 2020 09:13
--- NOTE | 2020-03-08 10:05 | PDOC ---
PROGRESS NOTES Date of Service: DATE: 03/08/20 TIME: 09:56 Chief Complaint Chief Complaint A/P: Dyspnea with no significant hypoxia based on the ABG, likely related to mild congestive heart failure. also with COVID pneumonia. SARS-CoV-2 - with pneumonia. On steroids, Lovenox. Pulm consulted Abnormal chest x-ray with faint interstitial infiltrates - likely CHF and COVID 19 POSTIVE Severe chronic obstructive pulmonary disease, 60 years of tobacco use, quit 3 years ago. 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 His BUN and creatinine was high as well as LFTs. He required 2 liters of oxygen. LFTs also elevated. 03/01: Still requiring O2. Significant wheezes and prolonged expiratory phase. He says he just wants to sleep. He says "Im 84 I have nothing to live for about my cats." 03/02: COVID-19 positive. He is having some back pain today. Still little hypoxic. EGD and colonoscopy on hold due to his COVID-19 positive status 03/03: Afebrile. Seen on 4 L nasal cannula, he is having a bowel movement, notes that he is having he is eating but is having loose bowels currently they are a little dark. No significant pain. His shortness of breath is stable. Slight cough. Back pain improved with Lidoderm patch. 03/03: Still afebrile with 4 liters nasal cannula O2. His glucose has become very elevated. He feels no worse than yesterday. Afebrile, now on 6 L nasal cannula, he is having more diarrhea, he does not notice much blood. Glucose has been in the 400s, unfortunately he did not receive his Lantus in the evening yesterday evening. C diff negative 03/06/2020 Patient with increasing O2 requirements this morning. Patient has increasing dyspnea but still maintaining sats of 94% on 15 L Venturi mask. Pulmonary ev aluated and recommends for patient to be transferred to the ICU with BiPAP. 03/08 Breathing on BiPAP. VTE held due to GI bleed, H&H stable. Vitals Vitals Vital Signs Date Time Temp Pulse Resp B/P (MAP) Pulse Ox O2 Delivery O2 Flow Rate FiO2 03/08/20 08:23 98 Ventilator 03/08/20 08:00 97.4 73 18 171/74 (106) 97.4 03/07/20 16:45 15.0 Physical Exam Physical Exam GEN: No apparent distress. Alert and oriented HEENT: Normal cephalic, atraumatic, external auditory canals are patent NECK: Supple, no JVD, no thyromegaly was noted LUNGS: Bilateral crackles and wheezing HEART: RRR, S1, S2 present. Peripheral pulses intact, no obvious murmurs n oted ABDOMEN: Soft, nontender. Positive bowel sounds, no organomegaly, normal bowel sounds EXTREMITIES: Without clubbing, cyanosis, or edema. Pedal pulses intact. Negative Homans sign General: Alert, Cooperative Heart: Regular rate Lungs: Other (Normal work of breathing on BiPAP, no tachypnea) Abdomen: Other (Nondistended) Extremities: No clubbing, No cyanosis, No edema Skin: No rashes, No breakdown Labs LABS Laboratory Tests Test 03/07/20 11:24 03/07/20 13:37 03/07/20 15:48 03/07/20 17:48 Glucose (Fingerstick) 339 mg/dL (70-99) 213 mg/dL (70-99) 306 mg/dL (70-99) O2 Saturation 93 % (92-99) Arterial Blood pH 7.47 (7.35-7.45) Arterial Blood pCO2 at Patient Temp 32 mmHg (35-46) Arterial Blood pO2 at Patient Temp 68 mmHg (65-108) Arterial Blood HCO3 23 mmol/L (21-28) Arterial Blood Base Excess -1 mmol/L (-3-3) FiO2 50 Test 03/07/20 20:52 03/08/20 04:45 03/08/20 08:25 Glucose (Fingerstick) 288 mg/dL (70-99) Sodium Level 149 mmol/L (136-145) Potassium Level 4.1 mmol/L (3.5-5.1) Chloride Level 113 mmol/L (98-107) Carbon Dioxide Level 28 mmol/L (21-32) Anion Gap 8 (6-14) Blood Urea Nitrogen 45 mg/dL (8-26) Creatinine 1.6 mg/dL (0.7-1.3) Estimated GFR (Cockcroft-Gault) 41.4 Glucose Level 216 mg/dL (70-99) Calcium Level 7.9 mg/dL (8.5-10.1) O2 Saturation 95 % (92-99) Arterial Blood pH 7.52 (7.35-7.45) Arterial Blood pCO2 at Patient Temp 30 mmHg (35-46) Arterial Blood pO2 at Patient Temp 83 mmHg (65-108) Arterial Blood HCO3 24 mmol/L (21-28) Arterial Blood Base Excess 1 mmol/L (-3-3) FiO2 50 Review of Systems Review of Systems Unable to obtain due to clinical condition Assessment and Plan Assessmemt and Plan Problems Medical Problems: (1) Acute renal failure Status: Acute (2) COPD exacerbation Status: Acute (3) GI bleeding Status: Acute Comment Review of Relevant I have reviewed the following items kamini (where applicable) has been applied. Labs Laboratory Tests Test 03/06/20 11:24 03/06/20 17:18 03/06/20 18:55 03/06/20 20:54 Glucose (Fingerstick) 385 mg/dL (70-99) 353 mg/dL (70-99) 352 mg/dL (70-99) Stool Campylobacter PCR Negative (NEGATIVE) Stool E. coli Shiga Toxins (PCR) Negative (NEGATIVE) Stool Salmonella PCR Negative (NEGATIVE) Stool Shigella PCR Negative (NEGATIVE) Test 03/07/20 06:30 03/07/20 07:38 03/07/20 11:24 03/07/20 13:37 Hemoglobin 8.2 g/dL (13.0-17.5) Hematocrit 25.5 % (39.0-53.0) Mean Corpuscular Hemoglobin Concent 32 g/dL (31-37) Sodium Level 147 mmol/L (136-145) Potassium Level 4.6 mmol/L (3.5-5.1) Chloride Level 113 mmol/L (98-107) Carbon Dioxide Level 25 mmol/L (21-32) Anion Gap 9 (6-14) Blood Urea Nitrogen 54 mg/dL (8-26) Creatinine 1.6 mg/dL (0.7-1.3) Estimated GFR (Cockcroft-Gault) 41.4 Glucose Level 314 mg/dL (70-99) Calcium Level 8.1 mg/dL (8.5-10.1) Glucose (Fingerstick) 281 mg/dL (70-99) 339 mg/dL (70-99) O2 Saturation 93 % (92-99) Arterial Blood pH 7.47 (7.35-7.45) Arterial Blood pCO2 at Patient Temp 32 mmHg (35-46) Arterial Blood pO2 at Patient Temp 68 mmHg (65-108) Arterial Blood HCO3 23 mmol/L (21-28) Arterial Blood Base Excess -1 mmol/L (-3-3) FiO2 50 Test 03/07/20 15:48 03/07/20 17:48 03/07/20 20:52 03/08/20 04:45 Glucose (Fingerstick) 213 mg/dL (70-99) 306 mg/dL (70-99) 288 mg/dL (70-99) Sodium Level 149 mmol/L (136-145) Potassium Level 4.1 mmol/L (3.5-5.1) Chloride Level 113 mmol/L (98-107) Carbon Dioxide Level 28 mmol/L (21-32) Anion Gap 8 (6-14) Blood Urea Nitrogen 45 mg/dL (8-26) Creatinine 1.6 mg/dL (0.7-1.3) Estimated GFR (Cockcroft-Gault) 41.4 Glucose Level 216 mg/dL (70-99) Calcium Level 7.9 mg/dL (8.5-10.1) Test 03/08/20 08:25 O2 Saturation 95 % (92-99) Arterial Blood pH 7.52 (7.35-7.45) Arterial Blood pCO2 at Patient Temp 30 mmHg (35-46) Arterial Blood pO2 at Patient Temp 83 mmHg (65-108) Arterial Blood HCO3 24 mmol/L (21-28) Arterial Blood Base Excess 1 mmol/L (-3-3) FiO2 50 Laboratory Tests Test 03/07/20 11:24 03/07/20 13:37 03/07/20 15:48 03/07/20 17:48 Glucose (Fingerstick) 339 mg/dL (70-99) 213 mg/dL (70-99) 306 mg/dL (70-99) O2 Saturation 93 % (92-99) Arterial Blood pH 7.47 (7.35-7.45) Arterial Blood pCO2 at Patient Temp 32 mmHg (35-46) Arterial Blood pO2 at Patient Temp 68 mmHg (65-108) Arterial Blood HCO3 23 mmol/L (21-28) Arterial Blood Base Excess -1 mmol/L (-3-3) FiO2 50 Test 03/07/20 20:52 03/08/20 04:45 03/08/20 08:25 Glucose (Fingerstick) 288 mg/dL (70-99) Sodium Level 149 mmol/L (136-145) Potassium Level 4.1 mmol/L (3.5-5.1) Chloride Level 113 mmol/L (98-107) Carbon Dioxide Level 28 mmol/L (21-32) Anion Gap 8 (6-14) Blood Urea Nitrogen 45 mg/dL (8-26) Creatinine 1.6 mg/dL (0.7-1.3) Estimated GFR (Cockcroft-Gault) 41.4 Glucose Level 216 mg/dL (70-99) Calcium Level 7.9 mg/dL (8.5-10.1) O2 Saturation 95 % (92-99) Arterial Blood pH 7.52 (7.35-7.45) Arterial Blood pCO2 at Patient Temp 30 mmHg (35-46) Arterial Blood pO2 at Patient Temp 83 mmHg (65-108) Arterial Blood HCO3 24 mmol/L (21-28) Arterial Blood Base Excess 1 mmol/L (-3-3) FiO2 50 Microbiology 02/29/20 Blood Culture - Final, Complete NO GROWTH AFTER 5 DAYS Medications Current Medications Albuterol/ Ipratropium (Duoneb) 6 ml 1X ONCE NEB Last administered on 02/29/20at 11:24; Start 02/29/20 at 10:30; Stop 02/29/20 at 10:31; Status DC Methylprednisolone Sodium Succinate (SOLU-Medrol 125MG VIAL) 125 mg 1X ONCE IV Last administered on 02/29/20at 10:23; Start 02/29/20 at 10:30; Stop 02/29/20 at 10:31; Status DC Sodium Chloride 1,000 ml @ 1,000 mls/hr 1X ONCE IV Last administered on 02/29/20at 17:42; Start 02/29/20 at 13:15; Stop 02/29/20 at 14:14; Status DC Ondansetron HCl (Zofran) 4 mg PRN Q8HRS PRN IV NAUSEA/VOMITING; Start 02/29/20 at 13:30; Stop 03/01/20 at 13:29; Status DC Acetaminophen (Tylenol) 650 mg PRN Q4HRS PRN PO FEVER > 100.3'F; Start 02/29/20 at 13:30; Stop 03/01/20 at 13:29; Status DC Albuterol/ Ipratropium (Duoneb) 3 ml RTQID NEB ; Start 02/29/20 at 16:00; Stop 02/29/20 at 13:58; Status DC Albuterol/ Ipratropium (Duoneb) 3 ml PRN QID PRN NEB SHORTNESS OF BREATH; Start 02/29/20 at 14:00; Stop 03/01/20 at 13:59; Status DC Pantoprazole Sodium (Protonix) 40 mg DAILYAC PO Last administered on 03/08/20at 08:57; Start 03/01/20 at 07:30 Sucralfate (Carafate) 1 gm BID PO Last administered on 03/08/20at 08:57; Start 02/29/20 at 21:00 Polyethylene Glycol (miraLAX PACKET) 17 gm PRN DAILY PRN PO CONSTIPATION; Start 02/29/20 at 15:15 Ferrous Sulfate (Feosol) 325 mg BIDWMEALS PO Last administered on 03/08/20at 08:57; Start 03/01/20 at 17:00 Polyethylene Glycol (miraLAX PACKET) 17 gm PRN DAILY PRN PO CONSTIPATION; Start 03/01/20 at 10:15; Stop 03/01/20 at 10:12; Status DC Methylprednisolone Sodium Succinate (SOLU-Medrol 40MG VIAL) 40 mg DAILY IV Last administered on 03/02/20at 10:56; Start 03/01/20 at 11:00; Stop 03/02/20 at 11:11; Status DC Olanzapine (ZyPREXA ZYDIS) 5 mg PRN BID PRN PO AGITATION; Start 03/01/20 at 11:15 Sodium Cl/Sod Bicarb/Potass Cl/ PEG (Golytely) 4,000 ml 1X ONCE PO Last administered on 03/01/20at 14:47; Start 03/01/20 at 14:00; Stop 03/01/20 at 14:01; Status DC Ringer's Solution 1,000 ml @ 50 mls/hr Q20H IV ; Start 03/02/20 at 07:00; Stop 03/02/20 at 18:59; Status DC Diphenhydramine HCl (Benadryl) 25 mg PRN QHS PRN PO INSOMNIA Last administered on 03/03/20at 21:51; Start 03/01/20 at 22:15 Albuterol Sulfate (Ventolin Hfa) 1 puff PRN QID PRN INH SHORTNESS OF BREATH Last administered on 03/03/20at 12:43; Start 03/02/20 at 01:00; Stop 03/04/20 at 10:34; Status DC Acetaminophen (Tylenol) 650 mg PRN Q6HRS PRN PO temperature Last administered on 03/02/20at 03:42; Start 03/02/20 at 03:30 Methylprednisolone Sodium Succinate (SOLU-Medrol 40MG VIAL) 20 mg 1X ONCE IV Last administered on 03/02/20at 11:15; Start 03/02/20 at 11:15; Stop 03/02/20 at 11:16; Status DC Piperacillin Sod/ Tazobactam Sod (Zosyn Per Pharmacy) 1 each PRN DAILY PRN MC SEE COMMENTS; Start 03/02/20 at 11:15 Piperacillin Sod/ Tazobactam Sod 2.25 gm/Sodium Chloride 50 ml @ 100 mls/hr Q6HRS IV Last administered on 03/08/20at 05:32; Start 03/02/20 at 12:00 Methylprednisolone Sodium Succinate (SOLU-Medrol 40MG VIAL) 60 mg Q8HRS IV Last administered on 03/08/20at 05:32; Start 03/02/20 at 14:00 Lidocaine (Lidoderm) 1 patch DAILY TD Last administered on 03/08/20at 08:56; Start 03/02/20 at 14:30 Miscellaneous (Lidoderm Patch Removal) 1 ea QHS MC Last administered on 03/07/20at 20:48; Start 03/02/20 at 21:00 Sertraline HCl (Zoloft) 25 mg DAILY PO Last administered on 03/05/20at 08:39; Start 03/03/20 at 09:00; Stop 03/05/20 at 19:23; Status DC Furosemide (Lasix) 20 mg 1X ONCE IVP Last administered on 03/04/20at 12:17; Start 03/04/20 at 11:00; Stop 03/04/20 at 11:01; Status DC Albuterol Sulfate (Ventolin Hfa) 2 puff Q4HRS INH Last administered on 03/07/20at 07:51; Start 03/04/20 at 12:00; Stop 03/07/20 at 17:37; Status DC Insulin Glargine (Lantus Syringe) 20 unit QHS SQ ; Start 03/04/20 at 21:00; Stop 03/05/20 at 15:08; Status DC Insulin Human Lispro (HumaLOG) 0-9 UNITS TIDACHC SQ Last administered on 03/07/20at 20:55; Start 03/04/20 at 13:00 Dextrose (Dextrose 50%-Water Syringe) 12.5 gm PRN Q15MIN PRN IV SEE COMMENTS; Start 03/04/20 at 13:00 Lactobacillus Rhamnosus (Culturelle) 1 cap BID PO Last administered on 03/08/20at 08:57; Start 03/04/20 at 13:00 Insulin Human Lispro (HumaLOG) 9 units 1X ONCE SQ Last administered on 03/04/20at 13:53; Start 03/04/20 at 13:30; Stop 03/04/20 at 13:35; Status DC Insulin Human Lispro (HumaLOG) 5 units TIDAC SQ Last administered on 03/08/20at 07:59; Start 03/05/20 at 08:00 Insulin Glargine (Lantus Syringe) 25 unit QHS SQ Last administered on 03/07/20at 20:55; Start 03/05/20 at 21:00 Loperamide HCl (Imodium) 2 mg PRN Q15MIN PRN PO DIARRHEA; Start 03/05/20 at 15:15 Sertraline HCl (Zoloft) 50 mg DAILY PO Last administered on 03/08/20at 08:57; Start 03/06/20 at 09:00 Sodium Chloride 1,000 ml @ 75 mls/hr [id number] IV Last administered on 03/07/20at 00:53; Start 03/06/20 at 14:00; Stop 03/07/20 at 13:50; Status DC Mirtazapine (Remeron) 15 mg QHS PO Last administered on 03/07/20at 20:56; Start 03/06/20 at 21:00 Hydralazine HCl (Apresoline Inj) 10 mg PRN Q4HRS PRN IVP ELEVATED BP, SEE COMMENTS Last administered on 03/07/20at 23:18; Start 03/07/20 at 09:30 Methylprednisolone Sodium Succinate (SOLU-Medrol 125MG VIAL) 125 mg 1X ONCE IV Last administered on 03/07/20at 10:48; Start 03/07/20 at 10:45; Stop 03/07/20 at 10:46; Status DC Fluticasone/ Vilanterol (Breo Ellipta 100-25 Mcg) 1 puff DAILY INH ; Start 03/07/20 at 11:30; Stop 03/07/20 at 11:02; Status DC Fluticasone/ Vilanterol (Breo Ellipta 100-25 Mcg) 1 puff DAILY INH ; Start 03/07/20 at 11:30; Stop 03/07/20 at 11:02; Status DC Fluticasone/ Vilanterol (Breo Ellipta 100-25 Mcg) 1 puff DAILY INH ; Start 03/07/20 at 11:30; Stop 03/07/20 at 17:37; Status DC Furosemide (Lasix) 40 mg 1X ONCE IVP Last administered on 03/07/20at 12:49; Start 03/07/20 at 12:45; Stop 03/07/20 at 12:46; Status DC Sodium Chloride 1,000 ml @ 75 mls/hr [id number] IV Last administered on 03/08/20at 05:33; Start 03/07/20 at 14:00 Non-Formulary Medication 1 ea/ Sodium Chloride 210 ml @ 210 mls/hr 1X ONCE IV Last administered on 03/08/20at 08:57; Start 03/08/20 at 09:00; Stop 03/08/20 at 09:59 Non-Formulary Medication 1 ea/ Sodium Chloride 230 ml @ 460 mls/hr Q24H IV ; Start 03/09/20 at 09:00; Stop 03/12/20 at 09:29 Albuterol/ Ipratropium (Duoneb) 3 ml Q4HRS NEB Last administered on 03/08/20at 08:23; Start 03/07/20 at 20:00 Budesonide (Pulmicort) 0.5 mg RTBID NEB Last administered on 03/08/20at 08:23; Start 03/07/20 at 20:00 Active Scripts Active Reported Phospha 250 Neutral Tablet (Phosphorus #1) 250 Mg Tablet 1 Tab PO DAILY 30 Days Atorvastatin Calcium 20 Mg Tablet 1 Tab PO DAILYWSUP Levothyroxine Sodium 25 Mcg Tablet 1 Tab PO DAILY Iron (Ferrous Sulfate) 325 Mg Tablet 1 Tab PO BID 30 Days Flomax (Tamsulosin Hcl) 0.4 Mg Cap.er.24h 0.4 Mg PO DAILY Benicar (Olmesartan Medoxomil) 20 Mg Tablet 1 Tab PO DAILY 30 Days Cyclobenzaprine Hcl 10 Mg Tablet 1 Tab PO BID PRN Torsemide 20 Mg Tablet 4 Tab PO DAILY Benadryl (Diphenhydramine Hcl) 25 Mg Capsule 1 Cap PO QHS Quinapril Hcl 40 Mg Tablet 1 Tab PO DAILY Metformin Hcl 500 Mg Tablet 1 Tab PO DAILYBFRSUP Trazodone Hcl 50 Mg Tablet 50 Mg PO HS [place] 5-325 Tablet (Acetaminophen/Hydrocodone Bitart) 1 Each Tablet 1 Tab PO Q8HRS PRN Percocet 5-325 Mg Tablet (Oxycodone/Acetaminophen) 1 Each Tablet 1-2 Tab PO Q6HRS PRN Potassium Chloride 20 Meq Tab.er.prt 20 Meq PO BID Combivent Respimat Inhal (Ipratropium/Albuterol Sulfate) 4 Gm Aer.w.adap 2 Inh IH QID PRN Metformin Hcl 1,000 Mg Tablet 1 Tab PO DAILY08 Vitals/I & O Vital Sign - Last 24 Hours 03/07/20 03/07/20 03/07/20 03/07/20 11:00 11:01 15:00 16:30 Temp 96.7 96.2 97.3 96.7 96.2 97.3 Pulse 108 81 92 Resp 26 24 24 B/P (MAP) 170/69 (102) 168/72 (104) 167/76 (106) Pulse Ox 92 94 92 O2 Delivery Venturi Mask Venturi Mask Venturi Mask O2 Flow Rate 15.0 15.0 15.0 03/07/20 03/07/20 03/07/20 03/07/20 16:45 17:00 17:15 17:35 Pulse 86 82 80 Resp 24 B/P (MAP) 154/65 (94) 150/67 (94) 154/63 (93) Pulse Ox 86 94 93 96 O2 Delivery Venturi Mask BiPAP/CPAP BiPAP/CPAP Ventilator O2 Flow Rate 15.0 03/07/20 03/07/20 03/07/20 03/07/20 18:00 19:00 19:15 20:00 Temp 98.3 98.3 Pulse 80 75 81 Resp 24 19 20 B/P (MAP) 155/80 (105) 160/75 (103) 155/73 (100) Pulse Ox 96 98 99 O2 Delivery BiPAP/CPAP BiPAP/CPAP Bi-pap BiPAP/CPAP 03/07/20 03/07/20 03/07/20 03/07/20 20:00 21:00 22:00 23:11 Pulse 78 79 77 Resp 21 21 20 B/P (MAP) 163/84 (110) 151/66 (94) 180/79 (112) Pulse Ox 98 95 97 98 O2 Delivery Ventilator BiPAP/CPAP BiPAP/CPAP BiPAP/CPAP 03/07/20 03/07/20 03/08/20 03/08/20 23:18 23:20 00:01 00:01 Temp 96.5 96.5 Pulse 77 82 Resp 23 B/P (MAP) 180/79 137/56 (83) Pulse Ox 99 98 O2 Delivery Ventilator BiPAP/CPAP Bi-pap 03/08/20 03/08/20 03/08/20 03/08/20 00:43 01:00 01:00 02:00 Temp 96.5 97.1 97.1 98.1 96.5 97.1 97.1 98.1 Pulse 82 81 81 78 Resp 23 17 17 19 B/P (MAP) 137/56 154/75 (101) 154/75 149/66 (93) Pulse Ox 95 94 O2 Delivery BiPAP/CPAP BiPAP/CPAP 03/08/20 03/08/20 03/08/20 03/08/20 02:00 03:00 03:00 03:50 Temp 98.1 98.2 98.2 98.1 98.2 98.2 Pulse 78 71 71 Resp 19 21 21 B/P (MAP) 149/66 142/61 142/61 (88) Pulse Ox 99 98 O2 Delivery BiPAP/CPAP Ventilator 03/08/20 03/08/20 03/08/20 03/08/20 04:00 04:00 04:00 05:00 Temp 98.1 98.1 98.1 98.1 Pulse 67 67 73 Resp 20 20 19 B/P (MAP) 151/67 (95) 151/67 164/68 (100) Pulse Ox 98 96 O2 Delivery Bi-pap BiPAP/CPAP BiPAP/CPAP 03/08/20 03/08/20 03/08/20 03/08/20 06:00 07:00 08:00 08:00 Temp 97.4 97.4 Pulse 66 63 73 Resp 21 18 18 B/P (MAP) 135/60 (85) 140/56 (84) 171/74 (106) Pulse Ox 95 95 95 O2 Delivery BiPAP/CPAP BiPAP/CPAP Bi-pap BiPAP/CPAP 03/08/20 08:23 Pulse Ox 98 O2 Delivery Ventilator Intake and Output 0 03/07/20 03/07/20 03/08/20 15:00 23:00 07:00 Intake Total 180 ml 150 ml 1300 ml Output Total 800 ml 975 ml 745 ml Balance -620 ml -825 ml 555 ml Justicifation of Admission Dx: Justifications for Admission: Justification of Admission Dx: Yes SALEEM WHITE MD Mar 08, 2020 10:05
--- NOTE | 2020-03-08 11:15 | PDOC ---
PULMONARY PROGRESS NOTES DATE: 03/08/20 TIME: 11:10 Subjective Remains on BIPAP 40% No increased SOA or cough No concerns from nursing a-febrile Vitals Vital Signs Date Time Temp Pulse Resp B/P (MAP) Pulse Ox O2 Delivery O2 Flow Rate FiO2 03/08/20 10:00 88 20 144/59 (87) 92 BiPAP/CPAP 03/08/20 08:00 97.4 97.4 03/07/20 16:45 15.0 Comments pt. seen during COVID- pandemic visual exam preformed RRR BIPAP no distress trace edema no rash General: Alert Lungs: Other Labs Laboratory Tests Test 03/06/20 11:24 03/06/20 17:18 03/06/20 18:55 03/06/20 20:54 Glucose (Fingerstick) 385 mg/dL (70-99) 353 mg/dL (70-99) 352 mg/dL (70-99) Stool Campylobacter PCR Negative (NEGATIVE) Stool E. coli Shiga Toxins (PCR) Negative (NEGATIVE) Stool Salmonella PCR Negative (NEGATIVE) Stool Shigella PCR Negative (NEGATIVE) Test 03/07/20 06:30 03/07/20 07:38 03/07/20 11:24 03/07/20 13:37 Hemoglobin 8.2 g/dL (13.0-17.5) Hematocrit 25.5 % (39.0-53.0) Mean Corpuscular Hemoglobin Concent 32 g/dL (31-37) Sodium Level 147 mmol/L (136-145) Potassium Level 4.6 mmol/L (3.5-5.1) Chloride Level 113 mmol/L (98-107) Carbon Dioxide Level 25 mmol/L (21-32) Anion Gap 9 (6-14) Blood Urea Nitrogen 54 mg/dL (8-26) Creatinine 1.6 mg/dL (0.7-1.3) Estimated GFR (Cockcroft-Gault) 41.4 Glucose Level 314 mg/dL (70-99) Calcium Level 8.1 mg/dL (8.5-10.1) Glucose (Fingerstick) 281 mg/dL (70-99) 339 mg/dL (70-99) O2 Saturation 93 % (92-99) Arterial Blood pH 7.47 (7.35-7.45) Arterial Blood pCO2 at Patient Temp 32 mmHg (35-46) Arterial Blood pO2 at Patient Temp 68 mmHg (65-108) Arterial Blood HCO3 23 mmol/L (21-28) Arterial Blood Base Excess -1 mmol/L (-3-3) FiO2 50 Test 03/07/20 15:48 03/07/20 17:48 03/07/20 20:52 03/08/20 04:45 Glucose (Fingerstick) 213 mg/dL (70-99) 306 mg/dL (70-99) 288 mg/dL (70-99) Sodium Level 149 mmol/L (136-145) Potassium Level 4.1 mmol/L (3.5-5.1) Chloride Level 113 mmol/L (98-107) Carbon Dioxide Level 28 mmol/L (21-32) Anion Gap 8 (6-14) Blood Urea Nitrogen 45 mg/dL (8-26) Creatinine 1.6 mg/dL (0.7-1.3) Estimated GFR (Cockcroft-Gault) 41.4 Glucose Level 216 mg/dL (70-99) Calcium Level 7.9 mg/dL (8.5-10.1) Test 03/08/20 08:25 O2 Saturation 95 % (92-99) Arterial Blood pH 7.52 (7.35-7.45) Arterial Blood pCO2 at Patient Temp 30 mmHg (35-46) Arterial Blood pO2 at Patient Temp 83 mmHg (65-108) Arterial Blood HCO3 24 mmol/L (21-28) Arterial Blood Base Excess 1 mmol/L (-3-3) FiO2 50 Laboratory Tests Test 03/07/20 11:24 03/07/20 13:37 03/07/20 15:48 03/07/20 17:48 Glucose (Fingerstick) 339 mg/dL (70-99) 213 mg/dL (70-99) 306 mg/dL (70-99) O2 Saturation 93 % (92-99) Arterial Blood pH 7.47 (7.35-7.45) Arterial Blood pCO2 at Patient Temp 32 mmHg (35-46) Arterial Blood pO2 at Patient Temp 68 mmHg (65-108) Arterial Blood HCO3 23 mmol/L (21-28) Arterial Blood Base Excess -1 mmol/L (-3-3) FiO2 50 Test 03/07/20 20:52 03/08/20 04:45 03/08/20 08:25 Glucose (Fingerstick) 288 mg/dL (70-99) Sodium Level 149 mmol/L (136-145) Potassium Level 4.1 mmol/L (3.5-5.1) Chloride Level 113 mmol/L (98-107) Carbon Dioxide Level 28 mmol/L (21-32) Anion Gap 8 (6-14) Blood Urea Nitrogen 45 mg/dL (8-26) Creatinine 1.6 mg/dL (0.7-1.3) Estimated GFR (Cockcroft-Gault) 41.4 Glucose Level 216 mg/dL (70-99) Calcium Level 7.9 mg/dL (8.5-10.1) O2 Saturation 95 % (92-99) Arterial Blood pH 7.52 (7.35-7.45) Arterial Blood pCO2 at Patient Temp 30 mmHg (35-46) Arterial Blood pO2 at Patient Temp 83 mmHg (65-108) Arterial Blood HCO3 24 mmol/L (21-28) Arterial Blood Base Excess 1 mmol/L (-3-3) FiO2 50 Medications Active Scripts Medications Dose Route/Sig Max Daily Dose Days Date Category Phospha 250 Neutral Tablet (Phosphorus #1) 250 Mg Tablet 1 Tab PO DAILY 30 02/29/20 Reported Atorvastatin Calcium 20 Mg Tablet 1 Tab PO DAILYWSUP 02/29/20 Reported Levothyroxine Sodium 25 Mcg Tablet 1 Tab PO DAILY 02/29/20 Reported Iron (Ferrous Sulfate) 325 Mg Tablet 1 Tab PO BID 30 02/29/20 Reported Flomax (Tamsulosin Hcl) 0.4 Mg Cap.er.24h 0.4 Mg PO DAILY 02/29/20 Reported Benicar (Olmesartan Medoxomil) 20 Mg Tablet 1 Tab PO DAILY 30 02/29/20 Reported Cyclobenzaprine Hcl 10 Mg Tablet 1 Tab PO BID PRN 10/08/14 Reported Torsemide 20 Mg Tablet 4 Tab PO DAILY 10/08/14 Reported Benadryl (Diphenhydramine Hcl) 25 Mg Capsule 1 Cap PO QHS 10/08/14 Reported Quinapril Hcl 40 Mg Tablet 1 Tab PO DAILY 10/08/14 Reported Metformin Hcl 500 Mg Tablet 1 Tab PO DAILYBFRSUP 10/08/14 Reported Trazodone Hcl 50 Mg Tablet 50 Mg PO HS 10/08/14 Reported [place] 5-325 Tablet (Acetaminophen/Hydrocodone Bitart) 1 Each Tablet 1 Tab PO Q8HRS PRN 10/08/14 Reported Percocet 5-325 Mg Tablet (Oxycodone/Acetaminophen) 1 Each Tablet 1-2 Tab PO Q6HRS PRN 10/08/14 Reported Potassium Chloride 20 Meq Tab.er.prt 20 Meq PO BID 10/08/14 Reported Combivent Respimat Inhal (Ipratropium/Albuterol Sulfate) 4 Gm Aer.w.adap 2 Inh IH QID PRN 10/08/14 Reported Metformin Hcl 1,000 Mg Tablet 1 Tab PO DAILY08 10/07/14 Reported Comments Impression: low probability for pulmonary embolism. Impression . IMPRESSION: 1. Dyspnea worse due to AECOPD.--improving 2. cxr with bilateral interstitial infiltrates 03/07. suspect combination of congestive heart failure. COVID pneumonia. 3. Suspected severe chronic obstructive pulmonary disease, 60 years of tobacco use, quit 3 years ago. 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 5. Acute kidney injury--improving Plan . RECOMMENDATIONS: continue BIPAP at 40%, can attempt N/C high flow oxygen if needed, keep oxygen saturations above 92 % continue steroids Continue antibiotics bronchodilators MDI 2 puffs and Q4 scheduled / add Breo S/P plasma start Remdesvir today Follow renal function and nephrology recommendations Follow GI recs and monitor HGB-- stable COVID-19 positive DVT/GI PPX Monitor clinical course D/W RN /RT PT. is DNR but daughter would like to re-discuss intubation option if hypoxia worsens JIM DIAMOND MD Mar 08, 2020 11:15
--- NOTE | 2020-03-08 14:17 | PDOC ---
Renal-Progress Notes Subjective Notes Notes SOME SOB BUT FEELING BETTER, THIRSTY History of Present Illness Hx of present illness STABLE Vitals Vitals Vital Signs Date Time Temp Pulse Resp B/P (MAP) Pulse Ox O2 Delivery O2 Flow Rate FiO2 03/08/20 13:00 112 27 150/62 (91) 90 High Flow Nasal Cannula 10.0 03/08/20 12:00 98.4 98.4 Weight Weight [ ] I.O. Intake and Output Intake and Output 03/08/20 07:00 Intake Total 1630 ml Output Total 2520 ml Balance -890 ml Intake Oral 530 ml IV Total 1100 ml Output Urine Total 2520 ml Labs Labs Laboratory Tests Test 03/07/20 15:48 03/07/20 17:48 03/07/20 20:52 03/08/20 04:45 Glucose (Fingerstick) 213 mg/dL (70-99) 306 mg/dL (70-99) 288 mg/dL (70-99) Sodium Level 149 mmol/L (136-145) Potassium Level 4.1 mmol/L (3.5-5.1) Chloride Level 113 mmol/L (98-107) Carbon Dioxide Level 28 mmol/L (21-32) Anion Gap 8 (6-14) Blood Urea Nitrogen 45 mg/dL (8-26) Creatinine 1.6 mg/dL (0.7-1.3) Estimated GFR (Cockcroft-Gault) 41.4 Glucose Level 216 mg/dL (70-99) Calcium Level 7.9 mg/dL (8.5-10.1) Test 03/08/20 08:25 03/08/20 11:42 O2 Saturation 95 % (92-99) Arterial Blood pH 7.52 (7.35-7.45) Arterial Blood pCO2 at Patient Temp 30 mmHg (35-46) Arterial Blood pO2 at Patient Temp 83 mmHg (65-108) Arterial Blood HCO3 24 mmol/L (21-28) Arterial Blood Base Excess 1 mmol/L (-3-3) FiO2 50 Glucose (Fingerstick) 384 mg/dL (70-99) Micro Micro Microbiology 02/29/20 Blood Culture - Final, Complete NO GROWTH AFTER 5 DAYS Review of Systems Constitutional: yes: other (CONFUSED) Physical Exam General Appearance: no apparent distress Skin: warm Respiratory: decreased breath sounds Heart: S1S2 Abdomen: soft, bowel sounds present Genitourinary: bladder flat Extremities: pulses present Neurology: alert, confused Musculoskeletal: Other Assessment Assessment . IMP CKD STAGE 3B WITH CR OF 1.6 DANIELA - ATN WITH IMPROVEMENT-CR OF 1.6 TODAY NEAR BL HYPERKALEMIA-RESOLVED HYPERNATREMIA-MILD COVID 19 PNEUMONIA HX OF ZAVALA DZ COPD HX-AECOPD DM II HYPERGLYCEMIA PLAN GENTLY HYDRATION CHANGED IVF TO HYPOTONIC SALINE CONTROL BG WILL FOLLOW LUKE ALCANTARA MD Mar 08, 2020 14:17
--- NOTE | 2020-03-08 15:05 | NUR ---
SS following up with discharge planning. SS reviewed pt chart and discussed with pt RN. Pt is on high flow nasal canula oxygen. COVID19 positive. SS will continue to follow for discharge planning.
--- NOTE | 2020-03-08 18:21 | NUR ---
patient had 4 different stools that were dark and tarry.
[2020-03-08] MEDS: MIRTAZAPINE 15 MG TABLET PO SCH (20:58)
[2020-03-08] MEDS: PATCH REMOVAL. MC SCH (20:58)
[2020-03-08] MEDS: diphenhydrAMINE HCL 25 MG CAPSULE PO PRN (21:02)
[2020-03-08] MEDS: INSULIN GLARGINE SYRINGE. SQ SCH (21:05)
[2020-03-09] VITALS (28 sets, daily range): BP systolic 129–172; BP diastolic 59–80
[2020-03-09] MEDS: IPRATRPIUM/ALBUTEROL 0.5/2.5MG 3 ML NEBU. NEB SCH ×6 (04:00→20:00)
[2020-03-09] MEDS: methylPREDNISolone SOD SUCC PF 40 MG/ML VIAL. IV SCH ×3 (05:05→21:25)
[2020-03-09 06:06] LABS: BASO % 0 % (0-3); EOS % 0 % (0-3); LYMPH # 0.2 x10^3/uL (1.0-4.8); LYMPH % 2 % (24-48); MEAN CORPUSCULAR HEMOGLOBIN 31 pg (25-35); MEAN CORPUSCULAR HGB CONC 33 g/dL (31-37); MEAN CORPUSCULAR VOLUME 97 fL (79-100); MONO # 0.4 x10^3/uL (0.0-1.1); MONO % 4 % (0-9); NEUT # 9.5 x10^3/uL (1.8-7.7); NEUT % 94 % (31-73); PLATELET COUNT 265 x10^3/uL (140-400); RED BLOOD COUNT 2.11 x10^6/uL (4.30-5.70); RED CELL DISTRIBUTION WIDTH 16.5 % (11.5-14.5)
[2020-03-09 06:36] LABS: HEMATOCRIT 20.4 % (39.0-53.0); HEMOGLOBIN 6.6 g/dL (13.0-17.5)
[2020-03-09 07:03] LABS: C-REACTIVE PROTEIN 5.7 mg/L (0-3.3); CALCIUM 7.6 mg/dL (8.5-10.1); CREATININE 1.4 mg/dL (0.7-1.3); GFR 48.3; POTASSIUM 3.9 mmol/L (3.5-5.1)
[2020-03-09] MEDS: BUDESONIDE 0.5 MG/2 ML NEBU. NEB SCH ×2 (08:00→20:00)
[2020-03-09] MEDS: PANTOPRAZOLE 40 MG TABLET.DR. PO SCH (08:33)
[2020-03-09] MEDS: IV 1/2 NORMAL SALINE 1,000 ML IV SCH (08:33)
[2020-03-09] MEDS: SERTRALINE 50 MG TABLET. PO SCH (08:33)
[2020-03-09] MEDS: SUCRALFATE 1 GM TABLET. PO SCH ×2 (08:33→21:14)
[2020-03-09] MEDS: LACTOBACILLUS RHAMNOSUS GG 1 CAPSULE. PO SCH ×2 (08:33→21:14)
[2020-03-09] MEDS: FERROUS SULFATE 325 MG TABLET. PO SCH ×2 (08:33→17:00)
[2020-03-09] MEDS: INSULIN LISPRO 300 UNITS/3 ML VIAL. SQ SCH ×7 (08:34→21:24)
[2020-03-09] MEDS: LIDOCAINE (700MG/PATCH) PATCH. TD SCH ×2 (08:35→09:00)
[2020-03-09] MEDS: REMDESIVIR 100mg in NORMAL SALINE 250ML X 4 DAYS IV SCH (09:32)
--- NOTE | 2020-03-09 09:49 | PDOC ---
Date of Service: DATE: 03/09/20 TIME: 09:45 Objective: Objective: Nursing notes indicate dark tarry stools yesterday. D/w nurse today - not much out from rectal tube. Off BiPAP. Vital Signs: Vital Signs Date Time Temp Pulse Resp B/P (MAP) Pulse Ox O2 Delivery O2 Flow Rate FiO2 03/09/20 09:29 98.3 95 29 148/59 (88) 95 High Flow Nasal Cannula 8.0 98.3 Labs: Laboratory Tests Test 03/08/20 11:42 03/08/20 16:56 03/08/20 20:45 03/09/20 04:00 Glucose (Fingerstick) 384 mg/dL 352 mg/dL 233 mg/dL White Blood Count 10.0 x10^3/uL Red Blood Count 2.11 x10^6/uL Hemoglobin 6.6 g/dL Hematocrit 20.4 % Mean Corpuscular Volume 97 fL Mean Corpuscular Hemoglobin 31 pg Mean Corpuscular Hemoglobin Concent 33 g/dL Red Cell Distribution Width 16.5 % Platelet Count 265 x10^3/uL Neutrophils (%) (Auto) 94 % Lymphocytes (%) (Auto) 2 % Monocytes (%) (Auto) 4 % Eosinophils (%) (Auto) 0 % Basophils (%) (Auto) 0 % Neutrophils # (Auto) 9.5 x10^3/uL Lymphocytes # (Auto) 0.2 x10^3/uL Monocytes # (Auto) 0.4 x10^3/uL Eosinophils # (Auto) 0.0 x10^3/uL Basophils # (Auto) 0.0 x10^3/uL D-Dimer (Alisia) 2.13 ug/mlFEU Sodium Level 147 mmol/L Potassium Level 3.9 mmol/L Chloride Level 111 mmol/L Carbon Dioxide Level 26 mmol/L Anion Gap 10 Blood Urea Nitrogen 35 mg/dL Creatinine 1.4 mg/dL Estimated GFR (Cockcroft-Gault) 48.3 Glucose Level 207 mg/dL Calcium Level 7.6 mg/dL Ferritin 556 ng/mL C-Reactive Protein, Quantitative 5.7 mg/L Procalcitonin 0.28 ng/mL PE: GEN: in COVID isolation, RT present LUNGS: NC 8L HEART: RRR ABD: non-distended, rectal tube - can't see there's much output NEURO/PSYCH: awake and alert A/P: +COVID, resp failure, h/o COPD LIZY, melena, 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 Difficult situation w/ resp issues and COVID infection - had planned for EGD and colonoscopy but these have been on hold. Will d/w Dr. Aldridge. Justicifation of Admission Dx: Justifications for Admission: Justification of Admission Dx: Yes DEBBIE MURRAY Mar 09, 2020 09:49
--- NOTE | 2020-03-09 10:13 | PDOC ---
PROGRESS NOTES Date of Service: DATE: 03/09/20 TIME: 10:10 Chief Complaint Chief Complaint A/P: Dyspnea with no significant hypoxia based on the ABG, likely related to mild congestive heart failure. also with COVID pneumonia. SARS-CoV-2 - with pneumonia. On steroids, Lovenox. Pulm consulted Abnormal chest x-ray with faint interstitial infiltrates - likely CHF and COVID 19 POSTIVE Severe chronic obstructive pulmonary disease, 60 years of tobacco use, quit 3 years ago. 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 His BUN and creatinine was high as well as LFTs. He required 2 liters of oxygen. LFTs also elevated. 03/01: Still requiring O2. Significant wheezes and prolonged expiratory phase. He says he just wants to sleep. He says "Im 84 I have nothing to live for about my cats." 03/02: COVID-19 positive. He is having some back pain today. Still little hypoxic. EGD and colonoscopy on hold due to his COVID-19 positive status 03/03: Afebrile. Seen on 4 L nasal cannula, he is having a bowel movement, notes that he is having he is eating but is having loose bowels currently they are a little dark. No significant pain. His shortness of breath is stable. Slight cough. Back pain improved with Lidoderm patch. 03/03: Still afebrile with 4 liters nasal cannula O2. His glucose has become very elevated. He feels no worse than yesterday. Afebrile, now on 6 L nasal cannula, he is having more diarrhea, he does not notice much blood. Glucose has been in the 400s, unfortunately he did not receive his Lantus in the evening yesterday evening. C diff negative 03/06/2020 Patient with increasing O2 requirements this morning. Patient has increasing dyspnea but still maintaining sats of 94% on 15 L Venturi mask. Pulmonary evaluated and recommends for patient to be transferred to the ICU with BiPAP. 03/08 Breathing on BiPAP. VTE held due to GI bleed, H&H stable. 03/09: Patient is off BiPAP currently breathing on 8 L high flow nasal cannula. H & H dropped to 6.6 today, transfuse 1 unit packed red blood cells. GI to follow, thank you for your expertise. No scope plan due to COVID-19 positive. Vitals Vitals Vital Signs Date Time Temp Pulse Resp B/P (MAP) Pulse Ox O2 Delivery O2 Flow Rate FiO2 03/09/20 09:29 98.3 95 29 148/59 (88) 95 High Flow Nasal Cannula 8.0 98.3 Physical Exam Physical Exam GEN: No apparent distress. Alert and oriented HEENT: Normal cephalic, atraumatic, external auditory canals are patent NECK: Supple, no JVD, no thyromegaly was noted LUNGS: Bilateral crackles and wheezing HEART: RRR, S1, S2 present. Peripheral pulses intact, no obvious murmurs noted ABDOMEN: Soft, nontender. Positive bowel sounds, no organomegaly, normal bowel sounds EXTREMITIES: Without clubbing, cyanosis, or edema. Pedal pulses intact. Negative Homans sign General: Alert, Cooperative Heart: Regular rate Lungs: Other Abdomen: Other (Nondistended) Extremities: No clubbing, No cyanosis, No edema Skin: No rashes, No breakdown Labs LABS Laboratory Tests Test 03/08/20 11:42 03/08/20 16:56 03/08/20 20:45 03/09/20 04:00 Glucose (Fingerstick) 384 mg/dL (70-99) 352 mg/dL (70-99) 233 mg/dL (70-99) White Blood Count 10.0 x10^3/uL (4.0-11.0) Red Blood Count 2.11 x10^6/uL (4.30-5.70) Hemoglobin 6.6 g/dL (13.0-17.5) Hematocrit 20.4 % (39.0-53.0) Mean Corpuscular Volume 97 fL (79-100) Mean Corpuscular Hemoglobin 31 pg (25-35) Mean Corpuscular Hemoglobin Concent 33 g/dL (31-37) Red Cell Distribution Width 16.5 % (11.5-14.5) Platelet Count 265 x10^3/uL (140-400) Neutrophils (%) (Auto) 94 % (31-73) Lymphocytes (%) (Auto) 2 % (24-48) Monocytes (%) (Auto) 4 % (0-9) Eosinophils (%) (Auto) 0 % (0-3) Basophils (%) (Auto) 0 % (0-3) Neutrophils # (Auto) 9.5 x10^3/uL (1.8-7.7) Lymphocytes # (Auto) 0.2 x10^3/uL (1.0-4.8) Monocytes # (Auto) 0.4 x10^3/uL (0.0-1.1) Eosinophils # (Auto) 0.0 x10^3/uL (0.0-0.7) Basophils # (Auto) 0.0 x10^3/uL (0.0-0.2) D-Dimer (Alisia) 2.13 ug/mlFEU (0.00-0.50) Sodium Level 147 mmol/L (136-145) Potassium Level 3.9 mmol/L (3.5-5.1) Chloride Level 111 mmol/L (98-107) Carbon Dioxide Level 26 mmol/L (21-32) Anion Gap 10 (6-14) Blood Urea Nitrogen 35 mg/dL (8-26) Creatinine 1.4 mg/dL (0.7-1.3) Estimated GFR (Cockcroft-Gault) 48.3 Glucose Level 207 mg/dL (70-99) Calcium Level 7.6 mg/dL (8.5-10.1) Ferritin 556 ng/mL (26-388) C-Reactive Protein, Quantitative 5.7 mg/L (0-3.3) Procalcitonin 0.28 ng/mL (0.00-0.10) Review of Systems Review of Systems Unable to obtain due to clinical condition Assessment and Plan Assessmemt and Plan Problems Medical Problems: (1) Acute renal failure Status: Acute (2) COPD exacerbation Status: Acute (3) GI bleeding Status: Acute Comment Review of Relevant I have reviewed the following items kamini (where applicable) has been applied. Labs Laboratory Tests Test 03/07/20 11:24 03/07/20 13:37 03/07/20 15:48 03/07/20 17:48 Glucose (Fingerstick) 339 mg/dL (70-99) 213 mg/dL (70-99) 306 mg/dL (70-99) O2 Saturation 93 % (92-99) Arterial Blood pH 7.47 (7.35-7.45) Arterial Blood pCO2 at Patient Temp 32 mmHg (35-46) Arterial Blood pO2 at Patient Temp 68 mmHg (65-108) Arterial Blood HCO3 23 mmol/L (21-28) Arterial Blood Base Excess -1 mmol/L (-3-3) FiO2 50 Test 03/07/20 20:52 03/08/20 04:45 03/08/20 08:25 03/08/20 11:42 Glucose (Fingerstick) 288 mg/dL (70-99) 384 mg/dL (70-99) Sodium Level 149 mmol/L (136-145) Potassium Level 4.1 mmol/L (3.5-5.1) Chloride Level 113 mmol/L (98-107) Carbon Dioxide Level 28 mmol/L (21-32) Anion Gap 8 (6-14) Blood Urea Nitrogen 45 mg/dL (8-26) Creatinine 1.6 mg/dL (0.7-1.3) Estimated GFR (Cockcroft-Gault) 41.4 Glucose Level 216 mg/dL (70-99) Calcium Level 7.9 mg/dL (8.5-10.1) O2 Saturation 95 % (92-99) Arterial Blood pH 7.52 (7.35-7.45) Arterial Blood pCO2 at Patient Temp 30 mmHg (35-46) Arterial Blood pO2 at Patient Temp 83 mmHg (65-108) Arterial Blood HCO3 24 mmol/L (21-28) Arterial Blood Base Excess 1 mmol/L (-3-3) FiO2 50 Test 03/08/20 16:56 03/08/20 20:45 03/09/20 04:00 Glucose (Fingerstick) 352 mg/dL (70-99) 233 mg/dL (70-99) White Blood Count 10.0 x10^3/uL (4.0-11.0) Red Blood Count 2.11 x10^6/uL (4.30-5.70) Hemoglobin 6.6 g/dL (13.0-17.5) Hematocrit 20.4 % (39.0-53.0) Mean Corpuscular Volume 97 fL (79-100) Mean Corpuscular Hemoglobin 31 pg (25-35) Mean Corpuscular Hemoglobin Concent 33 g/dL (31-37) Red Cell Distribution Width 16.5 % (11.5-14.5) Platelet Count 265 x10^3/uL (140-400) Neutrophils (%) (Auto) 94 % (31-73) Lymphocytes (%) (Auto) 2 % (24-48) Monocytes (%) (Auto) 4 % (0-9) Eosinophils (%) (Auto) 0 % (0-3) Basophils (%) (Auto) 0 % (0-3) Neutrophils # (Auto) 9.5 x10^3/uL (1.8-7.7) Lymphocytes # (Auto) 0.2 x10^3/uL (1.0-4.8) Monocytes # (Auto) 0.4 x10^3/uL (0.0-1.1) Eosinophils # (Auto) 0.0 x10^3/uL (0.0-0.7) Basophils # (Auto) 0.0 x10^3/uL (0.0-0.2) D-Dimer (Alisia) 2.13 ug/mlFEU (0.00-0.50) Sodium Level 147 mmol/L (136-145) Potassium Level 3.9 mmol/L (3.5-5.1) Chloride Level 111 mmol/L (98-107) Carbon Dioxide Level 26 mmol/L (21-32) Anion Gap 10 (6-14) Blood Urea Nitrogen 35 mg/dL (8-26) Creatinine 1.4 mg/dL (0.7-1.3) Estimated GFR (Cockcroft-Gault) 48.3 Glucose Level 207 mg/dL (70-99) Calcium Level 7.6 mg/dL (8.5-10.1) Ferritin 556 ng/mL (26-388) C-Reactive Protein, Quantitative 5.7 mg/L (0-3.3) Procalcitonin 0.28 ng/mL (0.00-0.10) Laboratory Tests Test 03/08/20 11:42 03/08/20 16:56 03/08/20 20:45 03/09/20 04:00 Glucose (Fingerstick) 384 mg/dL (70-99) 352 mg/dL (70-99) 233 mg/dL (70-99) White Blood Count 10.0 x10^3/uL (4.0-11.0) Red Blood Count 2.11 x10^6/uL (4.30-5.70) Hemoglobin 6.6 g/dL (13.0-17.5) Hematocrit 20.4 % (39.0-53.0) Mean Corpuscular Volume 97 fL (79-100) Mean Corpuscular Hemoglobin 31 pg (25-35) Mean Corpuscular Hemoglobin Concent 33 g/dL (31-37) Red Cell Distribution Width 16.5 % (11.5-14.5) Platelet Count 265 x10^3/uL (140-400) Neutrophils (%) (Auto) 94 % (31-73) Lymphocytes (%) (Auto) 2 % (24-48) Monocytes (%) (Auto) 4 % (0-9) Eosinophils (%) (Auto) 0 % (0-3) Basophils (%) (Auto) 0 % (0-3) Neutrophils # (Auto) 9.5 x10^3/uL (1.8-7.7) Lymphocytes # (Auto) 0.2 x10^3/uL (1.0-4.8) Monocytes # (Auto) 0.4 x10^3/uL (0.0-1.1) Eosinophils # (Auto) 0.0 x10^3/uL (0.0-0.7) Basophils # (Auto) 0.0 x10^3/uL (0.0-0.2) D-Dimer (Alisia) 2.13 ug/mlFEU (0.00-0.50) Sodium Level 147 mmol/L (136-145) Potassium Level 3.9 mmol/L (3.5-5.1) Chloride Level 111 mmol/L (98-107) Carbon Dioxide Level 26 mmol/L (21-32) Anion Gap 10 (6-14) Blood Urea Nitrogen 35 mg/dL (8-26) Creatinine 1.4 mg/dL (0.7-1.3) Estimated GFR (Cockcroft-Gault) 48.3 Glucose Level 207 mg/dL (70-99) Calcium Level 7.6 mg/dL (8.5-10.1) Ferritin 556 ng/mL (26-388) C-Reactive Protein, Quantitative 5.7 mg/L (0-3.3) Procalcitonin 0.28 ng/mL (0.00-0.10) Microbiology 02/29/20 Blood Culture - Final, Complete NO GROWTH AFTER 5 DAYS Medications Current Medications Albuterol/ Ipratropium (Duoneb) 6 ml 1X ONCE NEB Last administered on 02/29/20at 11:24; Start 02/29/20 at 10:30; Stop 02/29/20 at 10:31; Status DC Methylprednisolone Sodium Succinate (SOLU-Medrol 125MG VIAL) 125 mg 1X ONCE IV Last administered on 02/29/20at 10:23; Start 02/29/20 at 10:30; Stop 02/29/20 at 10:31; Status DC Sodium Chloride 1,000 ml @ 1,000 mls/hr 1X ONCE IV Last administered on 02/29/20at 17:42; Start 02/29/20 at 13:15; Stop 02/29/20 at 14:14; Status DC Ondansetron HCl (Zofran) 4 mg PRN Q8HRS PRN IV NAUSEA/VOMITING; Start 02/29/20 at 13:30; Stop 03/01/20 at 13:29; Status DC Acetaminophen (Tylenol) 650 mg PRN Q4HRS PRN PO FEVER > 100.3'F; Start 02/29/20 at 13:30; Stop 03/01/20 at 13:29; Status DC Albuterol/ Ipratropium (Duoneb) 3 ml RTQID NEB ; Start 02/29/20 at 16:00; Stop 02/29/20 at 13:58; Status DC Albuterol/ Ipratropium (Duoneb) 3 ml PRN QID PRN NEB SHORTNESS OF BREATH; Start 02/29/20 at 14:00; Stop 03/01/20 at 13:59; Status DC Pantoprazole Sodium (Protonix) 40 mg DAILYAC PO Last administered on 03/09/20 08:33; Start 03/01/20 at 07:30 Sucralfate (Carafate) 1 gm BID PO Last administered on 03/09/20at 08:33; Start 02/29/20 at 21:00 Polyethylene Glycol (miraLAX PACKET) 17 gm PRN DAILY PRN PO CONSTIPATION; Start 02/29/20 at 15:15 Ferrous Sulfate (Feosol) 325 mg BIDWMEALS PO Last administered on 03/09/20at 08:33; Start 03/01/20 at 17:00 Polyethylene Glycol (miraLAX PACKET) 17 gm PRN DAILY PRN PO CONSTIPATION; Start 03/01/20 at 10:15; Stop 03/01/20 at 10:12; Status DC Methylprednisolone Sodium Succinate (SOLU-Medrol 40MG VIAL) 40 mg DAILY IV Last administered on 03/02/20at 10:56; Start 03/01/20 at 11:00; Stop 03/02/20 at 11:11; Status DC Olanzapine (ZyPREXA ZYDIS) 5 mg PRN BID PRN PO AGITATION; Start 03/01/20 at 11:15 Sodium Cl/Sod Bicarb/Potass Cl/ PEG (Golytely) 4,000 ml 1X ONCE PO Last administered on 03/01/20at 14:47; Start 03/01/20 at 14:00; Stop 03/01/20 at 14:01; Status DC Ringer's Solution 1,000 ml @ 50 mls/hr Q20H IV ; Start 03/02/20 at 07:00; Stop 03/02/20 at 18:59; Status DC Diphenhydramine HCl (Benadryl) 25 mg PRN QHS PRN PO INSOMNIA Last administered on 03/08/20at 21:02; Start 03/01/20 at 22:15 Albuterol Sulfate (Ventolin Hfa) 1 puff PRN QID PRN INH SHORTNESS OF BREATH Last administered on 03/03/20at 12:43; Start 03/02/20 at 01:00; Stop 03/04/20 at 10:34; Status DC Acetaminophen (Tylenol) 650 mg PRN Q6HRS PRN PO temperature Last administered on 03/02/20at 03:42; Start 03/02/20 at 03:30 Methylprednisolone Sodium Succinate (SOLU-Medrol 40MG VIAL) 20 mg 1X ONCE IV Last administered on 03/02/20at 11:15; Start 03/02/20 at 11:15; Stop 03/02/20 at 11:16; Status DC Piperacillin Sod/ Tazobactam Sod (Zosyn Per Pharmacy) 1 each PRN DAILY PRN MC SEE COMMENTS; Start 03/02/20 at 11:15; Stop 03/08/20 at 14:48; Status DC Piperacillin Sod/ Tazobactam Sod 2.25 gm/Sodium Chloride 50 ml @ 100 mls/hr Q6HRS IV Last administered on 03/08/20at 12:38; Start 03/02/20 at 12:00; Stop 03/08/20 at 14:48; Status DC Methylprednisolone Sodium Succinate (SOLU-Medrol 40MG VIAL) 60 mg Q8HRS IV Last administered on 03/09/20at 05:05; Start 03/02/20 at 14:00 Lidocaine (Lidoderm) 1 patch DAILY TD Last administered on 03/09/20at 08:35; Start 03/02/20 at 14:30 Miscellaneous (Lidoderm Patch Removal) 1 ea QHS MC Last administered on 03/07at 20:48; Start 03/02/20 at 21:00 Sertraline HCl (Zoloft) 25 mg DAILY PO Last administered on 03/05/20at 08:39; Start 03/03/20 at 09:00; Stop 03/05/20 at 19:23; Status DC Furosemide (Lasix) 20 mg 1X ONCE IVP Last administered on 03/04/20at 12:17; Start 03/04/20 at 11:00; Stop 03/04/20 at 11:01; Status DC Albuterol Sulfate (Ventolin Hfa) 2 puff Q4HRS INH Last administered on 03/07/20at 07:51; Start 03/04/20 at 12:00; Stop 03/07/20 at 17:37; Status DC Insulin Glargine (Lantus Syringe) 20 unit QHS SQ ; Start 03/04/20 at 21:00; Stop 03/05/20 at 15:08; Status DC Insulin Human Lispro (HumaLOG) 0-9 UNITS TIDACHC SQ Last administered on 03/09/20at 08:35; Start 03/04/20 at 13:00 Dextrose (Dextrose 50%-Water Syringe) 12.5 gm PRN Q15MIN PRN IV SEE COMMENTS; Start 03/04/20 at 13:00 Lactobacillus Rhamnosus (Culturelle) 1 cap BID PO Last administered on 03/09/20at 08:33; Start 03/04/20 at 13:00 Insulin Human Lispro (HumaLOG) 9 units 1X ONCE SQ Last administered on 03/04/20at 13:53; Start 03/04/20 at 13:30; Stop 03/04/20 at 13:35; Status DC Insulin Human Lispro (HumaLOG) 5 units TIDAC SQ Last administered on 03/09/20at 08:34; Start 03/05/20 at 08:00 Insulin Glargine (Lantus Syringe) 25 unit QHS SQ Last administered on 03/08/20at 21:05; Start 03/05/20 at 21:00 Loperamide HCl (Imodium) 2 mg PRN Q15MIN PRN PO DIARRHEA; Start 03/05/20 at 15:15 Sertraline HCl (Zoloft) 50 mg DAILY PO Last administered on 03/09/20at 08:33; Start 03/06/20 at 09:00 Sodium Chloride 1,000 ml @ 75 mls/hr [id number] IV Last administered on 03/07/20at 00:53; Start 03/06/20 at 14:00; Stop 03/07/20 at 13:50; Status DC Mirtazapine (Remeron) 15 mg QHS PO Last administered on 03/08/20at 20:58; Start 03/06/20 at 21:00 Hydralazine HCl (Apresoline Inj) 10 mg PRN Q4HRS PRN IVP ELEVATED BP, SEE COMMENTS Last administered on 03/07/20at 23:18; Start 03/07/20 at 09:30 Methylprednisolone Sodium Succinate (SOLU-Medrol 125MG VIAL) 125 mg 1X ONCE IV Last administered on 03/07/20at 10:48; Start 03/07/20 at 10:45; Stop 03/07/20 at 10:46; Status DC Fluticasone/ Vilanterol (Breo Ellipta 100-25 Mcg) 1 puff DAILY INH ; Start 03/07/20 at 11:30; Stop 03/07/20 at 11:02; Status DC Fluticasone/ Vilanterol (Breo Ellipta 100-25 Mcg) 1 puff DAILY INH ; Start 03/07/20 at 11:30; Stop 03/07/20 at 11:02; Status DC Fluticasone/ Vilanterol (Breo Ellipta 100-25 Mcg) 1 puff DAILY INH ; Start 03/07/20 at 11:30; Stop 03/07/20 at 17:37; Status DC Furosemide (Lasix) 40 mg 1X ONCE IVP Last administered on 03/07/20at 12:49; Start 03/07/20 at 12:45; Stop 03/07/20 at 12:46; Status DC Sodium Chloride 1,000 ml @ 75 mls/hr [id number] IV Last administered on 03/09/20at 08:33; Start 03/07/20 at 14:00 Non-Formulary Medication 1 ea/ Sodium Chloride 210 ml @ 210 mls/hr 1X ONCE IV Last administered on 03/08/20at 08:57; Start 03/08/20 at 09:00; Stop 03/08/20 at 09:59; Status DC Non-Formulary Medication 1 ea/ Sodium Chloride 230 ml @ 460 mls/hr Q24H IV Last administered on 03/09/20at 09:32; Start 03/09/20 at 09:00; Stop 03/12/20 at 09:29 Albuterol/ Ipratropium (Duoneb) 3 ml Q4HRS NEB Last administered on 03/09/20at 04:00; Start 03/07/20 at 20:00 Budesonide (Pulmicort) 0.5 mg RTBID NEB Last administered on 03/08/20at 20:00; Start 03/07/20 at 20:00 Active Scripts Active Reported Phospha 250 Neutral Tablet (Phosphorus #1) 250 Mg Tablet 1 Tab PO DAILY 30 Days Atorvastatin Calcium 20 Mg Tablet 1 Tab PO DAILYWSUP Levothyroxine Sodium 25 Mcg Tablet 1 Tab PO DAILY Iron (Ferrous Sulfate) 325 Mg Tablet 1 Tab PO BID 30 Days Flomax (Tamsulosin Hcl) 0.4 Mg Cap.er.24h 0.4 Mg PO DAILY Benicar (Olmesartan Medoxomil) 20 Mg Tablet 1 Tab PO DAILY 30 Days Cyclobenzaprine Hcl 10 Mg Tablet 1 Tab PO BID PRN Torsemide 20 Mg Tablet 4 Tab PO DAILY Benadryl (Diphenhydramine Hcl) 25 Mg Capsule 1 Cap PO QHS Quinapril Hcl 40 Mg Tablet 1 Tab PO DAILY Metformin Hcl 500 Mg Tablet 1 Tab PO DAILYBFRSUP Trazodone Hcl 50 Mg Tablet 50 Mg PO HS [place] 5-325 Tablet (Acetaminophen/Hydrocodone Bitart) 1 Each Tablet 1 Tab PO Q8HRS PRN Percocet 5-325 Mg Tablet (Oxycodone/Acetaminophen) 1 Each Tablet 1-2 Tab PO Q6HRS PRN Potassium Chloride 20 Meq Tab.er.prt 20 Meq PO BID Combivent Respimat Inhal (Ipratropium/Albuterol Sulfate) 4 Gm Aer.w.adap 2 Inh IH QID PRN Metformin Hcl 1,000 Mg Tablet 1 Tab PO DAILY08 Vitals/I & O Vital Sign - Last 24 Hours 03/08/20 03/08/20 03/08/20 03/08/20 11:00 11:17 12:00 12:00 Temp 98.4 98.4 Pulse 97 97 Resp 19 19 B/P (MAP) 145/63 (90) 148/59 (88) Pulse Ox 94 93 94 O2 Delivery BiPAP/CPAP Ventilator Bi-pap BiPAP/CPAP 03/08/20 03/08/20 03/08/20 03/08/20 12:10 13:00 14:00 15:00 Pulse 112 103 96 Resp 27 24 24 B/P (MAP) 150/62 (91) 127/52 (77) 147/60 (89) Pulse Ox 90 93 95 O2 Delivery High Flow Nasal Cannula High Flow Nasal Cannula High Flow Nasal Cannula High Flow Nasal Cannula O2 Flow Rate 10.0 10.0 10.0 10.0 03/08/20 03/08/20 03/08/20 03/08/20 15:44 15:46 16:00 16:25 Pulse 103 Resp 21 B/P (MAP) 151/59 (89) Pulse Ox 96 96 92 O2 Delivery High Flow Nasal Cannula High Flow Nasal Cannula High Flow Nasal Cannula Bi-pap O2 Flow Rate 10.0 8.0 03/08/20 03/08/20 03/08/20 03/08/20 17:00 18:00 19:00 20:00 Temp 97.9 97.6 97.9 97.6 Pulse 98 102 98 Resp 23 B/P (MAP) 134/65 (88) 166/61 (96) 160/67 (98) Pulse Ox 93 91 95 O2 Delivery High Flow Nasal Cannula High Flow Nasal Cannula High Flow Nasal Cannula Nasal Cannula O2 Flow Rate 8.0 8.0 8.0 03/08/20 03/08/20 03/08/20 03/08/20 20:00 21:00 22:00 22:27 Pulse 95 96 106 Resp 24 B/P (MAP) 151/64 (93) 153/63 (93) 157/61 (93) Pulse Ox 95 95 90 100 O2 Delivery High Flow Nasal Cannula High Flow Nasal Cannula BiPAP/CPAP High Flow Nasal Cannula O2 Flow Rate 8.0 8.0 10.0 03/08/20 03/08/20 03/09/20 03/09/20 22:28 23:00 00:00 00:01 Temp 97.4 97.4 Pulse 102 92 Resp 20 B/P (MAP) 153/74 (100) 145/63 (90) Pulse Ox 100 90 95 O2 Delivery Ventilator BiPAP/CPAP Bi-pap BiPAP/CPAP 03/09/20 03/09/20 03/09/20 03/09/20 00:25 01:00 02:00 03:00 Temp 96.4 96.4 Pulse 90 86 84 Resp 20 B/P (MAP) 151/68 (95) 134/61 (85) 157/70 (99) Pulse Ox 100 95 92 96 O2 Delivery Ventilator BiPAP/CPAP BiPAP/CPAP BiPAP/CPAP 03/09/20 03/09/20 03/09/20 03/09/20 04:00 04:00 04:55 05:00 Pulse 88 78 Resp 21 B/P (MAP) 156/73 (100) 143/63 (89) Pulse Ox 94 100 94 O2 Delivery Bi-pap BiPAP/CPAP Ventilator BiPAP/CPAP 03/09/20 03/09/20 03/09/20 03/09/20 06:00 07:25 07:40 08:00 Pulse 78 84 Resp 20 B/P (MAP) 129/61 (83) 154/67 (96) Pulse Ox 94 96 97 O2 Delivery BiPAP/CPAP High Flow Nasal Cannula High Flow Nasal Cannula Bi-pap O2 Flow Rate 8.0 8.0 03/09/20 03/09/20 08:03 09:29 Temp 98.3 98.3 Pulse 87 95 Resp 20 29 B/P (MAP) 145/61 (89) 148/59 (88) Pulse Ox 93 95 O2 Delivery High Flow Nasal Cannula High Flow Nasal Cannula O2 Flow Rate 8.0 8.0 Intake and Output 03/08/20 03/08/20 03/09/20 15:00 23:00 07:00 Intake Total 260 ml 2010 ml 1200 ml Output Total 375 ml 925 ml 1000 ml Balance -115 ml 1085 ml 200 ml Justicifation of Admission Dx: Justifications for Admission: Justification of Admission Dx: Yes SALEEM WHITE MD Mar 09, 2020 10:13
--- NOTE | 2020-03-09 10:39 | NUR ---
SS following up with discharge planning. SS reviewed pt chart and discussed with pt RN. COVID19 positive. Pt currently on high flow nasal canula oxygen at 8 liters. Hemoglobin 6.6. Pt getting blood today. SS will continue to follow for discharge planning.
--- NOTE | 2020-03-09 11:27 | PDOC ---
Renal-Progress Notes Subjective Notes Notes NOTHING NEW History of Present Illness Hx of present illness LOW HGB Vitals Vitals Vital Signs Date Time Temp Pulse Resp B/P (MAP) Pulse Ox O2 Delivery O2 Flow Rate FiO2 03/09/20 11:15 93 High Flow Nasal Cannula 8.0 03/09/20 11:09 90 31 157/62 (93) 03/09/20 11:00 98.3 98.3 Weight Weight [ ] I.O. Intake and Output Intake and Output 03/09/20 07:00 Intake Total 3470 ml Output Total 2300 ml Balance 1170 ml Intake Oral 1410 ml IV Total 1160 ml Other 900 ml Output Urine Total 2300 ml # Bowel Movements 4 Labs Labs Laboratory Tests Test 03/08/20 11:42 03/08/20 16:56 03/08/20 20:45 03/09/20 04:00 Glucose (Fingerstick) 384 mg/dL (70-99) 352 mg/dL (70-99) 233 mg/dL (70-99) White Blood Count 10.0 x10^3/uL (4.0-11.0) Red Blood Count 2.11 x10^6/uL (4.30-5.70) Hemoglobin 6.6 g/dL (13.0-17.5) Hematocrit 20.4 % (39.0-53.0) Mean Corpuscular Volume 97 fL (79-100) Mean Corpuscular Hemoglobin 31 pg (25-35) Mean Corpuscular Hemoglobin Concent 33 g/dL (31-37) Red Cell Distribution Width 16.5 % (11.5-14.5) Platelet Count 265 x10^3/uL (140-400) Neutrophils (%) (Auto) 94 % (31-73) Lymphocytes (%) (Auto) 2 % (24-48) Monocytes (%) (Auto) 4 % (0-9) Eosinophils (%) (Auto) 0 % (0-3) Basophils (%) (Auto) 0 % (0-3) Neutrophils # (Auto) 9.5 x10^3/uL (1.8-7.7) Lymphocytes # (Auto) 0.2 x10^3/uL (1.0-4.8) Monocytes # (Auto) 0.4 x10^3/uL (0.0-1.1) Eosinophils # (Auto) 0.0 x10^3/uL (0.0-0.7) Basophils # (Auto) 0.0 x10^3/uL (0.0-0.2) D-Dimer (Alisia) 2.13 ug/mlFEU (0.00-0.50) Sodium Level 147 mmol/L (136-145) Potassium Level 3.9 mmol/L (3.5-5.1) Chloride Level 111 mmol/L (98-107) Carbon Dioxide Level 26 mmol/L (21-32) Anion Gap 10 (6-14) Blood Urea Nitrogen 35 mg/dL (8-26) Creatinine 1.4 mg/dL (0.7-1.3) Estimated GFR (Cockcroft-Gault) 48.3 Glucose Level 207 mg/dL (70-99) Calcium Level 7.6 mg/dL (8.5-10.1) Magnesium Level 2.7 mg/dL (1.8-2.4) Ferritin 556 ng/mL (26-388) C-Reactive Protein, Quantitative 5.7 mg/L (0-3.3) Procalcitonin 0.28 ng/mL (0.00-0.10) Micro Micro Microbiology 02/29/20 Blood Culture - Final, Complete NO GROWTH AFTER 5 DAYS Review of Systems Constitutional: yes: other (CONFUSED) Physical Exam General Appearance: no apparent distress Skin: warm Respiratory: decreased breath sounds Heart: S1S2 Abdomen: soft, bowel sounds present Genitourinary: bladder flat Extremities: pulses present Neurology: alert, confused Musculoskeletal: Other Assessment Assessment . IMP CKD STAGE 3B WITH CR OF 1.6 DANIELA - ATN WITH IMPROVEMENT-CR OF 1.4 TODAY NEAR BL HYPERKALEMIA-RESOLVED HYPERNATREMIA-MILD COVID 19 PNEUMONIA HX OF ZAVALA DZ COPD HX-AECOPD DM II HYPERGLYCEMIA PLAN GENTLY HYDRATION NEEDED PRBC NEEDED CONTROL BG WILL FOLLOW LUKE ALCANTARA MD Mar 09, 2020 11:27
--- NOTE | 2020-03-09 12:23 | PDOC ---
PULMONARY PROGRESS NOTES DATE: 03/09/20 TIME: 12:19 Subjective wore bipap overnight, now on 6 liters N/C No increased SOA or cough No concerns from nursing a-febrile HGB 6.6 today, planned to receive PRBC today Vitals Vital Signs Date Time Temp Pulse Resp B/P (MAP) Pulse Ox O2 Delivery O2 Flow Rate FiO2 03/09/20 11:15 93 High Flow Nasal Cannula 8.0 03/09/20 11:09 90 31 157/62 (93) 03/09/20 11:00 98.3 98.3 Comments pt. seen during pandemic visual exam preformed RRR BIPAP no distress trace edema no rash General: Alert Lungs: Other Labs Laboratory Tests Test 03/07/20 13:37 03/07/20 15:48 03/07/20 17:48 03/07/20 20:52 O2 Saturation 93 % (92-99) Arterial Blood pH 7.47 (7.35-7.45) Arterial Blood pCO2 at Patient Temp 32 mmHg (35-46) Arterial Blood pO2 at Patient Temp 68 mmHg (65-108) Arterial Blood HCO3 23 mmol/L (21-28) Arterial Blood Base Excess -1 mmol/L (-3-3) FiO2 50 Glucose (Fingerstick) 213 mg/dL (70-99) 306 mg/dL (70-99) 288 mg/dL (70-99) Test 03/08/20 04:45 03/08/20 08:25 03/08/20 11:42 03/08/20 16:56 Sodium Level 149 mmol/L (136-145) Potassium Level 4.1 mmol/L (3.5-5.1) Chloride Level 113 mmol/L (98-107) Carbon Dioxide Level 28 mmol/L (21-32) Anion Gap 8 (6-14) Blood Urea Nitrogen 45 mg/dL (8-26) Creatinine 1.6 mg/dL (0.7-1.3) Estimated GFR (Cockcroft-Gault) 41.4 Glucose Level 216 mg/dL (70-99) Calcium Level 7.9 mg/dL (8.5-10.1) O2 Saturation 95 % (92-99) Arterial Blood pH 7.52 (7.35-7.45) Arterial Blood pCO2 at Patient Temp 30 mmHg (35-46) Arterial Blood pO2 at Patient Temp 83 mmHg (65-108) Arterial Blood HCO3 24 mmol/L (21-28) Arterial Blood Base Excess 1 mmol/L (-3-3) FiO2 50 Glucose (Fingerstick) 384 mg/dL (70-99) 352 mg/dL (70-99) Test 03/08/20 20:45 03/09/20 04:00 Glucose (Fingerstick) 233 mg/dL (70-99) White Blood Count 10.0 x10^3/uL (4.0-11.0) Red Blood Count 2.11 x10^6/uL (4.30-5.70) Hemoglobin 6.6 g/dL (13.0-17.5) Hematocrit 20.4 % (39.0-53.0) Mean Corpuscular Volume 97 fL (79-100) Mean Corpuscular Hemoglobin 31 pg (25-35) Mean Corpuscular Hemoglobin Concent 33 g/dL (31-37) Red Cell Distribution Width 16.5 % (11.5-14.5) Platelet Count 265 x10^3/uL (140-400) Neutrophils (%) (Auto) 94 % (31-73) Lymphocytes (%) (Auto) 2 % (24-48) Monocytes (%) (Auto) 4 % (0-9) Eosinophils (%) (Auto) 0 % (0-3) Basophils (%) (Auto) 0 % (0-3) Neutrophils # (Auto) 9.5 x10^3/uL (1.8-7.7) Lymphocytes # (Auto) 0.2 x10^3/uL (1.0-4.8) Monocytes # (Auto) 0.4 x10^3/uL (0.0-1.1) Eosinophils # (Auto) 0.0 x10^3/uL (0.0-0.7) Basophils # (Auto) 0.0 x10^3/uL (0.0-0.2) D-Dimer (Alisia) 2.13 ug/mlFEU (0.00-0.50) Sodium Level 147 mmol/L (136-145) Potassium Level 3.9 mmol/L (3.5-5.1) Chloride Level 111 mmol/L (98-107) Carbon Dioxide Level 26 mmol/L (21-32) Anion Gap 10 (6-14) Blood Urea Nitrogen 35 mg/dL (8-26) Creatinine 1.4 mg/dL (0.7-1.3) Estimated GFR (Cockcroft-Gault) 48.3 Glucose Level 207 mg/dL (70-99) Calcium Level 7.6 mg/dL (8.5-10.1) Magnesium Level 2.7 mg/dL (1.8-2.4) Ferritin 556 ng/mL (26-388) C-Reactive Protein, Quantitative 5.7 mg/L (0-3.3) Procalcitonin 0.28 ng/mL (0.00-0.10) Laboratory Tests Test 03/08/20 16:56 03/08/20 20:45 03/09/20 04:00 Glucose (Fingerstick) 352 mg/dL (70-99) 233 mg/dL (70-99) White Blood Count 10.0 x10^3/uL (4.0-11.0) Red Blood Count 2.11 x10^6/uL (4.30-5.70) Hemoglobin 6.6 g/dL (13.0-17.5) Hematocrit 20.4 % (39.0-53.0) Mean Corpuscular Volume 97 fL (79-100) Mean Corpuscular Hemoglobin 31 pg (25-35) Mean Corpuscular Hemoglobin Concent 33 g/dL (31-37) Red Cell Distribution Width 16.5 % (11.5-14.5) Platelet Count 265 x10^3/uL (140-400) Neutrophils (%) (Auto) 94 % (31-73) Lymphocytes (%) (Auto) 2 % (24-48) Monocytes (%) (Auto) 4 % (0-9) Eosinophils (%) (Auto) 0 % (0-3) Basophils (%) (Auto) 0 % (0-3) Neutrophils # (Auto) 9.5 x10^3/uL (1.8-7.7) Lymphocytes # (Auto) 0.2 x10^3/uL (1.0-4.8) Monocytes # (Auto) 0.4 x10^3/uL (0.0-1.1) Eosinophils # (Auto) 0.0 x10^3/uL (0.0-0.7) Basophils # (Auto) 0.0 x10^3/uL (0.0-0.2) D-Dimer (Alisia) 2.13 ug/mlFEU (0.00-0.50) Sodium Level 147 mmol/L (136-145) Potassium Level 3.9 mmol/L (3.5-5.1) Chloride Level 111 mmol/L (98-107) Carbon Dioxide Level 26 mmol/L (21-32) Anion Gap 10 (6-14) Blood Urea Nitrogen 35 mg/dL (8-26) Creatinine 1.4 mg/dL (0.7-1.3) Estimated GFR (Cockcroft-Gault) 48.3 Glucose Level 207 mg/dL (70-99) Calcium Level 7.6 mg/dL (8.5-10.1) Magnesium Level 2.7 mg/dL (1.8-2.4) Ferritin 556 ng/mL (26-388) C-Reactive Protein, Quantitative 5.7 mg/L (0-3.3) Procalcitonin 0.28 ng/mL (0.00-0.10) Medications Active Scripts Medications Dose Route/Sig Max Daily Dose Days Date Category Phospha 250 Neutral Tablet (Phosphorus #1) 250 Mg Tablet 1 Tab PO DAILY 30 02/29/20 Reported Atorvastatin Calcium 20 Mg Tablet 1 Tab PO DAILYWSUP 02/29/20 Reported Levothyroxine Sodium 25 Mcg Tablet 1 Tab PO DAILY 02/29/20 Reported Iron (Ferrous Sulfate) 325 Mg Tablet 1 Tab PO BID 30 02/29/20 Reported Flomax (Tamsulosin Hcl) 0.4 Mg Cap.er.24h 0.4 Mg PO DAILY 02/29/20 Reported Benicar (Olmesartan Medoxomil) 20 Mg Tablet 1 Tab PO DAILY 30 02/29/20 Reported Cyclobenzaprine Hcl 10 Mg Tablet 1 Tab PO BID PRN 10/08/14 Reported Torsemide 20 Mg Tablet 4 Tab PO DAILY 10/08/14 Reported Benadryl (Diphenhydramine Hcl) 25 Mg Capsule 1 Cap PO QHS 10/08/14 Reported Quinapril Hcl 40 Mg Tablet 1 Tab PO DAILY 10/08/14 Reported Metformin Hcl 500 Mg Tablet 1 Tab PO DAILYBFRSUP 10/08/14 Reported Trazodone Hcl 50 Mg Tablet 50 Mg PO HS 10/08/14 Reported [place] 5-325 Tablet (Acetaminophen/Hydrocodone Bitart) 1 Each Tablet 1 Tab PO Q8HRS PRN 10/08/14 Reported Percocet 5-325 Mg Tablet (Oxycodone/Acetaminophen) 1 Each Tablet 1-2 Tab PO Q6HRS PRN 10/08/14 Reported Potassium Chloride 20 Meq Tab.er.prt 20 Meq PO BID 10/08/14 Reported Combivent Respimat Inhal (Ipratropium/Albuterol Sulfate) 4 Gm Aer.w.adap 2 Inh IH QID PRN 10/08/14 Reported Metformin Hcl 1,000 Mg Tablet 1 Tab PO DAILY08 10/07/14 Reported Comments Impression: low probability for pulmonary embolism. Impression . IMPRESSION: 1. Dyspnea worse due to AECOPD.--improving 2. cxr with bilateral interstitial infiltrates 03/07. suspect combination of congestive heart failure. COVID pneumonia. 3. Suspected severe chronic obstructive pulmonary disease, 60 years of tobacco use, quit 3 years ago. 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 5. Acute kidney injury--improving 6. anemia/ dark stools Plan . RECOMMENDATIONS: N/C high flow oxygen if needed, keep oxygen saturations above 92 %, BIPAP HS and PRN continue steroids Continue antibiotics bronchodilators MDI 2 puffs and Q4 scheduled / add Breo S/P plasma and S/P Remdesvir Follow renal function and nephrology recommendations Follow GI recs and monitor HGB-- 6.6 today planned to receive PRBC today COVID-19 positive DVT/GI PPX Monitor clinical course D/W RN /RT PT. is DNR but daughter would like to re-discuss intubation option if hypoxia worsens JIM DIAMOND MD Mar 09, 2020 12:23
--- NOTE | 2020-03-09 16:29 | PDOC ---
F/U PHYSCH PROG NOTE Subjective: gentleman seen for routine follow-up. Progress is reviewed with nursing staff. No major emotional or behavioral breakdown reported. He appears relatively better. However continues to endorse depression and anxiety. He is in agreement to increase dose of Zoloft 200 mg daily. Aside from that, he denies suicidal or homicidal thoughts. Auditory or visual hallucinations. Objective: Point review of system is otherwise negative except for stated above. Vital Signs: Vital Signs Date Time Temp Pulse Resp B/P (MAP) Pulse Ox O2 Delivery O2 Flow Rate FiO2 03/09/20 15:28 92 High Flow Nasal Cannula 8.0 03/09/20 15:01 89 26 165/68 (100) 03/09/20 14:00 97.9 97.9 Labs: Laboratory Tests Test 03/08/20 16:56 03/08/20 20:45 03/09/20 04:00 03/09/20 12:22 Glucose (Fingerstick) 352 mg/dL (70-99) H 233 mg/dL (70-99) H 294 mg/dL (70-99) H White Blood Count 10.0 x10^3/uL (4.0-11.0) Red Blood Count 2.11 x10^6/uL (4.30-5.70) L Hemoglobin 6.6 g/dL (13.0-17.5) *L Hematocrit 20.4 % (39.0-53.0) *L Mean Corpuscular Volume 97 fL (79-100) Mean Corpuscular Hemoglobin 31 pg (25-35) Mean Corpuscular Hemoglobin Concent 33 g/dL (31-37) Red Cell Distribution Width 16.5 % (11.5-14.5) H Platelet Count 265 x10^3/uL (140-400) Neutrophils (%) (Auto) 94 % (31-73) H Lymphocytes (%) (Auto) 2 % (24-48) L Monocytes (%) (Auto) 4 % (0-9) Eosinophils (%) (Auto) 0 % (0-3) Basophils (%) (Auto) 0 % (0-3) Neutrophils # (Auto) 9.5 x10^3/uL (1.8-7.7) H Lymphocytes # (Auto) 0.2 x10^3/uL (1.0-4.8) L Monocytes # (Auto) 0.4 x10^3/uL (0.0-1.1) Eosinophils # (Auto) 0.0 x10^3/uL (0.0-0.7) Basophils # (Auto) 0.0 x10^3/uL (0.0-0.2) D-Dimer (Alisia) 2.13 ug/mlFEU (0.00-0.50) H Sodium Level 147 mmol/L (136-145) H Potassium Level 3.9 mmol/L (3.5-5.1) Chloride Level 111 mmol/L (98-107) H Carbon Dioxide Level 26 mmol/L (21-32) Anion Gap 10 (6-14) Blood Urea Nitrogen 35 mg/dL (8-26) H Creatinine 1.4 mg/dL (0.7-1.3) H Estimated GFR (Cockcroft-Gault) 48.3 Glucose Level 207 mg/dL (70-99) H Calcium Level 7.6 mg/dL (8.5-10.1) L Magnesium Level 2.7 mg/dL (1.8-2.4) H Ferritin 556 ng/mL (26-388) H C-Reactive Protein, Quantitative 5.7 mg/L (0-3.3) H Procalcitonin 0.28 ng/mL (0.00-0.10) H Laboratory Tests 03/09/20 04:00 Laboratory Tests 03/09/20 04:00 Medications: Current Medications Medications (Trade) Dose Ordered Sig/Ya Start Time Stop Time Status Last Admin Dose Admin Acetaminophen (Tylenol) 650 mg PRN Q6HRS PRN 03/02/20 03:30 03/02/20 03:42 650 MG Albuterol Sulfate (Ventolin Hfa) 2 puff Q4HRS 03/04/20 12:00 03/07/20 17:37 DC 03/07/20 07:51 2 PUFF Albuterol/ Ipratropium (Duoneb) 3 ml Q4HRS 03/07/20 20:00 03/09/20 15:28 3 ML Budesonide (Pulmicort) 0.5 mg RTBID 03/07/20 20:00 03/09/20 08:00 0.5 MG Dextrose (Dextrose 50%-Water Syringe) 12.5 gm PRN Q15MIN PRN 03/04/20 13:00 Diphenhydramine HCl (Benadryl) 25 mg PRN QHS PRN 03/01/20 22:15 03/08/20 21:02 25 MG Ferrous Sulfate (Feosol) 325 mg BIDWMEALS 03/01/20 17:00 03/09/20 08:33 325 MG Fluticasone/ Vilanterol (Breo Ellipta 100-25 Mcg) 1 puff DAILY 03/07/20 11:30 03/07/20 17:37 DC Furosemide (Lasix) 40 mg 1X ONCE 03/07/20 12:45 03/07/20 12:46 DC 03/07/20 12:49 40 MG Hydralazine HCl (Apresoline Inj) 10 mg PRN Q4HRS PRN 03/07/20 09:30 03/07/20 23:18 10 MG Insulin Glargine (Lantus Syringe) 25 unit QHS 03/05/20 21:00 03/08/20 21:05 25 UNIT Insulin Human Lispro (HumaLOG) 5 units TIDAC 03/05/20 08:00 03/09/20 12:24 5 UNITS Lactobacillus Rhamnosus (Culturelle) 1 cap BID 03/04/20 13:00 03/09/20 08:33 1 CAP Lidocaine (Lidoderm) 1 patch DAILY 03/02/20 14:30 03/08/20 08:56 1 PATCH Loperamide HCl (Imodium) 2 mg PRN Q15MIN PRN 03/05/20 15:15 Methylprednisolone Sodium Succinate (SOLU-Medrol 40MG VIAL) 60 mg Q8HRS 03/02/20 14:00 03/09/20 05:05 60 MG Methylprednisolone Sodium Succinate (SOLU-Medrol 125MG VIAL) 125 mg 1X ONCE 03/07/20 10:45 03/07/20 10:46 DC 03/07/20 10:48 125 MG Mirtazapine (Remeron) 15 mg QHS 03/06/20 21:00 03/08/20 20:58 15 MG Miscellaneous (Lidoderm Patch Removal) 1 ea QHS 03/02/20 21:00 03/07/20 20:48 1 EA Non-Formulary Medication 1 ea/ Sodium Chloride 230 ml @ 460 mls/hr Q24H 03/09/20 09:00 03/12/20 09:29 03/09/20 09:32 460 MLS/HR Olanzapine (ZyPREXA ZYDIS) 5 mg PRN BID PRN 03/01/20 11:15 Ondansetron HCl (Zofran) 4 mg PRN Q8HRS PRN 02/29/20 13:30 03/01/20 13:29 DC Pantoprazole Sodium (Protonix) 40 mg DAILYAC 03/01/20 07:30 03/09/20 08:33 40 MG Piperacillin Sod/ Tazobactam Sod (Zosyn Per Pharmacy) 1 each PRN DAILY PRN 03/02/20 11:15 03/08/20 14:48 DC Piperacillin Sod/ Tazobactam Sod 2.25 gm/Sodium Chloride 50 ml @ 100 mls/hr Q6HRS 03/02/20 12:00 03/08/20 14:48 DC 03/08/20 12:38 100 MLS/HR Polyethylene Glycol (miraLAX PACKET) 17 gm PRN DAILY PRN 03/01/20 10:15 03/01/20 10:12 DC Ringer's Solution 1,000 ml @ 50 mls/hr Q20H 03/02/20 07:00 03/02/20 18:59 DC Sertraline HCl (Zoloft) 50 mg DAILY 03/06/20 09:00 03/09/20 08:33 50 MG Sodium Chloride 1,000 ml @ 75 mls/hr [id number] 03/07/20 14:00 03/09/20 08:33 75 MLS/HR Sodium Cl/Sod Bicarb/Potass Cl/ PEG (Golytely) 4,000 ml 1X ONCE 03/01/20 14:00 03/01/20 14:01 DC 03/01/20 14:47 4,000 ML Sucralfate (Carafate) 1 gm BID 02/29/20 21:00 03/09/20 08:33 1 GM Physical Exam: Mental Status Exam: gentleman with severe hard of hearing Cooperative Disoriented Thought process goal-directed Denies auditory or visual hallucinations Denies suicidal or homicidal thoughts Mood is depressed and anxious Affect is dysthymic Insight is fair Judgment is fair Impulse control is fair attention span and concentration fair Recent memory impaired Remote memory intact Physical Exam: Refer to Physician's note. HOSPITAL MANAGER: No focal deficit MSK: No EPS, TDK, or abnormal involuntary movements Diagnosis: Unspecified depression, rule out major depressive disorder Unspecified anxiety, rule out major depression anxiety disorder Assessment: Gentleman is struggling with depression likely to his psychosocial circumstances. Additionally, he has multiple medical comorbidities which are perpetuating his depression. He is in agreement to start Zoloft 25 mg and trazodone for sleep. 03/05/2020 today he is reporting improvement in mood and depression. 03/06/2020. Today he appears somewhat dysphoric and ambivalent likely due to lack of sleep. Requesting something for sleep as trazodone is not helpful . Plan: Continue Remeron 15 mg nightly for depression adjunct, anxiety, and insomnia. Increase Zoloft to 100 mg daily for depression and anxiety. Risks, benefits, alternatives of the treatment are discussed. Adverse drug reaction of the medications are also discussed Psychoeducation provided Supportive psychotherapy provided VERONICA JACKSON MD Mar 09, 2020 16:29
[2020-03-09] MEDS: hydrALAZINE 20 MG/ML VIAL. IVP PRN ×2 (17:40→22:24)
[2020-03-09 20:44] LABS: HEMATOCRIT 27.2 % (39.0-53.0); HEMOGLOBIN 8.9 g/dL (13.0-17.5)
[2020-03-09] MEDS: PATCH REMOVAL. MC SCH (21:00)
[2020-03-09] MEDS: MIRTAZAPINE 15 MG TABLET PO SCH (21:14)
[2020-03-09] MEDS: INSULIN GLARGINE SYRINGE. SQ SCH (21:25)
[2020-03-10] VITALS (24 sets, daily range): BP systolic 140–177; BP diastolic 56–79
[2020-03-10] MEDS: IV 1/2 NORMAL SALINE 1,000 ML IV SCH ×2 (04:59→08:41)
[2020-03-10 06:05] LABS: BASO % 0 % (0-3); EOS % 0 % (0-3); HEMOGLOBIN 8.1 g/dL (13.0-17.5); LYMPH # 0.2 x10^3/uL (1.0-4.8); LYMPH % 2 % (24-48); MEAN CORPUSCULAR HEMOGLOBIN 31 pg (25-35); MEAN CORPUSCULAR HGB CONC 33 g/dL (31-37); MEAN CORPUSCULAR VOLUME 95 fL (79-100); MONO # 0.3 x10^3/uL (0.0-1.1); MONO % 2 % (0-9); NEUT # 10.6 x10^3/uL (1.8-7.7); NEUT % 96 % (31-73); PLATELET COUNT 224 x10^3/uL (140-400); RED BLOOD COUNT 2.62 x10^6/uL (4.30-5.70); RED CELL DISTRIBUTION WIDTH 16.9 % (11.5-14.5); WHITE BLOOD COUNT 11.1 x10^3/uL (4.0-11.0)
[2020-03-10] MEDS: methylPREDNISolone SOD SUCC PF 40 MG/ML VIAL. IV SCH ×2 (06:13→21:04)
[2020-03-10 06:56] LABS: C-REACTIVE PROTEIN 31.2 mg/L (0-3.3); CALCIUM 7.5 mg/dL (8.5-10.1); CREATININE 1.2 mg/dL (0.7-1.3); GFR 57.7; POTASSIUM 4.5 mmol/L (3.5-5.1)
[2020-03-10] MEDS: IPRATRPIUM/ALBUTEROL 0.5/2.5MG 3 ML NEBU. NEB SCH ×4 (07:28→19:53)
[2020-03-10] MEDS: BUDESONIDE 0.5 MG/2 ML NEBU. NEB SCH ×2 (07:28→19:53)
[2020-03-10 07:45] LABS: % LYMPHS 4 % (24-48); % MONOS 7 % (0-10); % SEGS 89 % (35-66); NUCLEATED RBC 2; PLT ESTIMATE ADEQUATE (ADEQUATE)
[2020-03-10 07:47] LABS: ANISOCYTOSIS SLIGHT; PLATELET CLUMP PRESENT
[2020-03-10] MEDS: INSULIN LISPRO 300 UNITS/3 ML VIAL. SQ SCH ×7 (08:40→21:05)
[2020-03-10] MEDS: FERROUS SULFATE 325 MG TABLET. PO SCH ×2 (08:41→17:16)
[2020-03-10] MEDS: LACTOBACILLUS RHAMNOSUS GG 1 CAPSULE. PO SCH ×2 (08:41→21:03)
[2020-03-10] MEDS: PANTOPRAZOLE 40 MG TABLET.DR. PO SCH (08:42)
[2020-03-10] MEDS: SUCRALFATE 1 GM TABLET. PO SCH ×2 (08:42→21:03)
[2020-03-10] MEDS: SERTRALINE 50 MG TABLET. PO SCH (08:42)
--- NOTE | 2020-03-10 08:44 | PDOC ---
PULMONARY PROGRESS NOTES DATE: 03/10/20 TIME: 08:44 Subjective wore bipap overnight, now on 8 liters N/C No increased SOA or cough No concerns from nursing a-febrile HGB improved S/P transfusion Vitals Vital Signs Date Time Temp Pulse Resp B/P (MAP) Pulse Ox O2 Delivery O2 Flow Rate FiO2 03/10/20 07:28 93 BiPAP/CPAP 03/10/20 06:00 77 18 145/60 (88) 03/10/20 04:00 97.4 97.4 03/09/20 19:50 Comments pt. seen during COVID-19 pandemic visual exam preformed RRR BIPAP no distress trace edema no rash General: Alert Lungs: Other Labs Laboratory Tests Test 03/08/20 11:42 03/08/20 16:56 03/08/20 20:45 03/09/20 04:00 Glucose (Fingerstick) 384 mg/dL (70-99) 352 mg/dL (70-99) 233 mg/dL (70-99) White Blood Count 10.0 x10^3/uL (4.0-11.0) Red Blood Count 2.11 x10^6/uL (4.30-5.70) Hemoglobin 6.6 g/dL (13.0-17.5) Hematocrit 20.4 % (39.0-53.0) Mean Corpuscular Volume 97 fL (79-100) Mean Corpuscular Hemoglobin 31 pg (25-35) Mean Corpuscular Hemoglobin Concent 33 g/dL (31-37) Red Cell Distribution Width 16.5 % (11.5-14.5) Platelet Count 265 x10^3/uL (140-400) Neutrophils (%) (Auto) 94 % (31-73) Lymphocytes (%) (Auto) 2 % (24-48) Monocytes (%) (Auto) 4 % (0-9) Eosinophils (%) (Auto) 0 % (0-3) Basophils (%) (Auto) 0 % (0-3) Neutrophils # (Auto) 9.5 x10^3/uL (1.8-7.7) Lymphocytes # (Auto) 0.2 x10^3/uL (1.0-4.8) Monocytes # (Auto) 0.4 x10^3/uL (0.0-1.1) Eosinophils # (Auto) 0.0 x10^3/uL (0.0-0.7) Basophils # (Auto) 0.0 x10^3/uL (0.0-0.2) D-Dimer (Alisia) 2.13 ug/mlFEU (0.00-0.50) Sodium Level 147 mmol/L (136-145) Potassium Level 3.9 mmol/L (3.5-5.1) Chloride Level 111 mmol/L (98-107) Carbon Dioxide Level 26 mmol/L (21-32) Anion Gap 10 (6-14) Blood Urea Nitrogen 35 mg/dL (8-26) Creatinine 1.4 mg/dL (0.7-1.3) Estimated GFR (Cockcroft-Gault) 48.3 Glucose Level 207 mg/dL (70-99) Calcium Level 7.6 mg/dL (8.5-10.1) Magnesium Level 2.7 mg/dL (1.8-2.4) Ferritin 556 ng/mL (26-388) C-Reactive Protein, Quantitative 5.7 mg/L (0-3.3) Procalcitonin 0.28 ng/mL (0.00-0.10) Test 03/09/20 12:22 03/09/20 17:42 03/09/20 20:40 03/09/20 21:17 Glucose (Fingerstick) 294 mg/dL (70-99) 174 mg/dL (70-99) 225 mg/dL (70-99) Hemoglobin 8.9 g/dL (13.0-17.5) Hematocrit 27.2 % (39.0-53.0) Mean Corpuscular Hemoglobin Concent 33 g/dL (31-37) Test 03/10/20 05:30 White Blood Count 11.1 x10^3/uL (4.0-11.0) Red Blood Count 2.62 x10^6/uL (4.30-5.70) Hemoglobin 8.1 g/dL (13.0-17.5) Hematocrit 25.0 % (39.0-53.0) Mean Corpuscular Volume 95 fL (79-100) Mean Corpuscular Hemoglobin 31 pg (25-35) Mean Corpuscular Hemoglobin Concent 33 g/dL (31-37) Red Cell Distribution Width 16.9 % (11.5-14.5) Platelet Count 224 x10^3/uL (140-400) Neutrophils (%) (Auto) 96 % (31-73) Lymphocytes (%) (Auto) 2 % (24-48) Monocytes (%) (Auto) 2 % (0-9) Eosinophils (%) (Auto) 0 % (0-3) Basophils (%) (Auto) 0 % (0-3) Neutrophils # (Auto) 10.6 x10^3/uL (1.8-7.7) Lymphocytes # (Auto) 0.2 x10^3/uL (1.0-4.8) Monocytes # (Auto) 0.3 x10^3/uL (0.0-1.1) Eosinophils # (Auto) 0.0 x10^3/uL (0.0-0.7) Basophils # (Auto) 0.0 x10^3/uL (0.0-0.2) Segmented Neutrophils % 89 % (35-66) Lymphocytes % 4 % (24-48) Monocytes % 7 % (0-10) Nucleated Red Blood Cells 2 Platelet Estimate Adequate (ADEQUATE) Platelet Clumps, EDTA Present Anisocytosis Slight Sodium Level 141 mmol/L (136-145) Potassium Level 4.5 mmol/L (3.5-5.1) Chloride Level 108 mmol/L (98-107) Carbon Dioxide Level 25 mmol/L (21-32) Anion Gap 8 (6-14) Blood Urea Nitrogen 31 mg/dL (8-26) Creatinine 1.2 mg/dL (0.7-1.3) Estimated GFR (Cockcroft-Gault) 57.7 Glucose Level 245 mg/dL (70-99) Calcium Level 7.5 mg/dL (8.5-10.1) Ferritin 464 ng/mL (26-388) C-Reactive Protein, Quantitative 31.2 mg/L (0-3.3) Laboratory Tests Test 03/09/20 12:22 03/09/20 17:42 03/09/20 20:40 03/09/20 21:17 Glucose (Fingerstick) 294 mg/dL (70-99) 174 mg/dL (70-99) 225 mg/dL (70-99) Hemoglobin 8.9 g/dL (13.0-17.5) Hematocrit 27.2 % (39.0-53.0) Mean Corpuscular Hemoglobin Concent 33 g/dL (31-37) Test 03/10/20 05:30 White Blood Count 11.1 x10^3/uL (4.0-11.0) Red Blood Count 2.62 x10^6/uL (4.30-5.70) Hemoglobin 8.1 g/dL (13.0-17.5) Hematocrit 25.0 % (39.0-53.0) Mean Corpuscular Volume 95 fL (79-100) Mean Corpuscular Hemoglobin 31 pg (25-35) Mean Corpuscular Hemoglobin Concent 33 g/dL (31-37) Red Cell Distribution Width 16.9 % (11.5-14.5) Platelet Count 224 x10^3/uL (140-400) Neutrophils (%) (Auto) 96 % (31-73) Lymphocytes (%) (Auto) 2 % (24-48) Monocytes (%) (Auto) 2 % (0-9) Eosinophils (%) (Auto) 0 % (0-3) Basophils (%) (Auto) 0 % (0-3) Neutrophils # (Auto) 10.6 x10^3/uL (1.8-7.7) Lymphocytes # (Auto) 0.2 x10^3/uL (1.0-4.8) Monocytes # (Auto) 0.3 x10^3/uL (0.0-1.1) Eosinophils # (Auto) 0.0 x10^3/uL (0.0-0.7) Basophils # (Auto) 0.0 x10^3/uL (0.0-0.2) Segmented Neutrophils % 89 % (35-66) Lymphocytes % 4 % (24-48) Monocytes % 7 % (0-10) Nucleated Red Blood Cells 2 Platelet Estimate Adequate (ADEQUATE) Platelet Clumps, EDTA Present Anisocytosis Slight Sodium Level 141 mmol/L (136-145) Potassium Level 4.5 mmol/L (3.5-5.1) Chloride Level 108 mmol/L (98-107) Carbon Dioxide Level 25 mmol/L (21-32) Anion Gap 8 (6-14) Blood Urea Nitrogen 31 mg/dL (8-26) Creatinine 1.2 mg/dL (0.7-1.3) Estimated GFR (Cockcroft-Gault) 57.7 Glucose Level 245 mg/dL (70-99) Calcium Level 7.5 mg/dL (8.5-10.1) Ferritin 464 ng/mL (26-388) C-Reactive Protein, Quantitative 31.2 mg/L (0-3.3) Medications Active Scripts Medications Dose Route/Sig Max Daily Dose Days Date Category Phospha 250 Neutral Tablet (Phosphorus #1) 250 Mg Tablet 1 Tab PO DAILY 30 02/29/20 Reported Atorvastatin Calcium 20 Mg Tablet 1 Tab PO DAILYWSUP 02/29/20 Reported Levothyroxine Sodium 25 Mcg Tablet 1 Tab PO DAILY 02/29/20 Reported Iron (Ferrous Sulfate) 325 Mg Tablet 1 Tab PO BID 30 02/29/20 Reported Flomax (Tamsulosin Hcl) 0.4 Mg Cap.er.24h 0.4 Mg PO DAILY 02/29/20 Reported Benicar (Olmesartan Medoxomil) 20 Mg Tablet 1 Tab PO DAILY 30 02/29/20 Reported Cyclobenzaprine Hcl 10 Mg Tablet 1 Tab PO BID PRN 10/08/14 Reported Torsemide 20 Mg Tablet 4 Tab PO DAILY 10/08/14 Reported Benadryl (Diphenhydramine Hcl) 25 Mg Capsule 1 Cap PO QHS 10/08/14 Reported Quinapril Hcl 40 Mg Tablet 1 Tab PO DAILY 10/08/14 Reported Metformin Hcl 500 Mg Tablet 1 Tab PO DAILYBFRSUP 10/08/14 Reported Trazodone Hcl 50 Mg Tablet 50 Mg PO HS 10/08/14 Reported [place] 5-325 Tablet (Acetaminophen/Hydrocodone Bitart) 1 Each Tablet 1 Tab PO Q8HRS PRN 10/08/14 Reported Percocet 5-325 Mg Tablet (Oxycodone/Acetaminophen) 1 Each Tablet 1-2 Tab PO Q6HRS PRN 10/08/14 Reported Potassium Chloride 20 Meq Tab.er.prt 20 Meq PO BID 10/08/14 Reported Combivent Respimat Inhal (Ipratropium/Albuterol Sulfate) 4 Gm Aer.w.adap 2 Inh IH QID PRN 10/08/14 Reported Metformin Hcl 1,000 Mg Tablet 1 Tab PO DAILY08 10/07/14 Reported Comments CXR 03/10/20 IMPRESSION: Stable diffuse bilateral heterogeneous opacities. Impression . IMPRESSION: 1. Dyspnea worse due to AECOPD.--improving 2. cxr with bilateral interstitial infiltrates 03/07. suspect combination of congestive heart failure. COVID pneumonia. 3. Suspected severe chronic obstructive pulmonary disease, 60 years of tobacco use, quit 3 years ago. 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 5. Acute kidney injury--improving 6. anemia/ dark stools -- improve S/P transfusion Plan . RECOMMENDATIONS: N/C high flow oxygen if needed, keep oxygen saturations above 92 %, BIPAP HS and PRN continue steroids, will begin taper now off ABX, completed full course bronchodilators MDI 2 puffs and Q4 scheduled / add Breo S/P plasma and S/P Remdesvir Follow renal function and nephrology recommendations Follow GI recs and monitor HGB COVID-19 positive DVT/GI PPX Monitor clinical course D/W RN /RT PT. is DNR but daughter would like to re-discuss intubation option if hypoxia worsens SEDRICK GARCIA MD Mar 10, 2020 08:44
[2020-03-10] MEDS: REMDESIVIR 100mg in NORMAL SALINE 250ML X 4 DAYS IV SCH (08:49)
[2020-03-10] MEDS: LIDOCAINE (700MG/PATCH) PATCH. TD SCH (09:00)
--- NOTE | 2020-03-10 09:37 | RAD ---
CHEST AP ONLY INDICATION: covid f/u COMPARISON STUDY: 03/07/2020. FINDINGS: Lungs: Normal lung volume. Stable diffuse bilateral heterogeneous opacities. Pleura: No pleural effusion or pneumothorax. Heart and Mediastinum: Stable cardiomediastinal silhouette and great vessels. IMPRESSION: Stable diffuse bilateral heterogeneous opacities. Electronically signed by: Aram Glover MD (03/10/2020 9:34 AM) [id number]
--- NOTE | 2020-03-10 10:06 | PDOC ---
Date of Service: DATE: 03/10/20 TIME: 10:03 Objective: Objective: Rectal tube not bloody per nurse, not a lot of output. Vital Signs: Vital Signs Date Time Temp Pulse Resp B/P (MAP) Pulse Ox O2 Delivery O2 Flow Rate FiO2 03/10/20 09:00 70 18 170/73 (105) 95 Nasal Cannula 8.0 03/10/20 04:00 97.4 97.4 Labs: Laboratory Tests Test 03/09/20 12:22 03/09/20 17:42 03/09/20 20:40 03/09/20 21:17 Glucose (Fingerstick) 294 mg/dL 174 mg/dL 225 mg/dL Hemoglobin 8.9 g/dL Hematocrit 27.2 % Mean Corpuscular Hemoglobin Concent 33 g/dL Test 03/10/20 05:30 White Blood Count 11.1 x10^3/uL Red Blood Count 2.62 x10^6/uL Hemoglobin 8.1 g/dL Hematocrit 25.0 % Mean Corpuscular Volume 95 fL Mean Corpuscular Hemoglobin 31 pg Mean Corpuscular Hemoglobin Concent 33 g/dL Red Cell Distribution Width 16.9 % Platelet Count 224 x10^3/uL Neutrophils (%) (Auto) 96 % Lymphocytes (%) (Auto) 2 % Monocytes (%) (Auto) 2 % Eosinophils (%) (Auto) 0 % Basophils (%) (Auto) 0 % Neutrophils # (Auto) 10.6 x10^3/uL Lymphocytes # (Auto) 0.2 x10^3/uL Monocytes # (Auto) 0.3 x10^3/uL Eosinophils # (Auto) 0.0 x10^3/uL Basophils # (Auto) 0.0 x10^3/uL Segmented Neutrophils % 89 % Lymphocytes % 4 % Monocytes % 7 % Nucleated Red Blood Cells 2 Platelet Estimate Adequate Platelet Clumps, EDTA Present Anisocytosis Slight Sodium Level 141 mmol/L Potassium Level 4.5 mmol/L Chloride Level 108 mmol/L Carbon Dioxide Level 25 mmol/L Anion Gap 8 Blood Urea Nitrogen 31 mg/dL Creatinine 1.2 mg/dL Estimated GFR (Cockcroft-Gault) 57.7 Glucose Level 245 mg/dL Calcium Level 7.5 mg/dL Ferritin 464 ng/mL C-Reactive Protein, Quantitative 31.2 mg/L Imaging: CXR 03/10 IMPRESSION: Stable diffuse bilateral heterogeneous opacities. PE: GEN: in COVID isolation - visual exam done LUNGS: NC HEART: RRR ABD: non-distended NEURO/PSYCH: A & O 3 A/P: Resp failure w/ COVID-19 and COPD LIZY, h/o SB AVMs - ?melena stopped - on PPI, Carafate, iron -- Hgb improved w/ transfusion. Continue same per GI. Justicifation of Admission Dx: Justifications for Admission: Justification of Admission Dx: Yes DEBBIE MURRAY Mar 10, 2020 10:06
--- NOTE | 2020-03-10 10:24 | PDOC ---
PROGRESS NOTES Date of Service: DATE: 03/10/20 TIME: 10:18 Chief Complaint Chief Complaint A/P: Dyspnea with no significant hypoxia based on the ABG, likely related to mild congestive heart failure. also with COVID pneumonia. SARS-CoV-2 - with pneumonia. On steroids, Lovenox. Pulm consulted Abnormal chest x-ray with faint interstitial infiltrates - likely CHF and COVID 19 POSTIVE Severe chronic obstructive pulmonary disease, 60 years of tobacco use, quit 3 years ago. 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 His BUN and creatinine was high as well as LFTs. He required 2 liters of oxygen. LFTs also elevated. 03/01: Still requiring O2. Significant wheezes and prolonged expiratory phase. He says he just wants to sleep. He says "Im 84 I have nothing to live for about my cats." 03/02: COVID-19 positive. He is having some back pain today. Still little hypoxic. EGD and colonoscopy on hold due to his COVID-19 positive status 03/03: Afebrile. Seen on 4 L nasal cannula, he is having a bowel movement, notes that he is having he is eating but is having loose bowels currently they are a little dark. No significant pain. His shortness of breath is stable. Slight cough. Back pain improved with Lidoderm patch. 03/03: Still afebrile with 4 liters nasal cannula O2. His glucose has become very elevated. He feels no worse than yesterday. Afebrile, now on 6 L nasal cannula, he is having more diarrhea, he does not notice much blood. Glucose has been in the 400s, unfortunately he did not receive his Lantus in the evening yesterday evening. C diff negative 03/06/2020 Patient with increasing O2 requirements this morning. Patient has increasing dyspnea but still maintaining sats of 94% on 15 L Venturi mask. Pulmonary evaluated and recommends for patient to be transferred to the ICU with BiPAP. 03/08 Breathing on BiPAP. VTE held due to GI bleed, H&H stable. 03/09: Patient is off BiPAP currently breathing on 8 L high flow nasal cannula. H & H dropped to 6.6 today, transfuse 1 unit packed red blood cells. GI to follow, thank you for your expertise. No scope plan due to COVID-19 positive. 03/10: Per nursing staff, no acute events overnight. Breathing on 8L NC. Blood sugar improving. Continue steroids and blood pressure management. Vitals Vitals Vital Signs Date Time Temp Pulse Resp B/P (MAP) Pulse Ox O2 Delivery O2 Flow Rate FiO2 03/10/20 10:00 90 25 155/61 (92) 95 Nasal Cannula 8.0 03/10/20 08:00 97.6 97.6 Physical Exam Physical Exam GEN: No apparent distress. Alert and oriented HEENT: Normal cephalic, atraumatic, external auditory canals are patent NECK: Supple, no JVD, no thyromegaly was noted LUNGS: Bilateral crackles and wheezing HEART: RRR, S1, S2 present. Peripheral pulses intact, no obvious murmurs noted ABDOMEN: Soft, nontender. Positive bowel sounds, no organomegaly, normal bowel sounds EXTREMITIES: Without clubbing, cyanosis, or edema. Pedal pulses intact. Negative Homans sign General: Alert, Cooperative Heart: Regular rate Lungs: Other Abdomen: Other (Nondistended) Extremities: No clubbing, No cyanosis, No edema Skin: No rashes, No breakdown Labs LABS Laboratory Tests Test 03/09/20 12:22 03/09/20 17:42 03/09/20 20:40 03/09/20 21:17 Glucose (Fingerstick) 294 mg/dL (70-99) 174 mg/dL (70-99) 225 mg/dL (70-99) Hemoglobin 8.9 g/dL (13.0-17.5) Hematocrit 27.2 % (39.0-53.0) Mean Corpuscular Hemoglobin Concent 33 g/dL (31-37) Test 8/28/20 05:30 White Blood Count 11.1 x10^3/uL (4.0-11.0) Red Blood Count 2.62 x10^6/uL (4.30-5.70) Hemoglobin 8.1 g/dL (13.0-17.5) Hematocrit 25.0 % (39.0-53.0) Mean Corpuscular Volume 95 fL (79-100) Mean Corpuscular Hemoglobin 31 pg (25-35) Mean Corpuscular Hemoglobin Concent 33 g/dL (31-37) Red Cell Distribution Width 16.9 % (11.5-14.5) Platelet Count 224 x10^3/uL (140-400) Neutrophils (%) (Auto) 96 % (31-73) Lymphocytes (%) (Auto) 2 % (24-48) Monocytes (%) (Auto) 2 % (0-9) Eosinophils (%) (Auto) 0 % (0-3) Basophils (%) (Auto) 0 % (0-3) Neutrophils # (Auto) 10.6 x10^3/uL (1.8-7.7) Lymphocytes # (Auto) 0.2 x10^3/uL (1.0-4.8) Monocytes # (Auto) 0.3 x10^3/uL (0.0-1.1) Eosinophils # (Auto) 0.0 x10^3/uL (0.0-0.7) Basophils # (Auto) 0.0 x10^3/uL (0.0-0.2) Segmented Neutrophils % 89 % (35-66) Lymphocytes % 4 % (24-48) Monocytes % 7 % (0-10) Nucleated Red Blood Cells 2 Platelet Estimate Adequate (ADEQUATE) Platelet Clumps, EDTA Present Anisocytosis Slight Sodium Level 141 mmol/L (136-145) Potassium Level 4.5 mmol/L (3.5-5.1) Chloride Level 108 mmol/L (98-107) Carbon Dioxide Level 25 mmol/L (21-32) Anion Gap 8 (6-14) Blood Urea Nitrogen 31 mg/dL (8-26) Creatinine 1.2 mg/dL (0.7-1.3) Estimated GFR (Cockcroft-Gault) 57.7 Glucose Level 245 mg/dL (70-99) Calcium Level 7.5 mg/dL (8.5-10.1) Ferritin 464 ng/mL (26-388) C-Reactive Protein, Quantitative 31.2 mg/L (0-3.3) Review of Systems Review of Systems Unable to assess due to clinical condition Assessment and Plan Assessmemt and Plan Problems Medical Problems: (1) Acute renal failure Status: Acute (2) COPD exacerbation Status: Acute (3) GI bleeding Status: Acute Comment Review of Relevant I have reviewed the following items kamini (where applicable) has been applied. Labs Laboratory Tests Test 03/08/20 11:42 03/08/20 16:56 03/08/20 20:45 03/09/20 04:00 Glucose (Fingerstick) 384 mg/dL (70-99) 352 mg/dL (70-99) 233 mg/dL (70-99) White Blood Count 10.0 x10^3/uL (4.0-11.0) Red Blood Count 2.11 x10^6/uL (4.30-5.70) Hemoglobin 6.6 g/dL (13.0-17.5) Hematocrit 20.4 % (39.0-53.0) Mean Corpuscular Volume 97 fL (79-100) Mean Corpuscular Hemoglobin 31 pg (25-35) Mean Corpuscular Hemoglobin Concent 33 g/dL (31-37) Red Cell Distribution Width 16.5 % (11.5-14.5) Platelet Count 265 x10^3/uL (140-400) Neutrophils (%) (Auto) 94 % (31-73) Lymphocytes (%) (Auto) 2 % (24-48) Monocytes (%) (Auto) 4 % (0-9) Eosinophils (%) (Auto) 0 % (0-3) Basophils (%) (Auto) 0 % (0-3) Neutrophils # (Auto) 9.5 x10^3/uL (1.8-7.7) Lymphocytes # (Auto) 0.2 x10^3/uL (1.0-4.8) Monocytes # (Auto) 0.4 x10^3/uL (0.0-1.1) Eosinophils # (Auto) 0.0 x10^3/uL (0.0-0.7) Basophils # (Auto) 0.0 x10^3/uL (0.0-0.2) D-Dimer (Alisia) 2.13 ug/mlFEU (0.00-0.50) Sodium Level 147 mmol/L (136-145) Potassium Level 3.9 mmol/L (3.5-5.1) Chloride Level 111 mmol/L (98-107) Carbon Dioxide Level 26 mmol/L (21-32) Anion Gap 10 (6-14) Blood Urea Nitrogen 35 mg/dL (8-26) Creatinine 1.4 mg/dL (0.7-1.3) Estimated GFR (Cockcroft-Gault) 48.3 Glucose Level 207 mg/dL (70-99) Calcium Level 7.6 mg/dL (8.5-10.1) Magnesium Level 2.7 mg/dL (1.8-2.4) Ferritin 556 ng/mL (26-388) C-Reactive Protein, Quantitative 5.7 mg/L (0-3.3) Procalcitonin 0.28 ng/mL (0.00-0.10) Test 03/09/20 12:22 03/09/20 17:42 03/09/20 20:40 03/09/20 21:17 Glucose (Fingerstick) 294 mg/dL (70-99) 174 mg/dL (70-99) 225 mg/dL (70-99) Hemoglobin 8.9 g/dL (13.0-17.5) Hematocrit 27.2 % (39.0-53.0) Mean Corpuscular Hemoglobin Concent 33 g/dL (31-37) Test 03/10/20 05:30 White Blood Count 11.1 x10^3/uL (4.0-11.0) Red Blood Count 2.62 x10^6/uL (4.30-5.70) Hemoglobin 8.1 g/dL (13.0-17.5) Hematocrit 25.0 % (39.0-53.0) Mean Corpuscular Volume 95 fL (79-100) Mean Corpuscular Hemoglobin 31 pg (25-35) Mean Corpuscular Hemoglobin Concent 33 g/dL (31-37) Red Cell Distribution Width 16.9 % (11.5-14.5) Platelet Count 224 x10^3/uL (140-400) Neutrophils (%) (Auto) 96 % (31-73) Lymphocytes (%) (Auto) 2 % (24-48) Monocytes (%) (Auto) 2 % (0-9) Eosinophils (%) (Auto) 0 % (0-3) Basophils (%) (Auto) 0 % (0-3) Neutrophils # (Auto) 10.6 x10^3/uL (1.8-7.7) Lymphocytes # (Auto) 0.2 x10^3/uL (1.0-4.8) Monocytes # (Auto) 0.3 x10^3/uL (0.0-1.1) Eosinophils # (Auto) 0.0 x10^3/uL (0.0-0.7) Basophils # (Auto) 0.0 x10^3/uL (0.0-0.2) Segmented Neutrophils % 89 % (35-66) Lymphocytes % 4 % (24-48) Monocytes % 7 % (0-10) Nucleated Red Blood Cells 2 Platelet Estimate Adequate (ADEQUATE) Platelet Clumps, EDTA Present Anisocytosis Slight Sodium Level 141 mmol/L (136-145) Potassium Level 4.5 mmol/L (3.5-5.1) Chloride Level 108 mmol/L (98-107) Carbon Dioxide Level 25 mmol/L (21-32) Anion Gap 8 (6-14) Blood Urea Nitrogen 31 mg/dL (8-26) Creatinine 1.2 mg/dL (0.7-1.3) Estimated GFR (Cockcroft-Gault) 57.7 Glucose Level 245 mg/dL (70-99) Calcium Level 7.5 mg/dL (8.5-10.1) Ferritin 464 ng/mL (26-388) C-Reactive Protein, Quantitative 31.2 mg/L (0-3.3) Laboratory Tests Test 03/09/20 12:22 03/09/20 17:42 03/09/20 20:40 03/09/20 21:17 Glucose (Fingerstick) 294 mg/dL (70-99) 174 mg/dL (70-99) 225 mg/dL (70-99) Hemoglobin 8.9 g/dL (13.0-17.5) Hematocrit 27.2 % (39.0-53.0) Mean Corpuscular Hemoglobin Concent 33 g/dL (31-37) Test 03/10/20 05:30 White Blood Count 11.1 x10^3/uL (4.0-11.0) Red Blood Count 2.62 x10^6/uL (4.30-5.70) Hemoglobin 8.1 g/dL (13.0-17.5) Hematocrit 25.0 % (39.0-53.0) Mean Corpuscular Volume 95 fL (79-100) Mean Corpuscular Hemoglobin 31 pg (25-35) Mean Corpuscular Hemoglobin Concent 33 g/dL (31-37) Red Cell Distribution Width 16.9 % (11.5-14.5) Platelet Count 224 x10^3/uL (140-400) Neutrophils (%) (Auto) 96 % (31-73) Lymphocytes (%) (Auto) 2 % (24-48) Monocytes (%) (Auto) 2 % (0-9) Eosinophils (%) (Auto) 0 % (0-3) Basophils (%) (Auto) 0 % (0-3) Neutrophils # (Auto) 10.6 x10^3/uL (1.8-7.7) Lymphocytes # (Auto) 0.2 x10^3/uL (1.0-4.8) Monocytes # (Auto) 0.3 x10^3/uL (0.0-1.1) Eosinophils # (Auto) 0.0 x10^3/uL (0.0-0.7) Basophils # (Auto) 0.0 x10^3/uL (0.0-0.2) Segmented Neutrophils % 89 % (35-66) Lymphocytes % 4 % (24-48) Monocytes % 7 % (0-10) Nucleated Red Blood Cells 2 Platelet Estimate Adequate (ADEQUATE) Platelet Clumps, EDTA Present Anisocytosis Slight Sodium Level 141 mmol/L (136-145) Potassium Level 4.5 mmol/L (3.5-5.1) Chloride Level 108 mmol/L (98-107) Carbon Dioxide Level 25 mmol/L (21-32) Anion Gap 8 (6-14) Blood Urea Nitrogen 31 mg/dL (8-26) Creatinine 1.2 mg/dL (0.7-1.3) Estimated GFR (Cockcroft-Gault) 57.7 Glucose Level 245 mg/dL (70-99) Calcium Level 7.5 mg/dL (8.5-10.1) Ferritin 464 ng/mL (26-388) C-Reactive Protein, Quantitative 31.2 mg/L (0-3.3) Microbiology 02/29/20 Blood Culture - Final, Complete NO GROWTH AFTER 5 DAYS Medications Current Medications Albuterol/ Ipratropium (Duoneb) 6 ml 1X ONCE NEB Last administered on 02/29/20at 11:24; Start 02/29/20 at 10:30; Stop 02/29/20 at 10:31; Status DC Methylprednisolone Sodium Succinate (SOLU-Medrol 125MG VIAL) 125 mg 1X ONCE IV Last administered on 02/29/20at 10:23; Start 02/29/20 at 10:30; Stop 02/29/20 at 10:31; Status DC Sodium Chloride 1,000 ml @ 1,000 mls/hr 1X ONCE IV Last administered on 02/29/20at 17:42; Start 02/29/20 at 13:15; Stop 02/29/20 at 14:14; Status DC Ondansetron HCl (Zofran) 4 mg PRN Q8HRS PRN IV NAUSEA/VOMITING; Start 02/29/20 at 13:30; Stop 03/01/20 at 13:29; Status DC Acetaminophen (Tylenol) 650 mg PRN Q4HRS PRN PO FEVER > 100.3'F; Start 02/29/20 at 13:30; Stop 03/01/20 at 13:29; Status DC Albuterol/ Ipratropium (Duoneb) 3 ml RTQID NEB ; Start 02/29/20 at 16:00; Stop 02/29/20 at 13:58; Status DC Albuterol/ Ipratropium (Duoneb) 3 ml PRN QID PRN NEB SHORTNESS OF BREATH; Start 02/29/20 at 14:00; Stop 03/01/20 at 13:59; Status DC Pantoprazole Sodium (Protonix) 40 mg DAILYAC PO Last administered on 03/10/20at 08:42; Start 03/01/20 at 07:30 Sucralfate (Carafate) 1 gm BID PO Last administered on 03/10/20at 08:42; Start 02/29/20 at 21:00 Polyethylene Glycol (miraLAX PACKET) 17 gm PRN DAILY PRN PO CONSTIPATION; Start 02/29/20 at 15:15 Ferrous Sulfate (Feosol) 325 mg BIDWMEALS PO Last administered on 03/10/20at 08:41; Start 03/01/20 at 17:00 Polyethylene Glycol (miraLAX PACKET) 17 gm PRN DAILY PRN PO CONSTIPATION; Start 03/01/20 at 10:15; Stop 03/01/20 at 10:12; Status DC Methylprednisolone Sodium Succinate (SOLU-Medrol 40MG VIAL) 40 mg DAILY IV Last administered on 03/02/20at 10:56; Start 03/01/20 at 11:00; Stop 03/02/20 at 11:11; Status DC Olanzapine (ZyPREXA ZYDIS) 5 mg PRN BID PRN PO AGITATION; Start 03/01/20 at 11:15 Sodium Cl/Sod Bicarb/Potass Cl/ PEG (Golytely) 4,000 ml 1X ONCE PO Last administered on 03/01/20at 14:47; Start 03/01/20 at 14:00; Stop 03/01/20 at 14:01; Status DC Ringer's Solution 1,000 ml @ 50 mls/hr Q20H IV ; Start 03/02/20 at 07:00; Stop 03/02/20 at 18:59; Status DC Diphenhydramine HCl (Benadryl) 25 mg PRN QHS PRN PO INSOMNIA Last administered on 03/08/20at 21:02; Start 03/01/20 at 22:15 Albuterol Sulfate (Ventolin Hfa) 1 puff PRN QID PRN INH SHORTNESS OF BREATH Last administered on 03/03/20at 12:43; Start 03/02/20 at 01:00; Stop 03/04/20 at 10:34; Status DC Acetaminophen (Tylenol) 650 mg PRN Q6HRS PRN PO temperature Last administered on 03/02/20at 03:42; Start 03/02/20 at 03:30 Methylprednisolone Sodium Succinate (SOLU-Medrol 40MG VIAL) 20 mg 1X ONCE IV Last administered on 03/02/20at 11:15; Start 03/02/20 at 11:15; Stop 03/02/20 at 11:16; Status DC Piperacillin Sod/ Tazobactam Sod (Zosyn Per Pharmacy) 1 each PRN DAILY PRN MC SEE COMMENTS; Start 03/02/20 at 11:15; Stop 03/08/20 at 14:48; Status DC Piperacillin Sod/ Tazobactam Sod 2.25 gm/Sodium Chloride 50 ml @ 100 mls/hr Q6HRS IV Last administered on 03/08/20at 12:38; Start 03/02/20 at 12:00; Stop 03/08/20 at 14:48; Status DC Methylprednisolone Sodium Succinate (SOLU-Medrol 40MG VIAL) 60 mg Q8HRS IV Last administered on 03/10/20at 06:13; Start 03/02/20 at 14:00 Lidocaine (Lidoderm) 1 patch DAILY TD Last administered on 03/08/20at 08:56; Start 03/02/20 at 14:30 Miscellaneous (Lidoderm Patch Removal) 1 ea QHS MC Last administered on 03/07/20at 20:48; Start 03/02/20 at 21:00 Sertraline HCl (Zoloft) 25 mg DAILY PO Last administered on 03/05/20at 08:39; Start 03/03/20 at 09:00; Stop 03/05/20 at 19:23; Status DC Furosemide (Lasix) 20 mg 1X ONCE IVP Last administered on 03/04/20at 12:17; Start 03/04/20 at 11:00; Stop 03/04/20 at 11:01; Status DC Albuterol Sulfate (Ventolin Hfa) 2 puff Q4HRS INH Last administered on 03/07/20a t 07:51; Start 03/04/20 at 12:00; Stop 03/07/20 at 17:37; Status DC Insulin Glargine (Lantus Syringe) 20 unit QHS SQ ; Start 03/04/20 at 21:00; Stop 03/05/20 at 15:08; Status DC Insulin Human Lispro (HumaLOG) 0-9 UNITS TIDACHC SQ Last administered on at 08:40; Start 03/04/20 at 13:00 Dextrose (Dextrose 50%-Water Syringe) 12.5 gm PRN Q15MIN PRN IV SEE COMMENTS; Start 03/04/20 at 13:00 Lactobacillus Rhamnosus (Culturelle) 1 cap BID PO Last administered on 03/10/20at 08:41; Start 03/04/20 at 13:00 Insulin Human Lispro (HumaLOG) 9 units 1X ONCE SQ Last administered on 03/04/20at 13:53; Start 03/04/20 at 13:30; Stop 03/04/20 at 13:35; Status DC Insulin Human Lispro (HumaLOG) 5 units TIDAC SQ Last administered on 03/10/20at 08:41; Start 03/05/20 at 08:00 Insulin Glargine (Lantus Syringe) 25 unit QHS SQ Last administered on 03/09/20at 21:25; Start 03/05/20 at 21:00 Loperamide HCl (Imodium) 2 mg PRN Q15MIN PRN PO DIARRHEA; Start 03/05/20 at 15:15 Sertraline HCl (Zoloft) 50 mg DAILY PO Last administered on 03/09/20at 08:33; Start 03/06/20 at 09:00; Stop 03/09/20 at 16:28; Status DC Sodium Chloride 1,000 ml @ 75 mls/hr [id number] IV Last administered on 03/07/20at 00:53; Start 03/06/20 at 14:00; Stop 03/07/20 at 13:50; Status DC Mirtazapine (Remeron) 15 mg QHS PO Last administered on 03/09/20at 21:14; Start 03/06/20 at 21:00 Hydralazine HCl (Apresoline Inj) 10 mg PRN Q4HRS PRN IVP ELEVATED BP, SEE COMMENTS Last administered on 03/09/20at 22:24; Start 03/07/20 at 09:30 Methylprednisolone Sodium Succinate (SOLU-Medrol 125MG VIAL) 125 mg 1X ONCE IV Last administered on 03/07/20at 10:48; Start 03/07/20 at 10:45; Stop 03/07/20 at 10:46; Status DC Fluticasone/ Vilanterol (Breo Ellipta 100-25 Mcg) 1 puff DAILY INH ; Start 03/07/20 at 11:30; Stop 03/07/20 at 11:02; Status DC Fluticasone/ Vilanterol (Breo Ellipta 100-25 Mcg) 1 puff DAILY INH ; Start 03/07/20 at 11:30; Stop 03/07/20 at 11:02; Status DC Fluticasone/ Vilanterol (Breo Ellipta 100-25 Mcg) 1 puff DAILY INH ; Start 03/07/20 at 11:30; Stop 03/07/20 at 17:37; Status DC Furosemide (Lasix) 40 mg 1X ONCE IVP Last administered on 03/07/20at 12:49; Start 03/07/20 at 12:45; Stop 03/07/20 at 12:46; Status DC Sodium Chloride 1,000 ml @ 75 mls/hr [id number] IV Last administered on 03/10/20at 08:41; Start 03/07/20 at 14:00 Non-Formulary Medication 1 ea/ Sodium Chloride 210 ml @ 210 mls/hr 1X ONCE IV Last administered on 03/08/20at 08:57; Start 03/08/20 at 09:00; Stop 03/08/20 at 09:59; Status DC Non-Formulary Medication 1 ea/ Sodium Chloride 230 ml @ 460 mls/hr Q24H IV Last administered on 03/10/20at 08:49; Start 03/09/20 at 09:00; Stop 03/12/20 at 09:29 Albuterol/ Ipratropium (Duoneb) 3 ml Q4HRS NEB Last administered on 03/10/20at 07:28; Start 03/07/20 at 20:00 Budesonide (Pulmicort) 0.5 mg RTBID NEB Last administered on 03/10/20at 07:28; Start 03/07/20 at 20:00 Sertraline HCl (Zoloft) 100 mg DAILY PO Last administered on 03/10/20at 08:42; Start 03/10/20 at 09:00 Active Scripts Active Reported Phospha 250 Neutral Tablet (Phosphorus #1) 250 Mg Tablet 1 Tab PO DAILY 30 Days Atorvastatin Calcium 20 Mg Tablet 1 Tab PO DAILYWSUP Levothyroxine Sodium 25 Mcg Tablet 1 Tab PO DAILY Iron (Ferrous Sulfate) 325 Mg Tablet 1 Tab PO BID 30 Days Flomax (Tamsulosin Hcl) 0.4 Mg Cap.er.24h 0.4 Mg PO DAILY Benicar (Olmesartan Medoxomil) 20 Mg Tablet 1 Tab PO DAILY 30 Days Cyclobenzaprine Hcl 10 Mg Tablet 1 Tab PO BID PRN Torsemide 20 Mg Tablet 4 Tab PO DAILY Benadryl (Diphenhydramine Hcl) 25 Mg Capsule 1 Cap PO QHS Quinapril Hcl 40 Mg Tablet 1 Tab PO DAILY Metformin Hcl 500 Mg Tablet 1 Tab PO DAILYBFRSUP Trazodone Hcl 50 Mg Tablet 50 Mg PO HS [place] 5-325 Tablet (Acetaminophen/Hydrocodone Bitart) 1 Each Tablet 1 Tab PO Q8HRS PRN Percocet 5-325 Mg Tablet (Oxycodone/Acetaminophen) 1 Each Tablet 1-2 Tab PO Q6HRS PRN Potassium Chloride 20 Meq Tab.er.prt 20 Meq PO BID Combivent Respimat Inhal (Ipratropium/Albuterol Sulfate) 4 Gm Aer.w.adap 2 Inh IH QID PRN Metformin Hcl 1,000 Mg Tablet 1 Tab PO DAILY08 Vitals/I & O Vital Sign - Last 24 Hours 03/09/20 03/09/20 03/09/20 03/09/20 10:47 11:00 11:09 11:15 Temp 98.3 98.3 98.3 98.3 Pulse 95 90 90 Resp B/P (MAP) 149/59 157/64 157/62 (93) Pulse Ox 94 93 O2 Delivery High Flow Nasal Cannula High Flow Nasal Cannula O2 Flow Rate 8.0 8.0 03/09/20 03/09/20 03/09/20 03/09/20 12:00 12:00 12:18 13:00 Temp 97.3 97.3 98.0 97.3 97.3 98.0 Pulse 90 90 92 Resp B/P (MAP) 152/62 152/62 (92) 156/61 Pulse Ox 93 O2 Delivery Bi-pap High Flow Nasal Cannula O2 Flow Rate 8.0 03/09/20 03/09/20 03/09/20 03/09/20 13:11 14:00 14:42 15:01 Temp 97.9 97.9 Pulse 92 90 93 89 B/P (MAP) 156/61 (92) 159/65 159/65 (96) 165/68 (100) Pulse Ox 92 92 93 O2 Delivery High Flow Nasal Cannula High Flow Nasal Cannula High Flow Nasal Cannula O2 Flow Rate 8.0 8.0 8.0 03/09/20 03/09/20 03/09/20 03/09/20 15:28 16:35 16:37 17:40 Pulse 94 94 Resp B/P (MAP) 172/74 (106) 172/74 Pulse Ox 92 89 O2 Delivery High Flow Nasal Cannula High Flow Nasal Cannula Bi-pap O2 Flow Rate 8.0 8.0 03/09/20 03/09/20 03/09/20 03/09/20 18:44 19:00 19:50 19:50 Temp 97.3 97.3 Pulse 104 91 Resp B/P (MAP) 169/65 (99) 158/64 (95) Pulse Ox 89 91 O2 Delivery BiPAP/CPAP BiPAP/CPAP Bi-pap O2 Flow Rate 03/09/20 03/09/20 03/09/20 03/09/20 20:00 20:40 20:41 21:00 Temp 98.8 98.8 Pulse 104 102 Resp B/P (MAP) 170/80 (110) 172/69 (103) Pulse Ox 93 93 93 94 O2 Delivery BiPAP/CPAP Ventilator Ventilator BiPAP/CPAP 03/09/20 03/09/20 03/09/20 03/09/20 22:00 22:24 23:00 23:55 Pulse 102 105 98 Resp B/P (MAP) 172/75 (107) 174/70 160/79 (106) Pulse Ox 93 94 O2 Delivery BiPAP/CPAP BiPAP/CPAP Bi-pap 03/10/20 03/10/20 03/10/20 03/10/20 00:00 00:21 01:00 02:00 Temp 97.9 97.9 Pulse 98 86 85 Resp 32 23 B/P (MAP) 163/68 (99) 144/60 (88) 154/61 (92) Pulse Ox 92 93 93 94 O2 Delivery BiPAP/CPAP Ventilator BiPAP/CPAP BiPAP/CPAP 03/10/20 03/10/20 03/10/20 03/10/20 03:00 04:00 04:00 04:36 Temp 97.4 97.4 Pulse 81 77 Resp 22 B/P (MAP) 151/56 (87) 162/70 (100) Pulse Ox 95 91 92 O2 Delivery BiPAP/CPAP BiPAP/CPAP Bi-pap Ventilator 03/10/20 03/10/20 03/10/20 03/10/20 05:00 06:00 07:00 07:28 Pulse 76 77 68 Resp 22 18 18 B/P (MAP) 144/69 (94) 145/60 (88) 144/62 (89) Pulse Ox 93 97 97 93 O2 Delivery BiPAP/CPAP BiPAP/CPAP BiPAP/CPAP BiPAP/CPAP 03/10/20 03/10/20 03/10/20 03/10/20 08:00 08:00 09:00 10:00 Temp 97.6 97.6 Pulse 68 70 90 Resp 22 18 25 B/P (MAP) 156/67 (96) 170/73 (105) 155/61 (92) Pulse Ox 91 95 95 O2 Delivery Nasal Cannula BiPAP/CPAP Nasal Cannula Nasal Cannula O2 Flow Rate 8.0 8.0 Intake and Output 03/09/20 03/09/20 03/10/20 15:00 23:00 07:00 Intake Total 1530 ml 3100 ml 1080 ml Output Total 650 ml 1225 ml 775 ml Balance 880 ml 1875 ml 305 ml Justicifation of Admission Dx: Justifications for Admission: Justification of Admission Dx: Yes SALEEM WHITE MD Mar 10, 2020 10:24
--- NOTE | 2020-03-10 11:26 | PDOC ---
Renal-Progress Notes Subjective Notes Notes NO NEW COMPLAINTS History of Present Illness Hx of present illness STABLE Vitals Vitals Vital Signs Date Time Temp Pulse Resp B/P (MAP) Pulse Ox O2 Delivery O2 Flow Rate FiO2 03/10/20 11:00 92 25 164/59 (94) 91 Nasal Cannula 8.0 03/10/20 08:00 97.6 97.6 Weight Weight [ ] I.O. Intake and Output Intake and Output 03/10/20 07:00 Intake Total 5710 ml Output Total 2650 ml Balance 3060 ml Intake Oral 1050 ml IV Total 3410 ml Blood Product 300 ml Blood Product IV Normal Saline Flush 700 ml Other 250 ml Output Urine Total 2650 ml Labs Labs Laboratory Tests Test 03/09/20 12:22 03/09/20 17:42 03/09/20 20:40 03/09/20 21:17 Glucose (Fingerstick) 294 mg/dL (70-99) 174 mg/dL (70-99) 225 mg/dL (70-99) Hemoglobin 8.9 g/dL (13.0-17.5) Hematocrit 27.2 % (39.0-53.0) Mean Corpuscular Hemoglobin Concent 33 g/dL (31-37) Test 03/10/20 05:30 03/10/20 11:02 White Blood Count 11.1 x10^3/uL (4.0-11.0) Red Blood Count 2.62 x10^6/uL (4.30-5.70) Hemoglobin 8.1 g/dL (13.0-17.5) Hematocrit 25.0 % (39.0-53.0) Mean Corpuscular Volume 95 fL (79-100) Mean Corpuscular Hemoglobin 31 pg (25-35) Mean Corpuscular Hemoglobin Concent 33 g/dL (31-37) Red Cell Distribution Width 16.9 % (11.5-14.5) Platelet Count 224 x10^3/uL (140-400) Neutrophils (%) (Auto) 96 % (31-73) Lymphocytes (%) (Auto) 2 % (24-48) Monocytes (%) (Auto) 2 % (0-9) Eosinophils (%) (Auto) 0 % (0-3) Basophils (%) (Auto) 0 % (0-3) Neutrophils # (Auto) 10.6 x10^3/uL (1.8-7.7) Lymphocytes # (Auto) 0.2 x10^3/uL (1.0-4.8) Monocytes # (Auto) 0.3 x10^3/uL (0.0-1.1) Eosinophils # (Auto) 0.0 x10^3/uL (0.0-0.7) Basophils # (Auto) 0.0 x10^3/uL (0.0-0.2) Segmented Neutrophils % 89 % (35-66) Lymphocytes % 4 % (24-48) Monocytes % 7 % (0-10) Nucleated Red Blood Cells 2 Platelet Estimate Adequate (ADEQUATE) Platelet Clumps, EDTA Present Anisocytosis Slight Sodium Level 141 mmol/L (136-145) Potassium Level 4.5 mmol/L (3.5-5.1) Chloride Level 108 mmol/L (98-107) Carbon Dioxide Level 25 mmol/L (21-32) Anion Gap 8 (6-14) Blood Urea Nitrogen 31 mg/dL (8-26) Creatinine 1.2 mg/dL (0.7-1.3) Estimated GFR (Cockcroft-Gault) 57.7 Glucose Level 245 mg/dL (70-99) Calcium Level 7.5 mg/dL (8.5-10.1) Ferritin 464 ng/mL (26-388) C-Reactive Protein, Quantitative 31.2 mg/L (0-3.3) Glucose (Fingerstick) 303 mg/dL (70-99) Micro Micro Microbiology 02/29/20 Blood Culture - Final, Complete NO GROWTH AFTER 5 DAYS Review of Systems Constitutional: yes: other (CONFUSED) Physical Exam General Appearance: no apparent distress Skin: warm Respiratory: decreased breath sounds Heart: S1S2 Abdomen: soft, bowel sounds present Genitourinary: bladder flat Extremities: pulses present Neurology: alert, confused Musculoskeletal: Other Assessment Assessment . IMP CKD STAGE 3B WITH CR OF 1.6 DANIELA - ATN RESOLVED HYPERKALEMIA-RESOLVED HYPERNATREMIA-RESOLVED COVID 19 PNEUMONIA HX OF ZAVALA DZ COPD HX-AECOPD DM II HYPERGLYCEMIA PLAN GENTLY HYDRATION NEEDED CONTROL BG WILL SIGN OFF PLEASE CALL IF NEEDED LUKE ALCANTARA MD Mar 10, 2020 11:26
--- NOTE | 2020-03-10 15:26 | NUR ---
SS following up with discharge planning. SS reviewed pt chart and discussed with pt RN. COVID19 positive. Pt on eight liters nasal canula. SS will continue to follow for discharge planning.
--- NOTE | 2020-03-10 17:10 | PDOC ---
F/U PHYSCH PROG NOTE Subjective: Gentleman is seen for routine follow-up. Progress is reviewed with nursing staff. No event reported overnight. Reportedly, he is doing better. He states his mood is okay, anxiety is wearing off. Denies suicidal or homicidal thou ghts. Denies auditory or visual hallucination. No evidence of cora or hypomania. Tolerating medications, denies adverse drug reaction. Objective: 14 point review of system is otherwise negative except for as stated above. Vital Signs: Vital Signs Date Time Temp Pulse Resp B/P (MAP) Pulse Ox O2 Delivery O2 Flow Rate FiO2 03/10/20 17:00 102 25 159/75 (103) 90 BiPAP/CPAP 03/10/20 16:00 98.3 98.3 03/10/20 13:00 8.0 Labs: Laboratory Tests Test 03/09/20 17:42 03/09/20 20:40 03/09/20 21:17 03/10/20 05:30 Glucose (Fingerstick) 174 mg/dL (70-99) H 225 mg/dL (70-99) H Hemoglobin 8.9 g/dL (13.0-17.5) L 8.1 g/dL (13.0-17.5) L Hematocrit 27.2 % (39.0-53.0) L 25.0 % (39.0-53.0) L Mean Corpuscular Hemoglobin Concent 33 g/dL (31-37) 33 g/dL (31-37) White Blood Count 11.1 x10^3/uL (4.0-11.0) H Red Blood Count 2.62 x10^6/uL (4.30-5.70) L Mean Corpuscular Volume 95 fL (79-100) Mean Corpuscular Hemoglobin 31 pg (25-35) Red Cell Distribution Width 16.9 % (11.5-14.5) H Platelet Count 224 x10^3/uL (140-400) Neutrophils (%) (Auto) 96 % (31-73) H Lymphocytes (%) (Auto) 2 % (24-48) L Monocytes (%) (Auto) 2 % (0-9) Eosinophils (%) (Auto) 0 % (0-3) Basophils (%) (Auto) 0 % (0-3) Neutrophils # (Auto) 10.6 x10^3/uL (1.8-7.7) H Lymphocytes # (Auto) 0.2 x10^3/uL (1.0-4.8) L Monocytes # (Auto) 0.3 x10^3/uL (0.0-1.1) Eosinophils # (Auto) 0.0 x10^3/uL (0.0-0.7) Basophils # (Auto) 0.0 x10^3/uL (0.0-0.2) Segmented Neutrophils % 89 % (35-66) H Lymphocytes % 4 % (24-48) L Monocytes % 7 % (0-10) Nucleated Red Blood Cells 2 Platelet Estimate Adequate (ADEQUATE) Platelet Clumps, EDTA Present Anisocytosis Slight Sodium Level 141 mmol/L (136-145) Potassium Level 4.5 mmol/L (3.5-5.1) Chloride Level 108 mmol/L (98-107) H Carbon Dioxide Level 25 mmol/L (21-32) Anion Gap 8 (6-14) Blood Urea Nitrogen 31 mg/dL (8-26) H Creatinine 1.2 mg/dL (0.7-1.3) Estimated GFR (Cockcroft-Gault) 57.7 Glucose Level 245 mg/dL (70-99) H Calcium Level 7.5 mg/dL (8.5-10.1) L Ferritin 464 ng/mL (26-388) H C-Reactive Protein, Quantitative 31.2 mg/L (0-3.3) H Test 03/10/20 11:02 Glucose (Fingerstick) 303 mg/dL (70-99) H Laboratory Tests 03/09/20 20:40 03/10/20 05:30 Laboratory Tests 03/10/20 05:30 Medications: Current Medications Medications (Trade) Dose Ordered Sig/Ya Start Time Stop Time Status Last Admin Dose Admin Acetaminophen (Tylenol) 650 mg PRN Q6HRS PRN 03/02/20 03:30 03/02/20 03:42 650 MG Albuterol Sulfate (Ventolin Hfa) 2 puff Q4HRS 03/04/20 12:00 03/07/20 17:37 DC 03/07/20 07:51 2 PUFF Albuterol/ Ipratropium (Duoneb) 3 ml Q4HRS 03/07/20 20:00 03/10/20 15:36 3 ML Budesonide (Pulmicort) 0.5 mg RTBID 03/07/20 20:00 03/10/20 07:28 0.5 MG Dextrose (Dextrose 50%-Water Syringe) 12.5 gm PRN Q15MIN PRN 03/04/20 13:00 Diphenhydramine HCl (Benadryl) 25 mg PRN QHS PRN 03/01/20 22:15 03/08/20 21:02 25 MG Ferrous Sulfate (Feosol) 325 mg BIDWMEALS 03/01/20 17:00 03/10/20 08:41 325 MG Fluticasone/ Vilanterol (Breo Ellipta 100-25 Mcg) 1 puff DAILY 03/07/20 11:30 03/07/20 17:37 DC Furosemide (Lasix) 40 mg 1X ONCE 03/07/20 12:45 03/07/20 12:46 DC 03/07/20 12:49 40 MG Hydralazine HCl (Apresoline Inj) 10 mg PRN Q4HRS PRN 03/07/20 09:30 03/09/20 22:24 10 MG Insulin Glargine (Lantus Syringe) 25 unit QHS 03/05/20 21:00 03/09/20 21:25 25 UNIT Insulin Human Lispro (HumaLOG) 5 units TIDAC 03/05/20 08:00 03/10/20 11:05 5 UNITS Lactobacillus Rhamnosus (Culturelle) 1 cap BID 03/04/20 13:00 03/10/20 08:41 1 CAP Lidocaine (Lidoderm) 1 patch DAILY 03/02/20 14:30 03/08/20 08:56 1 PATCH Loperamide HCl (Imodium) 2 mg PRN Q15MIN PRN 03/05/20 15:15 Methylprednisolone Sodium Succinate (SOLU-Medrol 40MG VIAL) 40 mg BID 03/10/20 21:00 Methylprednisolone Sodium Succinate (SOLU-Medrol 125MG VIAL) 125 mg 1X ONCE 03/07/20 10:45 03/07/20 10:46 DC 03/07/20 10:48 125 MG Mirtazapine (Remeron) 15 mg QHS 03/06/20 21:00 03/09/20 21:14 15 MG Miscellaneous (Lidoderm Patch Removal) 1 ea QHS 03/02/20 21:00 03/07/20 20:48 1 EA Non-Formulary Medication 1 ea/ Sodium Chloride 230 ml @ 460 mls/hr Q24H 03/09/20 09:00 03/12/20 09:29 03/10/20 08:49 460 MLS/HR Olanzapine (ZyPREXA ZYDIS) 5 mg PRN BID PRN 03/01/20 11:15 Ondansetron HCl (Zofran) 4 mg PRN Q8HRS PRN 02/29/20 13:30 03/01/20 13:29 DC Pantoprazole Sodium (Protonix) 40 mg DAILYAC 03/01/20 07:30 03/10/20 08:42 40 MG Piperacillin Sod/ Tazobactam Sod (Zosyn Per Pharmacy) 1 each PRN DAILY PRN 03/02/20 11:15 03/08/20 14:48 DC Piperacillin Sod/ Tazobactam Sod 2.25 gm/Sodium Chloride 50 ml @ 100 mls/hr Q6HRS 03/02/20 12:00 03/08/20 14:48 DC 03/08/20 12:38 100 MLS/HR Polyethylene Glycol (miraLAX PACKET) 17 gm PRN DAILY PRN 03/01/20 10:15 03/01/20 10:12 DC Ringer's Solution 1,000 ml @ 50 mls/hr Q20H 03/02/20 07:00 03/02/20 18:59 DC Sertraline HCl (Zoloft) 100 mg DAILY 03/10/20 09:00 03/10/20 08:42 100 MG Sodium Chloride 1,000 ml @ 75 mls/hr [id number] 03/07/20 14:00 03/10/20 08:41 75 MLS/HR Sodium Cl/Sod Bicarb/Potass Cl/ PEG (Golytely) 4,000 ml 1X ONCE 03/01/20 14:00 03/01/20 14:01 DC 03/01/20 14:47 4,000 ML Sucralfate (Carafate) 1 gm BID 02/29/20 21:00 03/10/20 08:42 1 GM Physical Exam: Mental Status Exam: gentleman with severe hard of hearing Cooperative Disoriented Thought process goal-directed Denies auditory or visual hallucinations Denies suicidal or homicidal thoughts Mood is depressed and anxious Affect is dysthymic Insight is fair Judgment is fair Impulse control is fair attention span and concentration fair Recent memory impaired Remote memory intact Physical Exam: Refer to Physician's note. RN OBSERVATION: No focal deficit MSK: No EPS, TDK, or abnormal involuntary movements Diagnosis: Major depressive disorder, recurrent, moderate Generalized anxiety disorder. Assessment: Gentleman is struggling with depression likely to his psychosocial circ umstances. Additionally, he has multiple medical comorbidities which are perpetuating his depression. He is in agreement to start Zoloft 25 mg and trazodone for sleep. 03/10/2020. Patient reports improvement in his mood and anxiety today. Feeling better. Plan: Continue Remeron 15 mg nightly for depression adjunct, anxiety, and insomnia. Continue Zoloft to 100 mg daily for depression and anxiety. Risks, benefits, alternatives of the treatment are discussed. Adverse drug reaction of the medications are also discussed Psychoeducation provided Supportive psychotherapy provided VERONICA JACKSON MD Mar 10, 2020 17:10
[2020-03-10] MEDS ORDERED: FUROSEMIDE 40 MG/4 ML VIAL. IVP ONE (19:00)
[2020-03-10] MEDS: PATCH REMOVAL. MC SCH (21:00)
[2020-03-10] MEDS: MIRTAZAPINE 15 MG TABLET PO SCH (21:03)
[2020-03-10] MEDS: INSULIN GLARGINE SYRINGE. SQ SCH (21:05)
[2020-03-10] MEDS ORDERED: METOPROLOL TART IMMED RELEASE 25 MG TABLET. PO PRN (22:30)
[2020-03-10] MEDS: ACETAMINOPHEN 325 MG TABLET. PO PRN (22:41)
[2020-03-11] VITALS (24 sets, daily range): BP systolic 84–140; BP diastolic 42–99
[2020-03-11 05:57] LABS: BASO % 0 % (0-3); EOS % 0 % (0-3); HEMATOCRIT 28.5 % (39.0-53.0); HEMOGLOBIN 9.1 g/dL (13.0-17.5); LYMPH # 0.2 x10^3/uL (1.0-4.8); LYMPH % 2 % (24-48); MEAN CORPUSCULAR HEMOGLOBIN 31 pg (25-35); MEAN CORPUSCULAR HGB CONC 32 g/dL (31-37); MEAN CORPUSCULAR VOLUME 97 fL (79-100); MONO # 0.3 x10^3/uL (0.0-1.1); MONO % 2 % (0-9); NEUT # 15.2 x10^3/uL (1.8-7.7); NEUT % 97 % (31-73); PLATELET COUNT 204 x10^3/uL (140-400); RED BLOOD COUNT 2.95 x10^6/uL (4.30-5.70); RED CELL DISTRIBUTION WIDTH 17.5 % (11.5-14.5); WHITE BLOOD COUNT 15.7 x10^3/uL (4.0-11.0)
[2020-03-11 06:49] LABS: C-REACTIVE PROTEIN 73.1 mg/L (0-3.3); CALCIUM 7.3 mg/dL (8.5-10.1); CREATININE 1.4 mg/dL (0.7-1.3); GFR 48.3; POTASSIUM 4.5 mmol/L (3.5-5.1)
[2020-03-11] MEDS: INSULIN LISPRO 300 UNITS/3 ML VIAL. SQ SCH ×7 (07:30→21:00)
[2020-03-11] MEDS: PANTOPRAZOLE 40 MG TABLET.DR. PO SCH (07:30)
[2020-03-11] MEDS: FERROUS SULFATE 325 MG TABLET. PO SCH ×2 (07:42→16:28)
[2020-03-11] MEDS ORDERED: ATROPINE 0.5 MG/5 ML DISP.SYRINGE. IV PRN (07:45)
[2020-03-11] MEDS ORDERED: IV NORMAL SALINE 500ML BAG 500 ML IV PRN (07:45)
[2020-03-11] MEDS: BUDESONIDE 0.5 MG/2 ML NEBU. NEB SCH ×2 (07:50→20:00)
[2020-03-11] MEDS: IPRATRPIUM/ALBUTEROL 0.5/2.5MG 3 ML NEBU. NEB SCH ×5 (07:50→20:00)
[2020-03-11] MEDS: LACTOBACILLUS RHAMNOSUS GG 1 CAPSULE. PO SCH ×2 (07:59→22:38)
[2020-03-11] MEDS: LIDOCAINE (700MG/PATCH) PATCH. TD SCH (08:00)
[2020-03-11] MEDS: IV 1/2 NORMAL SALINE 1,000 ML IV SCH ×3 (08:00→22:00)
[2020-03-11] MEDS: methylPREDNISolone SOD SUCC PF 40 MG/ML VIAL. IV SCH ×2 (08:00→20:36)
[2020-03-11] MEDS: SUCRALFATE 1 GM TABLET. PO SCH ×2 (08:00→22:37)
[2020-03-11] MEDS: DEXMEDETOMIDINE 400 MCG in IV NORMAL SALINE 100ML 96 ML IV PRN ×2 (08:17→17:36)
[2020-03-11] MEDS: SERTRALINE 50 MG TABLET. PO SCH (09:00)
--- NOTE | 2020-03-11 09:13 | PDOC ---
PROGRESS NOTES Date of Service: DATE: 03/11/20 TIME: 09:13 Chief Complaint Chief Complaint impression Dyspnea with no significant hypoxia based on the ABG, likely related to mild congestive heart failure. also with COVID pneumonia. SARS-CoV-2 - with pneumonia. On steroids, Lovenox. Pulm consulted Abnormal chest x-ray with faint interstitial infiltrates - likely CHF and COVID 19 POSTIVE Severe chronic obstructive pulmonary disease, 60 years of tobacco use, quit 3 years ago. 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 His BUN and creatinine was high as well as LFTs. He required 2 liters of oxygen. LFTs also elevated. 03/01: Still requiring O2. Significant wheezes and prolonged expiratory phase. He says he just wants to sleep. He says "Im 84 I have nothing to live for about my cats." 03/02: COVID-19 positive. He is having some back pain today. Still little hypoxic. EGD and colonoscopy on hold due to his COVID-19 positive status 03/03: Afebrile. Seen on 4 L nasal cannula, he is having a bowel movement, notes that he is having he is eating but is having loose bowels currently they are a little dark. No significant pain. His shortness of breath is stable. Slight cough. Back pain improved with Lidoderm patch. 03/03: Still afebrile with 4 liters nasal cannula O2. His glucose has become very elevated. He feels no worse than yesterday. Afebrile, now on 6 L nasal cannula, he is having more diarrhea, he does not notice much blood. Glucose has been in the 400s, unfortunately he did not receive his Lantus in the evening yesterday evening. C diff negative 03/06/2020 Patient with increasing O2 requirements this morning. Patient has increasing dyspnea but still maintaining sats of 94% on 15 L Venturi mask. Pulmonary evaluated and recommends for patient to be transferred to the ICU with BiPAP. 03/08 Breathing on BiPAP. VTE held due to GI bleed, H&H stable. 03/09: Patient is off BiPAP currently breathing on 8 L high flow nasal cannula. H & H dropped to 6.6 today, transfuse 1 unit packed red blood cells. GI to follow, thank you for your expertise. No scope plan due to COVID-19 positive. 03/10: Per nursing staff, no acute events overnight. Breathing on 8L NC. Blood sugar improving. Continue steroids and blood pressure management. Vitals Vitals Vital Signs Date Time Temp Pulse Resp B/P (MAP) Pulse Ox O2 Delivery O2 Flow Rate FiO2 03/11/20 08:00 98.8 77 25 138/65 (89) 90 BiPAP/CPAP 98.8 03/10/20 13:00 8.0 Physical Exam Physical Exam GEN: No apparent distress. Alert and oriented HEENT: Normal cephalic, atraumatic, external auditory canals are patent NECK: Supple, no JVD, no thyromegaly was noted LUNGS: Bilateral crackles and wheezing HEART: RRR, S1, S2 present. Peripheral pulses intact, no obvious murmurs noted ABDOMEN: Soft, nontender. Positive bowel sounds, no organomegaly, normal bowel sounds EXTREMITIES: Without clubbing, cyanosis, or edema. Pedal pulses intact. Negative Homans sign General: Alert, Cooperative Heart: Regular rate Lungs: Other Abdomen: Other (Nondistended) Extremities: No clubbing, No cyanosis, No edema Skin: No rashes, No breakdown Labs LABS Laboratory Tests Test 03/10/20 11:02 03/10/20 17:15 03/10/20 21:00 03/11/20 05:30 Glucose (Fingerstick) 303 mg/dL (70-99) 214 mg/dL (70-99) 206 mg/dL (70-99) White Blood Count 15.7 x10^3/uL (4.0-11.0) Red Blood Count 2.95 x10^6/uL (4.30-5.70) Hemoglobin 9.1 g/dL (13.0-17.5) Hematocrit 28.5 % (39.0-53.0) Mean Corpuscular Volume 97 fL (79-100) Mean Corpuscular Hemoglobin 31 pg (25-35) Mean Corpuscular Hemoglobin Concent 32 g/dL (31-37) Red Cell Distribution Width 17.5 % (11.5-14.5) Platelet Count 204 x10^3/uL (140-400) Neutrophils (%) (Auto) 97 % (31-73) Lymphocytes (%) (Auto) 2 % (24-48) Monocytes (%) (Auto) 2 % (0-9) Eosinophils (%) (Auto) 0 % (0-3) Basophils (%) (Auto) 0 % (0-3) Neutrophils # (Auto) 15.2 x10^3/uL (1.8-7.7) Lymphocytes # (Auto) 0.2 x10^3/uL (1.0-4.8) Monocytes # (Auto) 0.3 x10^3/uL (0.0-1.1) Eosinophils # (Auto) 0.0 x10^3/uL (0.0-0.7) Basophils # (Auto) 0.0 x10^3/uL (0.0-0.2) D-Dimer (Alisia) 3.28 ug/mlFEU (0.00-0.50) Sodium Level 140 mmol/L (136-145) Potassium Level 4.5 mmol/L (3.5-5.1) Chloride Level 107 mmol/L (98-107) Carbon Dioxide Level 25 mmol/L (21-32) Anion Gap 8 (6-14) Blood Urea Nitrogen 35 mg/dL (8-26) Creatinine 1.4 mg/dL (0.7-1.3) Estimated GFR (Cockcroft-Gault) 48.3 Glucose Level 156 mg/dL (70-99) Calcium Level 7.3 mg/dL (8.5-10.1) Ferritin 465 ng/mL (26-388) C-Reactive Protein, Quantitative 73.1 mg/L (0-3.3) Procalcitonin 0.75 ng/mL (0.00-0.10) Assessment and Plan Assessmemt and Plan Problems Medical Problems: (1) Acute renal failure Status: Acute (2) COPD exacerbation Status: Acute (3) GI bleeding Status: Acute Comment Review of Relevant I have reviewed the following items kamini (where applicable) has been applied. Labs Laboratory Tests Test 03/09/20 12:22 03/09/20 17:42 03/09/20 20:40 03/09/20 21:17 Glucose (Fingerstick) 294 mg/dL (70-99) 174 mg/dL (70-99) 225 mg/dL (70-99) Hemoglobin 8.9 g/dL (13.0-17.5) Hematocrit 27.2 % (39.0-53.0) Mean Corpuscular Hemoglobin Concent 33 g/dL (31-37) Test 03/10/20 05:30 03/10/20 11:02 03/10/20 17:15 03/10/20 21:00 White Blood Count 11.1 x10^3/uL (4.0-11.0) Red Blood Count 2.62 x10^6/uL (4.30-5.70) Hemoglobin 8.1 g/dL (13.0-17.5) Hematocrit 25.0 % (39.0-53.0) Mean Corpuscular Volume 95 fL (79-100) Mean Corpuscular Hemoglobin 31 pg (25-35) Mean Corpuscular Hemoglobin Concent 33 g/dL (31-37) Red Cell Distribution Width 16.9 % (11.5-14.5) Platelet Count 224 x10^3/uL (140-400) Neutrophils (%) (Auto) 96 % (31-73) Lymphocytes (%) (Auto) 2 % (24-48) Monocytes (%) (Auto) 2 % (0-9) Eosinophils (%) (Auto) 0 % (0-3) Basophils (%) (Auto) 0 % (0-3) Neutrophils # (Auto) 10.6 x10^3/uL (1.8-7.7) Lymphocytes # (Auto) 0.2 x10^3/uL (1.0-4.8) Monocytes # (Auto) 0.3 x10^3/uL (0.0-1.1) Eosinophils # (Auto) 0.0 x10^3/uL (0.0-0.7) Basophils # (Auto) 0.0 x10^3/uL (0.0-0.2) Segmented Neutrophils % 89 % (35-66) Lymphocytes % 4 % (24-48) Monocytes % 7 % (0-10) Nucleated Red Blood Cells 2 Platelet Estimate Adequate (ADEQUATE) Platelet Clumps, EDTA Present Anisocytosis Slight Sodium Level 141 mmol/L (136-145) Potassium Level 4.5 mmol/L (3.5-5.1) Chloride Level 108 mmol/L (98-107) Carbon Dioxide Level 25 mmol/L (21-32) Anion Gap 8 (6-14) Blood Urea Nitrogen 31 mg/dL (8-26) Creatinine 1.2 mg/dL (0.7-1.3) Estimated GFR (Cockcroft-Gault) 57.7 Glucose Level 245 mg/dL (70-99) Calcium Level 7.5 mg/dL (8.5-10.1) Ferritin 464 ng/mL (26-388) C-Reactive Protein, Quantitative 31.2 mg/L (0-3.3) Glucose (Fingerstick) 303 mg/dL (70-99) 214 mg/dL (70-99) 206 mg/dL (70-99) Test 03/11/20 05:30 White Blood Count 15.7 x10^3/uL (4.0-11.0) Red Blood Count 2.95 x10^6/uL (4.30-5.70) Hemoglobin 9.1 g/dL (13.0-17.5) Hematocrit 28.5 % (39.0-53.0) Mean Corpuscular Volume 97 fL (79-100) Mean Corpuscular Hemoglobin 31 pg (25-35) Mean Corpuscular Hemoglobin Concent 32 g/dL (31-37) Red Cell Distribution Width 17.5 % (11.5-14.5) Platelet Count 204 x10^3/uL (140-400) Neutrophils (%) (Auto) 97 % (31-73) Lymphocytes (%) (Auto) 2 % (24-48) Monocytes (%) (Auto) 2 % (0-9) Eosinophils (%) (Auto) 0 % (0-3) Basophils (%) (Auto) 0 % (0-3) Neutrophils # (Auto) 15.2 x10^3/uL (1.8-7.7) Lymphocytes # (Auto) 0.2 x10^3/uL (1.0-4.8) Monocytes # (Auto) 0.3 x10^3/uL (0.0-1.1) Eosinophils # (Auto) 0.0 x10^3/uL (0.0-0.7) Basophils # (Auto) 0.0 x10^3/uL (0.0-0.2) D-Dimer (Alisia) 3.28 ug/mlFEU (0.00-0.50) Sodium Level 140 mmol/L (136-145) Potassium Level 4.5 mmol/L (3.5-5.1) Chloride Level 107 mmol/L (98-107) Carbon Dioxide Level 25 mmol/L (21-32) Anion Gap 8 (6-14) Blood Urea Nitrogen 35 mg/dL (8-26) Creatinine 1.4 mg/dL (0.7-1.3) Estimated GFR (Cockcroft-Gault) 48.3 Glucose Level 156 mg/dL (70-99) Calcium Level 7.3 mg/dL (8.5-10.1) Ferritin 465 ng/mL (26-388) C-Reactive Protein, Quantitative 73.1 mg/L (0-3.3) Procalcitonin 0.75 ng/mL (0.00-0.10) Laboratory Tests Test 03/10/20 11:02 03/10/20 17:15 03/10/20 21:00 03/11/20 05:30 Glucose (Fingerstick) 303 mg/dL (70-99) 214 mg/dL (70-99) 206 mg/dL (70-99) White Blood Count 15.7 x10^3/uL (4.0-11.0) Red Blood Count 2.95 x10^6/uL (4.30-5.70) Hemoglobin 9.1 g/dL (13.0-17.5) Hematocrit 28.5 % (39.0-53.0) Mean Corpuscular Volume 97 fL (79-100) Mean Corpuscular Hemoglobin 31 pg (25-35) Mean Corpuscular Hemoglobin Concent 32 g/dL (31-37) Red Cell Distribution Width 17.5 % (11.5-14.5) Platelet Count 204 x10^3/uL (140-400) Neutrophils (%) (Auto) 97 % (31-73) Lymphocytes (%) (Auto) 2 % (24-48) Monocytes (%) (Auto) 2 % (0-9) Eosinophils (%) (Auto) 0 % (0-3) Basophils (%) (Auto) 0 % (0-3) Neutrophils # (Auto) 15.2 x10^3/uL (1.8-7.7) Lymphocytes # (Auto) 0.2 x10^3/uL (1.0-4.8) Monocytes # (Auto) 0.3 x10^3/uL (0.0-1.1) Eosinophils # (Auto) 0.0 x10^3/uL (0.0-0.7) Basophils # (Auto) 0.0 x10^3/uL (0.0-0.2) D-Dimer (Alisia) 3.28 ug/mlFEU (0.00-0.50) Sodium Level 140 mmol/L (136-145) Potassium Level 4.5 mmol/L (3.5-5.1) Chloride Level 107 mmol/L (98-107) Carbon Dioxide Level 25 mmol/L (21-32) Anion Gap 8 (6-14) Blood Urea Nitrogen 35 mg/dL (8-26) Creatinine 1.4 mg/dL (0.7-1.3) Estimated GFR (Cockcroft-Gault) 48.3 Glucose Level 156 mg/dL (70-99) Calcium Level 7.3 mg/dL (8.5-10.1) Ferritin 465 ng/mL (26-388) C-Reactive Protein, Quantitative 73.1 mg/L (0-3.3) Procalcitonin 0.75 ng/mL (0.00-0.10) Microbiology 02/29/20 Blood Culture - Final, Complete NO GROWTH AFTER 5 DAYS Medications Current Medications Albuterol/ Ipratropium (Duoneb) 6 ml 1X ONCE NEB Last administered on 02/29/20at 11:24; Start 02/29/20 at 10:30; Stop 02/29/20 at 10:31; Status DC Methylprednisolone Sodium Succinate (SOLU-Medrol 125MG VIAL) 125 mg 1X ONCE IV Last administered on 02/29/20at 10:23; Start 02/29/20 at 10:30; Stop 02/29/20 at 10:31; Status DC Sodium Chloride 1,000 ml @ 1,000 mls/hr 1X ONCE IV Last administered on 02/29/20at 17:42; Start 02/29/20 at 13:15; Stop 02/29/20 at 14:14; Status DC Ondansetron HCl (Zofran) 4 mg PRN Q8HRS PRN IV NAUSEA/VOMITING; Start 02/29/20 at 13:30; Stop 03/01/20 at 13:29; Status DC Acetaminophen (Tylenol) 650 mg PRN Q4HRS PRN PO FEVER > 100.3'F; Start 02/29/20 at 13:30; Stop 03/01/20 at 13:29; Status DC Albuterol/ Ipratropium (Duoneb) 3 ml RTQID NEB ; Start 02/29/20 at 16:00; Stop 02/29/20 at 13:58; Status DC Albuterol/ Ipratropium (Duoneb) 3 ml PRN QID PRN NEB SHORTNESS OF BREATH; Start 02/29/20 at 14:00; Stop 03/01/20 at 13:59; Status DC Pantoprazole Sodium (Protonix) 40 mg DAILYAC PO Last administered on 03/10/20at 08:42; Start 03/01/20 at 07:30 Sucralfate (Carafate) 1 gm BID PO Last administered on 03/10/20at 21:03; Start 02/29/20 at 21:00 Polyethylene Glycol (miraLAX PACKET) 17 gm PRN DAILY PRN PO CONSTIPATION; Start 02/29/20 at 15:15 Ferrous Sulfate (Feosol) 325 mg BIDWMEALS PO Last administered on 03/10/20at 17:16; Start 03/01/20 at 17:00 Polyethylene Glycol (miraLAX PACKET) 17 gm PRN DAILY PRN PO CONSTIPATION; Start 03/01/20 at 10:15; Stop 03/01/20 at 10:12; Status DC Methylprednisolone Sodium Succinate (SOLU-Medrol 40MG VIAL) 40 mg DAILY IV Last administered on 03/02/20at 10:56; Start 03/01/20 at 11:00; Stop 03/02/20 at 11:11; Status DC Olanzapine (ZyPREXA ZYDIS) 5 mg PRN BID PRN PO AGITATION; Start 03/01/20 at 11:15 Sodium Cl/Sod Bicarb/Potass Cl/ PEG (Golytely) 4,000 ml 1X ONCE PO Last administered on 03/01/20at 14:47; Start 03/01/20 at 14:00; Stop 03/01/20 at 14:01; Status DC Ringer's Solution 1,000 ml @ 50 mls/hr Q20H IV ; Start 03/02/20 at 07:00; Stop 03/02/20 at 18:59; Status DC Diphenhydramine HCl (Benadryl) 25 mg PRN QHS PRN PO INSOMNIA Last administered on 03/08/20at 21:02; Start 03/01/20 at 22:15 Albuterol Sulfate (Ventolin Hfa) 1 puff PRN QID PRN INH SHORTNESS OF BREATH Last administered on 03/03/20at 12:43; Start 03/02/20 at 01:00; Stop 03/04/20 at 10:34; Status DC Acetaminophen (Tylenol) 650 mg PRN Q6HRS PRN PO temperature Last administered on 03/10/20at 22:41; Start 03/02/20 at 03:30 Methylprednisolone Sodium Succinate (SOLU-Medrol 40MG VIAL) 20 mg 1X ONCE IV Last administered on 03/02/20at 11:15; Start 03/02/20 at 11:15; Stop 03/02/20 at 11:16; Status DC Piperacillin Sod/ Tazobactam Sod (Zosyn Per Pharmacy) 1 each PRN DAILY PRN MC SEE COMMENTS; Start 03/02/20 at 11:15; Stop 03/08/20 at 14:48; Status DC Piperacillin Sod/ Tazobactam Sod 2.25 gm/Sodium Chloride 50 ml @ 100 mls/hr Q6HRS IV Last administered on 03/08/20at 12:38; Start 03/02/20 at 12:00; Stop 03/08/20 at 14:48; Status DC Methylprednisolone Sodium Succinate (SOLU-Medrol 40MG VIAL) 60 mg Q8HRS IV Last administered on 03/10/20 06:13; Start 03/02/20 at 14:00; Stop 03/10/20 at 11:29; Status DC Lidocaine (Lidoderm) 1 patch DAILY TD Last administered on 03/08/20at 08:56; Start 03/02/20 at 14:30 Miscellaneous (Lidoderm Patch Removal) 1 ea QHS MC Last administered on 03/07/20at 20:48; Start 03/02/20 at 21:00 Sertraline HCl (Zoloft) 25 mg DAILY PO Last administered on 03/05/20at 08:39; Start 03/03/20 at 09:00; Stop 03/05/20 at 19:23; Status DC Furosemide (Lasix) 20 mg 1X ONCE IVP Last administered on 03/04/20at 12:17; Start 03/04/20 at 11:00; Stop 03/04/20 at 11:01; Status DC Albuterol Sulfate (Ventolin Hfa) 2 puff Q4HRS INH Last administered on 03/07/20at 07:51; Start 03/04/20 at 12:00; Stop 03/07/20 at 17:37; Status DC Insulin Glargine (Lantus Syringe) 20 unit QHS SQ ; Start 03/04/20 at 21:00; Stop 03/05/20 at 15:08; Status DC Insulin Human Lispro (HumaLOG) 0-9 UNITS TIDACHC SQ Last administered on 03/10/20at 21:05; Start 03/04/20 at 13:00 Dextrose (Dextrose 50%-Water Syringe) 12.5 gm PRN Q15MIN PRN IV SEE COMMENTS; Start 03/04/20 at 13:00 Lactobacillus Rhamnosus (Culturelle) 1 cap BID PO Last administered on 03/10/20at 21:03; Start 03/04/20 at 13:00 Insulin Human Lispro (HumaLOG) 9 units 1X ONCE SQ Last administered on 0at 13:53; Start 03/04/20 at 13:30; Stop 03/04/20 at 13:35; Status DC Insulin Human Lispro (HumaLOG) 5 units TIDAC SQ Last administered on 03/11/20at 08:01; Start 03/05/20 at 08:00 Insulin Glargine (Lantus Syringe) 25 unit QHS SQ Last administered on 03/10/20at 21:05; Start 03/05/20 at 21:00 Loperamide HCl (Imodium) 2 mg PRN Q15MIN PRN PO DIARRHEA; Start 03/05/20 at 15:15 Sertraline HCl (Zoloft) 50 mg DAILY PO Last administered on 03/09/20at 08:33; Start 03/06/20 at 09:00; Stop 03/09/20 at 16:28; Status DC Sodium Chloride 1,000 ml @ 75 mls/hr [id number] IV Last administered on 03/07/20at 00:53; Start 03/06/20 at 14:00; Stop 03/07/20 at 13:50; Status DC Mirtazapine (Remeron) 15 mg QHS PO Last administered on 03/10/20at 21:03; Start 03/06/20 at 21:00 Hydralazine HCl (Apresoline Inj) 10 mg PRN Q4HRS PRN IVP ELEVATED BP, SEE COMMENTS Last administered on 03/09/20at 22:24; Start 03/07/20 at 09:30 Methylprednisolone Sodium Succinate (SOLU-Medrol 125MG VIAL) 125 mg 1X ONCE IV Last administered on 03/07/20at 10:48; Start 03/07/20 at 10:45; Stop 03/07/20 at 10:46; Status DC Fluticasone/ Vilanterol (Breo Ellipta 100-25 Mcg) 1 puff DAILY INH ; Start 03/07/20 at 11:30; Stop 03/07/20 at 11:02; Status DC Fluticasone/ Vilanterol (Breo Ellipta 100-25 Mcg) 1 puff DAILY INH ; Start 03/07/20 at 11:30; Stop 03/07/20 at 11:02; Status DC Fluticasone/ Vilanterol (Breo Ellipta 100-25 Mcg) 1 puff DAILY INH ; Start 03/07/20 at 11:30; Stop 03/07/20 at 17:37; Status DC Furosemide (Lasix) 40 mg 1X ONCE IVP Last administered on 03/07/20at 12:49; Start 03/07/20 at 12:45; Stop 03/07/20 at 12:46; Status DC Sodium Chloride 1,000 ml @ 75 mls/hr [id number] IV Last administered on 03/11/20at 08:00; Start 03/07/20 at 14:00 Non-Formulary Medication 1 ea/ Sodium Chloride 210 ml @ 210 mls/hr 1X ONCE IV Last administered on 03/08/20at 08:57; Start 03/08/20 at 09:00; Stop 03/08/20 at 09:59; Status DC Non-Formulary Medication 1 ea/ Sodium Chloride 230 ml @ 460 mls/hr Q24H IV Last administered on 03/10/20at 08:49; Start 03/09/20 at 09:00; Stop 03/12/20 at 09:29 Albuterol/ Ipratropium (Duoneb) 3 ml Q4HRS NEB Last administered on 03/11/20at 00:00; Start 03/07/20 at 20:00 Budesonide (Pulmicort) 0.5 mg RTBID NEB Last administered on 03/11/20at 07:50; Start 03/07/20 at 20:00 Sertraline HCl (Zoloft) 100 mg DAILY PO Last administered on 03/10/20at 08:42; Start 03/10/20 at 09:00 Methylprednisolone Sodium Succinate (SOLU-Medrol 40MG VIAL) 40 mg BID IV Last administered on 03/11/20at 08:00; Start 03/10/20 at 21:00 Furosemide (Lasix) 40 mg 1X ONCE IVP Last administered on 03/10/20at 21:03; Start 03/10/20 at 19:00; Stop 03/10/20 at 19:01; Status DC Metoprolol Tartrate (Lopressor) 25 mg PRN BID PRN PO TACHYCARDIA; Start 03/10/20 at 22:30 Dexmedetomidine HCl 400 mcg/ Sodium Chloride 100 ml @ 0 mls/hr CONT PRN IV SEE COMMENTS Last administered on 03/11/20at 08:17; Start 03/11/20 at 07:45 Sodium Chloride 500 ml @ 500 mls/hr 1X PRN PRN IV SEE COMMENTS; Start 03/11/20 at 07:45 Atropine Sulfate (ATROPINE 0.5mg SYRINGE) 0.5 mg PRN Q5MIN PRN IV SEE COMMENTS; Start 03/11/20 at 07:45 Active Scripts Active Reported Phospha 250 Neutral Tablet (Phosphorus #1) 250 Mg Tablet 1 Tab PO DAILY 30 Days Atorvastatin Calcium 20 Mg Tablet 1 Tab PO DAILYWSUP Levothyroxine Sodium 25 Mcg Tablet 1 Tab PO DAILY Iron (Ferrous Sulfate) 325 Mg Tablet 1 Tab PO BID 30 Days Flomax (Tamsulosin Hcl) 0.4 Mg Cap.er.24h 0.4 Mg PO DAILY Benicar (Olmesartan Medoxomil) 20 Mg Tablet 1 Tab PO DAILY 30 Days Cyclobenzaprine Hcl 10 Mg Tablet 1 Tab PO BID PRN Torsemide 20 Mg Tablet 4 Tab PO DAILY Benadryl (Diphenhydramine Hcl) 25 Mg Capsule 1 Cap PO QHS Quinapril Hcl 40 Mg Tablet 1 Tab PO DAILY Metformin Hcl 500 Mg Tablet 1 Tab PO DAILYBFRSUP Trazodone Hcl 50 Mg Tablet 50 Mg PO HS Thatcher 5-325 Tablet (Acetaminophen/Hydrocodone Bitart) 1 Each Tablet 1 Tab PO Q8HRS PRN Percocet 5-325 Mg Tablet (Oxycodone/Acetaminophen) 1 Each Tablet 1-2 Tab PO Q6HRS PRN Potassium Chloride 20 Meq Tab.er.prt 20 Meq PO BID Combivent Respimat Inhal (Ipratropium/Albuterol Sulfate) 4 Gm Aer.w.adap 2 Inh IH QID PRN Metformin Hcl 1,000 Mg Tablet 1 Tab PO DAILY08 Vitals/I & O Vital Sign - Last 24 Hours 03/10/20 03/10/20 03/10/20 03/10/20 10:00 11:00 11:33 12:00 Temp 98.2 98.2 Pulse 90 92 87 Resp 25 25 21 B/P (MAP) 155/61 (92) 164/59 (94) 152/68 (96) Pulse Ox 95 91 92 89 O2 Delivery Nasal Cannula Nasal Cannula High Flow Nasal Cannula Nasal Cannula O2 Flow Rate 8.0 8.0 8.0 8.0 03/10/20 03/10/20 03/10/20 03/10/20 12:00 13:00 14:00 15:00 Pulse 103 93 98 Resp 30 31 32 B/P (MAP) 143/62 (89) 144/63 (90) 140/60 (86) Pulse Ox 87 89 93 O2 Delivery Nasal Cannula Nasal Cannula BiPAP/CPAP BiPAP/CPAP O2 Flow Rate 8.0 03/10/20 03/10/20 03/10/20 03/10/20 15:54 16:00 16:00 17:00 Temp 98.3 98.3 Pulse 100 102 Resp 35 25 B/P (MAP) 157/65 (95) 159/75 (103) Pulse Ox 94 92 90 O2 Delivery BiPAP/CPAP BiPAP/CPAP Bi-pap BiPAP/CPAP 03/10/20 03/10/20 03/10/20 03/10/20 18:00 19:00 19:53 20:00 Temp 99.1 99.1 Pulse 102 107 106 Resp 29 29 34 B/P (MAP) 160/76 (104) 160/63 (95) 167/76 (106) Pulse Ox 90 92 92 93 O2 Delivery BiPAP/CPAP BiPAP/CPAP BiPAP/CPAP BiPAP/CPAP 03/10/20 03/10/20 03/10/20 03/10/20 20:00 21:00 22:00 23:00 Temp 100.5 100.5 Pulse 116 122 115 Resp 36 32 36 B/P (MAP) 177/79 (111) 147/71 (96) 147/76 (99) Pulse Ox 93 91 93 O2 Delivery Bi-pap BiPAP/CPAP BiPAP/CPAP BiPAP/CPAP 03/10/20 03/11/20 03/11/20 03/11/20 23:50 00:00 00:00 01:00 Temp 100.0 100.0 Pulse 104 98 Resp 26 36 B/P (MAP) 124/99 (107) 121/58 (79) Pulse Ox 93 94 93 O2 Delivery BiPAP/CPAP BiPAP/CPAP Bi-pap BiPAP/CPAP 03/11/20 03/11/20 03/11/20 03/11/20 02:00 03:00 03:59 04:00 Temp 98.5 98.5 Pulse 92 92 Resp 23 22 B/P (MAP) 116/52 (73) 120/56 (77) Pulse Ox 93 94 93 O2 Delivery BiPAP/CPAP BiPAP/CPAP BiPAP/CPAP Bi-pap 03/11/20 03/11/20 03/11/20 03/11/20 04:00 05:02 06:00 07:00 Pulse 85 86 85 85 Resp 20 23 20 25 B/P (MAP) 122/52 (75) 131/59 (83) 136/60 (85) 140/71 (94) Pulse Ox 94 93 92 92 O2 Delivery BiPAP/CPAP BiPAP/CPAP BiPAP/CPAP BiPAP/CPAP 03/11/20 03/11/20 08:00 08:00 Temp 98.8 98.8 Pulse 77 Resp 25 B/P (MAP) 138/65 (89) Pulse Ox 90 O2 Delivery Bi-pap BiPAP/CPAP Intake and Output 03/10/20 03/10/20 03/11/20 15:00 23:00 07:00 Intake Total 750 ml 1579.5 ml 339 ml Output Total 775 ml 1040 ml 1075 ml Balance -25 ml 539.5 ml -736 ml Justicifation of Admission Dx: Justifications for Admission: Justification of Admission Dx: Yes EZEQUIEL HUGHES MD Mar 11, 2020 09:13
[2020-03-11] MEDS: REMDESIVIR 100mg in NORMAL SALINE 250ML X 4 DAYS IV SCH (09:39)
[2020-03-11] MEDS ORDERED: FUROSEMIDE 40 MG/4 ML VIAL. IVP ONE (10:30)
--- NOTE | 2020-03-11 10:33 | PDOC ---
PULMONARY PROGRESS NOTES DATE: 03/11/20 TIME: 10:21 Subjective Now on BIPAP continuously requiring more Fi02 at 70%, hypoxia overnight, marginal oxygen saturation this am 90% Reports SOB, no cough low grade fever overnight Vitals Vital Signs Date Time Temp Pulse Resp B/P (MAP) Pulse Ox O2 Delivery O2 Flow Rate FiO2 03/11/20 10:00 74 25 127/55 (79) 89 BiPAP/CPAP 03/11/20 08:00 98.8 98.8 03/10/20 13:00 8.0 Comments pt. seen during COVID- pandemic visual exam preformed RRR BIPAP no distress trace edema no rash General: Alert Lungs: Other Labs Laboratory Tests Test 03/09/20 12:22 03/09/20 17:42 03/09/20 20:40 03/09/20 21:17 Glucose (Fingerstick) 294 mg/dL (70-99) 174 mg/dL (70-99) 225 mg/dL (70-99) Hemoglobin 8.9 g/dL (13.0-17.5) Hematocrit 27.2 % (39.0-53.0) Mean Corpuscular Hemoglobin Concent 33 g/dL (31-37) Test 03/10/20 05:30 03/10/20 11:02 03/10/20 17:15 03/10/20 21:00 White Blood Count 11.1 x10^3/uL (4.0-11.0) Red Blood Count 2.62 x10^6/uL (4.30-5.70) Hemoglobin 8.1 g/dL (13.0-17.5) Hematocrit 25.0 % (39.0-53.0) Mean Corpuscular Volume 95 fL (79-100) Mean Corpuscular Hemoglobin 31 pg (25-35) Mean Corpuscular Hemoglobin Concent 33 g/dL (31-37) Red Cell Distribution Width 16.9 % (11.5-14.5) Platelet Count 224 x10^3/uL (140-400) Neutrophils (%) (Auto) 96 % (31-73) Lymphocytes (%) (Auto) 2 % (24-48) Monocytes (%) (Auto) 2 % (0-9) Eosinophils (%) (Auto) 0 % (0-3) Basophils (%) (Auto) 0 % (0-3) Neutrophils # (Auto) 10.6 x10^3/uL (1.8-7.7) Lymphocytes # (Auto) 0.2 x10^3/uL (1.0-4.8) Monocytes # (Auto) 0.3 x10^3/uL (0.0-1.1) Eosinophils # (Auto) 0.0 x10^3/uL (0.0-0.7) Basophils # (Auto) 0.0 x10^3/uL (0.0-0.2) Segmented Neutrophils % 89 % (35-66) Lymphocytes % 4 % (24-48) Monocytes % 7 % (0-10) Nucleated Red Blood Cells 2 Platelet Estimate Adequate (ADEQUATE) Platelet Clumps, EDTA Present Anisocytosis Slight Sodium Level 141 mmol/L (136-145) Potassium Level 4.5 mmol/L (3.5-5.1) Chloride Level 108 mmol/L (98-107) Carbon Dioxide Level 25 mmol/L (21-32) Anion Gap 8 (6-14) Blood Urea Nitrogen 31 mg/dL (8-26) Creatinine 1.2 mg/dL (0.7-1.3) Estimated GFR (Cockcroft-Gault) 57.7 Glucose Level 245 mg/dL (70-99) Calcium Level 7.5 mg/dL (8.5-10.1) Ferritin 464 ng/mL (26-388) C-Reactive Protein, Quantitative 31.2 mg/L (0-3.3) Glucose (Fingerstick) 303 mg/dL (70-99) 214 mg/dL (70-99) 206 mg/dL (70-99) Test 03/11/20 05:30 White Blood Count 15.7 x10^3/uL (4.0-11.0) Red Blood Count 2.95 x10^6/uL (4.30-5.70) Hemoglobin 9.1 g/dL (13.0-17.5) Hematocrit 28.5 % (39.0-53.0) Mean Corpuscular Volume 97 fL (79-100) Mean Corpuscular Hemoglobin 31 pg (25-35) Mean Corpuscular Hemoglobin Concent 32 g/dL (31-37) Red Cell Distribution Width 17.5 % (11.5-14.5) Platelet Count 204 x10^3/uL (140-400) Neutrophils (%) (Auto) 97 % (31-73) Lymphocytes (%) (Auto) 2 % (24-48) Monocytes (%) (Auto) 2 % (0-9) Eosinophils (%) (Auto) 0 % (0-3) Basophils (%) (Auto) 0 % (0-3) Neutrophils # (Auto) 15.2 x10^3/uL (1.8-7.7) Lymphocytes # (Auto) 0.2 x10^3/uL (1.0-4.8) Monocytes # (Auto) 0.3 x10^3/uL (0.0-1.1) Eosinophils # (Auto) 0.0 x10^3/uL (0.0-0.7) Basophils # (Auto) 0.0 x10^3/uL (0.0-0.2) D-Dimer (Alisia) 3.28 ug/mlFEU (0.00-0.50) Sodium Level 140 mmol/L (136-145) Potassium Level 4.5 mmol/L (3.5-5.1) Chloride Level 107 mmol/L (98-107) Carbon Dioxide Level 25 mmol/L (21-32) Anion Gap 8 (6-14) Blood Urea Nitrogen 35 mg/dL (8-26) Creatinine 1.4 mg/dL (0.7-1.3) Estimated GFR (Cockcroft-Gault) 48.3 Glucose Level 156 mg/dL (70-99) Calcium Level 7.3 mg/dL (8.5-10.1) Ferritin 465 ng/mL (26-388) C-Reactive Protein, Quantitative 73.1 mg/L (0-3.3) Procalcitonin 0.75 ng/mL (0.00-0.10) Laboratory Tests Test 03/10/20 11:02 03/10/20 17:15 03/10/20 21:00 03/11/20 05:30 Glucose (Fingerstick) 303 mg/dL (70-99) 214 mg/dL (70-99) 206 mg/dL (70-99) White Blood Count 15.7 x10^3/uL (4.0-11.0) Red Blood Count 2.95 x10^6/uL (4.30-5.70) Hemoglobin 9.1 g/dL (13.0-17.5) Hematocrit 28.5 % (39.0-53.0) Mean Corpuscular Volume 97 fL (79-100) Mean Corpuscular Hemoglobin 31 pg (25-35) Mean Corpuscular Hemoglobin Concent 32 g/dL (31-37) Red Cell Distribution Width 17.5 % (11.5-14.5) Platelet Count 204 x10^3/uL (140-400) Neutrophils (%) (Auto) 97 % (31-73) Lymphocytes (%) (Auto) 2 % (24-48) Monocytes (%) (Auto) 2 % (0-9) Eosinophils (%) (Auto) 0 % (0-3) Basophils (%) (Auto) 0 % (0-3) Neutrophils # (Auto) 15.2 x10^3/uL (1.8-7.7) Lymphocytes # (Auto) 0.2 x10^3/uL (1.0-4.8) Monocytes # (Auto) 0.3 x10^3/uL (0.0-1.1) Eosinophils # (Auto) 0.0 x10^3/uL (0.0-0.7) Basophils # (Auto) 0.0 x10^3/uL (0.0-0.2) D-Dimer (Alisia) 3.28 ug/mlFEU (0.00-0.50) Sodium Level 140 mmol/L (136-145) Potassium Level 4.5 mmol/L (3.5-5.1) Chloride Level 107 mmol/L (98-107) Carbon Dioxide Level 25 mmol/L (21-32) Anion Gap 8 (6-14) Blood Urea Nitrogen 35 mg/dL (8-26) Creatinine 1.4 mg/dL (0.7-1.3) Estimated GFR (Cockcroft-Gault) 48.3 Glucose Level 156 mg/dL (70-99) Calcium Level 7.3 mg/dL (8.5-10.1) Ferritin 465 ng/mL (26-388) C-Reactive Protein, Quantitative 73.1 mg/L (0-3.3) Procalcitonin 0.75 ng/mL (0.00-0.10) Medications Active Scripts Medications Dose Route/Sig Max Daily Dose Days Date Category Phospha 250 Neutral Tablet (Phosphorus #1) 250 Mg Tablet 1 Tab PO DAILY 30 02/29/20 Reported Atorvastatin Calcium 20 Mg Tablet 1 Tab PO DAILYWSUP 02/29/20 Reported Levothyroxine Sodium 25 Mcg Tablet 1 Tab PO DAILY 02/29/20 Reported Iron (Ferrous Sulfate) 325 Mg Tablet 1 Tab PO BID 30 02/29/20 Reported Flomax (Tamsulosin Hcl) 0.4 Mg Cap.er.24h 0.4 Mg PO DAILY 02/29/20 Reported Benicar (Olmesartan Medoxomil) 20 Mg Tablet 1 Tab PO DAILY 30 02/29/20 Reported Cyclobenzaprine Hcl 10 Mg Tablet 1 Tab PO BID PRN 10/08/14 Reported Torsemide 20 Mg Tablet 4 Tab PO DAILY 10/08/14 Reported Benadryl (Diphenhydramine Hcl) 25 Mg Capsule 1 Cap PO QHS 10/08/14 Reported Quinapril Hcl 40 Mg Tablet 1 Tab PO DAILY 10/08/14 Reported Metformin Hcl 500 Mg Tablet 1 Tab PO DAILYBFRSUP 10/08/14 Reported Trazodone Hcl 50 Mg Tablet 50 Mg PO HS 10/08/14 Reported [place] 5-325 Tablet (Acetaminophen/Hydrocodone Bitart) 1 Each Tablet 1 Tab PO Q8HRS PRN 10/08/14 Reported Percocet 5-325 Mg Tablet (Oxycodone/Acetaminophen) 1 Each Tablet 1-2 Tab PO Q6HRS PRN 10/08/14 Reported Potassium Chloride 20 Meq Tab.er.prt 20 Meq PO BID 10/08/14 Reported Combivent Respimat Inhal (Ipratropium/Albuterol Sulfate) 4 Gm Aer.w.adap 2 Inh IH QID PRN 10/08/14 Reported Metformin Hcl 1,000 Mg Tablet 1 Tab PO DAILY08 10/07/14 Reported Comments CXR 03/10/20 IMPRESSION: Stable diffuse bilateral heterogeneous opacities. Impression . IMPRESSION: 1. Acute hypoxemic respiratory failure/multifactorial/acute exacerbation of COPD/COVID-19 2. cxr with bilateral interstitial infiltrates 03/07. suspect combination of congestive heart failure. COVID pneumonia. 3. Suspected severe chronic obstructive pulmonary disease, 60 years of tobacco use, quit 3 years ago. 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 5. Acute kidney injury--improving 6. anemia/ dark stools -- improve S/P transfusion Plan . RECOMMENDATIONS: Continue BIPAP, follow CXR and ABG Lasix X 1 today, with follow CXR this afternoon continue steroids, with taper now off ABX, completed full course bronchodilators MDI 2 puffs and Q4 scheduled / Breo S/P plasma and S/P Remdesvir Follow renal function and nephrology recommendations Follow GI recs and monitor HGB Monitor D-Dimer increased today above 3-- recommend Heparin gtt if ok with GI COVID-19 positive DVT/GI PPX Monitor clinical course D/W RN /RT PT. is DNR, However I spoke to Colleen ALBERT (daughter) in regards to worsening Hypoxia, she would like to proceed with intubation if needed. SEDRICK GARCIA MD Mar 11, 2020 10:33
[2020-03-11 10:40] LABS: BASE EXCESS ABG -1 mmol/L (-3-3); HCO3 ABG 23 mmol/L (21-28); PCO2 ABG 34 mmHg (35-46); PO2 ABG 51 mmHg (65-108); SAT O2 ABG 86 % (92-99)
[2020-03-11 10:44] LABS: FIO2 ABG 70
[2020-03-11] MEDS: PATCH REMOVAL. MC SCH (19:32)
[2020-03-11] MEDS: INSULIN GLARGINE SYRINGE. SQ SCH (21:00)
[2020-03-11] MEDS: MIRTAZAPINE 15 MG TABLET PO SCH (22:38)
[2020-03-12] VITALS (23 sets, daily range): BP systolic 104–142; BP diastolic 47–65
--- NOTE | 2020-03-12 01:02 | RAD ---
INDICATION: Reason: hypoxia / Spl. Instructions: / History: COMPARISON: March 10, 2020 FINDINGS: Single view of chest obtained. Prominent cardiac silhouette is again seen. Hypoexpanded examination of the lungs with multifocal opacities bilaterally. Appears slightly increased from prior. Obliquely oriented line along the right lateral thorax which is most likely secondary to causes such as a skin fold. IMPRESSION: * Hypoexpanded exam with multifocal opacities bilaterally which appear slightly increased from prior. Could be from edema or infiltrate Electronically signed by: Mihir Dolan MD (03/12/2020 12:59 AM) [id number]
[2020-03-12] MEDS: IPRATRPIUM/ALBUTEROL 0.5/2.5MG 3 ML NEBU. NEB SCH ×6 (04:00→20:00)
[2020-03-12 05:47] LABS: BASO % 0 % (0-3); EOS % 0 % (0-3); HEMATOCRIT 25.8 % (39.0-53.0); HEMOGLOBIN 8.5 g/dL (13.0-17.5); LYMPH # 0.2 x10^3/uL (1.0-4.8); LYMPH % 2 % (24-48); MEAN CORPUSCULAR HEMOGLOBIN 32 pg (25-35); MEAN CORPUSCULAR HGB CONC 33 g/dL (31-37); MEAN CORPUSCULAR VOLUME 97 fL (79-100); MONO # 0.1 x10^3/uL (0.0-1.1); MONO % 1 % (0-9); NEUT # 10.3 x10^3/uL (1.8-7.7); NEUT % 97 % (31-73); PLATELET COUNT 163 x10^3/uL (140-400); RED BLOOD COUNT 2.67 x10^6/uL (4.30-5.70); RED CELL DISTRIBUTION WIDTH 16.8 % (11.5-14.5); WHITE BLOOD COUNT 10.6 x10^3/uL (4.0-11.0)
[2020-03-12 06:18] LABS: C-REACTIVE PROTEIN 164.3 mg/L (0-3.3); CALCIUM 7.2 mg/dL (8.5-10.1); CREATININE 1.3 mg/dL (0.7-1.3); GFR 52.6
[2020-03-12] MEDS: BUDESONIDE 0.5 MG/2 ML NEBU. NEB SCH ×2 (08:20→20:00)
[2020-03-12] MEDS: LIDOCAINE (700MG/PATCH) PATCH. TD SCH (09:00)
[2020-03-12] MEDS: methylPREDNISolone SOD SUCC PF 40 MG/ML VIAL. IV SCH ×2 (09:26→22:16)
[2020-03-12] MEDS: INSULIN LISPRO 300 UNITS/3 ML VIAL. SQ SCH ×7 (09:30→23:26)
--- NOTE | 2020-03-12 09:56 | PDOC ---
PULMONARY PROGRESS NOTES DATE: 03/12/20 TIME: 09:53 Subjective Now on BIPAP continuously requiring more Fi02 at 780% resting comfortably, now on precedex Vitals Vital Signs Date Time Temp Pulse Resp B/P (MAP) Pulse Ox O2 Delivery O2 Flow Rate FiO2 03/12/20 08:28 93 BiPAP/CPAP 03/12/20 07:00 54 16 113/53 (73) 03/12/20 05:00 98.0 98.0 Comments pt. seen during COVID- pandemic visual exam preformed RRR BIPAP no distress trace edema no rash General: Alert Lungs: Other Labs Laboratory Tests Test 03/10/20 11:02 03/10/20 17:15 03/10/20 21:00 03/11/20 05:30 Glucose (Fingerstick) 303 mg/dL (70-99) 214 mg/dL (70-99) 206 mg/dL (70-99) White Blood Count 15.7 x10^3/uL (4.0-11.0) Red Blood Count 2.95 x10^6/uL (4.30-5.70) Hemoglobin 9.1 g/dL (13.0-17.5) Hematocrit 28.5 % (39.0-53.0) Mean Corpuscular Volume 97 fL (79-100) Mean Corpuscular Hemoglobin 31 pg (25-35) Mean Corpuscular Hemoglobin Concent 32 g/dL (31-37) Red Cell Distribution Width 17.5 % (11.5-14.5) Platelet Count 204 x10^3/uL (140-400) Neutrophils (%) (Auto) 97 % (31-73) Lymphocytes (%) (Auto) 2 % (24-48) Monocytes (%) (Auto) 2 % (0-9) Eosinophils (%) (Auto) 0 % (0-3) Basophils (%) (Auto) 0 % (0-3) Neutrophils # (Auto) 15.2 x10^3/uL (1.8-7.7) Lymphocytes # (Auto) 0.2 x10^3/uL (1.0-4.8) Monocytes # (Auto) 0.3 x10^3/uL (0.0-1.1) Eosinophils # (Auto) 0.0 x10^3/uL (0.0-0.7) Basophils # (Auto) 0.0 x10^3/uL (0.0-0.2) D-Dimer (Alisia) 3.28 ug/mlFEU (0.00-0.50) Sodium Level 140 mmol/L (136-145) Potassium Level 4.5 mmol/L (3.5-5.1) Chloride Level 107 mmol/L (98-107) Carbon Dioxide Level 25 mmol/L (21-32) Anion Gap 8 (6-14) Blood Urea Nitrogen 35 mg/dL (8-26) Creatinine 1.4 mg/dL (0.7-1.3) Estimated GFR (Cockcroft-Gault) 48.3 Glucose Level 156 mg/dL (70-99) Calcium Level 7.3 mg/dL (8.5-10.1) Ferritin 465 ng/mL (26-388) C-Reactive Protein, Quantitative 73.1 mg/L (0-3.3) Procalcitonin 0.75 ng/mL (0.00-0.10) Test 03/11/20 10:12 03/11/20 16:36 03/11/20 21:58 03/12/20 05:30 O2 Saturation 86 % (92-99) Arterial Blood pH 7.45 (7.35-7.45) Arterial Blood pCO2 at Patient Temp 34 mmHg (35-46) Arterial Blood pO2 at Patient Temp 51 mmHg (65-108) Arterial Blood HCO3 23 mmol/L (21-28) Arterial Blood Base Excess -1 mmol/L (-3-3) FiO2 70 Glucose (Fingerstick) 199 mg/dL (70-99) 175 mg/dL (70-99) White Blood Count 10.6 x10^3/uL (4.0-11.0) Red Blood Count 2.67 x10^6/uL (4.30-5.70) Hemoglobin 8.5 g/dL (13.0-17.5) Hematocrit 25.8 % (39.0-53.0) Mean Corpuscular Volume 97 fL (79-100) Mean Corpuscular Hemoglobin 32 pg (25-35) Mean Corpuscular Hemoglobin Concent 33 g/dL (31-37) Red Cell Distribution Width 16.8 % (11.5-14.5) Platelet Count 163 x10^3/uL (140-400) Neutrophils (%) (Auto) 97 % (31-73) Lymphocytes (%) (Auto) 2 % (24-48) Monocytes (%) (Auto) 1 % (0-9) Eosinophils (%) (Auto) 0 % (0-3) Basophils (%) (Auto) 0 % (0-3) Neutrophils # (Auto) 10.3 x10^3/uL (1.8-7.7) Lymphocytes # (Auto) 0.2 x10^3/uL (1.0-4.8) Monocytes # (Auto) 0.1 x10^3/uL (0.0-1.1) Eosinophils # (Auto) 0.0 x10^3/uL (0.0-0.7) Basophils # (Auto) 0.0 x10^3/uL (0.0-0.2) Sodium Level 140 mmol/L (136-145) Potassium Level 5.0 mmol/L (3.5-5.1) Chloride Level 107 mmol/L (98-107) Carbon Dioxide Level 25 mmol/L (21-32) Anion Gap 8 (6-14) Blood Urea Nitrogen 41 mg/dL (8-26) Creatinine 1.3 mg/dL (0.7-1.3) Estimated GFR (Cockcroft-Gault) 52.6 Glucose Level 248 mg/dL (70-99) Calcium Level 7.2 mg/dL (8.5-10.1) Ferritin 419 ng/mL (26-388) C-Reactive Protein, Quantitative 164.3 mg/L (0-3.3) Laboratory Tests Test 03/11/20 10:12 03/11/20 16:36 03/11/20 21:58 03/12/20 05:30 O2 Saturation 86 % (92-99) Arterial Blood pH 7.45 (7.35-7.45) Arterial Blood pCO2 at Patient Temp 34 mmHg (35-46) Arterial Blood pO2 at Patient Temp 51 mmHg (65-108) Arterial Blood HCO3 23 mmol/L (21-28) Arterial Blood Base Excess -1 mmol/L (-3-3) FiO2 70 Glucose (Fingerstick) 199 mg/dL (70-99) 175 mg/dL (70-99) White Blood Count 10.6 x10^3/uL (4.0-11.0) Red Blood Count 2.67 x10^6/uL (4.30-5.70) Hemoglobin 8.5 g/dL (13.0-17.5) Hematocrit 25.8 % (39.0-53.0) Mean Corpuscular Volume 97 fL (79-100) Mean Corpuscular Hemoglobin 32 pg (25-35) Mean Corpuscular Hemoglobin Concent 33 g/dL (31-37) Red Cell Distribution Width 16.8 % (11.5-14.5) Platelet Count 163 x10^3/uL (140-400) Neutrophils (%) (Auto) 97 % (31-73) Lymphocytes (%) (Auto) 2 % (24-48) Monocytes (%) (Auto) 1 % (0-9) Eosinophils (%) (Auto) 0 % (0-3) Basophils (%) (Auto) 0 % (0-3) Neutrophils # (Auto) 10.3 x10^3/uL (1.8-7.7) Lymphocytes # (Auto) 0.2 x10^3/uL (1.0-4.8) Monocytes # (Auto) 0.1 x10^3/uL (0.0-1.1) Eosinophils # (Auto) 0.0 x10^3/uL (0.0-0.7) Basophils # (Auto) 0.0 x10^3/uL (0.0-0.2) Sodium Level 140 mmol/L (136-145) Potassium Level 5.0 mmol/L (3.5-5.1) Chloride Level 107 mmol/L (98-107) Carbon Dioxide Level 25 mmol/L (21-32) Anion Gap 8 (6-14) Blood Urea Nitrogen 41 mg/dL (8-26) Creatinine 1.3 mg/dL (0.7-1.3) Estimated GFR (Cockcroft-Gault) 52.6 Glucose Level 248 mg/dL (70-99) Calcium Level 7.2 mg/dL (8.5-10.1) Ferritin 419 ng/mL (26-388) C-Reactive Protein, Quantitative 164.3 mg/L (0-3.3) Medications Active Scripts Medications Dose Route/Sig Max Daily Dose Days Date Category Phospha 250 Neutral Tablet (Phosphorus #1) 250 Mg Tablet 1 Tab PO DAILY 30 02/29/20 Reported Atorvastatin Calcium 20 Mg Tablet 1 Tab PO DAILYWSUP 02/29/20 Reported Levothyroxine Sodium 25 Mcg Tablet 1 Tab PO DAILY 02/29/20 Reported Iron (Ferrous Sulfate) 325 Mg Tablet 1 Tab PO BID 30 02/29/20 Reported Flomax (Tamsulosin Hcl) 0.4 Mg Cap.er.24h 0.4 Mg PO DAILY 02/29/20 Reported Benicar (Olmesartan Medoxomil) 20 Mg Tablet 1 Tab PO DAILY 30 02/29/20 Reported Cyclobenzaprine Hcl 10 Mg Tablet 1 Tab PO BID PRN 10/08/14 Reported Torsemide 20 Mg Tablet 4 Tab PO DAILY 10/08/14 Reported Benadryl (Diphenhydramine Hcl) 25 Mg Capsule 1 Cap PO QHS 10/08/14 Reported Quinapril Hcl 40 Mg Tablet 1 Tab PO DAILY 10/08/14 Reported Metformin Hcl 500 Mg Tablet 1 Tab PO DAILYBFRSUP 10/08/14 Reported Trazodone Hcl 50 Mg Tablet 50 Mg PO HS 10/08/14 Reported [place] 5-325 Tablet (Acetaminophen/Hydrocodone Bitart) 1 Each Tablet 1 Tab PO Q8HRS PRN 10/08/14 Reported Percocet 5-325 Mg Tablet (Oxycodone/Acetaminophen) 1 Each Tablet 1-2 Tab PO Q6HRS PRN 10/08/14 Reported Potassium Chloride 20 Meq Tab.er.prt 20 Meq PO BID 10/08/14 Reported Combivent Respimat Inhal (Ipratropium/Albuterol Sulfate) 4 Gm Aer.w.adap 2 Inh IH QID PRN 10/08/14 Reported Metformin Hcl 1,000 Mg Tablet 1 Tab PO DAILY08 10/07/14 Reported Comments CXR 03/10/20 IMPRESSION: Stable diffuse bilateral heterogeneous opacities. CXR 03/11 IMPRESSION: * Hypoexpanded exam with multifocal opacities bilaterally which appear slightly increased from prior. Could be from edema or infiltrate Impression . IMPRESSION: 1. Acute hypoxemic respiratory failure/multifactorial/acute exacerbation of COPD/COVID-19--worsening 2. cxr with bilateral interstitial infiltrates 03/07. suspect combination of congestive heart failure. COVID pneumonia. 3. Suspected severe chronic obstructive pulmonary disease, 60 years of tobacco use, quit 3 years ago. 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 5. Acute kidney injury--improving 6. anemia/ dark stools -- improve S/P transfusion Plan . RECOMMENDATIONS: Continue BIPAP, follow CXR and ABG, currently BIPAP at 80% continue steroids, with taper now off ABX, completed full course bronchodilators MDI 2 puffs and Q4 scheduled / Breo S/P plasma and S/P Remdesvir Follow renal function and nephrology recommendations Follow GI recs and monitor HGB will start PPN for nutritional support Monitor D-Dimer increased today above 3 COVID-19 positive DVT/GI PPX Monitor clinical course D/W RN /RT PT. is DNR, Colleen DPOA (daughter) would like to proceed with intubation if needed. SEDRICK GARCIA MD Mar 12, 2020 09:56
[2020-03-12] MEDS: REMDESIVIR 100mg in NORMAL SALINE 250ML X 4 DAYS IV SCH (10:15)
[2020-03-12] MEDS: DEXMEDETOMIDINE 400 MCG in IV NORMAL SALINE 100ML 96 ML IV PRN (10:19)
--- NOTE | 2020-03-12 11:02 | PDOC ---
PROGRESS NOTES Date of Service: DATE: 03/12/20 TIME: 11:02 Chief Complaint Chief Complaint impression Dyspnea with no significant hypoxia based on the ABG, likely related to mild congestive heart failure. also with COVID pneumonia. SARS-CoV-2 - with pneumonia. On steroids, Lovenox. Pulm consulted Abnormal chest x-ray with faint interstitial infiltrates - likely CHF and COVID 19 POSTIVE Severe chronic obstructive pulmonary disease, 60 years of tobacco use, quit 3 years ago. 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 His BUN and creatinine was high as well as LFTs. He required 2 liters of oxygen. LFTs also elevated. 03/01: Still requiring O2. Significant wheezes and prolonged expiratory phase. He says he just wants to sleep. He says "Im 84 I have nothing to live for about my cats." 03/02: COVID-19 positive. He is having some back pain today. Still little hypoxic. EGD and colonoscopy on hold due to his COVID-19 positive status 03/03: Afebrile. Seen on 4 L nasal cannula, he is having a bowel movement, notes that he is having he is eating but is having loose bowels currently they are a little dark. No significant pain. His shortness of breath is stable. Slight cough. Back pain improved with Lidoderm patch. 03/03: Still afebrile with 4 liters nasal cannula O2. His glucose has become very elevated. He feels no worse than yesterday. Afebrile, now on 6 L nasal cannula, he is having more diarrhea, he does not notice much blood. Glucose has been in the 400s, unfortunately he did not receive his Lantus in the evening yesterday evening. C diff negative 03/06/2020 Patient with increasing O2 requirements this morning. Patient has increasing dyspnea but still maintaining sats of 94% on 15 L Venturi mask. Pulmonary evaluated and recommends for patient to be transferred to the ICU with BiPAP. 03/08 Breathing on BiPAP. VTE held due to GI bleed, H&H stable. 03/09: Patient is off BiPAP currently breathing on 8 L high flow nasal cannula. H & H dropped to 6.6 today, transfuse 1 unit packed red blood cells. GI to follow, thank you for your expertise. No scope plan due to COVID-19 positive. 03/10: Per nursing staff, no acute events overnight. Breathing on 8L NC. Blood sugar improving. Continue steroids and blood pressure management. Vitals Vitals Vital Signs Date Time Temp Pulse Resp B/P (MAP) Pulse Ox O2 Delivery O2 Flow Rate FiO2 03/12/20 10:00 62 21 132/54 (80) 94 BiPAP/CPAP 03/12/20 08:00 97.2 97.2 Physical Exam Physical Exam GEN: No apparent distress. Alert and oriented HEENT: Normal cephalic, atraumatic, external auditory canals are patent NECK: Supple, no JVD, no thyromegaly was noted LUNGS: Bilateral crackles and wheezing HEART: RRR, S1, S2 present. Peripheral pulses intact, no obvious murmurs noted ABDOMEN: Soft, nontender. Positive bowel sounds, no organomegaly, normal bowel sounds EXTREMITIES: Without clubbing, cyanosis, or edema. Pedal pulses intact. Negative Homans sign General: Alert, Cooperative Heart: Regular rate Lungs: Other Abdomen: Other (Nondistended) Extremities: No clubbing, No cyanosis, No edema Skin: No rashes, No breakdown Labs LABS Laboratory Tests Test 03/11/20 16:36 03/11/20 21:58 03/12/20 05:30 Glucose (Fingerstick) 199 mg/dL (70-99) 175 mg/dL (70-99) White Blood Count 10.6 x10^3/uL (4.0-11.0) Red Blood Count 2.67 x10^6/uL (4.30-5.70) Hemoglobin 8.5 g/dL (13.0-17.5) Hematocrit 25.8 % (39.0-53.0) Mean Corpuscular Volume 97 fL (79-100) Mean Corpuscular Hemoglobin 32 pg (25-35) Mean Corpuscular Hemoglobin Concent 33 g/dL (31-37) Red Cell Distribution Width 16.8 % (11.5-14.5) Platelet Count 163 x10^3/uL (140-400) Neutrophils (%) (Auto) 97 % (31-73) Lymphocytes (%) (Auto) 2 % (24-48) Monocytes (%) (Auto) 1 % (0-9) Eosinophils (%) (Auto) 0 % (0-3) Basophils (%) (Auto) 0 % (0-3) Neutrophils # (Auto) 10.3 x10^3/uL (1.8-7.7) Lymphocytes # (Auto) 0.2 x10^3/uL (1.0-4.8) Monocytes # (Auto) 0.1 x10^3/uL (0.0-1.1) Eosinophils # (Auto) 0.0 x10^3/uL (0.0-0.7) Basophils # (Auto) 0.0 x10^3/uL (0.0-0.2) Sodium Level 140 mmol/L (136-145) Potassium Level 5.0 mmol/L (3.5-5.1) Chloride Level 107 mmol/L (98-107) Carbon Dioxide Level 25 mmol/L (21-32) Anion Gap 8 (6-14) Blood Urea Nitrogen 41 mg/dL (8-26) Creatinine 1.3 mg/dL (0.7-1.3) Estimated GFR (Cockcroft-Gault) 52.6 Glucose Level 248 mg/dL (70-99) Calcium Level 7.2 mg/dL (8.5-10.1) Ferritin 419 ng/mL (26-388) C-Reactive Protein, Quantitative 164.3 mg/L (0-3.3) Assessment and Plan Assessmemt and Plan Problems Medical Problems: (1) Acute renal failure Status: Acute (2) COPD exacerbation Status: Acute (3) GI bleeding Status: Acute Comment Review of Relevant I have reviewed the following items kamini (where applicable) has been applied. Labs Laboratory Tests Test 8/28/20 17:15 03/10/20 21:00 03/11/20 05:30 03/11/20 10:12 Glucose (Fingerstick) 214 mg/dL (70-99) 206 mg/dL (70-99) White Blood Count 15.7 x10^3/uL (4.0-11.0) Red Blood Count 2.95 x10^6/uL (4.30-5.70) Hemoglobin 9.1 g/dL (13.0-17.5) Hematocrit 28.5 % (39.0-53.0) Mean Corpuscular Volume 97 fL (79-100) Mean Corpuscular Hemoglobin 31 pg (25-35) Mean Corpuscular Hemoglobin Concent 32 g/dL (31-37) Red Cell Distribution Width 17.5 % (11.5-14.5) Platelet Count 204 x10^3/uL (140-400) Neutrophils (%) (Auto) 97 % (31-73) Lymphocytes (%) (Auto) 2 % (24-48) Monocytes (%) (Auto) 2 % (0-9) Eosinophils (%) (Auto) 0 % (0-3) Basophils (%) (Auto) 0 % (0-3) Neutrophils # (Auto) 15.2 x10^3/uL (1.8-7.7) Lymphocytes # (Auto) 0.2 x10^3/uL (1.0-4.8) Monocytes # (Auto) 0.3 x10^3/uL (0.0-1.1) Eosinophils # (Auto) 0.0 x10^3/uL (0.0-0.7) Basophils # (Auto) 0.0 x10^3/uL (0.0-0.2) D-Dimer (Alisia) 3.28 ug/mlFEU (0.00-0.50) Sodium Level 140 mmol/L (136-145) Potassium Level 4.5 mmol/L (3.5-5.1) Chloride Level 107 mmol/L (98-107) Carbon Dioxide Level 25 mmol/L (21-32) Anion Gap 8 (6-14) Blood Urea Nitrogen 35 mg/dL (8-26) Creatinine 1.4 mg/dL (0.7-1.3) Estimated GFR (Cockcroft-Gault) 48.3 Glucose Level 156 mg/dL (70-99) Calcium Level 7.3 mg/dL (8.5-10.1) Ferritin 465 ng/mL (26-388) C-Reactive Protein, Quantitative 73.1 mg/L (0-3.3) Procalcitonin 0.75 ng/mL (0.00-0.10) O2 Saturation 86 % (92-99) Arterial Blood pH 7.45 (7.35-7.45) Arterial Blood pCO2 at Patient Temp 34 mmHg (35-46) Arterial Blood pO2 at Patient Temp 51 mmHg (65-108) Arterial Blood HCO3 23 mmol/L (21-28) Arterial Blood Base Excess -1 mmol/L (-3-3) FiO2 70 Test 03/11/20 16:36 03/11/20 21:58 03/12/20 05:30 Glucose (Fingerstick) 199 mg/dL (70-99) 175 mg/dL (70-99) White Blood Count 10.6 x10^3/uL (4.0-11.0) Red Blood Count 2.67 x10^6/uL (4.30-5.70) Hemoglobin 8.5 g/dL (13.0-17.5) Hematocrit 25.8 % (39.0-53.0) Mean Corpuscular Volume 97 fL (79-100) Mean Corpuscular Hemoglobin 32 pg (25-35) Mean Corpuscular Hemoglobin Concent 33 g/dL (31-37) Red Cell Distribution Width 16.8 % (11.5-14.5) Platelet Count 163 x10^3/uL (140-400) Neutrophils (%) (Auto) 97 % (31-73) Lymphocytes (%) (Auto) 2 % (24-48) Monocytes (%) (Auto) 1 % (0-9) Eosinophils (%) (Auto) 0 % (0-3) Basophils (%) (Auto) 0 % (0-3) Neutrophils # (Auto) 10.3 x10^3/uL (1.8-7.7) Lymphocytes # (Auto) 0.2 x10^3/uL (1.0-4.8) Monocytes # (Auto) 0.1 x10^3/uL (0.0-1.1) Eosinophils # (Auto) 0.0 x10^3/uL (0.0-0.7) Basophils # (Auto) 0.0 x10^3/uL (0.0-0.2) Sodium Level 140 mmol/L (136-145) Potassium Level 5.0 mmol/L (3.5-5.1) Chloride Level 107 mmol/L (98-107) Carbon Dioxide Level 25 mmol/L (21-32) Anion Gap 8 (6-14) Blood Urea Nitrogen 41 mg/dL (8-26) Creatinine 1.3 mg/dL (0.7-1.3) Estimated GFR (Cockcroft-Gault) 52.6 Glucose Level 248 mg/dL (70-99) Calcium Level 7.2 mg/dL (8.5-10.1) Ferritin 419 ng/mL (26-388) C-Reactive Protein, Quantitative 164.3 mg/L (0-3.3) Laboratory Tests Test 03/11/20 16:36 03/11/20 21:58 03/12/20 05:30 Glucose (Fingerstick) 199 mg/dL (70-99) 175 mg/dL (70-99) White Blood Count 10.6 x10^3/uL (4.0-11.0) Red Blood Count 2.67 x10^6/uL (4.30-5.70) Hemoglobin 8.5 g/dL (13.0-17.5) Hematocrit 25.8 % (39.0-53.0) Mean Corpuscular Volume 97 fL (79-100) Mean Corpuscular Hemoglobin 32 pg (25-35) Mean Corpuscular Hemoglobin Concent 33 g/dL (31-37) Red Cell Distribution Width 16.8 % (11.5-14.5) Platelet Count 163 x10^3/uL (140-400) Neutrophils (%) (Auto) 97 % (31-73) Lymphocytes (%) (Auto) 2 % (24-48) Monocytes (%) (Auto) 1 % (0-9) Eosinophils (%) (Auto) 0 % (0-3) Basophils (%) (Auto) 0 % (0-3) Neutrophils # (Auto) 10.3 x10^3/uL (1.8-7.7) Lymphocytes # (Auto) 0.2 x10^3/uL (1.0-4.8) Monocytes # (Auto) 0.1 x10^3/uL (0.0-1.1) Eosinophils # (Auto) 0.0 x10^3/uL (0.0-0.7) Basophils # (Auto) 0.0 x10^3/uL (0.0-0.2) Sodium Level 140 mmol/L (136-145) Potassium Level 5.0 mmol/L (3.5-5.1) Chloride Level 107 mmol/L (98-107) Carbon Dioxide Level 25 mmol/L (21-32) Anion Gap 8 (6-14) Blood Urea Nitrogen 41 mg/dL (8-26) Creatinine 1.3 mg/dL (0.7-1.3) Estimated GFR (Cockcroft-Gault) 52.6 Glucose Level 248 mg/dL (70-99) Calcium Level 7.2 mg/dL (8.5-10.1) Ferritin 419 ng/mL (26-388) C-Reactive Protein, Quantitative 164.3 mg/L (0-3.3) Microbiology 02/29/20 Blood Culture - Final, Complete NO GROWTH AFTER 5 DAYS Medications Current Medications Albuterol/ Ipratropium (Duoneb) 6 ml 1X ONCE NEB Last administered on 02/29/20at 11:24; Start 02/29/20 at 10:30; Stop 02/29/20 at 10:31; Status DC Methylprednisolone Sodium Succinate (SOLU-Medrol 125MG VIAL) 125 mg 1X ONCE IV Last administered on 02/29/20at 10:23; Start 02/29/20 at 10:30; Stop 02/29/20 at 10:31; Status DC Sodium Chloride 1,000 ml @ 1,000 mls/hr 1X ONCE IV Last administered on 02/29/20at 17:42; Start 02/29/20 at 13:15; Stop 02/29/20 at 14:14; Status DC Ondansetron HCl (Zofran) 4 mg PRN Q8HRS PRN IV NAUSEA/VOMITING; Start 02/29/20 at 13:30; Stop 03/01/20 at 13:29; Status DC Acetaminophen (Tylenol) 650 mg PRN Q4HRS PRN PO FEVER > 100.3'F; Start 02/29/20 at 13:30; Stop 03/01/20 at 13:29; Status DC Albuterol/ Ipratropium (Duoneb) 3 ml RTQID NEB ; Start 02/29/20 at 16:00; Stop 02/29/20 at 13:58; Status DC Albuterol/ Ipratropium (Duoneb) 3 ml PRN QID PRN NEB SHORTNESS OF BREATH; Start 02/29/20 at 14:00; Stop 03/01/20 at 13:59; Status DC Pantoprazole Sodium (Protonix) 40 mg DAILYAC PO Last administered on 03/10/20at 08:42; Start 03/01/20 at 07:30 Sucralfate (Carafate) 1 gm BID PO Last administered on 03/11/20at 22:37; Start 02/29/20 at 21:00 Polyethylene Glycol (miraLAX PACKET) 17 gm PRN DAILY PRN PO CONSTIPATION; S tart 02/29/20 at 15:15 Ferrous Sulfate (Feosol) 325 mg BIDWMEALS PO Last administered on 03/10/20at 17:16; Start 03/01/20 at 17:00 Polyethylene Glycol (miraLAX PACKET) 17 gm PRN DAILY PRN PO CONSTIPATION; Start 03/01/20 at 10:15; Stop 03/01/20 at 10:12; Status DC Methylprednisolone Sodium Succinate (SOLU-Medrol 40MG VIAL) 40 mg DAILY IV Last administered on 03/02/20at 10:56; Start 03/01/20 at 11:00; Stop 03/02/20 at 11:11; Status DC Olanzapine (ZyPREXA ZYDIS) 5 mg PRN BID PRN PO AGITATION; Start 03/01/20 at 11:15 Sodium Cl/Sod Bicarb/Potass Cl/ PEG (Golytely) 4,000 ml 1X ONCE PO Last administered on 03/01/20at 14:47; Start 03/01/20 at 14:00; Stop 03/01/20 at 14:01; Status DC Ringer's Solution 1,000 ml @ 50 mls/hr Q20H IV ; Start 03/02/20 at 07:00; Stop 03/02/20 at 18:59; Status DC Diphenhydramine HCl (Benadryl) 25 mg PRN QHS PRN PO INSOMNIA Last administered on 03/08/20 21:02; Start 03/01/20 at 22:15 Albuterol Sulfate (Ventolin Hfa) 1 puff PRN QID PRN INH SHORTNESS OF BREATH Last administered on 03/03/20at 12:43; Start 03/02/20 at 01:00; Stop 03/04/20 at 10:34; Status DC Acetaminophen (Tylenol) 650 mg PRN Q6HRS PRN PO temperature Last administered on 03/10/20at 22:41; Start 03/02/20 at 03:30 Methylprednisolone Sodium Succinate (SOLU-Medrol 40MG VIAL) 20 mg 1X ONCE IV Last administered on 03/02/20at 11:15; Start 03/02/20 at 11:15; Stop 03/02/20 at 11:16; Status DC Piperacillin Sod/ Tazobactam Sod (Zosyn Per Pharmacy) 1 each PRN DAILY PRN MC SEE COMMENTS; Start 03/02/20 at 11:15; Stop 03/08/20 at 14:48; Status DC Piperacillin Sod/ Tazobactam Sod 2.25 gm/Sodium Chloride 50 ml @ 100 mls/hr Q6HRS IV Last administered on 03/08/20at 12:38; Start 03/02/20 at 12:00; Stop 03/08/20 at 14:48; Status DC Methylprednisolone Sodium Succinate (SOLU-Medrol 40MG VIAL) 60 mg Q8HRS IV Last administered on 03/10/20at 06:13; Start 03/02/20 at 14:00; Stop 03/10/20 at 11:29; Status DC Lidocaine (Lidoderm) 1 patch DAILY TD Last administered on 03/08/20at 08:56; Start 03/02/20 at 14:30 Miscellaneous (Lidoderm Patch Removal) 1 ea QHS MC Last administered on 03/07/20at 20:48; Start 03/02/20 at 21:00 Sertraline HCl (Zoloft) 25 mg DAILY PO Last administered on 03/05/20at 08:39; Start 03/03/20 at 09:00; Stop 03/05/20 at 19:23; Status DC Furosemide (Lasix) 20 mg 1X ONCE IVP Last administered on 03/04/20at 12:17; Start 03/04/20 at 11:00; Stop 03/04/20 at 11:01; Status DC Albuterol Sulfate (Ventolin Hfa) 2 puff Q4HRS INH Last administered on 03/07/20at 07:51; Start 03/04/20 at 12:00; Stop 03/07/20 at 17:37; Status DC Insulin Glargine (Lantus Syringe) 20 unit QHS SQ ; Start 03/04/20 at 21:00; Stop 03/05/20 at 15:08; Status DC Insulin Human Lispro (HumaLOG) 0-9 UNITS TIDACHC SQ Last administered on 03/12/20at 09:30; Start 03/04/20 at 13:00 Dextrose (Dextrose 50%-Water Syringe) 12.5 gm PRN Q15MIN PRN IV SEE COMMENTS; Start 03/04/20 at 13:00 Lactobacillus Rhamnosus (Culturelle) 1 cap BID PO Last administered on 03/11/20at 22:38; Start 03/04/20 at 13:00 Insulin Human Lispro (HumaLOG) 9 units 1X ONCE SQ Last administered on 03/04/20at 13:53; Start 03/04/20 at 13:30; Stop 03/04/20 at 13:35; Status DC Insulin Human Lispro (HumaLOG) 5 units TIDAC SQ Last administered on 03/12/20at 09:31; Start 03/05/20 at 08:00 Insulin Glargine (Lantus Syringe) 25 unit QHS SQ Last administered on 03/11/20at 21:00; Start 03/05/20 at 21:00 Loperamide HCl (Imodium) 2 mg PRN Q15MIN PRN PO DIARRHEA; Start 03/05/20 at 15:15 Sertraline HCl (Zoloft) 50 mg DAILY PO Last administered on 03/09/20at 08:33; Start 03/06/20 at 09:00; Stop 03/09/20 at 16:28; Status DC Sodium Chloride 1,000 ml @ 75 mls/hr [id number] IV Last administered on 03/07/20at 00:53; Start 03/06/20 at 14:00; Stop 03/07/20 at 13:50; Status DC Mirtazapine (Remeron) 15 mg QHS PO Last administered on 03/11/20at 22:38; Start 03/06/20 at 21:00 Hydralazine HCl (Apresoline Inj) 10 mg PRN Q4HRS PRN IVP ELEVATED BP, SEE COMMENTS Last administered on 03/09/20at 22:24; Start 03/07/20 at 09:30 Methylprednisolone Sodium Succinate (SOLU-Medrol 125MG VIAL) 125 mg 1X ONCE IV Last administered on 03/07/20at 10:48; Start 03/07/20 at 10:45; Stop 03/07/20 at 10:46; Status DC Fluticasone/ Vilanterol (Breo Ellipta 100-25 Mcg) 1 puff DAILY INH ; Start 03/07/20 at 11:30; Stop 03/07/20 at 11:02; Status DC Fluticasone/ Vilanterol (Breo Ellipta 100-25 Mcg) 1 puff DAILY INH ; Start 03/07/20 at 11:30; Stop 03/07/20 at 11:02; Status DC Fluticasone/ Vilanterol (Breo Ellipta 100-25 Mcg) 1 puff DAILY INH ; Start 03/07/20 at 11:30; Stop 03/07/20 at 17:37; Status DC Furosemide (Lasix) 40 mg 1X ONCE IVP Last administered on 03/07/20at 12:49; Start 03/07/20 at 12:45; Stop 03/07/20 at 12:46; Status DC Sodium Chloride 1,000 ml @ 75 mls/hr [id number] IV Last administered on 03/11/20at 22:00; Start 03/07/20 at 14:00 Non-Formulary Medication 1 ea/ Sodium Chloride 210 ml @ 210 mls/hr 1X ONCE IV Last administered on 03/08/20at 08:57; Start 03/08/20 at 09:00; Stop 03/08/20 at 09:59; Status DC Non-Formulary Medication 1 ea/ Sodium Chloride 230 ml @ 460 mls/hr Q24H IV Last administered on 03/12/20at 10:15; Start 03/09/20 at 09:00; Stop 03/12/20 at 09:29; Status DC Albuterol/ Ipratropium (Duoneb) 3 ml Q4HRS NEB Last administered on 03/12/20at 08:20; Start 03/07/20 at 20:00 Budesonide (Pulmicort) 0.5 mg RTBID NEB Last administered on 03/12/20at 08:20; Start 03/07/20 at 20:00 Sertraline HCl (Zoloft) 100 mg DAILY PO Last administered on 03/10/20at 08:42; Start 03/10/20 at 09:00 Methylprednisolone Sodium Succinate (SOLU-Medrol 40MG VIAL) 40 mg BID IV Last administered on 03/12/20at 09:26; Start 03/10/20 at 21:00 Furosemide (Lasix) 40 mg 1X ONCE IVP Last administered on 03/10/20at 21:03; Start 03/10/20 at 19:00; Stop 03/10/20 at 19:01; Status DC Metoprolol Tartrate (Lopressor) 25 mg PRN BID PRN PO TACHYCARDIA; Start 03/10/20 at 22:30 Dexmedetomidine HCl 400 mcg/ Sodium Chloride 100 ml @ 0 mls/hr CONT PRN IV SEE COMMENTS Last administered on 03/12/20at 10:19; Start 03/11/20 at 07:45 Sodium Chloride 500 ml @ 500 mls/hr 1X PRN PRN IV SEE COMMENTS; Start 03/11/20 at 07:45 Atropine Sulfate (ATROPINE 0.5mg SYRINGE) 0.5 mg PRN Q5MIN PRN IV SEE COMMENTS; Start 03/11/20 at 07:45 Furosemide (Lasix) 40 mg 1X ONCE IVP Last administered on 03/11/20at 10:30; Start 03/11/20 at 10:30; Stop 03/11/20 at 10:31; Status DC Amino Acids/ Glycerin/ Electrolytes 1,000 ml @ 80 mls/hr [id number] IV ; Start 03/12/20 at 10:00 Active Scripts Active Reported Phospha 250 Neutral Tablet (Phosphorus #1) 250 Mg Tablet 1 Tab PO DAILY 30 Days Atorvastatin Calcium 20 Mg Tablet 1 Tab PO DAILYWSUP Levothyroxine Sodium 25 Mcg Tablet 1 Tab PO DAILY Iron (Ferrous Sulfate) 325 Mg Tablet 1 Tab PO BID 30 Days Flomax (Tamsulosin Hcl) 0.4 Mg Cap.er.24h 0.4 Mg PO DAILY Benicar (Olmesartan Medoxomil) 20 Mg Tablet 1 Tab PO DAILY 30 Days Cyclobenzaprine Hcl 10 Mg Tablet 1 Tab PO BID PRN Torsemide 20 Mg Tablet 4 Tab PO DAILY Benadryl (Diphenhydramine Hcl) 25 Mg Capsule 1 Cap PO QHS Quinapril Hcl 40 Mg Tablet 1 Tab PO DAILY Metformin Hcl 500 Mg Tablet 1 Tab PO DAILYBFRSUP Trazodone Hcl 50 Mg Tablet 50 Mg PO HS [place] 5-325 Tablet (Acetaminophen/Hydrocodone Bitart) 1 Each Tablet 1 Tab PO Q8HRS PRN Percocet 5-325 Mg Tablet (Oxycodone/Acetaminophen) 1 Each Tablet 1-2 Tab PO Q6HRS PRN Potassium Chloride 20 Meq Tab.er.prt 20 Meq PO BID Combivent Respimat Inhal (Ipratropium/Albuterol Sulfate) 4 Gm Aer.w.adap 2 Inh IH QID PRN Metformin Hcl 1,000 Mg Tablet 1 Tab PO DAILY08 Vitals/I & O Vital Sign - Last 24 Hours 03/11/20 03/11/20 03/11/20 03/11/20 11:59 12:00 12:03 13:00 Temp 98.6 98.6 Pulse 81 76 Resp 20 B/P (MAP) 106/54 (71) 100/48 (65) Pulse Ox 92 93 92 O2 Delivery BiPAP/CPAP BiPAP/CPAP Bi-pap BiPAP/CPAP 03/11/20 03/11/20 03/11/20 03/11/20 14:00 15:00 15:47 16:00 Pulse 67 65 Resp 28 B/P (MAP) 103/50 (67) 103/50 (67) Pulse Ox 92 92 93 O2 Delivery BiPAP/CPAP BiPAP/CPAP BiPAP/CPAP Bi-pap 03/11/20 03/11/20 03/11/20 03/11/20 16:00 17:00 18:00 19:00 Temp 98.5 98.5 Pulse 68 63 62 63 Resp 25 25 23 B/P (MAP) 91/42 (58) 86/44 (58) 102/45 (64) 97/46 (63) Pulse Ox 93 90 95 96 O2 Delivery BiPAP/CPAP BiPAP/CPAP BiPAP/CPAP BiPAP/CPAP 03/11/20 03/11/20 03/11/20 03/11/20 20:00 20:00 20:23 21:00 Temp 96.3 96.3 Pulse 62 62 Resp 24 22 B/P (MAP) 100/47 (64) 96/46 (63) Pulse Ox 94 96 93 O2 Delivery Bi-pap BiPAP/CPAP BiPAP/CPAP BiPAP/CPAP 03/11/20 03/11/20 03/12/20 03/12/20 22:00 23:00 00:00 00:01 Temp 97.2 97.2 Pulse 60 62 59 Resp 25 B/P (MAP) 99/45 (63) 84/46 (59) 105/49 (67) Pulse Ox 94 92 95 O2 Delivery BiPAP/CPAP BiPAP/CPAP Bi-pap BiPAP/CPAP 03/12/20 03/12/20 03/12/20 03/12/20 00:45 01:00 02:00 03:00 Pulse 62 65 55 Resp 22 B/P (MAP) 122/65 (84) 118/55 (76) 114/52 (72) Pulse Ox 95 93 94 96 O2 Delivery BiPAP/CPAP BiPAP/CPAP BiPAP/CPAP BiPAP/CPAP 03/12/20 03/12/20 03/12/20 03/12/20 04:00 04:00 04:00 05:00 Temp 98.0 98.0 Pulse 53 53 Resp 19 18 B/P (MAP) 110/51 (70) 111/52 (71) Pulse Ox 96 94 95 O2 Delivery BiPAP/CPAP Bi-pap BiPAP/CPAP BiPAP/CPAP 03/12/20 03/12/20 03/12/20 03/12/20 06:00 07:00 08:00 08:00 Temp 97.2 97.2 Pulse 53 54 50 Resp 17 16 21 B/P (MAP) 112/51 (71) 113/53 (73) 107/49 (68) Pulse Ox 92 95 92 O2 Delivery BiPAP/CPAP BiPAP/CPAP Bi-pap BiPAP/CPAP 03/12/20 03/12/20 03/12/20 08:28 09:00 10:00 Pulse 56 62 Resp 19 21 B/P (MAP) 110/51 (70) 132/54 (80) Pulse Ox 93 97 94 O2 Delivery BiPAP/CPAP BiPAP/CPAP BiPAP/CPAP Intake and Output 03/11/20 03/11/20 03/12/20 15:00 23:00 07:00 Intake Total 100 ml 647.9 ml 1174 ml Output Total 950 ml 710 ml 525 ml Balance -850 ml -62.1 ml 649 ml Justicifation of Admission Dx: Justifications for Admission: Justification of Admission Dx: Yes EZEQUIEL HUGHES MD Mar 12, 2020 11:02
[2020-03-12] MEDS: LACTOBACILLUS RHAMNOSUS GG 1 CAPSULE. PO SCH ×2 (12:25→22:16)
[2020-03-12] MEDS: SERTRALINE 50 MG TABLET. PO SCH (12:25)
[2020-03-12] MEDS: FERROUS SULFATE 325 MG TABLET. PO SCH ×2 (12:25→17:00)
[2020-03-12] MEDS: PANTOPRAZOLE 40 MG TABLET.DR. PO SCH (12:25)
[2020-03-12] MEDS: SUCRALFATE 1 GM TABLET. PO SCH ×2 (12:25→21:00)
[2020-03-12] MEDS: AMINO AC 3%/ELECTROLYTE/GLYCER 1,000 ML IV SCH (12:42)
[2020-03-12] MEDS: IV 1/2 NORMAL SALINE 1,000 ML IV SCH (15:38)
[2020-03-12] MEDS: PATCH REMOVAL. MC SCH (21:00)
[2020-03-12] MEDS: MIRTAZAPINE 15 MG TABLET PO SCH (22:16)
[2020-03-12] MEDS: INSULIN GLARGINE SYRINGE. SQ SCH (22:23)
[2020-03-13] VITALS (23 sets, daily range): BP systolic 120–167; BP diastolic 49–75
[2020-03-13] MEDS: AMINO AC 3%/ELECTROLYTE/GLYCER 1,000 ML IV SCH ×2 (02:32→16:09)
[2020-03-13] MEDS: IV 1/2 NORMAL SALINE 1,000 ML IV SCH ×2 (03:20→16:40)
[2020-03-13] MEDS: IPRATRPIUM/ALBUTEROL 0.5/2.5MG 3 ML NEBU. NEB SCH ×6 (04:00→19:53)
[2020-03-13 05:06] LABS: BASO % 0 % (0-3); EOS % 0 % (0-3); HEMATOCRIT 27.2 % (39.0-53.0); HEMOGLOBIN 8.8 g/dL (13.0-17.5); LYMPH # 0.2 x10^3/uL (1.0-4.8); LYMPH % 1 % (24-48); MEAN CORPUSCULAR HEMOGLOBIN 31 pg (25-35); MEAN CORPUSCULAR HGB CONC 32 g/dL (31-37); MEAN CORPUSCULAR VOLUME 96 fL (79-100); MONO # 0.3 x10^3/uL (0.0-1.1); MONO % 2 % (0-9); NEUT # 12.7 x10^3/uL (1.8-7.7); NEUT % 96 % (31-73); PLATELET COUNT 165 x10^3/uL (140-400); RED BLOOD COUNT 2.83 x10^6/uL (4.30-5.70); RED CELL DISTRIBUTION WIDTH 16.7 % (11.5-14.5); WHITE BLOOD COUNT 13.2 x10^3/uL (4.0-11.0)
[2020-03-13 05:58] LABS: C-REACTIVE PROTEIN 97.1 mg/L (0-3.3); CALCIUM 7.1 mg/dL (8.5-10.1); CREATININE 1.2 mg/dL (0.7-1.3); GFR 57.7; POTASSIUM 5.1 mmol/L (3.5-5.1)
[2020-03-13] MEDS: INSULIN LISPRO 300 UNITS/3 ML VIAL. SQ SCH ×7 (07:30→21:00)
[2020-03-13] MEDS: DEXMEDETOMIDINE 400 MCG in IV NORMAL SALINE 100ML 96 ML IV PRN (07:36)
[2020-03-13] MEDS: PANTOPRAZOLE 40 MG TABLET.DR. PO SCH (08:28)
[2020-03-13] MEDS: SERTRALINE 50 MG TABLET. PO SCH (08:28)
[2020-03-13] MEDS: FERROUS SULFATE 325 MG TABLET. PO SCH ×2 (08:28→17:47)
[2020-03-13] MEDS: LACTOBACILLUS RHAMNOSUS GG 1 CAPSULE. PO SCH ×2 (08:28→21:11)
[2020-03-13] MEDS: LIDOCAINE (700MG/PATCH) PATCH. TD SCH (08:29)
[2020-03-13] MEDS: methylPREDNISolone SOD SUCC PF 40 MG/ML VIAL. IV SCH ×2 (08:29→21:11)
[2020-03-13] MEDS: SUCRALFATE 1 GM TABLET. PO SCH ×2 (08:29→21:11)
[2020-03-13] MEDS: BUDESONIDE 0.5 MG/2 ML NEBU. NEB SCH ×2 (08:30→19:53)
--- NOTE | 2020-03-13 08:52 | PDOC ---
PULMONARY PROGRESS NOTES DATE: 03/13/20 TIME: 08:52 Subjective Now on BIPAP patient awake alert following commands resting comfortably, now on precedex Vitals Vital Signs Date Time Temp Pulse Resp B/P (MAP) Pulse Ox O2 Delivery O2 Flow Rate FiO2 03/13/20 07:00 56 21 140/58 (85) 95 BiPAP/CPAP 03/13/20 04:00 97.6 97.6 Comments pt. seen during pandemic visual exam preformed RRR BIPAP no distress trace edema no rash General: Alert Lungs: Other Labs Laboratory Tests Test 03/11/20 10:12 03/11/20 16:36 03/11/20 21:58 03/12/20 05:30 O2 Saturation 86 % (92-99) Arterial Blood pH 7.45 (7.35-7.45) Arterial Blood pCO2 at Patient Temp 34 mmHg (35-46) Arterial Blood pO2 at Patient Temp 51 mmHg (65-108) Arterial Blood HCO3 23 mmol/L (21-28) Arterial Blood Base Excess -1 mmol/L (-3-3) FiO2 70 Glucose (Fingerstick) 199 mg/dL (70-99) 175 mg/dL (70-99) White Blood Count 10.6 x10^3/uL (4.0-11.0) Red Blood Count 2.67 x10^6/uL (4.30-5.70) Hemoglobin 8.5 g/dL (13.0-17.5) Hematocrit 25.8 % (39.0-53.0) Mean Corpuscular Volume 97 fL (79-100) Mean Corpuscular Hemoglobin 32 pg (25-35) Mean Corpuscular Hemoglobin Concent 33 g/dL (31-37) Red Cell Distribution Width 16.8 % (11.5-14.5) Platelet Count 163 x10^3/uL (140-400) Neutrophils (%) (Auto) 97 % (31-73) Lymphocytes (%) (Auto) 2 % (24-48) Monocytes (%) (Auto) 1 % (0-9) Eosinophils (%) (Auto) 0 % (0-3) Basophils (%) (Auto) 0 % (0-3) Neutrophils # (Auto) 10.3 x10^3/uL (1.8-7.7) Lymphocytes # (Auto) 0.2 x10^3/uL (1.0-4.8) Monocytes # (Auto) 0.1 x10^3/uL (0.0-1.1) Eosinophils # (Auto) 0.0 x10^3/uL (0.0-0.7) Basophils # (Auto) 0.0 x10^3/uL (0.0-0.2) Sodium Level 140 mmol/L (136-145) Potassium Level 5.0 mmol/L (3.5-5.1) Chloride Level 107 mmol/L (98-107) Carbon Dioxide Level 25 mmol/L (21-32) Anion Gap 8 (6-14) Blood Urea Nitrogen 41 mg/dL (8-26) Creatinine 1.3 mg/dL (0.7-1.3) Estimated GFR (Cockcroft-Gault) 52.6 Glucose Level 248 mg/dL (70-99) Calcium Level 7.2 mg/dL (8.5-10.1) Ferritin 419 ng/mL (26-388) C-Reactive Protein, Quantitative 164.3 mg/L (0-3.3) Test 03/12/20 12:31 03/12/20 15:27 03/12/20 23:06 03/13/20 04:40 Glucose (Fingerstick) 185 mg/dL (70-99) 208 mg/dL (70-99) 230 mg/dL (70-99) White Blood Count 13.2 x10^3/uL (4.0-11.0) Red Blood Count 2.83 x10^6/uL (4.30-5.70) Hemoglobin 8.8 g/dL (13.0-17.5) Hematocrit 27.2 % (39.0-53.0) Mean Corpuscular Volume 96 fL (79-100) Mean Corpuscular Hemoglobin 31 pg (25-35) Mean Corpuscular Hemoglobin Concent 32 g/dL (31-37) Red Cell Distribution Width 16.7 % (11.5-14.5) Platelet Count 165 x10^3/uL (140-400) Neutrophils (%) (Auto) 96 % (31-73) Lymphocytes (%) (Auto) 1 % (24-48) Monocytes (%) (Auto) 2 % (0-9) Eosinophils (%) (Auto) 0 % (0-3) Basophils (%) (Auto) 0 % (0-3) Neutrophils # (Auto) 12.7 x10^3/uL (1.8-7.7) Lymphocytes # (Auto) 0.2 x10^3/uL (1.0-4.8) Monocytes # (Auto) 0.3 x10^3/uL (0.0-1.1) Eosinophils # (Auto) 0.0 x10^3/uL (0.0-0.7) Basophils # (Auto) 0.0 x10^3/uL (0.0-0.2) D-Dimer (Alisia) 3.25 ug/mlFEU (0.00-0.50) Sodium Level 137 mmol/L (136-145) Potassium Level 5.1 mmol/L (3.5-5.1) Chloride Level 105 mmol/L (98-107) Carbon Dioxide Level 24 mmol/L (21-32) Anion Gap 8 (6-14) Blood Urea Nitrogen 45 mg/dL (8-26) Creatinine 1.2 mg/dL (0.7-1.3) Estimated GFR (Cockcroft-Gault) 57.7 Glucose Level 267 mg/dL (70-99) Calcium Level 7.1 mg/dL (8.5-10.1) Ferritin 403 ng/mL (26-388) C-Reactive Protein, Quantitative 97.1 mg/L (0-3.3) Procalcitonin 0.32 ng/mL (0.00-0.10) Laboratory Tests Test 03/12/20 12:31 03/12/20 15:27 03/12/20 23:06 03/13/20 04:40 Glucose (Fingerstick) 185 mg/dL (70-99) 208 mg/dL (70-99) 230 mg/dL (70-99) White Blood Count 13.2 x10^3/uL (4.0-11.0) Red Blood Count 2.83 x10^6/uL (4.30-5.70) Hemoglobin 8.8 g/dL (13.0-17.5) Hematocrit 27.2 % (39.0-53.0) Mean Corpuscular Volume 96 fL (79-100) Mean Corpuscular Hemoglobin 31 pg (25-35) Mean Corpuscular Hemoglobin Concent 32 g/dL (31-37) Red Cell Distribution Width 16.7 % (11.5-14.5) Platelet Count 165 x10^3/uL (140-400) Neutrophils (%) (Auto) 96 % (31-73) Lymphocytes (%) (Auto) 1 % (24-48) Monocytes (%) (Auto) 2 % (0-9) Eosinophils (%) (Auto) 0 % (0-3) Basophils (%) (Auto) 0 % (0-3) Neutrophils # (Auto) 12.7 x10^3/uL (1.8-7.7) Lymphocytes # (Auto) 0.2 x10^3/uL (1.0-4.8) Monocytes # (Auto) 0.3 x10^3/uL (0.0-1.1) Eosinophils # (Auto) 0.0 x10^3/uL (0.0-0.7) Basophils # (Auto) 0.0 x10^3/uL (0.0-0.2) D-Dimer (Alisia) 3.25 ug/mlFEU (0.00-0.50) Sodium Level 137 mmol/L (136-145) Potassium Level 5.1 mmol/L (3.5-5.1) Chloride Level 105 mmol/L (98-107) Carbon Dioxide Level 24 mmol/L (21-32) Anion Gap 8 (6-14) Blood Urea Nitrogen 45 mg/dL (8-26) Creatinine 1.2 mg/dL (0.7-1.3) Estimated GFR (Cockcroft-Gault) 57.7 Glucose Level 267 mg/dL (70-99) Calcium Level 7.1 mg/dL (8.5-10.1) Ferritin 403 ng/mL (26-388) C-Reactive Protein, Quantitative 97.1 mg/L (0-3.3) Procalcitonin 0.32 ng/mL (0.00-0.10) Medications Active Scripts Medications Dose Route/Sig Max Daily Dose Days Date Category Phospha 250 Neutral Tablet (Phosphorus #1) 250 Mg Tablet 1 Tab PO DAILY 30 02/29/20 Reported Atorvastatin Calcium 20 Mg Tablet 1 Tab PO DAILYWSUP 8/18/20 Reported Levothyroxine Sodium 25 Mcg Tablet 1 Tab PO DAILY 02/29/20 Reported Iron (Ferrous Sulfate) 325 Mg Tablet 1 Tab PO BID 30 02/29/20 Reported Flomax (Tamsulosin Hcl) 0.4 Mg Cap.er.24h 0.4 Mg PO DAILY 02/29/20 Reported Benicar (Olmesartan Medoxomil) 20 Mg Tablet 1 Tab PO DAILY 30 02/29/20 Reported Cyclobenzaprine Hcl 10 Mg Tablet 1 Tab PO BID PRN 10/08/14 Reported Torsemide 20 Mg Tablet 4 Tab PO DAILY 10/08/14 Reported Benadryl (Diphenhydramine Hcl) 25 Mg Capsule 1 Cap PO QHS 10/08/14 Reported Quinapril Hcl 40 Mg Tablet 1 Tab PO DAILY 10/08/14 Reported Metformin Hcl 500 Mg Tablet 1 Tab PO DAILYBFRSUP 10/08/14 Reported Trazodone Hcl 50 Mg Tablet 50 Mg PO HS 10/08/14 Reported [place] 5-325 Tablet (Acetaminophen/Hydrocodone Bitart) 1 Each Tablet 1 Tab PO Q8HRS PRN 10/08/14 Reported Percocet 5-325 Mg Tablet (Oxycodone/Acetaminophen) 1 Each Tablet 1-2 Tab PO Q6HRS PRN 10/08/14 Reported Potassium Chloride 20 Meq Tab.er.prt 20 Meq PO BID 10/08/14 Reported Combivent Respimat Inhal (Ipratropium/Albuterol Sulfate) 4 Gm Aer.w.adap 2 Inh IH QID PRN 10/08/14 Reported Metformin Hcl 1,000 Mg Tablet 1 Tab PO DAILY08 10/07/14 Reported Comments CXR 03/10/20 IMPRESSION: Stable diffuse bilateral heterogeneous opacities. CXR 03/11 IMPRESSION: * Hypoexpanded exam with multifocal opacities bilaterally which appear slightly increased from prior. Could be from edema or infiltrate Chest x-ray from 831 reviewed, bilateral infiltrates appear unchanged Impression . IMPRESSION: 1. Acute hypoxemic respiratory failure/multifactorial/acute exacerbation of COPD/COVID-19- 2. cxr with bilateral interstitial infiltrates 03/07. suspect combination of congestive heart failure. COVID pneumonia. 3. Suspected severe chronic obstructive pulmonary disease, 60 years of tobacco use, quit 3 years ago. 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 5. Acute kidney injury--improving 6. anemia/ dark stools -- improve S/P transfusion 7 abnormal chest x-ray Plan . RECOMMENDATIONS: Lasix for 5 days, monitor electrolytes Spoke with nurse, attempt at discontinuing BiPAP placing patient on basal therapy continue steroids, with taper now off ABX, completed full course bronchodilators MDI 2 puffs and Q4 scheduled / Breo S/P plasma and S/P Remdesvir Follow renal function and nephrology recommendations Follow GI recs and monitor HGB will start PPN for nutritional support Monitor D-Dimer, patient on Lovenox COVID-19 positive DVT/GI PPX Monitor clinical course D/W RN /RT PT. is DNR, Colleen WELLINGTONOA (daughter) would like to proceed with intubation if needed. SEDRICK GARCIA MD Mar 13, 2020 08:52
--- NOTE | 2020-03-13 10:03 | PDOC ---
Date of Service: DATE: 03/13/20 TIME: 09:59 Objective: Objective: D/w nurse - no reports of bleeding, rectal tube out. Dr. Moody worked the weekend - was asked about starting Heparin for elevated D-dimer - was not started. Vital Signs: Vital Signs Date Time Temp Pulse Resp B/P (MAP) Pulse Ox O2 Delivery O2 Flow Rate FiO2 03/13/20 09:51 80 18 159/75 (103) 97 BiPAP/CPAP 03/13/20 04:00 97.6 97.6 Labs: Laboratory Tests Test 03/12/20 12:31 03/12/20 15:27 03/12/20 23:06 03/13/20 04:40 Glucose (Fingerstick) 185 mg/dL 208 mg/dL 230 mg/dL White Blood Count 13.2 x10^3/uL Red Blood Count 2.83 x10^6/uL Hemoglobin 8.8 g/dL Hematocrit 27.2 % Mean Corpuscular Volume 96 fL Mean Corpuscular Hemoglobin 31 pg Mean Corpuscular Hemoglobin Concent 32 g/dL Red Cell Distribution Width 16.7 % Platelet Count 165 x10^3/uL Neutrophils (%) (Auto) 96 % Lymphocytes (%) (Auto) 1 % Monocytes (%) (Auto) 2 % Eosinophils (%) (Auto) 0 % Basophils (%) (Auto) 0 % Neutrophils # (Auto) 12.7 x10^3/uL Lymphocytes # (Auto) 0.2 x10^3/uL Monocytes # (Auto) 0.3 x10^3/uL Eosinophils # (Auto) 0.0 x10^3/uL Basophils # (Auto) 0.0 x10^3/uL D-Dimer (Alisia) 3.25 ug/mlFEU Sodium Level 137 mmol/L Potassium Level 5.1 mmol/L Chloride Level 105 mmol/L Carbon Dioxide Level 24 mmol/L Anion Gap 8 Blood Urea Nitrogen 45 mg/dL Creatinine 1.2 mg/dL Estimated GFR (Cockcroft-Gault) 57.7 Glucose Level 267 mg/dL Calcium Level 7.1 mg/dL Ferritin 403 ng/mL C-Reactive Protein, Quantitative 97.1 mg/L Procalcitonin 0.32 ng/mL Test 03/13/20 09:14 Glucose (Fingerstick) 266 mg/dL Imaging: CXR 03/13 pending PE: GEN: in COVID isolation room in ICU LUNGS: BiPAP HEART: RR on monitor ABD: non-distended NEURO/PSYCH: sleeping A/P: Resp failure w/ COVID-19 and COPD LIZY, h/o SB AVMs -- Hgb stable, no recent reports of bleeding. Continue PPI, Carafate, iron. Justicifation of Admission Dx: Justifications for Admission: Justification of Admission Dx: Yes DEBBIE MURRAY Mar 13, 2020 10:03
--- NOTE | 2020-03-13 10:23 | PDOC ---
PROGRESS NOTES Date of Service: DATE: 03/13/20 TIME: 10:21 Chief Complaint Chief Complaint impression Dyspnea with no significant hypoxia based on the ABG, likely related to mild congestive heart failure. also with COVID pneumonia. SARS-CoV-2 - with pneumonia. On steroids, Lovenox. Pulm consulted Abnormal chest x-ray with faint interstitial infiltrates - likely CHF and COVID 19 POSTIVE Severe chronic obstructive pulmonary disease, 60 years of tobacco use, quit 3 years ago. 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 His BUN and creatinine was high as well as LFTs. He required 2 liters of oxygen. LFTs also elevated. 03/01: Still requiring O2. Significant wheezes and prolonged expiratory phase. He says he just wants to sleep. He says "Im 84 I have nothing to live for about my cats." 03/02: COVID-19 positive. He is having some back pain today. Still little hypoxic. EGD and colonoscopy on hold due to his COVID-19 positive status 03/03: Afebrile. Seen on 4 L nasal cannula, he is having a bowel movement, notes that he is having he is eating but is having loose bowels currently they are a little dark. No significant pain. His shortness of breath is stable. Slight cough. Back pain improved with Lidoderm patch. 03/03: Still afebrile with 4 liters nasal cannula O2. His glucose has become very elevated. He feels no worse than yesterday. Afebrile, now on 6 L nasal cannula, he is having more diarrhea, he does not notice much blood. Glucose has been in the 400s, unfortunately he did not receive his Lantus in the evening yesterday evening. C diff negative 03/06/2020 Patient with increasing O2 requirements this morning. Patient has increasing dyspnea but still maintaining sats of 94% on 15 L Venturi mask. Pulmonary evaluated and recommends for patient to be transferred to the ICU with BiPAP. 03/08 Breathing on BiPAP. VTE held due to GI bleed, H&H stable. 03/09: Patient is off BiPAP currently breathing on 8 L high flow nasal cannula. H & H dropped to 6.6 today, transfuse 1 unit packed red blood cells. GI to follow, thank you for your expertise. No scope plan due to COVID-19 positive. 03/13 : Per nursing staff, no acute events overnight. Breathing on 8L NC. bipap support Blood sugar improving. Continue steroids and blood pressure management. Vitals Vitals Vital Signs Date Time Temp Pulse Resp B/P (MAP) Pulse Ox O2 Delivery O2 Flow Rate FiO2 03/13/20 09:51 80 18 159/75 (103) 97 BiPAP/CPAP 03/13/20 04:00 97.6 97.6 Physical Exam Physical Exam GEN: No apparent distress. HEENT: Normal cephalic, atraumatic, NECK: Supple, no JVD, no thyromegaly was noted LUNGS: Bilateral crackles and wheezing HEART: RRR, S1, S2 present. Peripheral pulses intact, no obvious murmurs noted ABDOMEN: Soft, nontender. Positive bowel sounds, no organomegaly, normal bowel sounds EXTREMITIES: Without clubbing, cyanosis, or edema. General: Alert, Cooperative Heart: Regular rate Lungs: Other Abdomen: Soft, Other (Nondistended) Extremities: No clubbing, No cyanosis, No edema Skin: No rashes, No breakdown Labs LABS Laboratory Tests Test 03/12/20 12:31 03/12/20 15:27 03/12/20 23:06 03/13/20 04:40 Glucose (Fingerstick) 185 mg/dL (70-99) 208 mg/dL (70-99) 230 mg/dL (70-99) White Blood Count 13.2 x10^3/uL (4.0-11.0) Red Blood Count 2.83 x10^6/uL (4.30-5.70) Hemoglobin 8.8 g/dL (13.0-17.5) Hematocrit 27.2 % (39.0-53.0) Mean Corpuscular Volume 96 fL (79-100) Mean Corpuscular Hemoglobin 31 pg (25-35) Mean Corpuscular Hemoglobin Concent 32 g/dL (31-37) Red Cell Distribution Width 16.7 % (11.5-14.5) Platelet Count 165 x10^3/uL (140-400) Neutrophils (%) (Auto) 96 % (31-73) Lymphocytes (%) (Auto) 1 % (24-48) Monocytes (%) (Auto) 2 % (0-9) Eosinophils (%) (Auto) 0 % (0-3) Basophils (%) (Auto) 0 % (0-3) Neutrophils # (Auto) 12.7 x10^3/uL (1.8-7.7) Lymphocytes # (Auto) 0.2 x10^3/uL (1.0-4.8) Monocytes # (Auto) 0.3 x10^3/uL (0.0-1.1) Eosinophils # (Auto) 0.0 x10^3/uL (0.0-0.7) Basophils # (Auto) 0.0 x10^3/uL (0.0-0.2) D-Dimer (Alisia) 3.25 ug/mlFEU (0.00-0.50) Sodium Level 137 mmol/L (136-145) Potassium Level 5.1 mmol/L (3.5-5.1) Chloride Level 105 mmol/L (98-107) Carbon Dioxide Level 24 mmol/L (21-32) Anion Gap 8 (6-14) Blood Urea Nitrogen 45 mg/dL (8-26) Creatinine 1.2 mg/dL (0.7-1.3) Estimated GFR (Cockcroft-Gault) 57.7 Glucose Level 267 mg/dL (70-99) Calcium Level 7.1 mg/dL (8.5-10.1) Ferritin 403 ng/mL (26-388) C-Reactive Protein, Quantitative 97.1 mg/L (0-3.3) Procalcitonin 0.32 ng/mL (0.00-0.10) Test 03/13/20 09:14 Glucose (Fingerstick) 266 mg/dL (70-99) Assessment and Plan Assessmemt and Plan Problems Medical Problems: (1) Acute renal failure Status: Acute (2) COPD exacerbation Status: Acute (3) GI bleeding Status: Acute Comment Review of Relevant I have reviewed the following items kamini (where applicable) has been applied. Labs Laboratory Tests Test 03/11/20 16:36 03/11/20 21:58 03/12/20 05:30 03/12/20 12:31 Glucose (Fingerstick) 199 mg/dL (70-99) 175 mg/dL (70-99) 185 mg/dL (70-99) White Blood Count 10.6 x10^3/uL (4.0-11.0) Red Blood Count 2.67 x10^6/uL (4.30-5.70) Hemoglobin 8.5 g/dL (13.0-17.5) Hematocrit 25.8 % (39.0-53.0) Mean Corpuscular Volume 97 fL (79-100) Mean Corpuscular Hemoglobin 32 pg (25-35) Mean Corpuscular Hemoglobin Concent 33 g/dL (31-37) Red Cell Distribution Width 16.8 % (11.5-14.5) Platelet Count 163 x10^3/uL (140-400) Neutrophils (%) (Auto) 97 % (31-73) Lymphocytes (%) (Auto) 2 % (24-48) Monocytes (%) (Auto) 1 % (0-9) Eosinophils (%) (Auto) 0 % (0-3) Basophils (%) (Auto) 0 % (0-3) Neutrophils # (Auto) 10.3 x10^3/uL (1.8-7.7) Lymphocytes # (Auto) 0.2 x10^3/uL (1.0-4.8) Monocytes # (Auto) 0.1 x10^3/uL (0.0-1.1) Eosinophils # (Auto) 0.0 x10^3/uL (0.0-0.7) Basophils # (Auto) 0.0 x10^3/uL (0.0-0.2) Sodium Level 140 mmol/L (136-145) Potassium Level 5.0 mmol/L (3.5-5.1) Chloride Level 107 mmol/L (98-107) Carbon Dioxide Level 25 mmol/L (21-32) Anion Gap 8 (6-14) Blood Urea Nitrogen 41 mg/dL (8-26) Creatinine 1.3 mg/dL (0.7-1.3) Estimated GFR (Cockcroft-Gault) 52.6 Glucose Level 248 mg/dL (70-99) Calcium Level 7.2 mg/dL (8.5-10.1) Ferritin 419 ng/mL (26-388) C-Reactive Protein, Quantitative 164.3 mg/L (0-3.3) Test 03/12/20 15:27 03/12/20 23:06 03/13/20 04:40 03/13/20 09:14 Glucose (Fingerstick) 208 mg/dL (70-99) 230 mg/dL (70-99) 266 mg/dL (70-99) White Blood Count 13.2 x10^3/uL (4.0-11.0) Red Blood Count 2.83 x10^6/uL (4.30-5.70) Hemoglobin 8.8 g/dL (13.0-17.5) Hematocrit 27.2 % (39.0-53.0) Mean Corpuscular Volume 96 fL (79-100) Mean Corpuscular Hemoglobin 31 pg (25-35) Mean Corpuscular Hemoglobin Concent 32 g/dL (31-37) Red Cell Distribution Width 16.7 % (11.5-14.5) Platelet Count 165 x10^3/uL (140-400) Neutrophils (%) (Auto) 96 % (31-73) Lymphocytes (%) (Auto) 1 % (24-48) Monocytes (%) (Auto) 2 % (0-9) Eosinophils (%) (Auto) 0 % (0-3) Basophils (%) (Auto) 0 % (0-3) Neutrophils # (Auto) 12.7 x10^3/uL (1.8-7.7) Lymphocytes # (Auto) 0.2 x10^3/uL (1.0-4.8) Monocytes # (Auto) 0.3 x10^3/uL (0.0-1.1) Eosinophils # (Auto) 0.0 x10^3/uL (0.0-0.7) Basophils # (Auto) 0.0 x10^3/uL (0.0-0.2) D-Dimer (Alisia) 3.25 ug/mlFEU (0.00-0.50) Sodium Level 137 mmol/L (136-145) Potassium Level 5.1 mmol/L (3.5-5.1) Chloride Level 105 mmol/L (98-107) Carbon Dioxide Level 24 mmol/L (21-32) Anion Gap 8 (6-14) Blood Urea Nitrogen 45 mg/dL (8-26) Creatinine 1.2 mg/dL (0.7-1.3) Estimated GFR (Cockcroft-Gault) 57.7 Glucose Level 267 mg/dL (70-99) Calcium Level 7.1 mg/dL (8.5-10.1) Ferritin 403 ng/mL (26-388) C-Reactive Protein, Quantitative 97.1 mg/L (0-3.3) Procalcitonin 0.32 ng/mL (0.00-0.10) Laboratory Tests Test 03/12/20 12:31 03/12/20 15:27 03/12/20 23:06 03/13/20 04:40 Glucose (Fingerstick) 185 mg/dL (70-99) 208 mg/dL (70-99) 230 mg/dL (70-99) White Blood Count 13.2 x10^3/uL (4.0-11.0) Red Blood Count 2.83 x10^6/uL (4.30-5.70) Hemoglobin 8.8 g/dL (13.0-17.5) Hematocrit 27.2 % (39.0-53.0) Mean Corpuscular Volume 96 fL (79-100) Mean Corpuscular Hemoglobin 31 pg (25-35) Mean Corpuscular Hemoglobin Concent 32 g/dL (31-37) Red Cell Distribution Width 16.7 % (11.5-14.5) Platelet Count 165 x10^3/uL (140-400) Neutrophils (%) (Auto) 96 % (31-73) Lymphocytes (%) (Auto) 1 % (24-48) Monocytes (%) (Auto) 2 % (0-9) Eosinophils (%) (Auto) 0 % (0-3) Basophils (%) (Auto) 0 % (0-3) Neutrophils # (Auto) 12.7 x10^3/uL (1.8-7.7) Lymphocytes # (Auto) 0.2 x10^3/uL (1.0-4.8) Monocytes # (Auto) 0.3 x10^3/uL (0.0-1.1) Eosinophils # (Auto) 0.0 x10^3/uL (0.0-0.7) Basophils # (Auto) 0.0 x10^3/uL (0.0-0.2) D-Dimer (Alisia) 3.25 ug/mlFEU (0.00-0.50) Sodium Level 137 mmol/L (136-145) Potassium Level 5.1 mmol/L (3.5-5.1) Chloride Level 105 mmol/L (98-107) Carbon Dioxide Level 24 mmol/L (21-32) Anion Gap 8 (6-14) Blood Urea Nitrogen 45 mg/dL (8-26) Creatinine 1.2 mg/dL (0.7-1.3) Estimated GFR (Cockcroft-Gault) 57.7 Glucose Level 267 mg/dL (70-99) Calcium Level 7.1 mg/dL (8.5-10.1) Ferritin 403 ng/mL (26-388) C-Reactive Protein, Quantitative 97.1 mg/L (0-3.3) Procalcitonin 0.32 ng/mL (0.00-0.10) Test 03/13/20 09:14 Glucose (Fingerstick) 266 mg/dL (70-99) Microbiology 02/29/20 Blood Culture - Final, Complete NO GROWTH AFTER 5 DAYS Medications Current Medications Albuterol/ Ipratropium (Duoneb) 6 ml 1X ONCE NEB Last administered on 02/29/20at 11:24; Start 02/29/20 at 10:30; Stop 02/29/20 at 10:31; Status DC Methylprednisolone Sodium Succinate (SOLU-Medrol 125MG VIAL) 125 mg 1X ONCE IV Last administered on 02/29/20at 10:23; Start 02/29/20 at 10:30; Stop 02/29/20 at 10:31; Status DC Sodium Chloride 1,000 ml @ 1,000 mls/hr 1X ONCE IV Last administered on 02/29/20at 17:42; Start 02/29/20 at 13:15; Stop 02/29/20 at 14:14; Status DC Ondansetron HCl (Zofran) 4 mg PRN Q8HRS PRN IV NAUSEA/VOMITING; Start 02/29/20 at 13:30; Stop 03/01/20 at 13:29; Status DC Acetaminophen (Tylenol) 650 mg PRN Q4HRS PRN PO FEVER > 100.3'F; Start 02/29/20 at 13:30; Stop 03/01/20 at 13:29; Status DC Albuterol/ Ipratropium (Duoneb) 3 ml RTQID NEB ; Start 02/29/20 at 16:00; Stop 02/29/20 at 13:58; Status DC Albuterol/ Ipratropium (Duoneb) 3 ml PRN QID PRN NEB SHORTNESS OF BREATH; Start 02/29/20 at 14:00; Stop 03/01/20 at 13:59; Status DC Pantoprazole Sodium (Protonix) 40 mg DAILYAC PO Last administered on 03/13/20at 08:28; Start 03/01/20 at 07:30 Sucralfate (Carafate) 1 gm BID PO Last administered on 03/12/20at 12:25; Start 02/29/20 at 21:00 Polyethylene Glycol (miraLAX PACKET) 17 gm PRN DAILY PRN PO CONSTIPATION; Start 02/29/20 at 15:15 Ferrous Sulfate (Feosol) 325 mg BIDWMEALS PO Last administered on 03/13/20at 08:28; Start 03/01/20 at 17:00 Polyethylene Glycol (miraLAX PACKET) 17 gm PRN DAILY PRN PO CONSTIPATION; Start 03/01/20 at 10:15; Stop 03/01/20 at 10:12; Status DC Methylprednisolone Sodium Succinate (SOLU-Medrol 40MG VIAL) 40 mg DAILY IV Last administered on 03/02/20at 10:56; Start 03/01/20 at 11:00; Stop 03/02/20 at 11:11; Status DC Olanzapine (ZyPREXA ZYDIS) 5 mg PRN BID PRN PO AGITATION; Start 03/01/20 at 11:15 Sodium Cl/Sod Bicarb/Potass Cl/ PEG (Golytely) 4,000 ml 1X ONCE PO Last administered on 03/01/20at 14:47; Start 03/01/20 at 14:00; Stop 03/01/20 at 14:01 ; Status DC Ringer's Solution 1,000 ml @ 50 mls/hr Q20H IV ; Start 03/02/20 at 07:00; Stop 03/02/20 at 18:59; Status DC Diphenhydramine HCl (Benadryl) 25 mg PRN QHS PRN PO INSOMNIA Last administered on 03/08/20at 21:02; Start 03/01/20 at 22:15 Albuterol Sulfate (Ventolin Hfa) 1 puff PRN QID PRN INH SHORTNESS OF BREATH Last administered on 03/03/20at 12:43; Start 03/02/20 at 01:00; Stop 03/04/20 at 10:34; Status DC Acetaminophen (Tylenol) 650 mg PRN Q6HRS PRN PO temperature Last administered on 03/10/20at 22:41; Start 03/02/20 at 03:30 Methylprednisolone Sodium Succinate (SOLU-Medrol 40MG VIAL) 20 mg 1X ONCE IV Last administered on 03/02/20at 11:15; Start 03/02/20 at 11:15; Stop 03/02/20 at 11:16; Status DC Piperacillin Sod/ Tazobactam Sod (Zosyn Per Pharmacy) 1 each PRN DAILY PRN MC SEE COMMENTS; Start 03/02/20 at 11:15; Stop 03/08/20 at 14:48; Status DC Piperacillin Sod/ Tazobactam Sod 2.25 gm/Sodium Chloride 50 ml @ 100 mls/hr Q6HRS IV Last administered on 03/08/20at 12:38; Start 03/02/20 at 12:00; Stop 03/08/20 at 14:48; Status DC Methylprednisolone Sodium Succinate (SOLU-Medrol 40MG VIAL) 60 mg Q8HRS IV Last administered on 03/10/20at 06:13; Start 03/02/20 at 14:00; Stop 03/10/20 at 11:29; Status DC Lidocaine (Lidoderm) 1 patch DAILY TD Last administered on 03/13/20 08:29; Start 03/02/20 at 14:30 Miscellaneous (Lidoderm Patch Removal) 1 ea QHS MC Last administered on 03/07/20at 20:48; Start 03/02/20 at 21:00 Sertraline HCl (Zoloft) 25 mg DAILY PO Last administered on 03/05/20at 08:39; Start 03/03/20 at 09:00; Stop 03/05/20 at 19:23; Status DC Furosemide (Lasix) 20 mg 1X ONCE IVP Last administered on 03/04/20at 12:17; Start 03/04/20 at 11:00; Stop 03/04/20 at 11:01; Status DC Albuterol Sulfate (Ventolin Hfa) 2 puff Q4HRS INH Last administered on 03/07/20at 07:51; Start 03/04/20 at 12:00; Stop 03/07/20 at 17:37; Status DC Insulin Glargine (Lantus Syringe) 20 unit QHS SQ ; Start 03/04/20 at 21:00; Stop 03/05/20 at 15:08; Status DC Insulin Human Lispro (HumaLOG) 0-9 UNITS TIDACHC SQ Last administered on 03/13/20at 07:30; Start 03/04/20 at 13:00 Dextrose (Dextrose 50%-Water Syringe) 12.5 gm PRN Q15MIN PRN IV SEE COMMENTS; Start 03/04/20 at 13:00 Lactobacillus Rhamnosus (Culturelle) 1 cap BID PO Last administered on 03/13/20at 08:28; Start 03/04/20 at 13:00 Insulin Human Lispro (HumaLOG) 9 units 1X ONCE SQ Last administered on 03/04/20at 13:53; Start 03/04/20 at 13:30; Stop 03/04/20 at 13:35; Status DC Insulin Human Lispro (HumaLOG) 5 units TIDAC SQ Last administered on 03/13/20at 07:30; Start 03/05/20 at 08:00 Insulin Glargine (Lantus Syringe) 25 unit QHS SQ Last administered on 03/12/20at 22:23; Start 03/05/20 at 21:00 Loperamide HCl (Imodium) 2 mg PRN Q15MIN PRN PO DIARRHEA; Start 03/05/20 at 15:15 Sertraline HCl (Zoloft) 50 mg DAILY PO Last administered on 03/09/20at 08:33; Start 03/06/20 at 09:00; Stop 03/09/20 at 16:28; Status DC Sodium Chloride 1,000 ml @ 75 mls/hr [id number] IV Last administered on 03/07/20at 00:53; Start 03/06/20 at 14:00; Stop 03/07/20 at 13:50; Status DC Mirtazapine (Remeron) 15 mg QHS PO Last administered on 03/12/20at 22:16; Start 03/06/20 at 21:00 Hydralazine HCl (Apresoline Inj) 10 mg PRN Q4HRS PRN IVP ELEVATED BP, SEE COMMENTS Last administered on 03/09/20at 22:24; Start 03/07/20 at 09:30 Methylprednisolone Sodium Succinate (SOLU-Medrol 125MG VIAL) 125 mg 1X ONCE IV Last administered on 03/07/20at 10:48; Start 03/07/20 at 10:45; Stop 03/07/20 at 10:46; Status DC Fluticasone/ Vilanterol (Breo Ellipta 100-25 Mcg) 1 puff DAILY INH ; Start 03/07/20 at 11:30; Stop 03/07/20 at 11:02; Status DC Fluticasone/ Vilanterol (Breo Ellipta 100-25 Mcg) 1 puff DAILY INH ; Start 03/07/20 at 11:30; Stop 03/07/20 at 11:02; Status DC Fluticasone/ Vilanterol (Breo Ellipta 100-25 Mcg) 1 puff DAILY INH ; Start 03/07/20 at 11:30; Stop 03/07/20 at 17:37; Status DC Furosemide (Lasix) 40 mg 1X ONCE IVP Last administered on 03/07/20at 12:49; Start 03/07/20 at 12:45; Stop 03/07/20 at 12:46; Status DC Sodium Chloride 1,000 ml @ 75 mls/hr [id number] IV Last administered on 03/12/20at 15:38; Start 03/07/20 at 14:00 Non-Formulary Medication 1 ea/ Sodium Chloride 210 ml @ 210 mls/hr 1X ONCE IV Last administered on 03/08/20at 08:57; Start 03/08/20 at 09:00; Stop 03/08/20 at 09:59; Status DC Non-Formulary Medication 1 ea/ Sodium Chloride 230 ml @ 460 mls/hr Q24H IV Last administered on 03/12/20at 10:15; Start 03/09/20 at 09:00; Stop 03/12/20 at 09:29; Status DC Albuterol/ Ipratropium (Duoneb) 3 ml Q4HRS NEB Last administered on 03/13/20at 08:30; Start 03/07/20 at 20:00 Budesonide (Pulmicort) 0.5 mg RTBID NEB Last administered on 03/13/20at 08:30; Start 03/07/20 at 20:00 Sertraline HCl (Zoloft) 100 mg DAILY PO Last administered on 03/13/20at 08:28; Start 03/10/20 at 09:00 Methylprednisolone Sodium Succinate (SOLU-Medrol 40MG VIAL) 40 mg BID IV Last administered on 03/13/20at 08:29; Start 03/10/20 at 21:00 Furosemide (Lasix) 40 mg 1X ONCE IVP Last administered on 03/10/20at 21:03; Start 03/10/20 at 19:00; Stop 03/10/20 at 19:01; Status DC Metoprolol Tartrate (Lopressor) 25 mg PRN BID PRN PO TACHYCARDIA; Start 03/10/20 at 22:30 Dexmedetomidine HCl 400 mcg/ Sodium Chloride 100 ml @ 0 mls/hr CONT PRN IV SEE COMMENTS Last administered on 03/13/20at 07:36; Start 03/11/20 at 07:45 Sodium Chloride 500 ml @ 500 mls/hr 1X PRN PRN IV SEE COMMENTS; Start 03/11/20 at 07:45 Atropine Sulfate (ATROPINE 0.5mg SYRINGE) 0.5 mg PRN Q5MIN PRN IV SEE COMMENTS; Start 03/11/20 at 07:45 Furosemide (Lasix) 40 mg 1X ONCE IVP Last administered on 03/11/20at 10:30; Start 03/11/20 at 10:30; Stop 03/11/20 at 10:31; Status DC Amino Acids/ Glycerin/ Electrolytes 1,000 ml @ 80 mls/hr [id number] IV Last administered on 03/13/20at 02:32; Start 03/12/20 at 10:00 Active Scripts Active Reported Phospha 250 Neutral Tablet (Phosphorus #1) 250 Mg Tablet 1 Tab PO DAILY 30 Days Atorvastatin Calcium 20 Mg Tablet 1 Tab PO DAILYWSUP Levothyroxine Sodium 25 Mcg Tablet 1 Tab PO DAILY Iron (Ferrous Sulfate) 325 Mg Tablet 1 Tab PO BID 30 Days Flomax (Tamsulosin Hcl) 0.4 Mg Cap.er.24h 0.4 Mg PO DAILY Benicar (Olmesartan Medoxomil) 20 Mg Tablet 1 Tab PO DAILY 30 Days Cyclobenzaprine Hcl 10 Mg Tablet 1 Tab PO BID PRN Torsemide 20 Mg Tablet 4 Tab PO DAILY Benadryl (Diphenhydramine Hcl) 25 Mg Capsule 1 Cap PO QHS Quinapril Hcl 40 Mg Tablet 1 Tab PO DAILY Metformin Hcl 500 Mg Tablet 1 Tab PO DAILYBFRSUP Trazodone Hcl 50 Mg Tablet 50 Mg PO HS [place] 5-325 Tablet (Acetaminophen/Hydrocodone Bitart) 1 Each Tablet 1 Tab PO Q8HRS PRN Percocet 5-325 Mg Tablet (Oxycodone/Acetaminophen) 1 Each Tablet 1-2 Tab PO Q6HRS PRN Potassium Chloride 20 Meq Tab.er.prt 20 Meq PO BID Combivent Respimat Inhal (Ipratropium/Albuterol Sulfate) 4 Gm Aer.w.adap 2 Inh IH QID PRN Metformin Hcl 1,000 Mg Tablet 1 Tab PO DAILY08 Vitals/I & O Vital Sign - Last 24 Hours 03/12/20 03/12/20 03/12/20 03/12/20 11:00 11:37 12:00 12:00 Temp 97.5 97.5 Pulse 49 48 Resp 19 17 B/P (MAP) 104/47 (66) 113/51 (71) Pulse Ox 96 96 96 O2 Delivery BiPAP/CPAP BiPAP/CPAP BiPAP/CPAP Bi-pap 03/12/20 03/12/20 03/12/20 03/12/20 13:00 14:00 15:00 15:49 Pulse 58 58 54 Resp 21 21 22 B/P (MAP) 142/65 (90) 134/63 (86) 127/59 (81) Pulse Ox 95 94 95 94 O2 Delivery BiPAP/CPAP BiPAP/CPAP BiPAP/CPAP BiPAP/CPAP 03/12/20 03/12/20 03/12/20 03/12/20 16:00 16:00 17:00 18:00 Temp 97.5 97.5 Pulse 58 58 79 Resp 19 21 21 B/P (MAP) 130/59 (82) 126/57 (80) Pulse Ox 95 93 92 O2 Delivery BiPAP/CPAP Bi-pap BiPAP/CPAP BiPAP/CPAP 03/12/20 03/12/20 03/12/20 03/12/20 19:00 20:00 20:00 20:30 Pulse 82 76 Resp 28 22 B/P (MAP) 128/54 (78) 128/55 (79) Pulse Ox 92 92 92 O2 Delivery BiPAP/CPAP BiPAP/CPAP Bi-pap BiPAP/CPAP 03/12/20 03/12/20 03/12/20 03/12/20 20:31 21:00 21:00 22:00 Temp 98.1 98.1 Pulse 66 64 Resp 21 21 B/P (MAP) 125/53 (77) 121/52 (75) Pulse Ox 92 93 92 O2 Delivery BiPAP/CPAP BiPAP/CPAP BiPAP/CPAP 03/12/20 03/13/20 03/13/20 03/13/20 23:00 00:00 00:01 00:14 Pulse 81 80 Resp 25 25 B/P (MAP) 128/57 (80) 153/73 (99) Pulse Ox 94 95 95 O2 Delivery BiPAP/CPAP Bi-pap BiPAP/CPAP BiPAP/CPAP 03/13/20 03/13/20 03/13/20 03/13/20 01:00 02:00 03:00 04:00 Temp 97.8 97.8 Pulse 63 59 56 Resp 22 17 20 B/P (MAP) 142/58 (86) 131/58 (82) 132/59 (83) Pulse Ox 91 93 95 O2 Delivery BiPAP/CPAP BiPAP/CPAP BiPAP/CPAP Bi-pap 03/13/20 03/13/20 03/13/20 03/13/20 04:00 04:49 05:00 06:00 Temp 97.6 97.6 Pulse 53 55 61 Resp 19 19 22 B/P (MAP) 120/60 (80) 133/62 (85) 121/54 (76) Pulse Ox 95 95 100 94 O2 Delivery BiPAP/CPAP BiPAP/CPAP BiPAP/CPAP BiPAP/CPAP 03/13/20 03/13/20 03/13/20 03/13/20 07:00 08:00 08:30 09:00 Pulse 56 56 52 Resp 21 18 18 B/P (MAP) 140/58 (85) 133/61 (85) 136/62 (86) Pulse Ox 95 95 93 96 O2 Delivery BiPAP/CPAP BiPAP/CPAP BiPAP/CPAP BiPAP/CPAP 03/13/20 09:51 Pulse 80 Resp 18 B/P (MAP) 159/75 (103) Pulse Ox 97 O2 Delivery BiPAP/CPAP Intake and Output 03/12/20 03/12/20 03/13/20 15:00 23:00 07:00 Intake Total 300 ml 1488 ml 1278 ml Output Total 645 ml 520 ml 850 ml Balance -345 ml 968 ml 428 ml Justicifation of Admission Dx: Justifications for Admission: Justification of Admission Dx: Yes EZEQUIEL HUGHES MD Mar 13, 2020 10:23
[2020-03-13] MEDS ORDERED: FUROSEMIDE 40 MG/4 ML VIAL. IVP ONE (11:15)
--- NOTE | 2020-03-13 11:21 | RAD ---
CHEST AP ONLY INDICATION: Reason: covid f/u ICU#111 / Spl. Instructions: / History: . COMPARISON STUDY: 03/11/2020. FINDINGS: Lungs: Low lung volume. Stable bilateral perihilar and basilar heterogeneous opacities. Indistinct central vasculature. Pleura: Stable pleural spaces. Heart and Mediastinum: Stable cardiomediastinal silhouette and great vessels. Bones and Soft Tissues: Stable regional skeleton and soft tissues. IMPRESSION: Stable bilateral perihilar and basilar heterogeneous opacities. Electronically signed by: Aram Glover MD (03/13/2020 11:18 AM) [id number]
--- NOTE | 2020-03-13 11:42 | PDOC ---
DATE OF SERVICE DATE: 03/13/20 TIME: 11:36 SUBJECTIVE ROS Now on BIPAP patient awake alert following commands resting comfortably OBJECTIVE Vital Signs Vital Signs Date Time Temp Pulse Resp B/P (MAP) Pulse Ox O2 Delivery O2 Flow Rate FiO2 03/13/20 11:00 88 26 167/63 (97) 94 BiPAP/CPAP 03/13/20 08:00 97.5 97.5 I & 0 Intake and Output 03/13/20 07:00 Intake Total 3066 ml Output Total 2015 ml Balance 1051 ml Intake Oral 1080 ml IV Total 1986 ml Output Urine Total 2015 ml PHYSICAL EXAM Physical Exam Pt seen during COVID-19 pandemic visual exam preformed Gen alert , On Bipap CV RRR Lungs BIPAP, No accessory muscle use Ext trace edema Skin no rash DIAGNOSIS/ASSESSMENT Assessment & Plan DANIELA - Resolved , good UOP Supportive care avoid Nephrotoxins, daily BMP CKD stage 3 - Baseline Cr 1.6- in 2014 and 2018 Renal cyst- left kidney in the inferior pole measuring 7.3 cm likely a cyst. Ct in 2019 -Bilateral renal cysts, the largest of which lies on the left and measures 7.5 cm Acute hypoxemic respiratory failure/multifactorial/acute exacerbation of COPD/COVID-19 cxr with bilateral interstitial infiltrates 03/07 CoVid positive On steroids, with taper. S/P plasma and S/P Remdesvir anemia/ dark stools ---H/o SB/cecal AVMs, gi following FOBT positive COPD - 60 years of tobacco use, quit 3 years ago. 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 pylori- EGD in the past Diverticulosis- Ct in 09/2018- Extensive sigmoid diverticulosis. . Transaminitis- Hepatic steatosis/ Probable small hepatic cysts on CT Will sign off COMMENT/RELEVANT DATA Meds Current Medications Medications (Trade) Dose Ordered Sig/Ya Start Time Stop Time Status Last Admin Dose Admin Acetaminophen (Tylenol) 650 mg PRN Q6HRS PRN 03/02/20 03:30 03/10/20 22:41 650 MG Albuterol Sulfate (Ventolin Hfa) 2 puff Q4HRS 03/04/20 12:00 03/07/20 17:37 DC 03/07/20 07:51 2 PUFF Albuterol/ Ipratropium (Duoneb) 3 ml Q4HRS 03/07/20 20:00 03/13/20 08:30 3 ML Amino Acids/ Glycerin/ Electrolytes 1,000 ml @ 80 mls/hr [id number] 03/12/20 10:00 03/13/20 02:32 80 MLS/HR Atropine Sulfate (ATROPINE 0.5mg SYRINGE) 0.5 mg PRN Q5MIN PRN 03/11/20 07:45 Budesonide (Pulmicort) 0.5 mg RTBID 03/07/20 20:00 03/13/20 08:30 0.5 MG Dexmedetomidine HCl 400 mcg/ Sodium Chloride 100 ml @ 0 mls/hr CONT PRN 03/11/20 07:45 03/13/20 07:36 4.1 MLS/HR Dextrose (Dextrose 50%-Water Syringe) 12.5 gm PRN Q15MIN PRN 03/04/20 13:00 Diphenhydramine HCl (Benadryl) 25 mg PRN QHS PRN 03/01/20 22:15 03/08/20 21:02 25 MG Enoxaparin Sodium (Lovenox 40mg Syringe) 40 mg BID 03/13/20 11:15 Ferrous Sulfate (Feosol) 325 mg BIDWMEALS 03/01/20 17:00 03/13/20 08:28 325 MG Fluticasone/ Vilanterol (Breo Ellipta 100-25 Mcg) 1 puff DAILY 03/07/20 11:30 03/07/20 17:37 DC Furosemide (Lasix) 40 mg 1X ONCE 03/13/20 11:15 03/13/20 11:18 DC Hydralazine HCl (Apresoline Inj) 10 mg PRN Q4HRS PRN 03/07/20 09:30 03/09/20 22:24 10 MG Insulin Glargine (Lantus Syringe) 25 unit QHS 03/05/20 21:00 03/12/20 22:23 25 UNIT Insulin Human Lispro (HumaLOG) 5 units TIDAC 03/05/20 08:00 03/13/20 07:30 5 UNITS Lactobacillus Rhamnosus (Culturelle) 1 cap BID 03/04/20 13:00 03/13/20 08:28 1 CAP Lidocaine (Lidoderm) 1 patch DAILY 03/02/20 14:30 03/13/20 08:29 1 PATCH Loperamide HCl (Imodium) 2 mg PRN Q15MIN PRN 03/05/20 15:15 Methylprednisolone Sodium Succinate (SOLU-Medrol 40MG VIAL) 40 mg BID 03/10/20 21:00 03/13/20 08:29 40 MG Methylprednisolone Sodium Succinate (SOLU-Medrol 125MG VIAL) 125 mg 1X ONCE 03/07/20 10:45 03/07/20 10:46 DC 03/07/20 10:48 125 MG Metoprolol Tartrate (Lopressor) 25 mg PRN BID PRN 03/10/20 22:30 Mirtazapine (Remeron) 15 mg QHS 03/06/20 21:00 03/12/20 22:16 15 MG Miscellaneous (Lidoderm Patch Removal) 1 ea QHS 03/02/20 21:00 03/07/20 20:48 1 EA Non-Formulary Medication 1 ea/ Sodium Chloride 230 ml @ 460 mls/hr Q24H 03/09/20 09:00 03/12/20 09:29 DC 03/12/20 10:15 460 MLS/HR Olanzapine (ZyPREXA ZYDIS) 5 mg PRN BID PRN 03/01/20 11:15 Ondansetron HCl (Zofran) 4 mg PRN Q8HRS PRN 02/29/20 13:30 03/01/20 13:29 DC Pantoprazole Sodium (Protonix) 40 mg DAILYAC 03/01/20 07:30 03/13/20 08:28 40 MG Piperacillin Sod/ Tazobactam Sod (Zosyn Per Pharmacy) 1 each PRN DAILY PRN 03/02/20 11:15 03/08/20 14:48 DC Piperacillin Sod/ Tazobactam Sod 2.25 gm/Sodium Chloride 50 ml @ 100 mls/hr Q6HRS 03/02/20 12:00 03/08/20 14:48 DC 03/08/20 12:38 100 MLS/HR Polyethylene Glycol (miraLAX PACKET) 17 gm PRN DAILY PRN 03/01/20 10:15 03/01/20 10:12 DC Ringer's Solution 1,000 ml @ 50 mls/hr Q20H 03/02/20 07:00 03/02/20 18:59 DC Sertraline HCl (Zoloft) 100 mg DAILY 03/10/20 09:00 03/13/20 08:28 100 MG Sodium Chloride 500 ml @ 500 mls/hr 1X PRN PRN 03/11/20 07:45 Sodium Cl/Sod Bicarb/Potass Cl/ PEG (Golytely) 4,000 ml 1X ONCE 03/01/20 14:00 03/01/20 14:01 DC 03/01/20 14:47 4,000 ML Sucralfate (Carafate) 1 gm BID 02/29/20 21:00 03/12/20 12:25 1 GM Lab Laboratory Tests Test 03/12/20 12:31 03/12/20 15:27 03/12/20 23:06 03/13/20 04:40 Glucose (Fingerstick) 185 mg/dL (70-99) 208 mg/dL (70-99) 230 mg/dL (70-99) White Blood Count 13.2 x10^3/uL (4.0-11.0) Red Blood Count 2.83 x10^6/uL (4.30-5.70) Hemoglobin 8.8 g/dL (13.0-17.5) Hematocrit 27.2 % (39.0-53.0) Mean Corpuscular Volume 96 fL (79-100) Mean Corpuscular Hemoglobin 31 pg (25-35) Mean Corpuscular Hemoglobin Concent 32 g/dL (31-37) Red Cell Distribution Width 16.7 % (11.5-14.5) Platelet Count 165 x10^3/uL (140-400) Neutrophils (%) (Auto) 96 % (31-73) Lymphocytes (%) (Auto) 1 % (24-48) Monocytes (%) (Auto) 2 % (0-9) Eosinophils (%) (Auto) 0 % (0-3) Basophils (%) (Auto) 0 % (0-3) Neutrophils # (Auto) 12.7 x10^3/uL (1.8-7.7) Lymphocytes # (Auto) 0.2 x10^3/uL (1.0-4.8) Monocytes # (Auto) 0.3 x10^3/uL (0.0-1.1) Eosinophils # (Auto) 0.0 x10^3/uL (0.0-0.7) Basophils # (Auto) 0.0 x10^3/uL (0.0-0.2) D-Dimer (Alisia) 3.25 ug/mlFEU (0.00-0.50) Sodium Level 137 mmol/L (136-145) Potassium Level 5.1 mmol/L (3.5-5.1) Chloride Level 105 mmol/L (98-107) Carbon Dioxide Level 24 mmol/L (21-32) Anion Gap 8 (6-14) Blood Urea Nitrogen 45 mg/dL (8-26) Creatinine 1.2 mg/dL (0.7-1.3) Estimated GFR (Cockcroft-Gault) 57.7 Glucose Level 267 mg/dL (70-99) Calcium Level 7.1 mg/dL (8.5-10.1) Ferritin 403 ng/mL (26-388) C-Reactive Protein, Quantitative 97.1 mg/L (0-3.3) Procalcitonin 0.32 ng/mL (0.00-0.10) Test 03/13/20 09:14 Glucose (Fingerstick) 266 mg/dL (70-99) Results All relevant outside records, renal labs, imaging studies, telemetry/EKG's were reviewed. Justicifation of Admission Dx: Justifications for Admission: Justification of Admission Dx: Yes WILNER DAVIS MD Mar 13, 2020 11:42
[2020-03-13] MEDS: ENOXAPARIN 40 MG/0.4 ML SYRINGE. SQ SCH ×2 (12:00→21:11)
[2020-03-13] MEDS: STERILE WATER for RESP 1,000 ML BAG. INH PRN ×2 (13:15→22:16)
--- NOTE | 2020-03-13 14:59 | NUR ---
SS following up with discharge planning. SS reviewed pt chart and discussed with pt RN. Pt on Vapotherm trial and DNR. COVID19 positive. SS phoned and faxed referral to [facility], ; fax [phone]. SS will continue to follow for discharge planning.
--- NOTE | 2020-03-13 17:34 | PDOC ---
F/U PHYSCH PROG NOTE Subjective: Gentleman is seen for routine follow-up. Progress is reviewed with nursing staff. No major emotional or behavioral event reported overnight. Nursing staff reports, a day ago patient was relatively down. However since morning he is been calm more alert and oriented and more conversant. When discussed with patient, reports he is doing all right and mood is better. Denies suicidal and homicidal thoughts. Denies auditory or visual hallucinations. No evidence of cora or hypomania. Objective: 14 point review of system is otherwise negative except for stated above. Vital Signs: Vital Signs Date Time Temp Pulse Resp B/P (MAP) Pulse Ox O2 Delivery O2 Flow Rate FiO2 03/13/20 17:00 102 31 138/49 (78) 91 High Flow Nasal Cannula 30.0 03/13/20 16:00 97.0 97.0 Labs: Laboratory Tests Test 03/12/20 23:06 03/13/20 04:40 03/13/20 09:14 03/13/20 12:45 Glucose (Fingerstick) 230 mg/dL (70-99) H 266 mg/dL (70-99) H 278 mg/dL (70-99) H White Blood Count 13.2 x10^3/uL (4.0-11.0) H Red Blood Count 2.83 x10^6/uL (4.30-5.70) L Hemoglobin 8.8 g/dL (13.0-17.5) L Hematocrit 27.2 % (39.0-53.0) L Mean Corpuscular Volume 96 fL (79-100) Mean Corpuscular Hemoglobin 31 pg (25-35) Mean Corpuscular Hemoglobin Concent 32 g/dL (31-37) Red Cell Distribution Width 16.7 % (11.5-14.5) H Platelet Count 165 x10^3/uL (140-400) Neutrophils (%) (Auto) 96 % (31-73) H Lymphocytes (%) (Auto) 1 % (24-48) L Monocytes (%) (Auto) 2 % (0-9) Eosinophils (%) (Auto) 0 % (0-3) Basophils (%) (Auto) 0 % (0-3) Neutrophils # (Auto) 12.7 x10^3/uL (1.8-7.7) H Lymphocytes # (Auto) 0.2 x10^3/uL (1.0-4.8) L Monocytes # (Auto) 0.3 x10^3/uL (0.0-1.1) Eosinophils # (Auto) 0.0 x10^3/uL (0.0-0.7) Basophils # (Auto) 0.0 x10^3/uL (0.0-0.2) D-Dimer (Alisia) 3.25 ug/mlFEU (0.00-0.50) H Sodium Level 137 mmol/L (136-145) Potassium Level 5.1 mmol/L (3.5-5.1) Chloride Level 105 mmol/L (98-107) Carbon Dioxide Level 24 mmol/L (21-32) Anion Gap 8 (6-14) Blood Urea Nitrogen 45 mg/dL (8-26) H Creatinine 1.2 mg/dL (0.7-1.3) Estimated GFR (Cockcroft-Gault) 57.7 Glucose Level 267 mg/dL (70-99) H Calcium Level 7.1 mg/dL (8.5-10.1) L Ferritin 403 ng/mL (26-388) H C-Reactive Protein, Quantitative 97.1 mg/L (0-3.3) H Procalcitonin 0.32 ng/mL (0.00-0.10) H Laboratory Tests 03/13/20 04:40 Laboratory Tests 03/13/20 04:40 Medications: Current Medications Medications (Trade) Dose Ordered Sig/Ya Start Time Stop Time Status Last Admin Dose Admin Acetaminophen (Tylenol) 650 mg PRN Q6HRS PRN 03/02/20 03:30 03/10/20 22:41 650 MG Albuterol Sulfate (Ventolin Hfa) 2 puff Q4HRS 03/04/20 12:00 03/07/20 17:37 DC 03/07/20 07:51 2 PUFF Albuterol/ Ipratropium (Duoneb) 3 ml Q4HRS 03/07/20 20:00 03/13/20 16:32 3 ML Amino Acids/ Glycerin/ Electrolytes 1,000 ml @ 80 mls/hr [id number] 03/12/20 10:00 03/13/20 16:09 80 MLS/HR Atropine Sulfate (ATROPINE 0.5mg SYRINGE) 0.5 mg PRN Q5MIN PRN 03/11/20 07:45 Budesonide (Pulmicort) 0.5 mg RTBID 03/07/20 20:00 03/13/20 08:30 0.5 MG Dexmedetomidine HCl 400 mcg/ Sodium Chloride 100 ml @ 0 mls/hr CONT PRN 03/11/20 07:45 03/13/20 07:36 4.1 MLS/HR Dextrose (Dextrose 50%-Water Syringe) 12.5 gm PRN Q15MIN PRN 03/04/20 13:00 Diphenhydramine HCl (Benadryl) 25 mg PRN QHS PRN 03/01/20 22:15 03/08/20 21:02 25 MG Enoxaparin Sodium (Lovenox 40mg Syringe) 40 mg BID 03/13/20 11:15 03/13/20 12:00 40 MG Ferrous Sulfate (Feosol) 325 mg BIDWMEALS 03/01/20 17:00 03/13/20 08:28 325 MG Fluticasone/ Vilanterol (Breo Ellipta 100-25 Mcg) 1 puff DAILY 03/07/20 11:30 03/07/20 17:37 DC Furosemide (Lasix) 40 mg 1X ONCE 03/13/20 11:15 03/13/20 11:18 DC 03/13/20 11:57 40 MG Hydralazine HCl (Apresoline Inj) 10 mg PRN Q4HRS PRN 03/07/20 09:30 03/09/20 22:24 10 MG Insulin Glargine (Lantus Syringe) 25 unit QHS 03/05/20 21:00 03/12/20 22:23 25 UNIT Insulin Human Lispro (HumaLOG) 5 units TIDAC 03/05/20 08:00 03/13/20 11:30 5 UNITS Lactobacillus Rhamnosus (Culturelle) 1 cap BID 03/04/20 13:00 03/13/20 08:28 1 CAP Lidocaine (Lidoderm) 1 patch DAILY 03/02/20 14:30 03/13/20 08:29 1 PATCH Loperamide HCl (Imodium) 2 mg PRN Q15MIN PRN 03/05/20 15:15 Methylprednisolone Sodium Succinate (SOLU-Medrol 40MG VIAL) 40 mg BID 03/10/20 21:00 03/13/20 08:29 40 MG Methylprednisolone Sodium Succinate (SOLU-Medrol 125MG VIAL) 125 mg 1X ONCE 03/07/20 10:45 03/07/20 10:46 DC 03/07/20 10:48 125 MG Metoprolol Tartrate (Lopressor) 25 mg PRN BID PRN 03/10/20 22:30 Mirtazapine (Remeron) 15 mg QHS 03/06/20 21:00 03/12/20 22:16 15 MG Miscellaneous (Lidoderm Patch Removal) 1 ea QHS 03/02/20 21:00 03/07/20 20:48 1 EA Non-Formulary Medication 1 ea/ Sodium Chloride 230 ml @ 460 mls/hr Q24H 03/09/20 09:00 03/12/20 09:29 DC 03/12/20 10:15 460 MLS/HR Olanzapine (ZyPREXA ZYDIS) 5 mg PRN BID PRN 03/01/20 11:15 Ondansetron HCl (Zofran) 4 mg PRN Q8HRS PRN 02/29/20 13:30 03/01/20 13:29 DC Pantoprazole Sodium (Protonix) 40 mg DAILYAC 03/01/20 07:30 03/13/20 08:28 40 MG Piperacillin Sod/ Tazobactam Sod (Zosyn Per Pharmacy) 1 each PRN DAILY PRN 03/02/20 11:15 03/08/20 14:48 DC Piperacillin Sod/ Tazobactam Sod 2.25 gm/Sodium Chloride 50 ml @ 100 mls/hr Q6HRS 03/02/20 12:00 03/08/20 14:48 DC 03/08/20 12:38 100 MLS/HR Polyethylene Glycol (miraLAX PACKET) 17 gm PRN DAILY PRN 03/01/20 10:15 03/01/20 10:12 DC Ringer's Solution 1,000 ml @ 50 mls/hr Q20H 03/02/20 07:00 03/02/20 18:59 DC Sertraline HCl (Zoloft) 100 mg DAILY 03/10/20 09:00 03/13/20 08:28 100 MG Sodium Chloride 500 ml @ 500 mls/hr 1X PRN PRN 03/11/20 07:45 Sodium Cl/Sod Bicarb/Potass Cl/ PEG (Golytely) 4,000 ml 1X ONCE 03/01/20 14:00 03/01/20 14:01 DC 03/01/20 14:47 4,000 ML Sterile Water (WATER for RESP) 1,000 ml CONT PRN 03/13/20 12:45 03/13/20 13:15 1,000 ML Sucralfate (Carafate) 1 gm BID 02/29/20 21:00 03/12/20 12:25 1 GM Physical Exam: Mental Status Exam: gentleman with severe hard of hearing Cooperative Disoriented Thought process goal-directed Denies auditory or visual hallucinations Denies suicidal or homicidal thoughts Mood is alright Affect is restrictive Insight is fair Judgment is fair Impulse control is fair attention span and concentration fair Recent memory impaired Remote memory intact Physical Exam: Refer to Physician's note. INTERNAL CONTROLS MANAGER: No focal deficit MSK: No EPS, TDK, or abnormal involuntary movements Diagnosis: Major depressive disorder, recurrent, moderate Generalized anxiety disorder. Assessment: Gentleman is struggling with depression likely to his psychosocial circumstances. Additionally, he has multiple medical comorbidities which are perpetuating his depression. He is in agreement to start Zoloft 25 mg and trazodone for sleep. 03/10/2020. Patient reports improvement in his mood and anxiety today. Feeling better. 03/13/2020. Patient appears more alert and oriented, receptive and reporting improvement Plan: Continue Remeron 15 mg nightly for depression adjunct, anxiety, and insomnia. Continue Zoloft to 100 mg daily for depression and anxiety. Risks, benefits, alternatives of the treatment are discussed. Adverse drug reaction of the medications are also discussed Psychoeducation provided Supportive psychotherapy provided VERONICA JACKSON MD Mar 13, 2020 17:34
[2020-03-13] MEDS ORDERED: INSULIN REGULAR 100 UNIT/ML 3ML VIAL. IV ONE (18:00)
[2020-03-13] MEDS: PATCH REMOVAL. MC SCH (21:00)
[2020-03-13] MEDS: MIRTAZAPINE 15 MG TABLET PO SCH (21:11)
[2020-03-13] MEDS: ACETAMINOPHEN 325 MG TABLET. PO PRN (21:11)
[2020-03-13] MEDS: INSULIN GLARGINE SYRINGE. SQ SCH (21:22)
[2020-03-14] VITALS (24 sets, daily range): BP systolic 116–155; BP diastolic 52–73
[2020-03-14] MEDS: IPRATRPIUM/ALBUTEROL 0.5/2.5MG 3 ML NEBU. NEB SCH ×6 (00:15→19:53)
[2020-03-14 07:02] LABS: ALBUMIN 1.6 g/dL (3.4-5.0); ALBUMIN/GLOBULIN RATIO 0.5 (1.0-1.7); CREATININE 1.2 mg/dL (0.7-1.3); GFR 57.7; POTASSIUM 5.1 mmol/L (3.5-5.1); TOTAL BILIRUBIN 0.4 mg/dL (0.2-1.0)
[2020-03-14] MEDS: INSULIN LISPRO 300 UNITS/3 ML VIAL. SQ SCH ×7 (07:30→21:19)
[2020-03-14] MEDS: SUCRALFATE 1 GM TABLET. PO SCH ×2 (08:06→21:18)
[2020-03-14] MEDS: methylPREDNISolone SOD SUCC PF 40 MG/ML VIAL. IV SCH ×2 (08:06→21:19)
[2020-03-14] MEDS: PANTOPRAZOLE 40 MG TABLET.DR. PO SCH (08:06)
[2020-03-14] MEDS: LACTOBACILLUS RHAMNOSUS GG 1 CAPSULE. PO SCH ×2 (08:06→21:18)
[2020-03-14] MEDS: FERROUS SULFATE 325 MG TABLET. PO SCH ×2 (08:06→17:52)
[2020-03-14] MEDS: SERTRALINE 50 MG TABLET. PO SCH (08:06)
[2020-03-14] MEDS: ENOXAPARIN 40 MG/0.4 ML SYRINGE. SQ SCH ×2 (08:06→21:21)
[2020-03-14] MEDS: IV 1/2 NORMAL SALINE 1,000 ML IV SCH (08:07)
[2020-03-14] MEDS: LIDOCAINE (700MG/PATCH) PATCH. TD SCH (08:07)
[2020-03-14] MEDS: FUROSEMIDE 40 MG/4 ML VIAL. IVP SCH (08:07)
[2020-03-14] MEDS: BUDESONIDE 0.5 MG/2 ML NEBU. NEB SCH ×2 (08:16→19:53)
--- NOTE | 2020-03-14 09:23 | PDOC ---
Date of Service: DATE: 03/14/20 TIME: 09:21 Objective: Objective: D/w nurse - eating well, no bleeding. Vital Signs: Vital Signs Date Time Temp Pulse Resp B/P (MAP) Pulse Ox O2 Delivery O2 Flow Rate FiO2 03/14/20 09:00 90 25 127/68 (87) 88 High Flow Nasal Cannula 30.0 03/14/20 08:00 97.8 97.8 Labs: Laboratory Tests Test 03/13/20 12:45 03/13/20 17:53 03/13/20 21:18 03/14/20 06:05 Glucose (Fingerstick) 278 mg/dL 426 mg/dL 346 mg/dL Sodium Level 135 mmol/L Potassium Level 5.1 mmol/L Chloride Level 103 mmol/L Carbon Dioxide Level 23 mmol/L Anion Gap 9 Blood Urea Nitrogen 48 mg/dL Creatinine 1.2 mg/dL Estimated GFR (Cockcroft-Gault) 57.7 BUN/Creatinine Ratio 40 Glucose Level 330 mg/dL Calcium Level 8.0 mg/dL Total Bilirubin 0.4 mg/dL Aspartate Amino Transf (AST/SGOT) 32 U/L Alanine Aminotransferase (ALT/SGPT) 67 U/L Alkaline Phosphatase 82 U/L Total Protein 5.0 g/dL Albumin 1.6 g/dL Albumin/Globulin Ratio 0.5 Test 03/14/20 08:34 Glucose (Fingerstick) 314 mg/dL PE: GEN: in COVID isolation in ICU LUNGS: high flow NC HEART: RRR ABD: non-distended NEURO/PSYCH: A & O 3 -watching tv, gives me a thumbs up A/P: Resp failure w/ COVID-19 and COPD LIZY, h/o SB AVMs - on PPI, iron, Carafate; Hgb stable Melena - resolved -- Continue same per GI. Justicifation of Admission Dx: Justifications for Admission: Justification of Admission Dx: Yes DEBBIE MURRAY Mar 14, 2020 09:23
[2020-03-14] MEDS: IV NORMAL SALINE 1000ML BAG 1,000 ML IV SCH ×2 (09:41→23:43)
--- NOTE | 2020-03-14 10:26 | PDOC ---
PULMONARY PROGRESS NOTES DATE: 03/14/20 TIME: 10:21 Subjective comfortable on vapotherm down to 80%/ 30 litres Vitals Vital Signs Date Time Temp Pulse Resp B/P (MAP) Pulse Ox O2 Delivery O2 Flow Rate FiO2 03/14/20 10:00 104 29 141/59 (86) 88 High Flow Nasal Cannula 30.0 03/14/20 08:00 97.8 97.8 Comments pt. seen during pandemic visual exam preformed RRR BIPAP no distress trace edema no rash General: Alert, No acute distress Labs Laboratory Tests Test 03/12/20 12:31 03/12/20 15:27 03/12/20 23:06 03/13/20 04:40 Glucose (Fingerstick) 185 mg/dL (70-99) 208 mg/dL (70-99) 230 mg/dL (70-99) White Blood Count 13.2 x10^3/uL (4.0-11.0) Red Blood Count 2.83 x10^6/uL (4.30-5.70) Hemoglobin 8.8 g/dL (13.0-17.5) Hematocrit 27.2 % (39.0-53.0) Mean Corpuscular Volume 96 fL (79-100) Mean Corpuscular Hemoglobin 31 pg (25-35) Mean Corpuscular Hemoglobin Concent 32 g/dL (31-37) Red Cell Distribution Width 16.7 % (11.5-14.5) Platelet Count 165 x10^3/uL (140-400) Neutrophils (%) (Auto) 96 % (31-73) Lymphocytes (%) (Auto) 1 % (24-48) Monocytes (%) (Auto) 2 % (0-9) Eosinophils (%) (Auto) 0 % (0-3) Basophils (%) (Auto) 0 % (0-3) Neutrophils # (Auto) 12.7 x10^3/uL (1.8-7.7) Lymphocytes # (Auto) 0.2 x10^3/uL (1.0-4.8) Monocytes # (Auto) 0.3 x10^3/uL (0.0-1.1) Eosinophils # (Auto) 0.0 x10^3/uL (0.0-0.7) Basophils # (Auto) 0.0 x10^3/uL (0.0-0.2) D-Dimer (Alisia) 3.25 ug/mlFEU (0.00-0.50) Sodium Level 137 mmol/L (136-145) Potassium Level 5.1 mmol/L (3.5-5.1) Chloride Level 105 mmol/L (98-107) Carbon Dioxide Level 24 mmol/L (21-32) Anion Gap 8 (6-14) Blood Urea Nitrogen 45 mg/dL (8-26) Creatinine 1.2 mg/dL (0.7-1.3) Estimated GFR (Cockcroft-Gault) 57.7 Glucose Level 267 mg/dL (70-99) Calcium Level 7.1 mg/dL (8.5-10.1) Ferritin 403 ng/mL (26-388) C-Reactive Protein, Quantitative 97.1 mg/L (0-3.3) Procalcitonin 0.32 ng/mL (0.00-0.10) Test 03/13/20 09:14 03/13/20 12:45 03/13/20 17:53 03/13/20 21:18 Glucose (Fingerstick) 266 mg/dL (70-99) 278 mg/dL (70-99) 426 mg/dL (70-99) 346 mg/dL (70-99) Test 03/14/20 06:05 03/14/20 08:34 Sodium Level 135 mmol/L (136-145) Potassium Level 5.1 mmol/L (3.5-5.1) Chloride Level 103 mmol/L (98-107) Carbon Dioxide Level 23 mmol/L (21-32) Anion Gap 9 (6-14) Blood Urea Nitrogen 48 mg/dL (8-26) Creatinine 1.2 mg/dL (0.7-1.3) Estimated GFR (Cockcroft-Gault) 57.7 BUN/Creatinine Ratio 40 (6-20) Glucose Level 330 mg/dL (70-99) Calcium Level 8.0 mg/dL (8.5-10.1) Total Bilirubin 0.4 mg/dL (0.2-1.0) Aspartate Amino Transf (AST/SGOT) 32 U/L (15-37) Alanine Aminotransferase (ALT/SGPT) 67 U/L (16-63) Alkaline Phosphatase 82 U/L (46-116) Total Protein 5.0 g/dL (6.4-8.2) Albumin 1.6 g/dL (3.4-5.0) Albumin/Globulin Ratio 0.5 (1.0-1.7) Glucose (Fingerstick) 314 mg/dL (70-99) Laboratory Tests Test 03/13/20 12:45 03/13/20 17:53 03/13/20 21:18 03/14/20 06:05 Glucose (Fingerstick) 278 mg/dL (70-99) 426 mg/dL (70-99) 346 mg/dL (70-99) Sodium Level 135 mmol/L (136-145) Potassium Level 5.1 mmol/L (3.5-5.1) Chloride Level 103 mmol/L (98-107) Carbon Dioxide Level 23 mmol/L (21-32) Anion Gap 9 (6-14) Blood Urea Nitrogen 48 mg/dL (8-26) Creatinine 1.2 mg/dL (0.7-1.3) Estimated GFR (Cockcroft-Gault) 57.7 BUN/Creatinine Ratio 40 (6-20) Glucose Level 330 mg/dL (70-99) Calcium Level 8.0 mg/dL (8.5-10.1) Total Bilirubin 0.4 mg/dL (0.2-1.0) Aspartate Amino Transf (AST/SGOT) 32 U/L (15-37) Alanine Aminotransferase (ALT/SGPT) 67 U/L (16-63) Alkaline Phosphatase 82 U/L (46-116) Total Protein 5.0 g/dL (6.4-8.2) Albumin 1.6 g/dL (3.4-5.0) Albumin/Globulin Ratio 0.5 (1.0-1.7) Test 03/14/20 08:34 Glucose (Fingerstick) 314 mg/dL (70-99) Medications Active Scripts Medications Dose Route/Sig Max Daily Dose Days Date Category Phospha 250 Neutral Tablet (Phosphorus #1) 250 Mg Tablet 1 Tab PO DAILY 30 02/29/20 Reported Atorvastatin Calcium 20 Mg Tablet 1 Tab PO DAILYWSUP 02/29/20 Reported Levothyroxine Sodium 25 Mcg Tablet 1 Tab PO DAILY 02/29/20 Reported Iron (Ferrous Sulfate) 325 Mg Tablet 1 Tab PO BID 30 02/29/20 Reported Flomax (Tamsulosin Hcl) 0.4 Mg Cap.er.24h 0.4 Mg PO DAILY 02/29/20 Reported Benicar (Olmesartan Medoxomil) 20 Mg Tablet 1 Tab PO DAILY 30 02/29/20 Reported Cyclobenzaprine Hcl 10 Mg Tablet 1 Tab PO BID PRN 10/08/14 Reported Torsemide 20 Mg Tablet 4 Tab PO DAILY 10/08/14 Reported Benadryl (Diphenhydramine Hcl) 25 Mg Capsule 1 Cap PO QHS 10/08/14 Reported Quinapril Hcl 40 Mg Tablet 1 Tab PO DAILY 10/08/14 Reported Metformin Hcl 500 Mg Tablet 1 Tab PO DAILYBFRSUP 10/08/14 Reported Trazodone Hcl 50 Mg Tablet 50 Mg PO HS 10/08/14 Reported Calera 5-325 Tablet (Acetaminophen/Hydrocodone Bitart) 1 Each Tablet 1 Tab PO Q8HRS PRN 10/08/14 Reported Percocet 5-325 Mg Tablet (Oxycodone/Acetaminophen) 1 Each Tablet 1-2 Tab PO Q6HRS PRN 10/08/14 Reported Potassium Chloride 20 Meq Tab.er.prt 20 Meq PO BID 10/08/14 Reported Combivent Respimat Inhal (Ipratropium/Albuterol Sulfate) 4 Gm Aer.w.adap 2 Inh IH QID PRN 10/08/14 Reported Metformin Hcl 1,000 Mg Tablet 1 Tab PO DAILY08 10/07/14 Reported Comments CXR 03/10/20 IMPRESSION: Stable diffuse bilateral heterogeneous opacities. CXR 03/11 IMPRESSION: * Hypoexpanded exam with multifocal opacities bilaterally which appear slightly increased from prior. Could be from edema or infiltrate Chest x-ray from 831 reviewed, bilateral infiltrates appear unchanged Impression . IMPRESSION: 1. Acute hypoxemic respiratory failure/multifactorial/acute exacerbation of COPD/[id number] 2. cxr with bilateral interstitial infiltrates 03/07. suspect combination of congestive heart failure. COVID pneumonia.(most likely) 3. Suspected severe chronic obstructive pulmonary disease, 60 years of tobacco use, quit 3 years ago. 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 5. Acute kidney injury--improving 6. anemia/ dark stools -- improve S/P transfusion 7 abnormal chest x-ray Plan . RECOMMENDATIONS: Lasix for 5 days, monitor electrolytes Spoke with nurse, attempt at discontinuing BiPAP placing patient on basal therapy continue steroids, with taper now off ABX, completed full course bronchodilators MDI 2 puffs and Q4 scheduled / Breo S/P plasma and S/P Remdesvir Follow renal function and nephrology recommendations Follow GI recs and monitor HGB Monitor D-Dimer, patient on Lovenox COVID-19 positive DVT/GI PPX Monitor clinical course D/W RN /RT PT. is DNR, Colleen WELLINGTONOA (daughter) would like to proceed with intubation if needed. JIM DIAMOND MD Mar 14, 2020 10:25
--- NOTE | 2020-03-14 11:12 | PDOC ---
[employer] PROGRESS NOTE Date of Service DOS: DATE: 03/14/20 TIME: 11:09 Chief Complaint Chief Complaint Dyspnea with no significant hypoxia based on the ABG, likely related to mild congestive heart failure. also with COVID pneumonia. SARS-CoV-2 - with pneumonia. On steroids, Lovenox. Pulm consulted Abnormal chest x-ray with faint interstitial infiltrates - likely CHF and COVID 19 POSTIVE Severe chronic obstructive pulmonary disease, 60 years of tobacco use, quit 3 years ago. 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 His BUN and creatinine was high as well as LFTs. He required 2 liters of oxygen. LFTs also elevated. 03/01: Still requiring O2. Significant wheezes and prolonged expiratory phase. He says he just wants to sleep. He says "Im 84 I have nothing to live for about my cats." 03/02: COVID-19 positive. He is having some back pain today. Still little hypoxic. EGD and colonoscopy on hold due to his COVID-19 positive status 03/03: Afebrile. Seen on 4 L nasal cannula, he is having a bowel movement, notes that he is having he is eating but is having loose bowels currently they are a little dark. No significant pain. His shortness of breath is stable. Slight cough. Back pain improved with Lidoderm patch. 03/03: Still afebrile with 4 liters nasal cannula O2. His glucose has become very elevated. He feels no worse than yesterday. Afebrile, now on 6 L nasal cannula, he is having more diarrhea, he does not notice much blood. Glucose has been in the 400s, unfortunately he did not receive his Lantus in the evening yesterday evening. C diff negative 03/06/2020 Patient with increasing O2 requirements this morning. Patient has increasing dyspnea but still maintaining sats of 94% on 15 L Venturi mask. Pulmonary evaluated and recommends for patient to be transferred to the ICU with BiPAP. 03/08 Breathing on BiPAP. VTE held due to GI bleed, H&H stable. 03/09: Patient is off BiPAP currently breathing on 8 L high flow nasal cannula. H & H dropped to 6.6 today, transfuse 1 unit packed red blood cells. GI to follow, thank you for your expertise. No scope plan due to COVID-19 positive. 03/13 : Per nursing staff, no acute events overnight. Breathing on 8L NC. bipap support Blood sugar improving. Continue steroids and blood pressure management. Vitals/I&O Vitals/I&O: Vital Signs Date Time Temp Pulse Resp B/P (MAP) Pulse Ox O2 Delivery O2 Flow Rate FiO2 03/14/20 11:00 94 25 140/68 (92) 92 High Flow Nasal Cannula 30.0 03/14/20 08:00 97.8 97.8 I & O 03/13/20 03/13/20 03/14/20 15:00 23:00 07:00 Intake Total 628 ml 1947.5 ml 1000 ml Output Total 1150 ml 1675 ml 1325 ml Balance -522 ml 272.5 ml -325 ml Physical Exam Physical Exam: GEN: No apparent distress. HEENT: Normal cephalic, atraumatic, NECK: Supple, no JVD, no thyromegaly was noted LUNGS: Bilateral crackles and wheezing HEART: RRR, S1, S2 present. Peripheral pulses intact, no obvious murmurs noted ABDOMEN: Soft, nontender. Positive bowel sounds, no organomegaly, normal bowel sounds EXTREMITIES: Without clubbing, cyanosis, or edema. General: Alert, Cooperative Heart: Regular rate Abdomen: Soft, Other (Nondistended) Extremities: No clubbing, No cyanosis, No edema Skin: No rashes, No breakdown Labs Labs: Laboratory Tests Test 03/13/20 12:45 03/13/20 17:53 03/13/20 21:18 03/14/20 06:05 Glucose (Fingerstick) 278 mg/dL (70-99) 426 mg/dL (70-99) 346 mg/dL (70-99) Sodium Level 135 mmol/L (136-145) Potassium Level 5.1 mmol/L (3.5-5.1) Chloride Level 103 mmol/L (98-107) Carbon Dioxide Level 23 mmol/L (21-32) Anion Gap 9 (6-14) Blood Urea Nitrogen 48 mg/dL (8-26) Creatinine 1.2 mg/dL (0.7-1.3) Estimated GFR (Cockcroft-Gault) 57.7 BUN/Creatinine Ratio 40 (6-20) Glucose Level 330 mg/dL (70-99) Calcium Level 8.0 mg/dL (8.5-10.1) Total Bilirubin 0.4 mg/dL (0.2-1.0) Aspartate Amino Transf (AST/SGOT) 32 U/L (15-37) Alanine Aminotransferase (ALT/SGPT) 67 U/L (16-63) Alkaline Phosphatase 82 U/L (46-116) Total Protein 5.0 g/dL (6.4-8.2) Albumin 1.6 g/dL (3.4-5.0) Albumin/Globulin Ratio 0.5 (1.0-1.7) Test 03/14/20 08:34 Glucose (Fingerstick) 314 mg/dL (70-99) Assessment and Plan Assessmemt and Plan Problems Medical Problems: (1) Acute renal failure Status: Acute (2) COPD exacerbation Status: Acute (3) GI bleeding Status: Acut Respiratory failure Dyspnea with no significant hypoxia based on the ABG, likely related to mild congestive heart failure. also with COVID pneumonia. SARS-CoV-2 - with pneumonia. On steroids, Lovenox. Pulm consulted Abnormal chest x-ray with faint interstitial infiltrates - likely CHF and COVID 19 POSTIVE Severe chronic obstructive pulmonary disease, 60 years of tobacco use, quit 3 years ago. 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 Acute kidney injury likely vasomotor nephropathy - monitor Anemia - plans for EGD and colonoscopy on hold while treating COVID 19 Plan Vapotherm ICU for increasing O2 requirements Increase IV steroid dose Contraindicated due to rectal bleeding DVT prophylaxis Protonix GI prophylaxis ADA diet DNR Discussed with RN Surrogate decision maker is self BIPAP SUPPORT Home meds DVT prophylaxis He is DNR Long-term prognosis guarded but improving slightly Comment Review of Relevant I have reviewed the following items kamini (where applicable) has been applied. Medications: Current Medications Medications (Trade) Dose Ordered Sig/Ya Route PRN Reason Start Time Stop Time Status Last Admin Dose Admin Enoxaparin Sodium (Lovenox 40mg Syringe) 40 mg BID SQ 03/13/20 11:15 03/14/20 08:06 Furosemide (Lasix) 40 mg DAILY IVP 03/14/20 09:00 03/18/20 09:00 03/14/20 08:07 Furosemide (Lasix) 40 mg 1X ONCE IVP 03/13/20 11:15 03/13/20 11:18 DC 03/13/20 11:57 Sterile Water (WATER for RESP) 1,000 ml CONT PRN INH VIA VAPOTHERM DEVICE 03/13/20 12:45 03/13/20 22:16 Insulin Human Regular (HumuLIN R VIAL) 10 unit 1X ONCE IV 03/13/20 18:00 03/13/20 18:03 DC 03/13/20 18:14 Sodium Chloride 1,000 ml @ 75 mls/hr [id number] IV 03/14/20 10:00 03/14/20 09:41 Justifications for Admission Other Justification MG TAPIA III DO Mar 14, 2020 11:12
--- NOTE | 2020-03-14 11:12 | NUR ---
SS following up with discharge planning. SS reviewed pt chart and discussed with pt RN. Pt on Vapotherm at this time. COVID19 positive. Pt accepted at [facility], ; fax [phone], pending insurance authorization. SS will continue to follow for discharge planning.
[2020-03-14] MEDS: STERILE WATER for RESP 1,000 ML BAG. INH PRN (11:48)
--- NOTE | 2020-03-14 18:43 | NUR ---
WRONG PATIENT Addendum: 03/14/20 at 1844 by LINNEA MONTIEL RN Amended: Links added.
--- NOTE | 2020-03-14 20:08 | PDOC ---
F/U PHYSCH PROG NOTE Subjective: Gentleman is seen for follow-up. Progress is reviewed with nursing staff. Reportedly doing fine eating and drinking good. However affect is reportedly constricted. When seen, he appears more alert oriented and interactive. States mood is fair, overall condition is fair. He is more hopeful that he will come out of the situation. Denies suicidal or homicidal thoughts. Denies auditory or visual hallucinations. Tolerating medications Objective: 14 point review of system is otherwise negative except for stated above. Vital Signs: Vital Signs Date Time Temp Pulse Resp B/P (MAP) Pulse Ox O2 Delivery O2 Flow Rate FiO2 03/14/20 19:53 89 VAPOTHERM 30.0 03/14/20 19:00 98.4 100 34 155/59 (91) 98.4 Labs: Laboratory Tests Test 03/13/20 21:18 03/14/20 06:05 03/14/20 08:34 03/14/20 12:18 Glucose (Fingerstick) 346 mg/dL (70-99) H 314 mg/dL (70-99) H 350 mg/dL (70-99) H Sodium Level 135 mmol/L (136-145) L Potassium Level 5.1 mmol/L (3.5-5.1) Chloride Level 103 mmol/L (98-107) Carbon Dioxide Level 23 mmol/L (21-32) Anion Gap 9 (6-14) Blood Urea Nitrogen 48 mg/dL (8-26) H Creatinine 1.2 mg/dL (0.7-1.3) Estimated GFR (Cockcroft-Gault) 57.7 BUN/Creatinine Ratio 40 (6-20) H Glucose Level 330 mg/dL (70-99) H Calcium Level 8.0 mg/dL (8.5-10.1) L Total Bilirubin 0.4 mg/dL (0.2-1.0) Aspartate Amino Transferase (AST) 32 U/L (15-37) Alanine Aminotransferase (ALT) 67 U/L (16-63) H Alkaline Phosphatase 82 U/L (46-116) Total Protein 5.0 g/dL (6.4-8.2) L Albumin 1.6 g/dL (3.4-5.0) L Albumin/Globulin Ratio 0.5 (1.0-1.7) L Test 03/14/20 17:22 Glucose (Fingerstick) 277 mg/dL (70-99) H Laboratory Tests 03/14/20 06:05 Medications: Current Medications Medications (Trade) Dose Ordered Sig/Ya Start Time Stop Time Status Last Admin Dose Admin Acetaminophen (Tylenol) 650 mg PRN Q6HRS PRN 03/02/20 03:30 03/13/20 21:11 650 MG Albuterol Sulfate (Ventolin Hfa) 2 puff Q4HRS 03/04/20 12:00 03/07/20 17:37 DC 03/07/20 07:51 2 PUFF Albuterol/ Ipratropium (Duoneb) 3 ml Q4HRS 03/07/20 20:00 03/14/20 19:53 3 ML Amino Acids/ Glycerin/ Electrolytes 1,000 ml @ 80 mls/hr [id number] 03/12/20 10:00 03/14/20 09:24 DC 03/13/20 16:09 80 MLS/HR Atropine Sulfate (ATROPINE 0.5mg SYRINGE) 0.5 mg PRN Q5MIN PRN 03/11/20 07:45 Budesonide (Pulmicort) 0.5 mg RTBID 03/07/20 20:00 03/14/20 19:53 0.5 MG Dexmedetomidine HCl 400 mcg/ Sodium Chloride 100 ml @ 0 mls/hr CONT PRN 03/11/20 07:45 03/13/20 07:36 4.1 MLS/HR Dextrose (Dextrose 50%-Water Syringe) 12.5 gm PRN Q15MIN PRN 03/04/20 13:00 Diphenhydramine HCl (Benadryl) 25 mg PRN QHS PRN 03/01/20 22:15 03/08/20 21:02 25 MG Enoxaparin Sodium (Lovenox 40mg Syringe) 40 mg BID 03/13/20 11:15 03/14/20 08:06 40 MG Ferrous Sulfate (Feosol) 325 mg BIDWMEALS 03/01/20 17:00 03/14/20 17:52 325 MG Fluticasone/ Vilanterol (Breo Ellipta 100-25 Mcg) 1 puff DAILY 03/07/20 11:30 03/07/20 17:37 DC Furosemide (Lasix) 40 mg 1X ONCE 03/13/20 11:15 03/13/20 11:18 DC 03/13/20 11:57 40 MG Hydralazine HCl (Apresoline Inj) 10 mg PRN Q4HRS PRN 03/07/20 09:30 03/09/20 22:24 10 MG Insulin Glargine (Lantus Syringe) 35 unit QHS 03/14/20 21:00 Insulin Human Lispro (HumaLOG) 5 units TIDAC 03/05/20 08:00 03/14/20 17:41 5 UNITS Insulin Human Regular (HumuLIN R VIAL) 10 unit 1X ONCE 03/13/20 18:00 03/13/20 18:03 DC 03/13/20 18:14 10 UNIT Lactobacillus Rhamnosus (Culturelle) 1 cap BID 03/04/20 13:00 03/14/20 08:06 1 CAP Lidocaine (Lidoderm) 1 patch DAILY 03/02/20 14:30 03/14/20 08:07 1 PATCH Loperamide HCl (Imodium) 2 mg PRN Q15MIN PRN 03/05/20 15:15 Methylprednisolone Sodium Succinate (SOLU-Medrol 40MG VIAL) 40 mg BID 03/10/20 21:00 03/14/20 08:06 40 MG Methylprednisolone Sodium Succinate (SOLU-Medrol 125MG VIAL) 125 mg 1X ONCE 03/07/20 10:45 03/07/20 10:46 DC 03/07/20 10:48 125 MG Metoprolol Tartrate (Lopressor) 25 mg PRN BID PRN 03/10/20 22:30 Mirtazapine (Remeron) 15 mg QHS 03/06/20 21:00 03/13/20 21:11 15 MG Miscellaneous (Lidoderm Patch Removal) 1 ea QHS 03/02/20 21:00 03/13/20 21:00 1 EA Non-Formulary Medication 1 ea/ Sodium Chloride 230 ml @ 460 mls/hr Q24H 03/09/20 09:00 03/12/20 09:29 DC 03/12/20 10:15 460 MLS/HR Olanzapine (ZyPREXA ZYDIS) 5 mg PRN BID PRN 03/01/20 11:15 Ondansetron HCl (Zofran) 4 mg PRN Q8HRS PRN 02/29/20 13:30 03/01/20 13:29 DC Pantoprazole Sodium (Protonix) 40 mg DAILYAC 03/01/20 07:30 03/14/20 08:06 40 MG Piperacillin Sod/ Tazobactam Sod (Zosyn Per Pharmacy) 1 each PRN DAILY PRN 03/02/20 11:15 03/08/20 14:48 DC Piperacillin Sod/ Tazobactam Sod 2.25 gm/Sodium Chloride 50 ml @ 100 mls/hr Q6HRS 03/02/20 12:00 03/08/20 14:48 DC 03/08/20 12:38 100 MLS/HR Polyethylene Glycol (miraLAX PACKET) 17 gm PRN DAILY PRN 03/01/20 10:15 03/01/20 10:12 DC Ringer's Solution 1,000 ml @ 50 mls/hr Q20H 03/02/20 07:00 03/02/20 18:59 DC Sertraline HCl (Zoloft) 100 mg DAILY 03/10/20 09:00 03/14/20 08:06 100 MG Sodium Chloride 1,000 ml @ 75 mls/hr [id number] 03/14/20 10:00 03/14/20 09:41 75 MLS/HR Sodium Cl/Sod Bicarb/Potass Cl/ PEG (Golytely) 4,000 ml 1X ONCE 03/01/20 14:00 03/01/20 14:01 DC 03/01/20 14:47 4,000 ML Sterile Water (WATER for RESP) 1,000 ml CONT PRN 03/13/20 12:45 03/14/20 11:48 1,000 ML Sucralfate (Carafate) 1 gm BID 02/29/20 21:00 03/14/20 08:06 1 GM Physical Exam: Mental Status Exam: gentleman with severe hard of hearing Cooperative Disoriented Thought process goal-directed Denies auditory or visual hallucinations Denies suicidal or homicidal thoughts Mood is alright Affect is restrictive Insight is fair Judgment is fair Impulse control is fair attention span and concentration fair Recent memory impaired Remote memory intact Physical Exam: Refer to Physician's note. XRAY TECH: No focal deficit MSK: No EPS, TDK, or abnormal involuntary movements Diagnosis: Major depressive disorder, recurrent, moderate Generalized anxiety disorder. Assessment: Gentleman is struggling with depression likely to his psychosocial circumstances. Additionally, he has multiple medical comorbidities which are perpetuating his depression. He is in agreement to start Zoloft 25 mg and trazodone for sleep. 03/10/2020. Patient reports improvement in his mood and anxiety today. Feeling better. 03/13/2020. Patient appears more alert and oriented, receptive and reporting improvement 03/14/2020: Reporting mood is fair, eating and drinking good no agitation reported Plan: Continue Remeron 15 mg nightly for depression adjunct, anxiety, and insomnia. Continue Zoloft to 100 mg daily for depression and anxiety. Risks, benefits, alternatives of the treatment are discussed. Adverse drug reaction of the medications are also discussed Psychoeducation provided Supportive psychotherapy provided VERONICA JACKSON MD Mar 14, 2020 20:08
[2020-03-14] MEDS: INSULIN GLARGINE SYRINGE. SQ SCH (21:00)
[2020-03-14] MEDS: PATCH REMOVAL. MC SCH (21:00)
[2020-03-14] MEDS: MIRTAZAPINE 15 MG TABLET PO SCH (21:18)
[2020-03-15] VITALS (25 sets, daily range): BP systolic 114–171; BP diastolic 52–88
[2020-03-15] MEDS: IPRATRPIUM/ALBUTEROL 0.5/2.5MG 3 ML NEBU. NEB SCH ×7 (00:05→23:48)
[2020-03-15] MEDS: LACTOBACILLUS RHAMNOSUS GG 1 CAPSULE. PO SCH ×2 (07:56→21:30)
[2020-03-15] MEDS: SERTRALINE 50 MG TABLET. PO SCH (07:58)
[2020-03-15] MEDS: ENOXAPARIN 40 MG/0.4 ML SYRINGE. SQ SCH ×2 (07:58→21:31)
[2020-03-15] MEDS: FUROSEMIDE 40 MG/4 ML VIAL. IVP SCH (07:58)
[2020-03-15] MEDS: PANTOPRAZOLE 40 MG TABLET.DR. PO SCH (07:59)
[2020-03-15] MEDS: FERROUS SULFATE 325 MG TABLET. PO SCH ×2 (07:59→17:19)
[2020-03-15] MEDS: LIDOCAINE (700MG/PATCH) PATCH. TD SCH (07:59)
[2020-03-15] MEDS: SUCRALFATE 1 GM TABLET. PO SCH ×2 (07:59→21:30)
[2020-03-15] MEDS: BUDESONIDE 0.5 MG/2 ML NEBU. NEB SCH ×3 (08:00→20:07)
[2020-03-15] MEDS: methylPREDNISolone SOD SUCC PF 40 MG/ML VIAL. IV SCH ×2 (08:02→21:30)
[2020-03-15] MEDS: INSULIN LISPRO 300 UNITS/3 ML VIAL. SQ SCH ×7 (08:23→21:57)
--- NOTE | 2020-03-15 09:16 | PDOC ---
Date of Service: DATE: 03/15/20 TIME: 09:15 Subjective: Subjective: Says he wants to lay down. Objective: Objective: A little nosebleed from NC per nurse but no other bleeding. Vital Signs: Vital Signs Date Time Temp Pulse Resp B/P (MAP) Pulse Ox O2 Delivery O2 Flow Rate FiO2 03/15/20 08:00 Nasal Cannula 30.0 03/15/20 08:00 98.9 83 30 146/75 (98) 90 98.9 Labs: Laboratory Tests Test 03/14/20 12:18 03/14/20 17:22 03/14/20 20:55 03/15/20 08:18 Glucose (Fingerstick) 350 mg/dL 277 mg/dL 225 mg/dL 272 mg/dL PE: GEN: NAD - in COVID isolation in ICE LUNGS: vapotherm HEART: RR ABD: non-distended NEURO/PSYCH: A & O 3 A/P: Resp failure w/ COVID-19 and COPD LIZY, h/o SB AVMs -- Stable GI-carbone, continue same. Justicifation of Admission Dx: Justifications for Admission: Justification of Admission Dx: Yes DEBBIE MURRAY Mar 15, 2020 09:16
--- NOTE | 2020-03-15 11:12 | PDOC ---
[employer] PROGRESS NOTE Date of Service DOS: DATE: 03/15/20 TIME: 11:10 Chief Complaint Chief Complaint Dyspnea with no significant hypoxia based on the ABG, likely related to mild congestive heart failure. also with COVID-19 pneumonia. SARS-CoV-2 - with pneumonia. On steroids, Lovenox. Pulm consulted Abnormal chest x-ray with faint interstitial infiltrates - likely CHF and COVID 19 POSTIVE Severe chronic obstructive pulmonary disease, 60 years of tobacco use, quit 3 years ago. 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 Acute kidney injury likely vasomotor nephropathy - monitor Anemia - plans for EGD and colonoscopy on hold while treating COVID 19 History of Present Illness History of Present Illness 03/15/2020 Patient seen in the [place] [address] ICU He is on Vapotherm at 30 L with 90% FiO2 Discussed with manager of case discussed with RN Chart reviewed 03-14-22 Patient seen and examined in the [place] [address] ICU He is currently on Vapotherm (30 L with 80% FiO2) In respiratory isolation Discussed with RN Discussed with case management Chart reviewed Patient is eating well glucose running a little high 84 yo M w/ PMHx tobacco use for 60 years, COPD on O2, 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 His BUN and creatinine was high as well as LFTs. He required 2 liters of oxygen. LFTs also elevated. 03/01: Still requiring O2. Significant wheezes and prolonged expiratory phase. He says he just wants to sleep. He says "Im 84 I have nothing to live for about my cats." 03/02: COVID-19 positive. He is having some back pain today. Still little hypoxic. EGD and colonoscopy on hold due to his COVID-19 positive status 03/03: Afebrile. Seen on 4 L nasal cannula, he is having a bowel movement, notes that he is having he is eating but is having loose bowels currently they are a little dark. No significant pain. His shortness of breath is stable. Slight cough. Back pain improved with Lidoderm patch. 03/03: Still afebrile with 4 liters nasal cannula O2. His glucose has become very elevated. He feels no worse than yesterday. Afebrile, now on 6 L nasal cannula, he is having more diarrhea, he does not notice much blood. Glucose has been in the 400s, unfortunately he did not receive his Lantus in the evening yesterday evening. C diff negative 03/06/2020 Patient with increasing O2 requirements this morning. Patient has increasing dyspnea but still maintaining sats of 94% on 15 L Venturi mask. Pulmonary evaluated and recommends for patient to be transferred to the ICU with BiPAP. 03/08 Breathing on BiPAP. VTE held due to GI bleed, H&H stable. 03/09: Patient is off BiPAP currently breathing on 8 L high flow nasal cannula. H & H dropped to 6.6 today, transfuse 1 unit packed red blood cells. GI to follow, thank you for your expertise. No scope plan due to COVID-19 positive. 03/13 : Per nursing staff, no acute events overnight. Breathing on 8L NC. bipap support Blood sugar improving. Continue steroids and blood pressure management. Vitals/I&O Vitals/I&O: Vital Signs Date Time Temp Pulse Resp B/P (MAP) Pulse Ox O2 Delivery O2 Flow Rate FiO2 03/15/20 10:00 88 35 140/59 (86) 88 vapoderm 30.0 03/15/20 08:00 98.9 98.9 I & O 03/14/20 03/14/20 03/15/20 15:00 23:00 07:00 Intake Total 858 ml 969 ml 1537 ml Output Total 2445 ml 215 ml 2000 ml Balance -1587 ml 754 ml -463 ml Physical Exam Physical Exam: GEN: On Vapotherm but. Trying to eat HEENT: Normal cephalic, atraumatic, NECK: Supple, no JVD, no thyromegaly was noted LUNGS: Bilateral crackles and wheezing HEART: RRR, S1, S2 present. Peripheral pulses intact, no obvious murmurs noted ABDOMEN: Soft, nontender. Positive bowel sounds, no organomegaly, normal bowel sounds EXTREMITIES: Without clubbing, cyanosis, or edema. General: Alert, Cooperative Heart: Regular rate Abdomen: Soft, Other (Nondistended) Extremities: No clubbing, No cyanosis, No edema Skin: No rashes, No breakdown Labs Labs: Laboratory Tests Test 9/1/20 12:18 03/14/20 17:22 03/14/20 20:55 03/15/20 08:18 Glucose (Fingerstick) 350 mg/dL (70-99) 277 mg/dL (70-99) 225 mg/dL (70-99) 272 mg/dL (70-99) Assessment and Plan Assessmemt and Plan Problems Medical Problems: (1) Acute renal failure Status: Acute (2) COPD exacerbation Status: Acute (3) GI bleeding Status: Acute Dyspnea with no significant hypoxia based on the ABG, likely related to mild congestive heart failure. also with COVID-19 pneumonia. SARS-CoV-2 - with pneumonia. On steroids, Lovenox. Pulm consulted Abnormal chest x-ray with faint interstitial infiltrates - likely CHF and COVID 19 POSTIVE Severe chronic obstructive pulmonary disease, 60 years of tobacco use, quit 3 years ago. 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 Acute kidney injury likely vasomotor nephropathy - monitor Anemia - plans for EGD and colonoscopy on hold while treating COVID 19 Plan ICU monitoring Respiratory isolation Appreciate subspecialist input We are trying to wean him off of the Vapotherm IV antibiotics Beta agonist Home meds DVT prophylaxis Full code Long-term prognosis guarded He is critically ill Comment Review of Relevant I have reviewed the following items kamini (where applicable) has been applied. Medications: Current Medications Medications (Trade) Dose Ordered Sig/Ya Route PRN Reason Start Time Stop Time Status Last Admin Dose Admin Insulin Glargine (Lantus Syringe) 35 unit QHS SQ 03/14/20 21:00 03/14/20 21:00 Justifications for Admission Other Justification MG TAPIA III DO Mar 15, 2020 11:12
--- NOTE | 2020-03-15 11:23 | PDOC ---
PULMONARY PROGRESS NOTES DATE: 03/15/20 TIME: 11:22 Subjective comfortable on vapotherm down to 80%/ 30 litres Vitals Vital Signs Date Time Temp Pulse Resp B/P (MAP) Pulse Ox O2 Delivery O2 Flow Rate FiO2 03/15/20 11:00 92 25 129/57 (81) 91 vapotherm 30.0 03/15/20 08:00 98.9 98.9 Comments pt. seen during visual exam preformed RRR BIPAP no distress trace edema no rash General: Alert, No acute distress Labs Laboratory Tests Test 03/13/20 12:45 03/13/20 17:53 03/13/20 21:18 03/14/20 06:05 Glucose (Fingerstick) 278 mg/dL (70-99) 426 mg/dL (70-99) 346 mg/dL (70-99) Sodium Level 135 mmol/L (136-145) Potassium Level 5.1 mmol/L (3.5-5.1) Chloride Level 103 mmol/L (98-107) Carbon Dioxide Level 23 mmol/L (21-32) Anion Gap 9 (6-14) Blood Urea Nitrogen 48 mg/dL (8-26) Creatinine 1.2 mg/dL (0.7-1.3) Estimated GFR (Cockcroft-Gault) 57.7 BUN/Creatinine Ratio 40 (6-20) Glucose Level 330 mg/dL (70-99) Calcium Level 8.0 mg/dL (8.5-10.1) Total Bilirubin 0.4 mg/dL (0.2-1.0) Aspartate Amino Transf (AST/SGOT) 32 U/L (15-37) Alanine Aminotransferase (ALT/SGPT) 67 U/L (16-63) Alkaline Phosphatase 82 U/L (46-116) Total Protein 5.0 g/dL (6.4-8.2) Albumin 1.6 g/dL (3.4-5.0) Albumin/Globulin Ratio 0.5 (1.0-1.7) Test 03/14/20 08:34 03/14/20 12:18 03/14/20 17:22 03/14/20 20:55 Glucose (Fingerstick) 314 mg/dL (70-99) 350 mg/dL (70-99) 277 mg/dL (70-99) 225 mg/dL (70-99) Test 03/15/20 08:18 Glucose (Fingerstick) 272 mg/dL (70-99) Laboratory Tests Test 03/14/20 12:18 03/14/20 17:22 03/14/20 20:55 03/15/20 08:18 Glucose (Fingerstick) 350 mg/dL (70-99) 277 mg/dL (70-99) 225 mg/dL (70-99) 272 mg/dL (70-99) Medications Active Scripts Medications Dose Route/Sig Max Daily Dose Days Date Category Phospha 250 Neutral Tablet (Phosphorus #1) 250 Mg Tablet 1 Tab PO DAILY 30 02/29/20 Reported Atorvastatin Calcium 20 Mg Tablet 1 Tab PO DAILYWSUP 02/29/20 Reported Levothyroxine Sodium 25 Mcg Tablet 1 Tab PO DAILY 02/29/20 Reported Iron (Ferrous Sulfate) 325 Mg Tablet 1 Tab PO BID 30 02/29/20 Reported Flomax (Tamsulosin Hcl) 0.4 Mg Cap.er.24h 0.4 Mg PO DAILY 02/29/20 Reported Benicar (Olmesartan Medoxomil) 20 Mg Tablet 1 Tab PO DAILY 30 02/29/20 Reported Cyclobenzaprine Hcl 10 Mg Tablet 1 Tab PO BID PRN 10/08/14 Reported Torsemide 20 Mg Tablet 4 Tab PO DAILY 10/08/14 Reported Benadryl (Diphenhydramine Hcl) 25 Mg Capsule 1 Cap PO QHS 10/08/14 Reported Quinapril Hcl 40 Mg Tablet 1 Tab PO DAILY 10/08/14 Reported Metformin Hcl 500 Mg Tablet 1 Tab PO DAILYBFRSUP 10/08/14 Reported Trazodone Hcl 50 Mg Tablet 50 Mg PO HS 10/08/14 Reported [place] 5-325 Tablet (Acetaminophen/Hydrocodone Bitart) 1 Each Tablet 1 Tab PO Q8HRS PRN 10/08/14 Reported Percocet 5-325 Mg Tablet (Oxycodone/Acetaminophen) 1 Each Tablet 1-2 Tab PO Q6HRS PRN 10/08/14 Reported Potassium Chloride 20 Meq Tab.er.prt 20 Meq PO BID 10/08/14 Reported Combivent Respimat Inhal (Ipratropium/Albuterol Sulfate) 4 Gm Aer.w.adap 2 Inh IH QID PRN 10/08/14 Reported Metformin Hcl 1,000 Mg Tablet 1 Tab PO DAILY08 10/07/14 Reported Comments CXR 03/10/20 IMPRESSION: Stable diffuse bilateral heterogeneous opacities. CXR 03/11 IMPRESSION: * Hypoexpanded exam with multifocal opacities bilaterally which appear slightly increased from prior. Could be from edema or infiltrate Chest x-ray from 831 reviewed, bilateral infiltrates appear unchanged Impression . IMPRESSION: 1. Acute hypoxemic respiratory failure/multifactorial/acute exacerbation of COPD/[id number] 2. cxr with bilateral interstitial infiltrates 03/07. suspect combination of congestive heart failure. COVID pneumonia.(most likely) 3. Suspected severe chronic obstructive pulmonary disease, 60 years of tobacco use, quit 3 years ago. 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 5. Acute kidney injury--improving 6. anemia/ dark stools -- improve S/P transfusion 7 abnormal chest x-ray Plan . RECOMMENDATIONS: Lasix for 5 days, monitor electrolytes Spoke with nurse, attempt at discontinuing BiPAP placing patient on basal therapy continue steroids, with taper now off ABX, completed full course bronchodilators MDI 2 puffs and Q4 scheduled / Breo S/P plasma and S/P Remdesvir Follow renal function and nephrology recommendations Follow GI recs and monitor HGB Monitor D-Dimer, patient on Lovenox COVID-19 positive DVT/GI PPX Monitor clinical course D/W RN /RT PT. is DNR, Colleen ALBERT (daughter) would like to proceed with intubation if needed. JIM DIAMOND MD Mar 15, 2020 11:23
--- NOTE | 2020-03-15 11:24 | NUR ---
SS following up with discharge planning. SS reviewed pt chart and discussed with pt RN. Pt remains on Vapotherm at this time. COVID19 positive. Pt accepted at [facility], ; fax [phone]. Pt's [facility] insurance denied LTACH authorization. AOR form sent over from [facility] for appeal process. SS contacted pt's POA, Colleen, and discussed LTACH and insurance determination. Pt's POA agreeable with appeal process for LTACH. Pt and physician signed AOR form and SS faxed updated clinical and AOR form to [facility]. SS will await determination of appeal and will proceed accordingly.
[2020-03-15] MEDS: STERILE WATER for RESP 1,000 ML BAG. INH PRN (12:13)
[2020-03-15] MEDS: IV NORMAL SALINE 1000ML BAG 1,000 ML IV SCH (12:22)
--- NOTE | 2020-03-15 13:20 | NUR ---
Pt was not sating sufficiently on 35L/100% on vapotherm. Pt was placed on Bipap with new settings via Pura, RT. Pt was previously on 29/12. Pt now on 02/03 at 100% R. Sating at 92% at 1310. Pt reassessed at 1320, sating at 96%. HR 93, Resp 26. Pura set sttings and helped situate patient.
[2020-03-15] MEDS ORDERED: FUROSEMIDE 20 MG/2 ML VIAL. IVP ONE (16:30)
--- NOTE | 2020-03-15 18:12 | NUR ---
This RN and Dr. Toledo verbalized over the phone after talking to the daughter, that the patient wants to be intubated for a short period of time. If he doesn't seem, or appear to be able to pull out of it. He doesn't want to continue. with intubation. ONLY intubation, for a short period of time. All of family is aware. Family members were able to see through the window. Colleen was the only one allowed physically in.
--- NOTE | 2020-03-15 18:35 | NUR ---
Pt RT status for day shift. Pt on vapotherm at 0700 30L/90%. Noon- 35L/100%. 1310 Bipap 20/8 100%. Pt returned to vapotherm 40/100%. Pt requested to return to bipap at 1830. To last settings.
[2020-03-15] MEDS: PATCH REMOVAL. MC SCH (21:30)
[2020-03-15] MEDS: MIRTAZAPINE 15 MG TABLET PO SCH (21:30)
[2020-03-15] MEDS: INSULIN GLARGINE SYRINGE. SQ SCH (21:57)
[2020-03-15] MEDS: hydrALAZINE 20 MG/ML VIAL. IVP PRN (23:15)
[2020-03-16] VITALS (23 sets, daily range): BP systolic 91–171; BP diastolic 39–64
[2020-03-16] MEDS: IV NORMAL SALINE 1000ML BAG 1,000 ML IV SCH ×2 (01:56→15:59)
[2020-03-16] MEDS: IPRATRPIUM/ALBUTEROL 0.5/2.5MG 3 ML NEBU. NEB SCH ×5 (03:47→20:00)
[2020-03-16] MEDS: FUROSEMIDE 40 MG/4 ML VIAL. IVP SCH (08:21)
[2020-03-16] MEDS: SERTRALINE 50 MG TABLET. PO SCH (08:22)
[2020-03-16] MEDS: FERROUS SULFATE 325 MG TABLET. PO SCH ×2 (08:22→17:46)
[2020-03-16] MEDS: LIDOCAINE (700MG/PATCH) PATCH. TD SCH (08:22)
[2020-03-16] MEDS: LACTOBACILLUS RHAMNOSUS GG 1 CAPSULE. PO SCH ×2 (08:22→21:46)
[2020-03-16] MEDS: SUCRALFATE 1 GM TABLET. PO SCH ×2 (08:22→21:46)
[2020-03-16] MEDS: PANTOPRAZOLE 40 MG TABLET.DR. PO SCH (08:22)
[2020-03-16] MEDS: INSULIN LISPRO 300 UNITS/3 ML VIAL. SQ SCH ×6 (08:24→18:00)
[2020-03-16] MEDS: methylPREDNISolone SOD SUCC PF 40 MG/ML VIAL. IV SCH ×2 (08:34→21:46)
[2020-03-16] MEDS: ENOXAPARIN 40 MG/0.4 ML SYRINGE. SQ SCH ×2 (08:34→21:46)
[2020-03-16] MEDS: BUDESONIDE 0.5 MG/2 ML NEBU. NEB SCH ×2 (08:35→20:00)
[2020-03-16 09:56] LABS: BASO % 0 % (0-3); EOS % 0 % (0-3); HEMATOCRIT 28.4 % (39.0-53.0); LYMPH # 0.3 x10^3/uL (1.0-4.8); LYMPH % 2 % (24-48); MEAN CORPUSCULAR HEMOGLOBIN 31 pg (25-35); MEAN CORPUSCULAR HGB CONC 32 g/dL (31-37); MEAN CORPUSCULAR VOLUME 97 fL (79-100); MONO # 0.4 x10^3/uL (0.0-1.1); MONO % 3 % (0-9); NEUT # 13.3 x10^3/uL (1.8-7.7); NEUT % 95 % (31-73); PLATELET COUNT 178 x10^3/uL (140-400); RED BLOOD COUNT 2.94 x10^6/uL (4.30-5.70)
[2020-03-16 10:18] LABS: CALCIUM 8.2 mg/dL (8.5-10.1); CREATININE 1.2 mg/dL (0.7-1.3); GFR 57.7; POTASSIUM 4.6 mmol/L (3.5-5.1)
--- NOTE | 2020-03-16 10:32 | NUR ---
SS following up with discharge planning. SS reviewed pt chart and discussed with pt RN. Pt on BIPAP now. COVID19 positive. Per RN, pt may need intubation. Pt accepted at [facility], ; fax [phone]. [facility] declined authorization and appeal currently in process. SS will continue to follow for discharge planning.
--- NOTE | 2020-03-16 11:00 | PDOC ---
[employer] PROGRESS NOTE Date of Service DOS: DATE: 03/16/20 TIME: 10:58 Chief Complaint Chief Complaint Dyspnea with no significant hypoxia based on the ABG, likely related to mild congestive heart failure. also with COVID-19 pneumonia. SARS-CoV-2 - with pneumonia. On steroids, Lovenox. Pulm consulted Abnormal chest x-ray with faint interstitial infiltrates - likely CHF and COVID 19 POSTIVE Severe chronic obstructive pulmonary disease, 60 years of tobacco use, quit 3 years ago. 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 Acute kidney injury likely vasomotor nephropathy - monitor Anemia - plans for EGD and colonoscopy on hold while treating COVID 19 History of Present Illness History of Present Illness 03/16/2020 Patient seen and examined once again in the [place] [id number] ICU Today he is on BiPAP with 100% FiO2 Currently satting in the low 90s Chart reviewed Discussed with the special education case manager Discussed with RN He remains critically ill I am concerned he may have to be intubated 03/15/2020 Patient seen in the [place] [address] ICU He is on Vapotherm at 30 L with 90% FiO2 Discussed with special education case manager discussed with RN Chart reviewed 03-14-22 Patient seen and examined in the [place] [id number] ICU He is currently on Vapotherm (30 L with 80% FiO2) In respiratory isolation Discussed with RN Discussed with case management Chart reviewed Patient is eating well glucose running a little high 84 yo M w/ PMHx tobacco use for 60 years, COPD on O2, 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 His BUN and creatinine was high as well as LFTs. He required 2 liters of oxygen. LFTs also elevated. 03/01: Still requiring O2. Significant wheezes and prolonged expiratory phase. He says he just wants to sleep. He says "Im 84 I have nothing to live for about my cats." 03/02: COVID-19 positive. He is having some back pain today. Still little hypoxic. EGD and colonoscopy on hold due to his COVID-19 positive status 03/03: Afebrile. Seen on 4 L nasal cannula, he is having a bowel movement, notes that he is having he is eating but is having loose bowels currently they are a little dark. No significant pain. His shortness of breath is stable. Slight cough. Back pain improved with Lidoderm patch. 03/03: Still afebrile with 4 liters nasal cannula O2. His glucose has become very elevated. He feels no worse than yesterday. Afebrile, now on 6 L nasal cannula, he is having more diarrhea, he does not notice much blood. Glucose has been in the 400s, unfortunately he did not receive his Lantus in the evening yesterday evening. C diff negative 03/06/2020 Patient with increasing O2 requirements this morning. Patient has increasing dyspnea but still maintaining sats of 94% on 15 L Venturi mask. Pulmonary evaluated and recommends for patient to be transferred to the ICU with BiPAP. 03/08 Breathing on BiPAP. VTE held due to GI bleed, H&H stable. 03/09: Patient is off BiPAP currently breathing on 8 L high flow nasal cannula. H & H dropped to 6.6 today, transfuse 1 unit packed red blood cells. GI to follow, thank you for your expertise. No scope plan due to COVID-19 positive. 03/13 : Per nursing staff, no acute events overnight. Breathing on 8L NC. bipap support Blood sugar improving. Continue steroids and blood pressure management. Vitals/I&O Vitals/I&O: Vital Signs Date Time Temp Pulse Resp B/P (MAP) Pulse Ox O2 Delivery O2 Flow Rate FiO2 03/16/20 08:30 96 BiPAP/CPAP 03/16/20 07:00 95.6 76 25 115/49 (71) 95.6 03/15/20 18:00 40.0 I & O 03/15/20 03/15/20 03/16/20 15:00 23:00 07:00 Intake Total 650 ml 1208 ml 1280 ml Output Total 1925 ml 855 ml 950 ml Balance -1275 ml 353 ml 330 ml Physical Exam Physical Exam: GEN: On BiPAP HEENT: Normal cephalic, atraumatic, NECK: Supple, no JVD, no thyromegaly was noted LUNGS: Bilateral crackles and wheezing HEART: RRR, S1, S2 present. Peripheral pulses intact, no obvious murmurs noted ABDOMEN: Soft, nontender. Positive bowel sounds, no organomegaly, normal bowel sounds EXTREMITIES: Without clubbing, cyanosis, or edema. General: Alert, Cooperative Heart: Regular rate Abdomen: Soft, Other (Nondistended) Extremities: No clubbing, No cyanosis, No edema Skin: No rashes, No breakdown Labs Labs: Laboratory Tests Test 03/15/20 11:38 03/15/20 16:56 03/15/20 21:37 03/16/20 07:49 Glucose (Fingerstick) 213 mg/dL (70-99) 218 mg/dL (70-99) 153 mg/dL (70-99) 190 mg/dL (70-99) Test 03/16/20 09:46 White Blood Count 14.0 x10^3/uL (4.0-11.0) Red Blood Count 2.94 x10^6/uL (4.30-5.70) Hemoglobin 9.0 g/dL (13.0-17.5) Hematocrit 28.4 % (39.0-53.0) Mean Corpuscular Volume 97 fL (79-100) Mean Corpuscular Hemoglobin 31 pg (25-35) Mean Corpuscular Hemoglobin Concent 32 g/dL (31-37) Red Cell Distribution Width 17.0 % (11.5-14.5) Platelet Count 178 x10^3/uL (140-400) Neutrophils (%) (Auto) 95 % (31-73) Lymphocytes (%) (Auto) 2 % (24-48) Monocytes (%) (Auto) 3 % (0-9) Eosinophils (%) (Auto) 0 % (0-3) Basophils (%) (Auto) 0 % (0-3) Neutrophils # (Auto) 13.3 x10^3/uL (1.8-7.7) Lymphocytes # (Auto) 0.3 x10^3/uL (1.0-4.8) Monocytes # (Auto) 0.4 x10^3/uL (0.0-1.1) Eosinophils # (Auto) 0.0 x10^3/uL (0.0-0.7) Basophils # (Auto) 0.0 x10^3/uL (0.0-0.2) Sodium Level 141 mmol/L (136-145) Potassium Level 4.6 mmol/L (3.5-5.1) Chloride Level 107 mmol/L (98-107) Carbon Dioxide Level 30 mmol/L (21-32) Anion Gap 4 (6-14) Blood Urea Nitrogen 41 mg/dL (8-26) Creatinine 1.2 mg/dL (0.7-1.3) Estimated GFR (Cockcroft-Gault) 57.7 Glucose Level 198 mg/dL (70-99) Calcium Level 8.2 mg/dL (8.5-10.1) Assessment and Plan Assessmemt and Plan Problems Medical Problems: (1) Acute renal failure Status: Acute (2) COPD exacerbation Status: Acute (3) GI bleeding Status: Acute Dyspnea with no significant hypoxia based on the ABG, likely related to mild congestive heart failure. also with COVID-19 pneumonia. SARS-CoV-2 - with pneumonia. On steroids, Lovenox. Pulm consulted Abnormal chest x-ray with faint interstitial infiltrates - likely CHF and COVID 19 POSTIVE Severe chronic obstructive pulmonary disease, 60 years of tobacco use, quit 3 years ago. 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 Acute kidney injury likely vasomotor nephropathy - monitor Anemia - plans for EGD and colonoscopy on hold while treating COVID 19 Plan ICU monitoring Respiratory isolation COVID-19 protocol including antibiotics steroids oxygen vitamins plasma Appreciate subspecialist input Continue BiPAP with 100% FiO2 but he might need to be intubated? IV antibiotics Beta agonist Home meds DVT prophylaxis Full code Long-term prognosis guarded He is critically ill Critical care time 31 minutes Comment Review of Relevant I have reviewed the following items kamini (where applicable) has been applied. Medications: Current Medications Medications (Trade) Dose Ordered Sig/Ya Route PRN Reason Start Time Stop Time Status Last Admin Dose Admin Furosemide (Lasix) 20 mg 1X ONCE IVP 03/15/20 16:30 03/15/20 16:31 DC 03/15/20 16:23 Justifications for Admission Other Justification MG TAPIA III DO Mar 16, 2020 11:00
--- NOTE | 2020-03-16 11:10 | PDOC ---
PULMONARY PROGRESS NOTES DATE: 03/16/20 TIME: 11:03 Subjective comfortable on bipap 100%FIO2 Vitals Vital Signs Date Time Temp Pulse Resp B/P (MAP) Pulse Ox O2 Delivery O2 Flow Rate FiO2 03/16/20 08:30 96 BiPAP/CPAP 03/16/20 07:00 95.6 76 25 115/49 (71) 95.6 03/15/20 18:00 40.0 Comments pt. seen during pandemic visual exam preformed RRR BIPAP no distress trace edema no rash General: Alert, No acute distress Labs Laboratory Tests Test 03/14/20 12:18 03/14/20 17:22 03/14/20 20:55 03/15/20 08:18 Glucose (Fingerstick) 350 mg/dL (70-99) 277 mg/dL (70-99) 225 mg/dL (70-99) 272 mg/dL (70-99) Test 03/15/20 11:38 03/15/20 16:56 03/15/20 21:37 03/16/20 07:49 Glucose (Fingerstick) 213 mg/dL (70-99) 218 mg/dL (70-99) 153 mg/dL (70-99) 190 mg/dL (70-99) Test 03/16/20 09:46 White Blood Count 14.0 x10^3/uL (4.0-11.0) Red Blood Count 2.94 x10^6/uL (4.30-5.70) Hemoglobin 9.0 g/dL (13.0-17.5) Hematocrit 28.4 % (39.0-53.0) Mean Corpuscular Volume 97 fL (79-100) Mean Corpuscular Hemoglobin 31 pg (25-35) Mean Corpuscular Hemoglobin Concent 32 g/dL (31-37) Red Cell Distribution Width 17.0 % (11.5-14.5) Platelet Count 178 x10^3/uL (140-400) Neutrophils (%) (Auto) 95 % (31-73) Lymphocytes (%) (Auto) 2 % (24-48) Monocytes (%) (Auto) 3 % (0-9) Eosinophils (%) (Auto) 0 % (0-3) Basophils (%) (Auto) 0 % (0-3) Neutrophils # (Auto) 13.3 x10^3/uL (1.8-7.7) Lymphocytes # (Auto) 0.3 x10^3/uL (1.0-4.8) Monocytes # (Auto) 0.4 x10^3/uL (0.0-1.1) Eosinophils # (Auto) 0.0 x10^3/uL (0.0-0.7) Basophils # (Auto) 0.0 x10^3/uL (0.0-0.2) Sodium Level 141 mmol/L (136-145) Potassium Level 4.6 mmol/L (3.5-5.1) Chloride Level 107 mmol/L (98-107) Carbon Dioxide Level 30 mmol/L (21-32) Anion Gap 4 (6-14) Blood Urea Nitrogen 41 mg/dL (8-26) Creatinine 1.2 mg/dL (0.7-1.3) Estimated GFR (Cockcroft-Gault) 57.7 Glucose Level 198 mg/dL (70-99) Calcium Level 8.2 mg/dL (8.5-10.1) Laboratory Tests Test 03/15/20 11:38 03/15/20 16:56 03/15/20 21:37 03/16/20 07:49 Glucose (Fingerstick) 213 mg/dL (70-99) 218 mg/dL (70-99) 153 mg/dL (70-99) 190 mg/dL (70-99) Test 03/16/20 09:46 White Blood Count 14.0 x10^3/uL (4.0-11.0) Red Blood Count 2.94 x10^6/uL (4.30-5.70) Hemoglobin 9.0 g/dL (13.0-17.5) Hematocrit 28.4 % (39.0-53.0) Mean Corpuscular Volume 97 fL (79-100) Mean Corpuscular Hemoglobin 31 pg (25-35) Mean Corpuscular Hemoglobin Concent 32 g/dL (31-37) Red Cell Distribution Width 17.0 % (11.5-14.5) Platelet Count 178 x10^3/uL (140-400) Neutrophils (%) (Auto) 95 % (31-73) Lymphocytes (%) (Auto) 2 % (24-48) Monocytes (%) (Auto) 3 % (0-9) Eosinophils (%) (Auto) 0 % (0-3) Basophils (%) (Auto) 0 % (0-3) Neutrophils # (Auto) 13.3 x10^3/uL (1.8-7.7) Lymphocytes # (Auto) 0.3 x10^3/uL (1.0-4.8) Monocytes # (Auto) 0.4 x10^3/uL (0.0-1.1) Eosinophils # (Auto) 0.0 x10^3/uL (0.0-0.7) Basophils # (Auto) 0.0 x10^3/uL (0.0-0.2) Sodium Level 141 mmol/L (136-145) Potassium Level 4.6 mmol/L (3.5-5.1) Chloride Level 107 mmol/L (98-107) Carbon Dioxide Level 30 mmol/L (21-32) Anion Gap 4 (6-14) Blood Urea Nitrogen 41 mg/dL (8-26) Creatinine 1.2 mg/dL (0.7-1.3) Estimated GFR (Cockcroft-Gault) 57.7 Glucose Level 198 mg/dL (70-99) Calcium Level 8.2 mg/dL (8.5-10.1) Medications Active Scripts Medications Dose Route/Sig Max Daily Dose Days Date Category Phospha 250 Neutral Tablet (Phosphorus #1) 250 Mg Tablet 1 Tab PO DAILY 30 02/29/20 Reported Atorvastatin Calcium 20 Mg Tablet 1 Tab PO DAILYWSUP 02/29/20 Reported Levothyroxine Sodium 25 Mcg Tablet 1 Tab PO DAILY 02/29/20 Reported Iron (Ferrous Sulfate) 325 Mg Tablet 1 Tab PO BID 30 02/29/20 Reported Flomax (Tamsulosin Hcl) 0.4 Mg Cap.er.24h 0.4 Mg PO DAILY 02/29/20 Reported Benicar (Olmesartan Medoxomil) 20 Mg Tablet 1 Tab PO DAILY 30 02/29/20 Reported Cyclobenzaprine Hcl 10 Mg Tablet 1 Tab PO BID PRN 10/08/14 Reported Torsemide 20 Mg Tablet 4 Tab PO DAILY 10/08/14 Reported Benadryl (Diphenhydramine Hcl) 25 Mg Capsule 1 Cap PO QHS 10/08/14 Reported Quinapril Hcl 40 Mg Tablet 1 Tab PO DAILY 10/08/14 Reported Metformin Hcl 500 Mg Tablet 1 Tab PO DAILYBFRSUP 10/08/14 Reported Trazodone Hcl 50 Mg Tablet 50 Mg PO HS 10/08/14 Reported [place] 5-325 Tablet (Acetaminophen/Hydrocodone Bitart) 1 Each Tablet 1 Tab PO Q8HRS PRN 10/08/14 Reported Percocet 5-325 Mg Tablet (Oxycodone/Acetaminophen) 1 Each Tablet 1-2 Tab PO Q6HRS PRN 10/08/14 Reported Potassium Chloride 20 Meq Tab.er.prt 20 Meq PO BID 10/08/14 Reported Combivent Respimat Inhal (Ipratropium/Albuterol Sulfate) 4 Gm Aer.w.adap 2 Inh IH QID PRN 10/08/14 Reported Metformin Hcl 1,000 Mg Tablet 1 Tab PO DAILY08 10/07/14 Reported Comments CXR 03/10/20 IMPRESSION: Stable diffuse bilateral heterogeneous opacities. CXR 03/11 IMPRESSION: * Hypoexpanded exam with multifocal opacities bilaterally which appear slightly increased from prior. Could be from edema or infiltrate Chest x-ray from 831 reviewed, bilateral infiltrates appear unchanged Impression . IMPRESSION: 1. Acute hypoxemic respiratory failure/multifactorial/acute exacerbation of COPD/[id number]/ persistent hypoxia 2. cxr with bilateral interstitial infiltrates DUE TO COVID pneumonia. 3. Suspected severe chronic obstructive pulmonary disease, 60 years of tobacco use, quit 3 years ago. 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 5. Acute kidney injury--improving 6. anemia/ dark stools -- improve S/P transfusion 7 abnormal chest x-ray Plan . RECOMMENDATIONS: d/w daughter in detail yesterday and today. He remains on bipap at 100%FIO2 . He would benefit from elective intubation as he will not be able to tolerate BIPAP for many days. Both pt and daughter agrees for short term intubation. continue steroids, with taper now off ABX, completed full course bronchodilators MDI 2 puffs and Q4 scheduled / Breo S/P plasma and S/P Remdesvir Follow renal function and nephrology recommendations Follow GI recs and monitor HGB Monitor D-Dimer, patient on Lovenox COVID-19 positive DVT/GI PPX Monitor clinical course D/W RN /RT cct 35 min JIM DIAMOND MD Mar 16, 2020 11:10
[2020-03-16] MEDS ORDERED: PROPOFOL 100 ML IV ONE (11:15)
[2020-03-16] MEDS ORDERED: SUCCINYLCHOLINE 200 MG/10 ML VIAL. ONE (11:15)
--- NOTE | 2020-03-16 11:20 | PDOC ---
Date of Service: DATE: 03/16/20 TIME: 11:18 Objective: Objective: D/w nurse - dark stools after Miralax, may need intubated soon, asks if should continue Lovenox. Vital Signs: Vital Signs Date Time Temp Pulse Resp B/P (MAP) Pulse Ox O2 Delivery O2 Flow Rate FiO2 03/16/20 08:30 96 BiPAP/CPAP 03/16/20 07:00 95.6 76 25 115/49 (71) 95.6 03/15/20 18:00 40.0 Labs: Laboratory Tests Test 03/15/20 11:38 03/15/20 16:56 03/15/20 21:37 03/16/20 07:49 Glucose (Fingerstick) 213 mg/dL 218 mg/dL 153 mg/dL 190 mg/dL Test 03/16/20 09:46 White Blood Count 14.0 x10^3/uL Red Blood Count 2.94 x10^6/uL Hemoglobin 9.0 g/dL Hematocrit 28.4 % Mean Corpuscular Volume 97 fL Mean Corpuscular Hemoglobin 31 pg Mean Corpuscular Hemoglobin Concent 32 g/dL Red Cell Distribution Width 17.0 % Platelet Count 178 x10^3/uL Neutrophils (%) (Auto) 95 % Lymphocytes (%) (Auto) 2 % Monocytes (%) (Auto) 3 % Eosinophils (%) (Auto) 0 % Basophils (%) (Auto) 0 % Neutrophils # (Auto) 13.3 x10^3/uL Lymphocytes # (Auto) 0.3 x10^3/uL Monocytes # (Auto) 0.4 x10^3/uL Eosinophils # (Auto) 0.0 x10^3/uL Basophils # (Auto) 0.0 x10^3/uL Sodium Level 141 mmol/L Potassium Level 4.6 mmol/L Chloride Level 107 mmol/L Carbon Dioxide Level 30 mmol/L Anion Gap 4 Blood Urea Nitrogen 41 mg/dL Creatinine 1.2 mg/dL Estimated GFR (Cockcroft-Gault) 57.7 Glucose Level 198 mg/dL Calcium Level 8.2 mg/dL PE: GEN: appears ill - in COVID isolation LUNGS: BiPAP HEART: RR ABD: non-distended NEURO/PSYCH: eyes closed A/P: Resp failure w/ COVID-19 and COPD LIZY, h/o SB AVMs - Hgb stable -- Continue same per GI. Justicifation of Admission Dx: Justifications for Admission: Justification of Admission Dx: Yes DEBBIE MURRAY Mar 16, 2020 11:20
[2020-03-16] MEDS ORDERED: MIDAZOLAM HCL/PF 5 MG/5 ML VIAL. IV ONE (11:30)
[2020-03-16] MEDS ORDERED: SUCCINYLCHOLINE 200 MG/10 ML VIAL. IV ONE ×2 (11:30→11:45)
[2020-03-16] MEDS ORDERED: MIDAZOLAM HCL/PF 5 MG/5 ML VIAL. ONE (11:31)
--- NOTE | 2020-03-16 11:40 | PDOC ---
Date and Time Called for intubation. Resp failure low SpO2 (88) with BIPAP and 100% O2 22g IV started L forearm, 50mg Propofol and 100mg Succinylcholine given IV 7.5mmOET placed without difficulty using Glidescope.Breath sounds equal but diminished, ETCO2 present. Secured at 22cm Vent settings per Dr Evans Current Medications Current Medications Albuterol/ Ipratropium (Duoneb) 6 ml 1X ONCE NEB Last administered on 02/29/20at 11:24; Start 02/29/20 at 10:30; Stop 02/29/20 at 10:31; Status DC Methylprednisolone Sodium Succinate (SOLU-Medrol 125MG VIAL) 125 mg 1X ONCE IV Last administered on 02/29/20at 10:23; Start 02/29/20 at 10:30; Stop 02/29/20 at 10:31; Status DC Sodium Chloride 1,000 ml @ 1,000 mls/hr 1X ONCE IV Last administered on 02/29/20at 17:42; Start 02/29/20 at 13:15; Stop 02/29/20 at 14:14; Status DC Ondansetron HCl (Zofran) 4 mg PRN Q8HRS PRN IV NAUSEA/VOMITING; Start 02/29/20 at 13:30; Stop 03/01/20 at 13:29; Status DC Acetaminophen (Tylenol) 650 mg PRN Q4HRS PRN PO FEVER > 100.3'F; Start 02/29/20 at 13:30; Stop 03/01/20 at 13:29; Status DC Albuterol/ Ipratropium (Duoneb) 3 ml RTQID NEB ; Start 02/29/20 at 16:00; Stop 02/29/20 at 13:58; Status DC Albuterol/ Ipratropium (Duoneb) 3 ml PRN QID PRN NEB SHORTNESS OF BREATH; Start 02/29/20 at 14:00; Stop 03/01/20 at 13:59; Status DC Pantoprazole Sodium (Protonix) 40 mg DAILYAC PO Last administered on 03/16/20at 08:22; Start 03/01/20 at 07:30 Sucralfate (Carafate) 1 gm BID PO Last administered on 03/16/20at 08:22; Start 02/29/20 at 21:00 Polyethylene Glycol (miraLAX PACKET) 17 gm PRN DAILY PRN PO CONSTIPATION; Start 02/29/20 at 15:15 Ferrous Sulfate (Feosol) 325 mg BIDWMEALS PO Last administered on 03/16/20at 08:22; Start 03/01/20 at 17:00 Polyethylene Glycol (miraLAX PACKET) 17 gm PRN DAILY PRN PO CONSTIPATION; Start 03/01/20 at 10:15; Stop 03/01/20 at 10:12; Status DC Methylprednisolone Sodium Succinate (SOLU-Medrol 40MG VIAL) 40 mg DAILY IV Last administered on 03/02/20at 10:56; Start 03/01/20 at 11:00; Stop 03/02/20 at 11:11; Status DC Olanzapine (ZyPREXA ZYDIS) 5 mg PRN BID PRN PO AGITATION; Start 03/01/20 at 11:15 Sodium Cl/Sod Bicarb/Potass Cl/ PEG (Golytely) 4,000 ml 1X ONCE PO Last administered on 03/01/20at 14:47; Start 03/01/20 at 14:00; Stop 03/01/20 at 14:01; Status DC Ringer's Solution 1,000 ml @ 50 mls/hr Q20H IV ; Start 03/02/20 at 07:00; Stop 03/02/20 at 18:59; Status DC Diphenhydramine HCl (Benadryl) 25 mg PRN QHS PRN PO INSOMNIA Last administered on 03/08/20at 21:02; Start 03/01/20 at 22:15 Albuterol Sulfate (Ventolin Hfa) 1 puff PRN QID PRN INH SHORTNESS OF BREATH Last administered on 03/03/20at 12:43; Start 03/02/20 at 01:00; Stop 03/04/20 at 10:34; Status DC Acetaminophen (Tylenol) 650 mg PRN Q6HRS PRN PO temperature Last administered on 03/13/20at 21:11; Start 03/02/20 at 03:30 Methylprednisolone Sodium Succinate (SOLU-Medrol 40MG VIAL) 20 mg 1X ONCE IV Last administered on 03/02/20at 11:15; Start 03/02/20 at 11:15; Stop 03/02/20 at 11:16; Status DC Piperacillin Sod/ Tazobactam Sod (Zosyn Per Pharmacy) 1 each PRN DAILY PRN MC SEE COMMENTS; Start 03/02/20 at 11:15; Stop 03/08/20 at 14:48; Status DC Piperacillin Sod/ Tazobactam Sod 2.25 gm/Sodium Chloride 50 ml @ 100 mls/hr Q6HRS IV Last administered on 03/08/20at 12:38; Start 03/02/20 at 12:00; Stop 03/08/20 at 14:48; Status DC Methylprednisolone Sodium Succinate (SOLU-Medrol 40MG VIAL) 60 mg Q8HRS IV Last administered on 03/10/20at 06:13; Start 03/02/20 at 14:00; Stop 03/10/20 at 11:29; Status DC Lidocaine (Lidoderm) 1 patch DAILY TD Last administered on 03/16/20at 08:22; Start 03/02/20 at 14:30 Miscellaneous (Lidoderm Patch Removal) 1 ea QHS MC Last administered on 03/15/20at 21:30; Start 03/02/20 at 21:00 Sertraline HCl (Zoloft) 25 mg DAILY PO Last administered on 03/05/20at 08:39; Start 03/03/20 at 09:00; Stop 03/05/20 at 19:23; Status DC Furosemide (Lasix) 20 mg 1X ONCE IVP Last administered on 03/04/20at 12:17; Start 03/04/20 at 11:00; Stop 03/04/20 at 11:01; Status DC Albuterol Sulfate (Ventolin Hfa) 2 puff Q4HRS INH Last administered on 03/07/20at 07:51; Start 03/04/20 at 12:00; Stop 03/07/20 at 17:37; Status DC Insulin Glargine (Lantus Syringe) 20 unit QHS SQ ; Start 03/04/20 at 21:00; Stop 03/05/20 at 15:08; Status DC Insulin Human Lispro (HumaLOG) 0-9 UNITS TIDACHC SQ Last administered on 03/16/20at 08:24; Start 03/04/20 at 13:00 Dextrose (Dextrose 50%-Water Syringe) 12.5 gm PRN Q15MIN PRN IV SEE COMMENTS; Start 03/04/20 at 13:00 Lactobacillus Rhamnosus (Culturelle) 1 cap BID PO Last administered on 03/16/20at 08:22; Start 03/04/20 at 13:00 Insulin Human Lispro (HumaLOG) 9 units 1X ONCE SQ Last administered on 03/04/20at 13:53; Start 03/04/20 at 13:30; Stop 03/04/20 at 13:35; Status DC Insulin Human Lispro (HumaLOG) 5 units TIDAC SQ Last administered on 03/16/20at 08:29; Start 03/05/20 at 08:00 Insulin Glargine (Lantus Syringe) 25 unit QHS SQ Last administered on 03/13/20at 21:22; Start 03/05/20 at 21:00; Stop 03/14/20 at 15:30; Status DC Loperamide HCl (Imodium) 2 mg PRN Q15MIN PRN PO DIARRHEA; Start 03/05/20 at 15:15 Sertraline HCl (Zoloft) 50 mg DAILY PO Last administered on 03/09/20at 08:33; Start 03/06/20 at 09:00; Stop 03/09/20 at 16:28; Status DC Sodium Chloride 1,000 ml @ 75 mls/hr [id number] IV Last administered on 03/07/20at 00:53; Start 03/06/20 at 14:00; Stop 03/07/20 at 13:50; Status DC Mirtazapine (Remeron) 15 mg QHS PO Last administered on 03/15/20at 21:30; Start 03/06/20 at 21:00 Hydralazine HCl (Apresoline Inj) 10 mg PRN Q4HRS PRN IVP ELEVATED BP, SEE COMMENTS Last administered on 03/15/20at 23:15; Start 03/07/20 at 09:30 Methylprednisolone Sodium Succinate (SOLU-Medrol 125MG VIAL) 125 mg 1X ONCE IV Last administered on 03/07/20at 10:48; Start 03/07/20 at 10:45; Stop 03/07/20 at 10:46; Status DC Fluticasone/ Vilanterol (Breo Ellipta 100-25 Mcg) 1 puff DAILY INH ; Start 03/07/20 at 11:30; Stop 03/07/20 at 11:02; Status DC Fluticasone/ Vilanterol (Breo Ellipta 100-25 Mcg) 1 puff DAILY INH ; Start 03/07/20 at 11:30; Stop 03/07/20 at 11:02; Status DC Fluticasone/ Vilanterol (Breo Ellipta 100-25 Mcg) 1 puff DAILY INH ; Start 03/07/20 at 11:30; Stop 03/07/20 at 17:37; Status DC Furosemide (Lasix) 40 mg 1X ONCE IVP Last administered on 03/07/20at 12:49; Start 03/07/20 at 12:45; Stop 03/07/20 at 12:46; Status DC Sodium Chloride 1,000 ml @ 75 mls/hr [id number] IV Last administered on 03/14/20at 08:07; Start 03/07/20 at 14:00; Stop 03/14/20 at 09:24; Status DC Non-Formulary Medication 1 ea/ Sodium Chloride 210 ml @ 210 mls/hr 1X ONCE IV Last administered on 03/08/20at 08:57; Start 03/08/20 at 09:00; Stop 03/08/20 at 09:59; Status DC Non-Formulary Medication 1 ea/ Sodium Chloride 230 ml @ 460 mls/hr Q24H IV Last administered on 03/12/20at 10:15; Start 03/09/20 at 09:00; Stop 03/12/20 at 09:29; Status DC Albuterol/ Ipratropium (Duoneb) 3 ml Q4HRS NEB Last administered on 03/16/20at 08:35; Start 03/07/20 at 20:00 Budesonide (Pulmicort) 0.5 mg RTBID NEB Last administered on 03/16/20 08:35; Start 03/07/20 at 20:00 Sertraline HCl (Zoloft) 100 mg DAILY PO Last administered on 03/16/20 08:22; Start 03/10/20 at 09:00 Methylprednisolone Sodium Succinate (SOLU-Medrol 40MG VIAL) 40 mg BID IV Last administered on 03/16/20at 08:34; Start 03/10/20 at 21:00 Furosemide (Lasix) 40 mg 1X ONCE IVP Last administered on 03/10/20at 21:03; Start 03/10/20 at 19:00; Stop 03/10/20 at 19:01; Status DC Metoprolol Tartrate (Lopressor) 25 mg PRN BID PRN PO TACHYCARDIA; Start 03/10/20 at 22:30 Dexmedetomidine HCl 400 mcg/ Sodium Chloride 100 ml @ 0 mls/hr CONT PRN IV SEE COMMENTS Last administered on 03/13/20at 07:36; Start 03/11/20 at 07:45 Sodium Chloride 500 ml @ 500 mls/hr 1X PRN PRN IV SEE COMMENTS; Start 03/11/20 at 07:45 Atropine Sulfate (ATROPINE 0.5mg SYRINGE) 0.5 mg PRN Q5MIN PRN IV SEE COMMENTS; Start 03/11/20 at 07:45 Furosemide (Lasix) 40 mg 1X ONCE IVP Last administered on 03/11/20at 10:30; Start 03/11/20 at 10:30; Stop 03/11/20 at 10:31; Status DC Amino Acids/ Glycerin/ Electrolytes 1,000 ml @ 80 mls/hr [id number] IV Last administered on 03/13/20at 16:09; Start 03/12/20 at 10:00; Stop 03/14/20 at 09:24; Status DC Enoxaparin Sodium (Lovenox 40mg Syringe) 40 mg BID SQ Last administered on 03/16/20at 08:34; Start 03/13/20 at 11:15 Furosemide (Lasix) 40 mg DAILY IVP Last administered on 03/16/20at 08:21; Start 03/14/20 at 09:00; Stop 03/18/20 at 09:00 Furosemide (Lasix) 40 mg 1X ONCE IVP Last administered on 03/13/20at 11:57; Start 03/13/20 at 11:15; Stop 03/13/20 at 11:18; Status DC Sterile Water (WATER for RESP) 1,000 ml CONT PRN INH VIA VAPOTHERM DEVICE Last administered on 03/15/20at 12:13; Start 03/13/20 at 12:45 Insulin Human Regular (HumuLIN R VIAL) 10 unit 1X ONCE IV Last administered on 03/13/20at 18:14; Start 03/13/20 at 18:00; Stop 03/13/20 at 18:03; Status DC Sodium Chloride 1,000 ml @ 75 mls/hr [id number] IV Last administered on 03/16/20at 01:56; Start 03/14/20 at 10:00 Insulin Glargine (Lantus Syringe) 35 unit QHS SQ Last administered on 03/15/20at 21:57; Start 03/14/20 at 21:00 Furosemide (Lasix) 20 mg 1X ONCE IVP Last administered on 03/15/20at 16:23; Start 03/15/20 at 16:30; Stop 03/15/20 at 16:31; Status DC Propofol 100 ml @ As Directed STK-MED ONCE IV ; Start 03/16/20 at 11:15; Stop 03/16/20 at 11:15; Status DC Succinylcholine Chloride (Anectine) 200 mg STK-MED ONCE .ROUTE ; Start 03/16/20 at 11:15; Stop 03/16/20 at 11:15; Status DC Succinylcholine Chloride (Anectine) 100 mg 1X ONCE IV ; Start 03/16/20 at 11:30; Stop 03/16/20 at 11:31; Status DC Fentanyl Citrate 30 ml @ 2.5 mls/hr CONT PRN IV SEE PROTOCOL; Start 03/16/20 at 11:30 Midazolam HCl 100 ml @ 1 mls/hr CONT PRN IV SEE PROTOCOL; Start 03/16/20 at 11:30 Midazolam HCl (Versed) 5 mg 1X ONCE IV ; Start 03/16/20 at 11:30; Stop 03/16/20 at 11:31; Status DC Midazolam HCl (Versed) 5 mg STK-MED ONCE .ROUTE ; Start 03/16/20 at 11:31; Stop 03/16/20 at 11:31; Status DC Active Scripts Active Reported Phospha 250 Neutral Tablet (Phosphorus #1) 250 Mg Tablet 1 Tab PO DAILY 30 Days Atorvastatin Calcium 20 Mg Tablet 1 Tab PO DAILYWSUP Levothyroxine Sodium 25 Mcg Tablet 1 Tab PO DAILY Iron (Ferrous Sulfate) 325 Mg Tablet 1 Tab PO BID 30 Days Flomax (Tamsulosin Hcl) 0.4 Mg Cap.er.24h 0.4 Mg PO DAILY Benicar (Olmesartan Medoxomil) 20 Mg Tablet 1 Tab PO DAILY 30 Days Cyclobenzaprine Hcl 10 Mg Tablet 1 Tab PO BID PRN Torsemide 20 Mg Tablet 4 Tab PO DAILY Benadryl (Diphenhydramine Hcl) 25 Mg Capsule 1 Cap PO QHS Quinapril Hcl 40 Mg Tablet 1 Tab PO DAILY Metformin Hcl 500 Mg Tablet 1 Tab PO DAILYBFRSUP Trazodone Hcl 50 Mg Tablet 50 Mg PO HS [place] 5-325 Tablet (Acetaminophen/Hydrocodone Bitart) 1 Each Tablet 1 Tab PO Q8HRS PRN Percocet 5-325 Mg Tablet (Oxycodone/Acetaminophen) 1 Each Tablet 1-2 Tab PO Q6HRS PRN Potassium Chloride 20 Meq Tab.er.prt 20 Meq PO BID Combivent Respimat Inhal (Ipratropium/Albuterol Sulfate) 4 Gm Aer.w.adap 2 Inh IH QID PRN Metformin Hcl 1,000 Mg Tablet 1 Tab PO DAILY08 Pertinent Labs/Test Laboratory Tests Test 03/14/20 12:18 03/14/20 17:22 03/14/20 20:55 03/15/20 08:18 Glucose (Fingerstick) 350 mg/dL (70-99) 277 mg/dL (70-99) 225 mg/dL (70-99) 272 mg/dL (70-99) Test 03/15/20 11:38 03/15/20 16:56 03/15/20 21:37 03/16/20 07:49 Glucose (Fingerstick) 213 mg/dL (70-99) 218 mg/dL (70-99) 153 mg/dL (70-99) 190 mg/dL (70-99) Test 03/16/20 09:46 White Blood Count 14.0 x10^3/uL (4.0-11.0) Red Blood Count 2.94 x10^6/uL (4.30-5.70) Hemoglobin 9.0 g/dL (13.0-17.5) Hematocrit 28.4 % (39.0-53.0) Mean Corpuscular Volume 97 fL (79-100) Mean Corpuscular Hemoglobin 31 pg (25-35) Mean Corpuscular Hemoglobin Concent 32 g/dL (31-37) Red Cell Distribution Width 17.0 % (11.5-14.5) Platelet Count 178 x10^3/uL (140-400) Neutrophils (%) (Auto) 95 % (31-73) Lymphocytes (%) (Auto) 2 % (24-48) Monocytes (%) (Auto) 3 % (0-9) Eosinophils (%) (Auto) 0 % (0-3) Basophils (%) (Auto) 0 % (0-3) Neutrophils # (Auto) 13.3 x10^3/uL (1.8-7.7) Lymphocytes # (Auto) 0.3 x10^3/uL (1.0-4.8) Monocytes # (Auto) 0.4 x10^3/uL (0.0-1.1) Eosinophils # (Auto) 0.0 x10^3/uL (0.0-0.7) Basophils # (Auto) 0.0 x10^3/uL (0.0-0.2) Sodium Level 141 mmol/L (136-145) Potassium Level 4.6 mmol/L (3.5-5.1) Chloride Level 107 mmol/L (98-107) Carbon Dioxide Level 30 mmol/L (21-32) Anion Gap 4 (6-14) Blood Urea Nitrogen 41 mg/dL (8-26) Creatinine 1.2 mg/dL (0.7-1.3) Estimated GFR (Cockcroft-Gault) 57.7 Glucose Level 198 mg/dL (70-99) Calcium Level 8.2 mg/dL (8.5-10.1) Laboratory Tests Test 03/15/20 11:38 03/15/20 16:56 03/15/20 21:37 03/16/20 07:49 Glucose (Fingerstick) 213 mg/dL (70-99) 218 mg/dL (70-99) 153 mg/dL (70-99) 190 mg/dL (70-99) Test 03/16/20 09:46 White Blood Count 14.0 x10^3/uL (4.0-11.0) Red Blood Count 2.94 x10^6/uL (4.30-5.70) Hemoglobin 9.0 g/dL (13.0-17.5) Hematocrit 28.4 % (39.0-53.0) Mean Corpuscular Volume 97 fL (79-100) Mean Corpuscular Hemoglobin 31 pg (25-35) Mean Corpuscular Hemoglobin Concent 32 g/dL (31-37) Red Cell Distribution Width 17.0 % (11.5-14.5) Platelet Count 178 x10^3/uL (140-400) Neutrophils (%) (Auto) 95 % (31-73) Lymphocytes (%) (Auto) 2 % (24-48) Monocytes (%) (Auto) 3 % (0-9) Eosinophils (%) (Auto) 0 % (0-3) Basophils (%) (Auto) 0 % (0-3) Neutrophils # (Auto) 13.3 x10^3/uL (1.8-7.7) Lymphocytes # (Auto) 0.3 x10^3/uL (1.0-4.8) Monocytes # (Auto) 0.4 x10^3/uL (0.0-1.1) Eosinophils # (Auto) 0.0 x10^3/uL (0.0-0.7) Basophils # (Auto) 0.0 x10^3/uL (0.0-0.2) Sodium Level 141 mmol/L (136-145) Potassium Level 4.6 mmol/L (3.5-5.1) Chloride Level 107 mmol/L (98-107) Carbon Dioxide Level 30 mmol/L (21-32) Anion Gap 4 (6-14) Blood Urea Nitrogen 41 mg/dL (8-26) Creatinine 1.2 mg/dL (0.7-1.3) Estimated GFR (Cockcroft-Gault) 57.7 Glucose Level 198 mg/dL (70-99) Calcium Level 8.2 mg/dL (8.5-10.1) LAST VITALS Vital Signs Date Time Temp Pulse Resp B/P (MAP) Pulse Ox O2 Delivery O2 Flow Rate FiO2 03/16/20 08:30 96 BiPAP/CPAP 03/16/20 07:00 95.6 76 25 115/49 (71) 95.6 03/15/20 18:00 40.0 NICKI FERRER MD Mar 16, 2020 11:40
[2020-03-16] MEDS ORDERED: PROPOFOL 10 MG/ML (20ML) VIAL. IV ONE (11:45)
[2020-03-16] MEDS: MIDAZOLAM 100mg/100ml NS BAG 100 ML IV PRN ×2 (11:59→17:10)
[2020-03-16 12:33] LABS: BASE EXCESS ABG -1 mmol/L (-3-3); HCO3 ABG 25 mmol/L (21-28); PCO2 ABG 52 mmHg (35-46); PO2 ABG 61 mmHg (65-108); SAT O2 ABG 88 % (92-99)
[2020-03-16 12:38] LABS: FIO2 ABG 100%+8
--- NOTE | 2020-03-16 12:48 | RAD ---
Single AP view of the chest. Comparison: 03/13/2020. Indication: Endotracheal tube placement Findings: Endotracheal tube is seen with the tip approximately 3.67 m both massimo. Nasogastric tube is identified the tip is not well seen. The heart is enlarged but stable. There is no pneumothorax or effusion. Diffuse interstitial opacities are reidentified and grossly unchanged when compared with the prior examination. Impression: 1. Stable diffuse interstitial opacities when compared with the prior examination. Endotracheal tube and nasogastric tube appear appropriately positioned. Electronically signed by: Patrick Basilio MD (03/16/2020 12:45 PM) [id number]
[2020-03-16] MEDS: INSULIN GLARGINE SYRINGE. SQ SCH (21:00)
[2020-03-16] MEDS: PATCH REMOVAL. MC SCH (21:00)
[2020-03-16] MEDS: MIRTAZAPINE 15 MG TABLET PO SCH (21:46)
[2020-03-17] VITALS (27 sets, daily range): BP systolic 93–133; BP diastolic 41–57
[2020-03-17] MEDS: IV NORMAL SALINE 1000ML BAG 1,000 ML IV SCH ×2 (02:33→17:09)
[2020-03-17] MEDS: IPRATRPIUM/ALBUTEROL 0.5/2.5MG 3 ML NEBU. NEB SCH ×5 (03:15→19:36)
[2020-03-17] MEDS: INSULIN LISPRO 300 UNITS/3 ML VIAL. SQ SCH ×8 (06:00→17:08)
[2020-03-17] MEDS: FERROUS SULFATE 325 MG TABLET. PO SCH ×2 (08:00→16:56)
[2020-03-17 08:03] LABS: BASE EXCESS ABG -1 mmol/L (-3-3); HCO3 ABG 23 mmol/L (21-28); PCO2 ABG 39 mmHg (35-46); PO2 ABG 80 mmHg (65-108); SAT O2 ABG 95 % (92-99)
[2020-03-17 08:40] LABS: BASO % 0 % (0-3); EOS % 0 % (0-3); HEMATOCRIT 21.5 % (39.0-53.0); LYMPH # 0.2 x10^3/uL (1.0-4.8); LYMPH % 3 % (24-48); MEAN CORPUSCULAR HEMOGLOBIN 32 pg (25-35); MEAN CORPUSCULAR HGB CONC 33 g/dL (31-37); MEAN CORPUSCULAR VOLUME 96 fL (79-100); MONO # 0.2 x10^3/uL (0.0-1.1); MONO % 3 % (0-9); NEUT # 7.6 x10^3/uL (1.8-7.7); NEUT % 95 % (31-73); PLATELET COUNT 142 x10^3/uL (140-400); RED BLOOD COUNT 2.23 x10^6/uL (4.30-5.70)
[2020-03-17 08:49] LABS: FIO2 ABG 100
[2020-03-17 08:53] LABS: CALCIUM 7.4 mg/dL (8.5-10.1); CREATININE 1.4 mg/dL (0.7-1.3); GFR 48.3; POTASSIUM 4.9 mmol/L (3.5-5.1)
--- NOTE | 2020-03-17 08:55 | NUR ---
CRITICAL LAB VALUE RECEIVED- HGB 7.0 DR TAPIA ON UNIT ROUNDING, NOTIFIED OF CRITICAL RESULT. ORDERS RECEIVED TO TRANSFUSE 1UNIT PRBCS. TYPE AND SCREEN ORDERED.
[2020-03-17] MEDS: FUROSEMIDE 40 MG/4 ML VIAL. IVP SCH (09:00)
[2020-03-17] MEDS: ENOXAPARIN 40 MG/0.4 ML SYRINGE. SQ SCH ×2 (09:00→20:01)
[2020-03-17] MEDS: LIDOCAINE (700MG/PATCH) PATCH. TD SCH (09:00)
[2020-03-17] MEDS: SUCRALFATE 1 GM TABLET. PO SCH ×2 (09:21→20:30)
[2020-03-17] MEDS: LACTOBACILLUS RHAMNOSUS GG 1 CAPSULE. PO SCH ×2 (09:21→20:30)
[2020-03-17] MEDS: SERTRALINE 50 MG TABLET. PO SCH (09:21)
[2020-03-17] MEDS: PANTOPRAZOLE 40 MG TABLET.DR. PO SCH (09:21)
[2020-03-17] MEDS: methylPREDNISolone SOD SUCC PF 40 MG/ML VIAL. IV SCH ×2 (09:24→20:30)
--- NOTE | 2020-03-17 10:30 | PDOC ---
PULMONARY PROGRESS NOTES DATE: 03/17/20 TIME: 10:25 Subjective Intubated 03/16 due to persistent severe hypoxia on AC mode/ sedated no overnight issues Vitals Vital Signs Date Time Temp Pulse Resp B/P (MAP) Pulse Ox O2 Delivery O2 Flow Rate FiO2 03/17/20 07:50 96 Ventilator 03/17/20 07:00 64 20 110/49 (69) 03/17/20 04:00 99.0 99.0 Comments pt. seen during COVID-19 pandemic visual exam preformed intubated/sedated no distress trace edema no rash Labs Laboratory Tests Test 03/15/20 11:38 03/15/20 16:56 03/15/20 21:37 03/16/20 07:49 Glucose (Fingerstick) 213 mg/dL (70-99) 218 mg/dL (70-99) 153 mg/dL (70-99) 190 mg/dL (70-99) Test 03/16/20 09:46 03/16/20 11:45 03/16/20 12:30 03/16/20 17:49 White Blood Count 14.0 x10^3/uL (4.0-11.0) Red Blood Count 2.94 x10^6/uL (4.30-5.70) Hemoglobin 9.0 g/dL (13.0-17.5) Hematocrit 28.4 % (39.0-53.0) Mean Corpuscular Volume 97 fL (79-100) Mean Corpuscular Hemoglobin 31 pg (25-35) Mean Corpuscular Hemoglobin Concent 32 g/dL (31-37) Red Cell Distribution Width 17.0 % (11.5-14.5) Platelet Count 178 x10^3/uL (140-400) Neutrophils (%) (Auto) 95 % (31-73) Lymphocytes (%) (Auto) 2 % (24-48) Monocytes (%) (Auto) 3 % (0-9) Eosinophils (%) (Auto) 0 % (0-3) Basophils (%) (Auto) 0 % (0-3) Neutrophils # (Auto) 13.3 x10^3/uL (1.8-7.7) Lymphocytes # (Auto) 0.3 x10^3/uL (1.0-4.8) Monocytes # (Auto) 0.4 x10^3/uL (0.0-1.1) Eosinophils # (Auto) 0.0 x10^3/uL (0.0-0.7) Basophils # (Auto) 0.0 x10^3/uL (0.0-0.2) Sodium Level 141 mmol/L (136-145) Potassium Level 4.6 mmol/L (3.5-5.1) Chloride Level 107 mmol/L (98-107) Carbon Dioxide Level 30 mmol/L (21-32) Anion Gap 4 (6-14) Blood Urea Nitrogen 41 mg/dL (8-26) Creatinine 1.2 mg/dL (0.7-1.3) Estimated GFR (Cockcroft-Gault) 57.7 Glucose Level 198 mg/dL (70-99) Calcium Level 8.2 mg/dL (8.5-10.1) Glucose (Fingerstick) 176 mg/dL (70-99) 193 mg/dL (70-99) O2 Saturation 88 % (92-99) Arterial Blood pH 7.31 (7.35-7.45) Arterial Blood pCO2 at Patient Temp 52 mmHg (35-46) Arterial Blood pO2 at Patient Temp 61 mmHg (65-108) Arterial Blood HCO3 25 mmol/L (21-28) Arterial Blood Base Excess -1 mmol/L (-3-3) FiO2 100%+8 Test 03/17/20 00:13 03/17/20 06:08 03/17/20 08:00 03/17/20 08:20 Glucose (Fingerstick) 143 mg/dL (70-99) 189 mg/dL (70-99) O2 Saturation 95 % (92-99) Arterial Blood pH 7.39 (7.35-7.45) Arterial Blood pCO2 at Patient Temp 39 mmHg (35-46) Arterial Blood pO2 at Patient Temp 80 mmHg (65-108) Arterial Blood HCO3 23 mmol/L (21-28) Arterial Blood Base Excess -1 mmol/L (-3-3) FiO2 100 White Blood Count 8.0 x10^3/uL (4.0-11.0) Red Blood Count 2.23 x10^6/uL (4.30-5.70) Hemoglobin 7.0 g/dL (13.0-17.5) Hematocrit 21.5 % (39.0-53.0) Mean Corpuscular Volume 96 fL (79-100) Mean Corpuscular Hemoglobin 32 pg (25-35) Mean Corpuscular Hemoglobin Concent 33 g/dL (31-37) Red Cell Distribution Width 17.0 % (11.5-14.5) Platelet Count 142 x10^3/uL (140-400) Neutrophils (%) (Auto) 95 % (31-73) Lymphocytes (%) (Auto) 3 % (24-48) Monocytes (%) (Auto) 3 % (0-9) Eosinophils (%) (Auto) 0 % (0-3) Basophils (%) (Auto) 0 % (0-3) Neutrophils # (Auto) 7.6 x10^3/uL (1.8-7.7) Lymphocytes # (Auto) 0.2 x10^3/uL (1.0-4.8) Monocytes # (Auto) 0.2 x10^3/uL (0.0-1.1) Eosinophils # (Auto) 0.0 x10^3/uL (0.0-0.7) Basophils # (Auto) 0.0 x10^3/uL (0.0-0.2) Sodium Level 144 mmol/L (136-145) Potassium Level 4.9 mmol/L (3.5-5.1) Chloride Level 111 mmol/L (98-107) Carbon Dioxide Level 26 mmol/L (21-32) Anion Gap 7 (6-14) Blood Urea Nitrogen 53 mg/dL (8-26) Creatinine 1.4 mg/dL (0.7-1.3) Estimated GFR (Cockcroft-Gault) 48.3 Glucose Level 201 mg/dL (70-99) Calcium Level 7.4 mg/dL (8.5-10.1) Magnesium Level 2.4 mg/dL (1.8-2.4) Laboratory Tests Test 03/16/20 11:45 03/16/20 12:30 03/16/20 17:49 03/17/20 00:13 Glucose (Fingerstick) 176 mg/dL (70-99) 193 mg/dL (70-99) 143 mg/dL (70-99) O2 Saturation 88 % (92-99) Arterial Blood pH 7.31 (7.35-7.45) Arterial Blood pCO2 at Patient Temp 52 mmHg (35-46) Arterial Blood pO2 at Patient Temp 61 mmHg (65-108) Arterial Blood HCO3 25 mmol/L (21-28) Arterial Blood Base Excess -1 mmol/L (-3-3) FiO2 100%+8 Test 03/17/20 06:08 03/17/20 08:00 03/17/20 08:20 Glucose (Fingerstick) 189 mg/dL (70-99) O2 Saturation 95 % (92-99) Arterial Blood pH 7.39 (7.35-7.45) Arterial Blood pCO2 at Patient Temp 39 mmHg (35-46) Arterial Blood pO2 at Patient Temp 80 mmHg (65-108) Arterial Blood HCO3 23 mmol/L (21-28) Arterial Blood Base Excess -1 mmol/L (-3-3) FiO2 100 White Blood Count 8.0 x10^3/uL (4.0-11.0) Red Blood Count 2.23 x10^6/uL (4.30-5.70) Hemoglobin 7.0 g/dL (13.0-17.5) Hematocrit 21.5 % (39.0-53.0) Mean Corpuscular Volume 96 fL (79-100) Mean Corpuscular Hemoglobin 32 pg (25-35) Mean Corpuscular Hemoglobin Concent 33 g/dL (31-37) Red Cell Distribution Width 17.0 % (11.5-14.5) Platelet Count 142 x10^3/uL (140-400) Neutrophils (%) (Auto) 95 % (31-73) Lymphocytes (%) (Auto) 3 % (24-48) Monocytes (%) (Auto) 3 % (0-9) Eosinophils (%) (Auto) 0 % (0-3) Basophils (%) (Auto) 0 % (0-3) Neutrophils # (Auto) 7.6 x10^3/uL (1.8-7.7) Lymphocytes # (Auto) 0.2 x10^3/uL (1.0-4.8) Monocytes # (Auto) 0.2 x10^3/uL (0.0-1.1) Eosinophils # (Auto) 0.0 x10^3/uL (0.0-0.7) Basophils # (Auto) 0.0 x10^3/uL (0.0-0.2) Sodium Level 144 mmol/L (136-145) Potassium Level 4.9 mmol/L (3.5-5.1) Chloride Level 111 mmol/L (98-107) Carbon Dioxide Level 26 mmol/L (21-32) Anion Gap 7 (6-14) Blood Urea Nitrogen 53 mg/dL (8-26) Creatinine 1.4 mg/dL (0.7-1.3) Estimated GFR (Cockcroft-Gault) 48.3 Glucose Level 201 mg/dL (70-99) Calcium Level 7.4 mg/dL (8.5-10.1) Magnesium Level 2.4 mg/dL (1.8-2.4) Medications Active Scripts Medications Dose Route/Sig Max Daily Dose Days Date Category Phospha 250 Neutral Tablet (Phosphorus #1) 250 Mg Tablet 1 Tab PO DAILY 30 02/29/20 Reported Atorvastatin Calcium 20 Mg Tablet 1 Tab PO DAILYWSUP 02/29/20 Reported Levothyroxine Sodium 25 Mcg Tablet 1 Tab PO DAILY 02/29/20 Reported Iron (Ferrous Sulfate) 325 Mg Tablet 1 Tab PO BID 30 02/29/20 Reported Flomax (Tamsulosin Hcl) 0.4 Mg Cap.er.24h 0.4 Mg PO DAILY 02/29/20 Reported Benicar (Olmesartan Medoxomil) 20 Mg Tablet 1 Tab PO DAILY 30 02/29/20 Reported Cyclobenzaprine Hcl 10 Mg Tablet 1 Tab PO BID PRN 10/08/14 Reported Torsemide 20 Mg Tablet 4 Tab PO DAILY 10/08/14 Reported Benadryl (Diphenhydramine Hcl) 25 Mg Capsule 1 Cap PO QHS 10/08/14 Reported Quinapril Hcl 40 Mg Tablet 1 Tab PO DAILY 10/08/14 Reported Metformin Hcl 500 Mg Tablet 1 Tab PO DAILYBFRSUP 10/08/14 Reported Trazodone Hcl 50 Mg Tablet 50 Mg PO HS 10/08/14 Reported Lee 5-325 Tablet (Acetaminophen/Hydrocodone Bitart) 1 Each Tablet 1 Tab PO Q8HRS PRN 10/08/14 Reported Percocet 5-325 Mg Tablet (Oxycodone/Acetaminophen) 1 Each Tablet 1-2 Tab PO Q6HRS PRN 10/08/14 Reported Potassium Chloride 20 Meq Tab.er.prt 20 Meq PO BID 10/08/14 Reported Combivent Respimat Inhal (Ipratropium/Albuterol Sulfate) 4 Gm Aer.w.adap 2 Inh IH QID PRN 10/08/14 Reported Metformin Hcl 1,000 Mg Tablet 1 Tab PO DAILY08 10/07/14 Reported Comments CXR 03/16/20 IMPRESSION: Stable diffuse bilateral INFILTRATES Impression . IMPRESSION: 1. Acute hypoxemic respiratory failure/multifactorial/acute exacerbation of COPD/[id number]/ INTUBATED 03/16 due to severe persistent hypoxia 2. cxr with bilateral interstitial infiltrates DUE TO COVID pneumonia. 3. Suspected severe chronic obstructive pulmonary disease, 60 years of tobacco use, quit 3 years ago. 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 5. Acute kidney injury--improving 6. anemia/ dark stools -- transfusion today 7 abnormal chest x-ray Plan . RECOMMENDATIONS: d/w daughter in detail yesterday. She preferred short term intubation. AC mode and make changes as needed start enteral nutrition. continue steroids, with taper now off ABX, completed full course S/P plasma and S/P Remdesvir Follow renal function and nephrology recommendations Follow GI recs and monitor HGB/ Tx today Monitor D-Dimer, patient on high dose prophylaxis Lovenox. May need to adjust dose if remains anemic COVID-19 positive DVT/GI PPX Monitor clinical course D/W RN /RT cct 30 min JIM DIAMOND MD Mar 17, 2020 10:30
--- NOTE | 2020-03-17 10:44 | NUR ---
SS following up with discharge planning. SS reviewed pt chart and discussed with pt RN. Pt now intubated and on the vent. COVID19 positive. Pt accepted at [facility], ; fax [phone], pending insurance authorization. [facility] denied LTACH authorization and appeal currently in process. SS will continue to follow for discharge planning.
--- NOTE | 2020-03-17 10:57 | PDOC ---
[employer] PROGRESS NOTE Date of Service DOS: DATE: 03/17/20 TIME: 10:56 Chief Complaint Chief Complaint Dyspnea with no significant hypoxia based on the ABG, likely related to mild congestive heart failure. also with COVID-19 pneumonia. SARS-CoV-2 - with pneumonia. On steroids, Lovenox. Pulm consulted Abnormal chest x-ray with faint interstitial infiltrates - likely CHF and COVID 19 POSTIVE Severe chronic obstructive pulmonary disease, 60 years of tobacco use, quit 3 years ago. 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 Acute kidney injury likely vasomotor nephropathy - monitor Anemia - plans for EGD and colonoscopy on hold while treating COVID 19 History of Present Illness History of Present Illness 03/17/2020 Patient seen in the [place] [address] ICU He is now intubated as of yesterday He is sedated with Versed and fentanyl Discussed with RN Discussed with case management Chart reviewed Patient hemoglobin has dropped some down to 7 I ordered 1 unit of packed red blood cells 03/16/2020 Patient seen and examined once again in the [place] [address] ICU Today he is on BiPAP with 100% FiO2 Currently satting in the low 90s Chart reviewed Discussed with the caser in Discussed with RN He remains critically ill I am concerned he may have to be intubated 03/15/2020 Patient seen in the [place] [address] ICU He is on Vapotherm at 30 L with 90% FiO2 Discussed with caser in discussed with RN Chart reviewed 03-14-22 Patient seen and examined in the [place] [address] ICU He is currently on Vapotherm (30 L with 80% FiO2) In respiratory isolation Discussed with RN Discussed with case management Chart reviewed Patient is eating well glucose running a little high 84 yo M w/ PMHx tobacco use for 60 years, COPD on O2, 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 His BUN and creatinine was high as well as LFTs. He required 2 liters of oxygen. LFTs also elevated. 03/01: Still requiring O2. Significant wheezes and prolonged expiratory phase. He says he just wants to sleep. He says "Im 84 I have nothing to live for about my cats." 03/02: COVID-19 positive. He is having some back pain today. Still little hypoxic. EGD and colonoscopy on hold due to his COVID-19 positive status 03/03: Afebrile. Seen on 4 L nasal cannula, he is having a bowel movement, notes that he is having he is eating but is having loose bowels currently they are a little dark. No significant pain. His shortness of breath is stable. Slight cough. Back pain improved with Lidoderm patch. 03/03: Still afebrile with 4 liters nasal cannula O2. His glucose has become v radu elevated. He feels no worse than yesterday. Afebrile, now on 6 L nasal cannula, he is having more diarrhea, he does not notice much blood. Glucose has been in the 400s, unfortunately he did not receive his Lantus in the evening yesterday evening. C diff negative 03/06/2020 Patient with increasing O2 requirements this morning. Patient has increasing dyspnea but still maintaining sats of 94% on 15 L Venturi mask. Pulmonary evaluated and recommends for patient to be transferred to the ICU with BiPAP. 03/08 Breathing on BiPAP. VTE held due to GI bleed, H&H stable. 03/09: Patient is off BiPAP currently breathing on 8 L high flow nasal cannula. H & H dropped to 6.6 today, transfuse 1 unit packed red blood cells. GI to follow, thank you for your expertise. No scope plan due to COVID-19 positive. 03/13 : Per nursing staff, no acute events overnight. Breathing on 8L NC. bipap support Blood sugar improving. Continue steroids and blood pressure management. Vitals/I&O Vitals/I&O: Vital Signs Date Time Temp Pulse Resp B/P (MAP) Pulse Ox O2 Delivery O2 Flow Rate FiO2 03/17/20 10:00 58 20 112/50 (70) 95 Ventilator 03/17/20 08:00 98.0 98.0 I & O 03/16/20 03/16/20 03/17/20 15:00 23:00 07:00 Intake Total 300 ml 1991 ml 1363.4 ml Output Total 1855 ml 250 ml 475 ml Balance -1555 ml 1741 ml 888.4 ml Physical Exam Physical Exam: GEN: On the vent 50/90% HEENT: Normal cephalic, atraumatic, NECK: Supple, no JVD, no thyromegaly was noted LUNGS: Bilateral crackles and wheezing HEART: RRR, S1, S2 present. Peripheral pulses intact, no obvious murmurs noted ABDOMEN: Soft, nontender. Positive bowel sounds, no organomegaly, normal bowel sounds EXTREMITIES: Without clubbing, cyanosis, or edema. General: Alert, Cooperative Heart: Regular rate Abdomen: Soft, Other (Nondistended) Extremities: No clubbing, No cyanosis, No edema Skin: No rashes, No breakdown Labs Labs: Laboratory Tests Test 03/16/20 11:45 03/16/20 12:30 03/16/20 17:49 03/17/20 00:13 Glucose (Fingerstick) 176 mg/dL (70-99) 193 mg/dL (70-99) 143 mg/dL (70-99) O2 Saturation 88 % (92-99) Arterial Blood pH 7.31 (7.35-7.45) Arterial Blood pCO2 at Patient Temp 52 mmHg (35-46) Arterial Blood pO2 at Patient Temp 61 mmHg (65-108) Arterial Blood HCO3 25 mmol/L (21-28) Arterial Blood Base Excess -1 mmol/L (-3-3) FiO2 100%+8 Test 03/17/20 06:08 03/17/20 08:00 03/17/20 08:20 Glucose (Fingerstick) 189 mg/dL (70-99) O2 Saturation 95 % (92-99) Arterial Blood pH 7.39 (7.35-7.45) Arterial Blood pCO2 at Patient Temp 39 mmHg (35-46) Arterial Blood pO2 at Patient Temp 80 mmHg (65-108) Arterial Blood HCO3 23 mmol/L (21-28) Arterial Blood Base Excess -1 mmol/L (-3-3) FiO2 100 White Blood Count 8.0 x10^3/uL (4.0-11.0) Red Blood Count 2.23 x10^6/uL (4.30-5.70) Hemoglobin 7.0 g/dL (13.0-17.5) Hematocrit 21.5 % (39.0-53.0) Mean Corpuscular Volume 96 fL (79-100) Mean Corpuscular Hemoglobin 32 pg (25-35) Mean Corpuscular Hemoglobin Concent 33 g/dL (31-37) Red Cell Distribution Width 17.0 % (11.5-14.5) Platelet Count 142 x10^3/uL (140-400) Neutrophils (%) (Auto) 95 % (31-73) Lymphocytes (%) (Auto) 3 % (24-48) Monocytes (%) (Auto) 3 % (0-9) Eosinophils (%) (Auto) 0 % (0-3) Basophils (%) (Auto) 0 % (0-3) Neutrophils # (Auto) 7.6 x10^3/uL (1.8-7.7) Lymphocytes # (Auto) 0.2 x10^3/uL (1.0-4.8) Monocytes # (Auto) 0.2 x10^3/uL (0.0-1.1) Eosinophils # (Auto) 0.0 x10^3/uL (0.0-0.7) Basophils # (Auto) 0.0 x10^3/uL (0.0-0.2) Sodium Level 144 mmol/L (136-145) Potassium Level 4.9 mmol/L (3.5-5.1) Chloride Level 111 mmol/L (98-107) Carbon Dioxide Level 26 mmol/L (21-32) Anion Gap 7 (6-14) Blood Urea Nitrogen 53 mg/dL (8-26) Creatinine 1.4 mg/dL (0.7-1.3) Estimated GFR (Cockcroft-Gault) 48.3 Glucose Level 201 mg/dL (70-99) Calcium Level 7.4 mg/dL (8.5-10.1) Magnesium Level 2.4 mg/dL (1.8-2.4) Assessment and Plan Assessmemt and Plan Problems Medical Problems: (1) Acute renal failure Status: Acute (2) COPD exacerbation Status: Acute (3) GI bleeding Status: Acut SARS-CoV-2 - with pneumonia. On steroids, Lovenox. Pulm consulted Abnormal chest x-ray with faint interstitial infiltrates - likely CHF and COVID 19 POSTIVE Severe chronic obstructive pulmonary disease, 60 years of tobacco use, quit 3 years ago. 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 Acute kidney injury likely vasomotor nephropathy - monitor Anemia - plans for EGD and colonoscopy on hold while treating COVID 19 Plan ICU monitoring Respiratory isolation COVID-19 protocol including antibiotics steroids oxygen vitamins plasma Appreciate subspecialist input Vent weaning Trend labs IV antibiotics Beta agonist Home meds DVT prophylaxis Full code Long-term prognosis guarded He is critically ill Critical care time 32 minutes Per pulmonary medicine please see below recommendations and I certainly appreciate and agree with their input; Short term intubation. AC mode and make changes as needed start enteral nutrition. continue steroids, with taper now off ABX, completed full course S/P plasma and S/P Remdesvir Follow renal function and nephrology recommendations Follow GI recs and monitor HGB/ Tx today Monitor D-Dimer, patient on high dose prophylaxis Lovenox. May need to adjust dose if remains anemic COVID-19 positive DVT/GI PPX Monitor clinical course Comment Review of Relevant I have reviewed the following items kamini (where applicable) has been applied. Medications: Current Medications Medications (Trade) Dose Ordered Sig/Ya Route PRN Reason Start Time Stop Time Status Last Admin Dose Admin Succinylcholine Chloride (Anectine) 100 mg 1X ONCE IV 03/16/20 11:30 03/16/20 11:31 DC 03/16/20 11:37 Fentanyl Citrate 30 ml @ 2.5 mls/hr CONT PRN IV SEE PROTOCOL 03/16/20 11:30 03/17/20 05:03 Midazolam HCl 100 ml @ 1 mls/hr CONT PRN IV SEE PROTOCOL 03/16/20 11:30 03/16/20 17:10 Midazolam HCl (Versed) 5 mg 1X ONCE IV 03/16/20 11:30 03/16/20 11:31 DC 03/16/20 11:36 Propofol (Diprivan) 200 mg 1X ONCE IV 03/16/20 11:45 03/16/20 11:46 DC 03/16/20 11:20 Justifications for Admission Other Justification MG TAPIA III DO Mar 17, 2020 10:57
[2020-03-17] MEDS: BUDESONIDE 0.5 MG/2 ML NEBU. NEB SCH ×2 (11:26→19:36)
--- NOTE | 2020-03-17 11:42 | PDOC ---
Date of Service: DATE: 03/17/20 TIME: 11:40 Objective: Objective: D/w nurse - no bleeding, Hgb dropped so will transfuse. Vital Signs: Vital Signs Date Time Temp Pulse Resp B/P (MAP) Pulse Ox O2 Delivery O2 Flow Rate FiO2 03/17/20 11:26 96 Ventilator 03/17/20 11:00 56 20 98/44 (62) 03/17/20 08:00 98.0 98.0 Labs: Laboratory Tests Test 03/16/20 11:45 03/16/20 17:49 03/17/20 00:13 03/17/20 06:08 Glucose (Fingerstick) 176 mg/dL (70-99) 193 mg/dL (70-99) 143 mg/dL (70-99) 189 mg/dL (70-99) PE: GEN: intubated in COVID isolation LUNGS: vent HEART: RR ABD: non-distended NEURO/PSYCH: sedated A/P: Resp failure w/ COVID-19 and COPD - now intubated LIZY, h/o SB AVMs -- Agree w/ transfusion. Would continue iron in some form (and PPI). Justicifation of Admission Dx: Justifications for Admission: Justification of Admission Dx: Yes DEBBIE MURRAY Mar 17, 2020 11:42
[2020-03-17 15:59] LABS: HEMATOCRIT 26.2 % (39.0-53.0); HEMOGLOBIN 8.6 g/dL (13.0-17.5); RED BLOOD COUNT 2.79 x10^6/uL (4.30-5.70); RED CELL DISTRIBUTION WIDTH 17.9 % (11.5-14.5); WHITE BLOOD COUNT 6.6 x10^3/uL (4.0-11.0)
[2020-03-17] MEDS: MIDAZOLAM 100mg/100ml NS BAG 100 ML IV PRN (18:44)
[2020-03-17] MEDS: PATCH REMOVAL. MC SCH (20:01)
[2020-03-17] MEDS: MIRTAZAPINE 15 MG TABLET PO SCH (20:30)
[2020-03-18] VITALS (24 sets, daily range): BP systolic 103–145; BP diastolic 43–63
[2020-03-18] MEDS: IPRATRPIUM/ALBUTEROL 0.5/2.5MG 3 ML NEBU. NEB SCH ×6 (00:11→20:34)
[2020-03-18] MEDS: INSULIN LISPRO 300 UNITS/3 ML VIAL. SQ SCH ×8 (00:50→17:26)
[2020-03-18] MEDS: IV NORMAL SALINE 1000ML BAG 1,000 ML IV SCH ×2 (06:28→07:15)
[2020-03-18] MEDS: BUDESONIDE 0.5 MG/2 ML NEBU. NEB SCH ×2 (07:33→20:34)
[2020-03-18] MEDS: FERROUS SULFATE 325 MG TABLET. PO SCH ×2 (07:50→17:04)
[2020-03-18] MEDS: PANTOPRAZOLE 40 MG TABLET.DR. PO SCH (07:50)
[2020-03-18 07:52] LABS: BASE EXCESS ABG -4 mmol/L (-3-3); HCO3 ABG 22 mmol/L (21-28); PCO2 ABG 44 mmHg (35-46); PO2 ABG 53 mmHg (65-108); SAT O2 ABG 84 % (92-99)
[2020-03-18 07:58] LABS: FIO2 ABG 90%
[2020-03-18] MEDS: methylPREDNISolone SOD SUCC PF 40 MG/ML VIAL. IV SCH ×2 (09:00→22:06)
[2020-03-18] MEDS: LIDOCAINE (700MG/PATCH) PATCH. TD SCH (09:00)
[2020-03-18] MEDS: ENOXAPARIN 40 MG/0.4 ML SYRINGE. SQ SCH ×2 (09:00→22:06)
[2020-03-18] MEDS: FUROSEMIDE 40 MG/4 ML VIAL. IVP SCH (09:01)
[2020-03-18] MEDS: SERTRALINE 50 MG TABLET. PO SCH (09:01)
[2020-03-18] MEDS: SUCRALFATE 1 GM TABLET. PO SCH ×2 (09:01→22:05)
[2020-03-18] MEDS: LACTOBACILLUS RHAMNOSUS GG 1 CAPSULE. PO SCH ×2 (09:01→22:06)
--- NOTE | 2020-03-18 10:15 | PDOC ---
PULMONARY PROGRESS NOTES DATE: 03/18/20 TIME: 10:12 Subjective Intubated 03/16 due to persistent severe hypoxia, small ett secretion on AC mode/ peep 10, fio2 100% sedated on versed fentanyl Vitals Vital Signs Date Time Temp Pulse Resp B/P (MAP) Pulse Ox O2 Delivery O2 Flow Rate FiO2 03/18/20 10:00 68 19 120/55 (76) 94 Ventilator 03/18/20 08:00 98.6 98.6 03/17/20 18:43 40.0 Comments pt. seen during pandemic visual exam preformed intubated/sedated nc at no distress no accessory muscle use no paradoxical abd motion trace edema no rash Labs Laboratory Tests Test 03/16/20 11:45 03/16/20 12:30 03/16/20 17:49 03/17/20 00:13 Glucose (Fingerstick) 176 mg/dL (70-99) 193 mg/dL (70-99) 143 mg/dL (70-99) O2 Saturation 88 % (92-99) Arterial Blood pH 7.31 (7.35-7.45) Arterial Blood pCO2 at Patient Temp 52 mmHg (35-46) Arterial Blood pO2 at Patient Temp 61 mmHg (65-108) Arterial Blood HCO3 25 mmol/L (21-28) Arterial Blood Base Excess -1 mmol/L (-3-3) FiO2 100%+8 Test 03/17/20 06:08 03/17/20 08:00 03/17/20 08:20 03/17/20 12:25 Glucose (Fingerstick) 189 mg/dL (70-99) 193 mg/dL (70-99) O2 Saturation 95 % (92-99) Arterial Blood pH 7.39 (7.35-7.45) Arterial Blood pCO2 at Patient Temp 39 mmHg (35-46) Arterial Blood pO2 at Patient Temp 80 mmHg (65-108) Arterial Blood HCO3 23 mmol/L (21-28) Arterial Blood Base Excess -1 mmol/L (-3-3) FiO2 100 White Blood Count 8.0 x10^3/uL (4.0-11.0) Red Blood Count 2.23 x10^6/uL (4.30-5.70) Hemoglobin 7.0 g/dL (13.0-17.5) Hematocrit 21.5 % (39.0-53.0) Mean Corpuscular Volume 96 fL (79-100) Mean Corpuscular Hemoglobin 32 pg (25-35) Mean Corpuscular Hemoglobin Concent 33 g/dL (31-37) Red Cell Distribution Width 17.0 % (11.5-14.5) Platelet Count 142 x10^3/uL (140-400) Neutrophils (%) (Auto) 95 % (31-73) Lymphocytes (%) (Auto) 3 % (24-48) Monocytes (%) (Auto) 3 % (0-9) Eosinophils (%) (Auto) 0 % (0-3) Basophils (%) (Auto) 0 % (0-3) Neutrophils # (Auto) 7.6 x10^3/uL (1.8-7.7) Lymphocytes # (Auto) 0.2 x10^3/uL (1.0-4.8) Monocytes # (Auto) 0.2 x10^3/uL (0.0-1.1) Eosinophils # (Auto) 0.0 x10^3/uL (0.0-0.7) Basophils # (Auto) 0.0 x10^3/uL (0.0-0.2) Sodium Level 144 mmol/L (136-145) Potassium Level 4.9 mmol/L (3.5-5.1) Chloride Level 111 mmol/L (98-107) Carbon Dioxide Level 26 mmol/L (21-32) Anion Gap 7 (6-14) Blood Urea Nitrogen 53 mg/dL (8-26) Creatinine 1.4 mg/dL (0.7-1.3) Estimated GFR (Cockcroft-Gault) 48.3 Glucose Level 201 mg/dL (70-99) Calcium Level 7.4 mg/dL (8.5-10.1) Magnesium Level 2.4 mg/dL (1.8-2.4) Test 03/17/20 15:50 03/17/20 17:06 03/18/20 00:48 03/18/20 06:18 White Blood Count 6.6 x10^3/uL (4.0-11.0) Red Blood Count 2.79 x10^6/uL (4.30-5.70) Hemoglobin 8.6 g/dL (13.0-17.5) Hematocrit 26.2 % (39.0-53.0) Mean Corpuscular Volume 94 fL (79-100) Mean Corpuscular Hemoglobin 31 pg (25-35) Mean Corpuscular Hemoglobin Concent 33 g/dL (31-37) Red Cell Distribution Width 17.9 % (11.5-14.5) Platelet Count 134 x10^3/uL (140-400) Glucose (Fingerstick) 225 mg/dL (70-99) 221 mg/dL (70-99) 189 mg/dL (70-99) Test 03/18/20 07:45 O2 Saturation 84 % (92-99) Arterial Blood pH 7.31 (7.35-7.45) Arterial Blood pCO2 at Patient Temp 44 mmHg (35-46) Arterial Blood pO2 at Patient Temp 53 mmHg (65-108) Arterial Blood HCO3 22 mmol/L (21-28) Arterial Blood Base Excess -4 mmol/L (-3-3) FiO2 90% Laboratory Tests Test 03/17/20 12:25 03/17/20 15:50 03/17/20 17:06 03/18/20 00:48 Glucose (Fingerstick) 193 mg/dL (70-99) 225 mg/dL (70-99) 221 mg/dL (70-99) White Blood Count 6.6 x10^3/uL (4.0-11.0) Red Blood Count 2.79 x10^6/uL (4.30-5.70) Hemoglobin 8.6 g/dL (13.0-17.5) Hematocrit 26.2 % (39.0-53.0) Mean Corpuscular Volume 94 fL (79-100) Mean Corpuscular Hemoglobin 31 pg (25-35) Mean Corpuscular Hemoglobin Concent 33 g/dL (31-37) Red Cell Distribution Width 17.9 % (11.5-14.5) Platelet Count 134 x10^3/uL (140-400) Test 03/18/20 06:18 03/18/20 07:45 Glucose (Fingerstick) 189 mg/dL (70-99) O2 Saturation 84 % (92-99) Arterial Blood pH 7.31 (7.35-7.45) Arterial Blood pCO2 at Patient Temp 44 mmHg (35-46) Arterial Blood pO2 at Patient Temp 53 mmHg (65-108) Arterial Blood HCO3 22 mmol/L (21-28) Arterial Blood Base Excess -4 mmol/L (-3-3) FiO2 90% Medications Active Scripts Medications Dose Route/Sig Max Daily Dose Days Date Category Phospha 250 Neutral Tablet (Phosphorus #1) 250 Mg Tablet 1 Tab PO DAILY 30 02/29/20 Reported Atorvastatin Calcium 20 Mg Tablet 1 Tab PO DAILYWSUP 02/29/20 Reported Levothyroxine Sodium 25 Mcg Tablet 1 Tab PO DAILY 02/29/20 Reported Iron (Ferrous Sulfate) 325 Mg Tablet 1 Tab PO BID 30 02/29/20 Reported Flomax (Tamsulosin Hcl) 0.4 Mg Cap.er.24h 0.4 Mg PO DAILY 02/29/20 Reported Benicar (Olmesartan Medoxomil) 20 Mg Tablet 1 Tab PO DAILY 30 02/29/20 Reported Cyclobenzaprine Hcl 10 Mg Tablet 1 Tab PO BID PRN 10/08/14 Reported Torsemide 20 Mg Tablet 4 Tab PO DAILY 10/08/14 Reported Benadryl (Diphenhydramine Hcl) 25 Mg Capsule 1 Cap PO QHS 10/08/14 Reported Quinapril Hcl 40 Mg Tablet 1 Tab PO DAILY 10/08/14 Reported Metformin Hcl 500 Mg Tablet 1 Tab PO DAILYBFRSUP 10/08/14 Reported Trazodone Hcl 50 Mg Tablet 50 Mg PO HS 10/08/14 Reported [place] 5-325 Tablet (Acetaminophen/Hydrocodone Bitart) 1 Each Tablet 1 Tab PO Q8HRS PRN 10/08/14 Reported Percocet 5-325 Mg Tablet (Oxycodone/Acetaminophen) 1 Each Tablet 1-2 Tab PO Q6HRS PRN 10/08/14 Reported Potassium Chloride 20 Meq Tab.er.prt 20 Meq PO BID 10/08/14 Reported Combivent Respimat Inhal (Ipratropium/Albuterol Sulfate) 4 Gm Aer.w.adap 2 Inh IH QID PRN 10/08/14 Reported Metformin Hcl 1,000 Mg Tablet 1 Tab PO DAILY08 10/07/14 Reported Comments CXR reviewed ett ok Stable diffuse bilateral INFILTRATES Impression . IMPRESSION: 1. Acute hypoxemic respiratory failure/multifactorial/acute exacerbation of COPD/[id number]/ INTUBATED 03/16 due to severe persistent hypoxia 2. abnl cxr, with bilateral interstitial infiltrates DUE TO COVID pneumonia. 3. Suspected severe chronic obstructive pulmonary disease, 60 years of tobacco use, quit 3 years ago. 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 5. Acute kidney injury--improving 6. anemia/ dark stools -- transfusion today 7 abnormal chest x-ray Plan . RECOMMENDATIONS: cont vent support, AC mode, setting reviewed still on peep 10 fio2 100% enteral nutrition. continue steroids, now off ABX, completed full course S/P plasma and S/P Remdesvir Follow renal function and nephrology recommendations Follow GI recs and monitor HGB/ Tx today Monitor D-Dimer, patient on high dose prophylaxis Lovenox. monitor h/h..May need to adjust dose if remains anemic COVID-19 positive DVT/GI PPX Monitor clinical course D/W RN /RT critically ill cct 30 min no overlap DEANDRA SAEED MD Mar 18, 2020 10:15
--- NOTE | 2020-03-18 10:59 | PDOC ---
[employer] PROGRESS NOTE Date of Service DOS: DATE: 03/18/20 TIME: 10:58 Chief Complaint Chief Complaint Dyspnea with no significant hypoxia based on the ABG, likely related to mild congestive heart failure. also with COVID-19 pneumonia. SARS-CoV-2 - with pneumonia. On steroids, Lovenox. Pulm consulted Abnormal chest x-ray with faint interstitial infiltrates - likely CHF and COVID 19 POSTIVE Severe chronic obstructive pulmonary disease, 60 years of tobacco use, quit 3 years ago. 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 Acute kidney injury likely vasomotor nephropathy - monitor Anemia - plans for EGD and colonoscopy on hold while treating COVID 19 History of Present Illness History of Present Illness 03/18/2020 Patient seen and examined in the [place] [address] ICU He remains intubated 50/100% with 8 of PEEP Chart reviewed Discussed with RN He is critically ill 03/17/2020 Patient seen in the [place] [address] ICU He is now intubated as of yesterday He is sedated with Versed and fentanyl Discussed with RN Discussed with case management Chart reviewed Patient hemoglobin has dropped some down to 7 I ordered 1 unit of packed red blood cells 03/16/2020 Patient seen and examined once again in the [place] [address] ICU Today he is on BiPAP with 100% FiO2 Currently satting in the low 90s Chart reviewed Discussed with the nurse case manager Discussed with RN He remains critically ill I am concerned he may have to be intubated 03/15/2020 Patient seen in the [place] [address] ICU He is on Vapotherm at 30 L with 90% FiO2 Discussed with nurse case manager discussed with RN Chart reviewed 03-14-22 Patient seen and examined in the [place] [address] ICU He is currently on Vapotherm (30 L with 80% FiO2) In respiratory isolation Discussed with RN Discussed with case management Chart reviewed Patient is eating well glucose running a little high 84 yo M w/ PMHx tobacco use for 60 years, COPD on O2, 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 His BUN and creatinine was high as well as LFTs. He required 2 liters of oxygen. LFTs also elevated. 03/01: Still requiring O2. Significant wheezes and prolonged expiratory phase. He says he just wants to sleep. He says "Im 84 I have nothing to live for about my cats." 03/02: COVID-19 positive. He is having some back pain today. Still little hypoxic. EGD and colonoscopy on hold due to his COVID-19 positive status 03/03: Afebrile. Seen on 4 L nasal cannula, he is having a bowel movement, notes that he is having he is eating but is having loose bowels currently they are a little dark. No significant pain. His shortness of breath is stable. Slight cough. Back pain improved with Lidoderm patch. 03/03: Still afebrile with 4 liters nasal cannula O2. His glucose has become very elevated. He feels no worse than yesterday. Afebrile, now on 6 L nasal cannula, he is having more diarrhea, he does not notice much blood. Glucose has been in the 400s, unfortunately he did not receive his Lantus in the evening yesterday evening. C diff negative 03/06/2020 Patient with increasing O2 requirements this morning. Patient has increasing dyspnea but still maintaining sats of 94% on 15 L Venturi mask. Pulmonary evaluated and recommends for patient to be transferred to the ICU with BiPAP. 03/08 Breathing on BiPAP. VTE held due to GI bleed, H&H stable. 03/09: Patient is off BiPAP currently breathing on 8 L high flow nasal cannula. H & H dropped to 6.6 today, transfuse 1 unit packed red blood cells. GI to follow, thank you for your expertise. No scope plan due to COVID-19 positive. 03/13 : Per nursing staff, no acute events overnight. Breathing on 8L NC. bipap support Blood sugar improving. Continue steroids and blood pressure management. Vitals/I&O Vitals/I&O: Vital Signs Date Time Temp Pulse Resp B/P (MAP) Pulse Ox O2 Delivery O2 Flow Rate FiO2 03/18/20 10:00 68 19 120/55 (76) 94 Ventilator 03/18/20 08:00 98.6 98.6 03/17/20 18:43 40.0 I & O 03/17/20 03/17/20 03/18/20 15:00 23:00 07:00 Intake Total 1590.9 ml 1463.3 ml Output Total 465 ml 385 ml 475 ml Balance -465 ml 1205.9 ml 988.3 ml Physical Exam Physical Exam: GEN: On the vent 50/90% HEENT: Normal cephalic, atraumatic, NECK: Supple, no JVD, no thyromegaly was noted LUNGS: Bilateral crackles and wheezing HEART: RRR, S1, S2 present. Peripheral pulses intact, no obvious murmurs noted ABDOMEN: Soft, nontender. Positive bowel sounds, no organomegaly, normal bowel sounds EXTREMITIES: Without clubbing, cyanosis, or edema. General: Other (Sedated) Heart: Regular rate Abdomen: Soft, Other (Nondistended) Extremities: No clubbing, No cyanosis, No edema Skin: No rashes, No breakdown Labs Labs: Laboratory Tests Test 03/17/20 12:25 03/17/20 15:50 03/17/20 17:06 03/18/20 00:48 Glucose (Fingerstick) 193 mg/dL (70-99) 225 mg/dL (70-99) 221 mg/dL (70-99) White Blood Count 6.6 x10^3/uL (4.0-11.0) Red Blood Count 2.79 x10^6/uL (4.30-5.70) Hemoglobin 8.6 g/dL (13.0-17.5) Hematocrit 26.2 % (39.0-53.0) Mean Corpuscular Volume 94 fL (79-100) Mean Corpuscular Hemoglobin 31 pg (25-35) Mean Corpuscular Hemoglobin Concent 33 g/dL (31-37) Red Cell Distribution Width 17.9 % (11.5-14.5) Platelet Count 134 x10^3/uL (140-400) Test 03/18/20 06:18 03/18/20 07:45 Glucose (Fingerstick) 189 mg/dL (70-99) O2 Saturation 84 % (92-99) Arterial Blood pH 7.31 (7.35-7.45) Arterial Blood pCO2 at Patient Temp 44 mmHg (35-46) Arterial Blood pO2 at Patient Temp 53 mmHg (65-108) Arterial Blood HCO3 22 mmol/L (21-28) Arterial Blood Base Excess -4 mmol/L (-3-3) FiO2 90% Assessment and Plan Assessmemt and Plan Problems Medical Problems: (1) Acute renal failure Status: Acute (2) COPD exacerbation Status: Acute (3) GI bleeding Status: Acute SARS-CoV-2 - with pneumonia. On steroids, Lovenox. Pulm consulted Abnormal chest x-ray with faint interstitial infiltrates - likely CHF and COVID 19 POSTIVE Severe chronic obstructive pulmonary disease, 60 years of tobacco use, quit 3 years ago. 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 Acute kidney injury likely vasomotor nephropathy - monitor Anemia - plans for EGD and colonoscopy on hold while treating COVID 19 Plan ICU monitoring Respiratory isolation COVID-19 protocol including antibiotics steroids oxygen vitamins plasma Appreciate subspecialist input Vent weaning Trend labs IV antibiotics Beta agonist Home meds DVT prophylaxis Full code Long-term prognosis guarded He is critically ill Critical care time 33 minutes Comment Review of Relevant I have reviewed the following items kamini (where applicable) has been applied. Justifications for Admission Other Justification MG TAPIA III DO Mar 18, 2020 10:59
[2020-03-18] MEDS: MIDAZOLAM 100mg/100ml NS BAG 100 ML IV PRN ×2 (13:55→23:51)
[2020-03-18] MEDS: PATCH REMOVAL. MC SCH (21:00)
[2020-03-18] MEDS: MIRTAZAPINE 15 MG TABLET PO SCH (22:06)
[2020-03-19] VITALS (24 sets, daily range): BP systolic 87–140; BP diastolic 39–55
[2020-03-19] MEDS: INSULIN LISPRO 300 UNITS/3 ML VIAL. SQ SCH ×8 (00:53→17:34)
[2020-03-19] MEDS: fentaNYL HIGH DOSE PCA 55 ML IV PRN ×2 (01:16→16:26)
[2020-03-19] MEDS: IPRATRPIUM/ALBUTEROL 0.5/2.5MG 3 ML NEBU. NEB SCH ×6 (01:39→20:00)
[2020-03-19] MEDS ORDERED: FUROSEMIDE 40 MG/4 ML VIAL. IVP ONE (02:45)
[2020-03-19] MEDS ORDERED: methylPREDNISolone SOD SUCC PF 40 MG/ML VIAL. IV ONE (02:45)
[2020-03-19] MEDS: DEXMEDETOMIDINE 400 MCG in IV NORMAL SALINE 100ML 96 ML IV PRN ×3 (03:00→20:30)
--- NOTE | 2020-03-19 03:59 | NUR ---
Pts SPO2 dropped to 79-84% this shift. Pt was suctioned, repositioned, resedated, SPO2 monitor changed, etc. This did not alter pts SPO2 reading. Sedation medications have been titrated up per protocol this shift. RT notified. Call then placed to Dr. Jones. Updated on pt status. Received orders to increase PEEP to 12, STAT chest xray, give 1x dose of lasix and 1x dose of solumedrol. Orders put into system and implemented. Call also placed to pts family. Notified of current patient status and increasing requirements on the ventilator. Pts daughter Colleen, stated that if oxygenation requirements continue to increase, it "may be time to discuss withdrawing care." After implementing all interventions given by Dr. Jones, pts current SPO2 is 94%. Will pass on and continue to monitor. Pt within sight of care team.
--- NOTE | 2020-03-19 06:19 | RAD ---
CHEST AP ONLY Clinical Indication: Reason: Decreasing SPO2 Comparison: AP chest, March 16, 2020.. Findings: Endotracheal tube tip is approximately 4.2 cm superior to the massimo. Enteric tube remains in the stomach. The cardiomediastinal silhouette is stable. Diffuse interstitial and alveolar opacities are worse. There is no pneumothorax. No pleural effusion is appreciated. No acute bone abnormality. IMPRESSION: 1. Stable life-support devices. 2. Diffuse interstitial and alveolar opacities are worse. Electronically signed by: Jacob Francisco MD (03/19/2020 6:16 AM) [facility]
[2020-03-19] MEDS: MIDAZOLAM 100mg/100ml NS BAG 100 ML IV PRN ×2 (07:22→16:45)
[2020-03-19] MEDS: BUDESONIDE 0.5 MG/2 ML NEBU. NEB SCH ×2 (07:26→20:00)
[2020-03-19 07:49] LABS: BASE EXCESS ABG -3 mmol/L (-3-3); HCO3 ABG 24 mmol/L (21-28); PCO2 ABG 52 mmHg (35-46); PO2 ABG 60 mmHg (65-108); SAT O2 ABG 88 % (92-99)
[2020-03-19 07:52] LABS: FIO2 ABG 100
[2020-03-19] MEDS: PANTOPRAZOLE IV PUSH 40 MG VIAL. IVP SCH (07:55)
[2020-03-19] MEDS: FERROUS SULFATE 325 MG TABLET. PO SCH ×2 (07:55→16:45)
[2020-03-19] MEDS: LIDOCAINE (700MG/PATCH) PATCH. TD SCH (09:00)
[2020-03-19] MEDS: SUCRALFATE 1 GM TABLET. PO SCH ×2 (09:10→21:17)
[2020-03-19] MEDS: LACTOBACILLUS RHAMNOSUS GG 1 CAPSULE. PO SCH ×2 (09:10→21:17)
[2020-03-19] MEDS: methylPREDNISolone SOD SUCC PF 40 MG/ML VIAL. IV SCH ×2 (09:10→21:17)
[2020-03-19] MEDS: SERTRALINE 50 MG TABLET. PO SCH (09:10)
[2020-03-19] MEDS: ENOXAPARIN 40 MG/0.4 ML SYRINGE. SQ SCH ×2 (09:11→21:17)
[2020-03-19] MEDS: IV NORMAL SALINE 1000ML BAG 1,000 ML IV SCH ×2 (09:42→23:04)
--- NOTE | 2020-03-19 10:16 | PDOC ---
[employer] PROGRESS NOTE Date of Service DOS: DATE: 03/19/20 TIME: 10:14 Chief Complaint Chief Complaint Dyspnea with no significant hypoxia based on the ABG, likely related to mild congestive heart failure. also with COVID-19 pneumonia. SARS-CoV-2 - with pneumonia. On steroids, Lovenox. Pulm consulted Abnormal chest x-ray with faint interstitial infiltrates - likely CHF and COVID 19 POSTIVE Severe chronic obstructive pulmonary disease, 60 years of tobacco use, quit 3 years ago. 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 Acute kidney injury likely vasomotor nephropathy - monitor Anemia - plans for EGD and colonoscopy on hold while treating COVID 19 History of Present Illness History of Present Illness 03/19/2022 Patient seen and examined in the [place] [id number] ICU He remains mechanically ventilated Assist- with 1 her percent FiO2 and 12 of PEEP He is sedated with Precedex fentanyl Versed Chart reviewed Discussed with RN 03/18/2020 Patient seen and examined in the [place] [id number] ICU He remains intubated 50/100% with 8 of PEEP Chart reviewed Discussed with RN He is critically ill 03/17/2020 Patient seen in the [place] [address] ICU He is now intubated as of yesterday He is sedated with Versed and fentanyl Discussed with RN Discussed with case management Chart reviewed Patient hemoglobin has dropped some down to 7 I ordered 1 unit of packed red blo od cells 03/16/2020 Patient seen and examined once again in the [place] [id number] ICU Today he is on BiPAP with 100% FiO2 Currently satting in the low 90s Chart reviewed Discussed with the case resource manager Discussed with RN He remains critically ill I am concerned he may have to be intubated 03/15/2020 Patient seen in the [place] [id number] ICU He is on Vapotherm at 30 L with 90% FiO2 Discussed with case resource manager discussed with RN Chart reviewed 03-14-22 Patient seen and examined in the [place] [id number] ICU He is currently on Vapotherm (30 L with 80% FiO2) In respiratory isolation Discussed with RN Discussed with case management Chart reviewed Patient is eating well glucose running a little high 84 yo M w/ PMHx tobacco use for 60 years, COPD on O2, 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 His BUN and creatinine was high as well as LFTs. He required 2 liters of oxygen. LFTs also elevated. 03/01: Still requiring O2. Significant wheezes and prolonged expiratory phase. He says he just wants to sleep. He says "Im 84 I have nothing to live for about my cats." 03/02: COVID-19 positive. He is having some back pain today. Still little hypoxic. EGD and colonoscopy on hold due to his COVID-19 positive status 03/03: Afebrile. Seen on 4 L nasal cannula, he is having a bowel movement, notes that he is having he is eating but is having loose bowels currently they are a little dark. No significant pain. His shortness of breath is stable. Slight cough. Back pain improved with Lidoderm patch. 03/03: Still afebrile with 4 liters nasal cannula O2. His glucose has become very elevated. He feels no worse than yesterday. Afebrile, now on 6 L nasal cannula, he is having more diarrhea, he does not notice much blood. Glucose has been in the 400s, unfortunately he did not receive his Lantus in the evening yesterday evening. C diff negative 03/06/2020 Patient with increasing O2 requirements this morning. Patient has increasing dyspnea but still maintaining sats of 94% on 15 L Venturi mask. Pulmonary evaluated and recommends for patient to be transferred to the ICU with BiPAP. 03/08 Breathing on BiPAP. VTE held due to GI bleed, H&H stable. 03/09: Patient is off BiPAP currently breathing on 8 L high flow nasal cannula. H & H dropped to 6.6 today, transfuse 1 unit packed red blood cells. GI to paco ow, thank you for your expertise. No scope plan due to COVID-19 positive. 03/13 : Per nursing staff, no acute events overnight. Breathing on 8L NC. bipap support Blood sugar improving. Continue steroids and blood pressure management. Vitals/I&O Vitals/I&O: Vital Signs Date Time Temp Pulse Resp B/P (MAP) Pulse Ox O2 Delivery O2 Flow Rate FiO2 03/19/20 10:00 56 22 92/46 (61) 97 Ventilator 03/19/20 08:00 97.6 97.6 I & O 03/18/20 03/18/20 03/19/20 15:00 23:00 07:00 Intake Total 250 ml 2263 ml 2231.5 ml Output Total 1040 ml 625 ml 910 ml Balance -790 ml 1638 ml 1321.5 ml Physical Exam Physical Exam: GEN: On the vent 50/90% HEENT: Normal cephalic, atraumatic, NECK: Supple, no JVD, no thyromegaly was noted LUNGS: Bilateral crackles and wheezing HEART: RRR, S1, S2 present. Peripheral pulses intact, no obvious murmurs noted ABDOMEN: Soft, nontender. Positive bowel sounds, no organomegaly, normal bowel sounds EXTREMITIES: Without clubbing, cyanosis, or edema. General: Other (Sedated) Heart: Regular rate Abdomen: Soft, Other (Nondistended) Extremities: No clubbing, No cyanosis, No edema Skin: No rashes, No breakdown Labs Labs: Laboratory Tests Test 03/18/20 12:11 03/18/20 17:13 03/19/20 00:28 03/19/20 06:05 Glucose (Fingerstick) 167 mg/dL (70-99) 159 mg/dL (70-99) 129 mg/dL (70-99) 165 mg/dL (70-99) Test 03/19/20 07:35 O2 Saturation 88 % (92-99) Arterial Blood pH 7.28 (7.35-7.45) Arterial Blood pCO2 at Patient Temp 52 mmHg (35-46) Arterial Blood pO2 at Patient Temp 60 mmHg (65-108) Arterial Blood HCO3 24 mmol/L (21-28) Arterial Blood Base Excess -3 mmol/L (-3-3) FiO2 100 Assessment and Plan Assessmemt and Plan Problems Medical Problems: (1) Acute renal failure Status: Acute (2) COPD exacerbation Status: Acute (3) GI bleeding Status: Acute SARS-CoV-2 - with pneumonia. On steroids, Lovenox. Pulm consulted Abnormal chest x-ray with faint interstitial infiltrates - likely CHF and COVID 19 POSTIVE Severe chronic obstructive pulmonary disease, 60 years of tobacco use, quit 3 years ago. 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 Acute kidney injury likely vasomotor nephropathy - monitor Anemia - plans for EGD and colonoscopy on hold while treating COVID 19 Plan ICU monitoring Beta agonist Respiratory isolation COVID-19 protocol including antibiotics steroids oxygen vitamins plasma Vent weaning Trend labs IV antibiotics Home meds if possible DVT prophylaxis Full code Appreciate subspecialist input Long-term prognosis guarded cc time 31 minutes Comment Review of Relevant I have reviewed the following items kamini (where applicable) has been applied. Medications: Current Medications Medications (Trade) Dose Ordered Sig/Ya Route PRN Reason Start Time Stop Time Status Last Admin Dose Admin Pantoprazole Sodium (PROTONIX VIAL for IV PUSH) 40 mg DAILYAC IVP 03/19/20 07:30 03/19/20 07:55 Fentanyl Citrate 55 ml @ 2.5 mls/hr CONT PRN IV pain 03/19/20 01:00 03/19/20 01:16 Methylprednisolone Sodium Succinate (SOLU-Medrol 40MG VIAL) 80 mg 1X ONCE IV 03/19/20 02:45 03/19/20 02:46 DC 03/19/20 03:20 Furosemide (Lasix) 40 mg 1X ONCE IVP 03/19/20 02:45 03/19/20 02:46 DC 03/19/20 03:24 Justifications for Admission Other Justification GM TAPIA III DO Mar 19, 2020 10:16
--- NOTE | 2020-03-19 11:31 | PDOC ---
PULMONARY PROGRESS NOTES DATE: 03/19/20 TIME: 11:25 Subjective Intubated 03/16 due to persistent severe hypoxia, small ett secretion oxygenation worse earlier this am now on peep 12, fio2 100% on AC mode/ sedated on versed fentanyl precedex Vitals Vital Signs Date Time Temp Pulse Resp B/P (MAP) Pulse Ox O2 Delivery O2 Flow Rate FiO2 03/19/20 11:15 97 Ventilator 03/19/20 10:00 56 22 92/46 (61) 03/19/20 08:00 97.6 97.6 Comments pt. seen during pandemic visual exam preformed intubated/sedated nc at no distress no accessory muscle use no paradoxical abd motion trace edema no rash Labs Laboratory Tests Test 03/17/20 12:25 03/17/20 15:50 03/17/20 17:06 03/18/20 00:48 Glucose (Fingerstick) 193 mg/dL (70-99) 225 mg/dL (70-99) 221 mg/dL (70-99) White Blood Count 6.6 x10^3/uL (4.0-11.0) Red Blood Count 2.79 x10^6/uL (4.30-5.70) Hemoglobin 8.6 g/dL (13.0-17.5) Hematocrit 26.2 % (39.0-53.0) Mean Corpuscular Volume 94 fL (79-100) Mean Corpuscular Hemoglobin 31 pg (25-35) Mean Corpuscular Hemoglobin Concent 33 g/dL (31-37) Red Cell Distribution Width 17.9 % (11.5-14.5) Platelet Count 134 x10^3/uL (140-400) Test 03/18/20 06:18 03/18/20 07:45 03/18/20 12:11 03/18/20 17:13 Glucose (Fingerstick) 189 mg/dL (70-99) 167 mg/dL (70-99) 159 mg/dL (70-99) O2 Saturation 84 % (92-99) Arterial Blood pH 7.31 (7.35-7.45) Arterial Blood pCO2 at Patient Temp 44 mmHg (35-46) Arterial Blood pO2 at Patient Temp 53 mmHg (65-108) Arterial Blood HCO3 22 mmol/L (21-28) Arterial Blood Base Excess -4 mmol/L (-3-3) FiO2 90% Test 03/19/20 00:28 03/19/20 06:05 03/19/20 07:35 Glucose (Fingerstick) 129 mg/dL (70-99) 165 mg/dL (70-99) O2 Saturation 88 % (92-99) Arterial Blood pH 7.28 (7.35-7.45) Arterial Blood pCO2 at Patient Temp 52 mmHg (35-46) Arterial Blood pO2 at Patient Temp 60 mmHg (65-108) Arterial Blood HCO3 24 mmol/L (21-28) Arterial Blood Base Excess -3 mmol/L (-3-3) FiO2 100 Laboratory Tests Test 03/18/20 12:11 03/18/20 17:13 03/19/20 00:28 03/19/20 06:05 Glucose (Fingerstick) 167 mg/dL (70-99) 159 mg/dL (70-99) 129 mg/dL (70-99) 165 mg/dL (70-99) Test 03/19/20 07:35 O2 Saturation 88 % (92-99) Arterial Blood pH 7.28 (7.35-7.45) Arterial Blood pCO2 at Patient Temp 52 mmHg (35-46) Arterial Blood pO2 at Patient Temp 60 mmHg (65-108) Arterial Blood HCO3 24 mmol/L (21-28) Arterial Blood Base Excess -3 mmol/L (-3-3) FiO2 100 Medications Active Scripts Medications Dose Route/Sig Max Daily Dose Days Date Category Phospha 250 Neutral Tablet (Phosphorus #1) 250 Mg Tablet 1 Tab PO DAILY 30 02/29/20 Reported Atorvastatin Calcium 20 Mg Tablet 1 Tab PO DAILYWSUP 02/29/20 Reported Levothyroxine Sodium 25 Mcg Tablet 1 Tab PO DAILY 02/29/20 Reported Iron (Ferrous Sulfate) 325 Mg Tablet 1 Tab PO BID 30 02/29/20 Reported Flomax (Tamsulosin Hcl) 0.4 Mg Cap.er.24h 0.4 Mg PO DAILY 02/29/20 Reported Benicar (Olmesartan Medoxomil) 20 Mg Tablet 1 Tab PO DAILY 30 02/29/20 Reported Cyclobenzaprine Hcl 10 Mg Tablet 1 Tab PO BID PRN 10/08/14 Reported Torsemide 20 Mg Tablet 4 Tab PO DAILY 10/08/14 Reported Benadryl (Diphenhydramine Hcl) 25 Mg Capsule 1 Cap PO QHS 10/08/14 Reported Quinapril Hcl 40 Mg Tablet 1 Tab PO DAILY 10/08/14 Reported Metformin Hcl 500 Mg Tablet 1 Tab PO DAILYBFRSUP 10/08/14 Reported Trazodone Hcl 50 Mg Tablet 50 Mg PO HS 10/08/14 Reported [place] 5-325 Tablet (Acetaminophen/Hydrocodone Bitart) 1 Each Tablet 1 Tab PO Q8HRS PRN 10/08/14 Reported Percocet 5-325 Mg Tablet (Oxycodone/Acetaminophen) 1 Each Tablet 1-2 Tab PO Q6HRS PRN 10/08/14 Reported Potassium Chloride 20 Meq Tab.er.prt 20 Meq PO BID 10/08/14 Reported Combivent Respimat Inhal (Ipratropium/Albuterol Sulfate) 4 Gm Aer.w.adap 2 Inh IH QID PRN 10/08/14 Reported Metformin Hcl 1,000 Mg Tablet 1 Tab PO DAILY08 10/07/14 Reported Comments CXR reviewed ett ok b lat infilt worse Impression . IMPRESSION: 1. Acute hypoxemic respiratory failure/multifactorial/acute exacerbation of COPD/[id number]/ INTUBATED 03/16 due to severe persistent hypoxia worse 2. abnl cxr, with bilateral interstitial infiltrates DUE TO COVID pneumonia. worse 3. Suspected severe chronic obstructive pulmonary disease, 60 years of tobacco use, quit 3 years ago. 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 5. Acute kidney injury--improving 6. anemia/ dark stools -- s/p transfusion 7 abnormal chest x-ray Plan . RECOMMENDATIONS: cont vent support, AC mode, setting reviewed on peep 12 fio2 100% enteral nutrition. continue steroids, now off ABX, completed full course S/P plasma and S/P Remdesvir Follow renal function and nephrology recommendations Follow GI recs and monitor HGB Monitor D-Dimer, patient on high dose prophylaxis Lovenox. monitor h/h..May need to adjust dose if remains anemic COVID-19 positive DVT/GI PPX Monitor clinical course D/W RN /RT critically ill cct 30 min no overlap DEANDRA SAEED MD Mar 19, 2020 11:31
--- NOTE | 2020-03-19 12:00 | NUR ---
Patient continues to remain stable with addition of Precedex to sedation medication. Spoke with daughter Colleen, she is still expressing a wish to "change to withdrawal care but, I want to talk to a doctor first". Dr. Jones on the unit, consulted with her and she felt that conversation needed to be held between Admitting Physician and patient's family. Dr. Christensen informed of Colleen's wishes to speak with him and will call her personally.
--- NOTE | 2020-03-19 12:25 | NUR ---
Colleen called back to let me know that her and Dr. Christensen had a conversation and agreed that they would wait until when Dr. Toledo returns to make any decisions. Patient will continue with treatment as currently ordered. Colleen will be up shortly "just in case something happens before they can we can talk to Dr. Toledo", per Colleen. Patient is resting comfortably with care staff close by.
--- NOTE | 2020-03-19 14:25 | NUR ---
Patient's family is at bedside at this time. Two family members in the room, two family members outside the room. Family is deciding on next steps. At this time, the plan is to wait until Dr. Toledo returns on Friday. Will update if a different decision is made.
[2020-03-19] MEDS: PATCH REMOVAL. MC SCH (21:00)
[2020-03-19] MEDS: MIRTAZAPINE 15 MG TABLET PO SCH (21:17)
[2020-03-20] VITALS (24 sets, daily range): BP systolic 96–176; BP diastolic 42–71
[2020-03-20] MEDS: INSULIN LISPRO 300 UNITS/3 ML VIAL. SQ SCH ×8 (00:06→18:00)
[2020-03-20] MEDS: IPRATRPIUM/ALBUTEROL 0.5/2.5MG 3 ML NEBU. NEB SCH ×7 (04:00→23:53)
[2020-03-20] MEDS: MIDAZOLAM 100mg/100ml NS BAG 100 ML IV PRN ×2 (05:28→15:55)
[2020-03-20] MEDS: PANTOPRAZOLE IV PUSH 40 MG VIAL. IVP SCH (07:30)
[2020-03-20] MEDS: BUDESONIDE 0.5 MG/2 ML NEBU. NEB SCH ×2 (07:40→20:19)
[2020-03-20 08:24] LABS: BASE EXCESS ABG -5 mmol/L (-3-3); HCO3 ABG 21 mmol/L (21-28); PCO2 ABG 45 mmHg (35-46); PO2 ABG 62 mmHg (65-108); SAT O2 ABG 88 % (92-99)
[2020-03-20] MEDS: SUCRALFATE 1 GM TABLET. PO SCH ×2 (09:00→21:53)
[2020-03-20] MEDS: FERROUS SULFATE 325 MG TABLET. PO SCH ×2 (09:00→17:17)
[2020-03-20] MEDS: LIDOCAINE (700MG/PATCH) PATCH. TD SCH (09:00)
[2020-03-20] MEDS: SERTRALINE 50 MG TABLET. PO SCH (09:00)
[2020-03-20] MEDS: LACTOBACILLUS RHAMNOSUS GG 1 CAPSULE. PO SCH ×2 (09:00→21:53)
[2020-03-20] MEDS: ENOXAPARIN 40 MG/0.4 ML SYRINGE. SQ SCH ×2 (09:00→21:00)
[2020-03-20 09:10] LABS: FIO2 ABG 100
[2020-03-20] MEDS: fentaNYL HIGH DOSE PCA 55 ML IV PRN ×2 (09:13→22:16)
[2020-03-20 09:14] LABS: CALCIUM 7.5 mg/dL (8.5-10.1); CREATININE 1.2 mg/dL (0.7-1.3); GFR 57.7; POTASSIUM 4.8 mmol/L (3.5-5.1)
--- NOTE | 2020-03-20 09:30 | PDOC ---
PROGRESS NOTES Date of Service: DATE: 03/20/20 TIME: 09:20 Chief Complaint Chief Complaint Dyspnea with no significant hypoxia based on the ABG, likely related to mild congestive heart failure. also with COVID-19 pneumonia. SARS-CoV-2 - with pneumonia. On steroids, Lovenox. Pulm consulted Abnormal chest x-ray with faint interstitial infiltrates - likely CHF and COVID 19 POSTIVE Severe chronic obstructive pulmonary disease, 60 years of tobacco use, quit 3 years ago. 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 Acute kidney injury likely vasomotor nephropathy - monitor Anemia - plans for EGD and colonoscopy on hold while treating COVID 19 Plan: Follow recommendations from small business consultant Continue with supportive measures We will do labs today Further recommendations based on the clinical course History of Present Illness History of Present Illness 03/20/2020 Continues to require mechanical ventilation Continues on sedation No acute events reported overnight Prognosis guarded 03/19/2022 Patient seen and examined in the [facility] [facility] [id number] ICU He remains mechanically ventilated Assist- with 1 her percent FiO2 and 12 of PEEP He is sedated with Precedex fentanyl Versed Chart reviewed Discussed with RN 03/18/2020 Patient seen and examined in the [place] [id number] ICU He remains intubated 50/100% with 8 of PEEP Chart reviewed Discussed with RN He is critically ill 03/17/2020 Patient seen in the [facility] [id number] ICU He is now intubated as of yesterday He is sedated with Versed and fentanyl Discussed with RN Discussed with case management Chart reviewed Patient hemoglobin has dropped some down to 7 I ordered 1 unit of packed red b lood cells 03/16/2020 Patient seen and examined once again in the [facility] [facility] [id number] ICU Today he is on BiPAP with 100% FiO2 Currently satting in the low 90s Chart reviewed Discussed with the case loader operator Discussed with RN He remains critically ill I am concerned he may have to be intubated 03/15/2020 Patient seen in the [place] [id number] ICU He is on Vapotherm at 30 L with 90% FiO2 Discussed with case loader operator discussed with RN Chart reviewed 03-14-22 Patient seen and examined in the [facility] [id number] ICU He is currently on Vapotherm (30 L with 80% FiO2) In respiratory isolation Discussed with RN Discussed with case management Chart reviewed Patient is eating well glucose running a little high 84 yo M w/ PMHx tobacco use for 60 years, COPD on O2, 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 His BUN and creatinine was high as well as LFTs. He required 2 liters of oxygen. LFTs also elevated. 03/01: Still requiring O2. Significant wheezes and prolonged expiratory phase. He says he just wants to sleep. He says "Im 84 I have nothing to live for about my cats." 03/02: COVID-19 positive. He is having some back pain today. Still little hypoxic. EGD and colonoscopy on hold due to his COVID-19 positive status 03/03: Afebrile. Seen on 4 L nasal cannula, he is having a bowel movement, notes that he is having he is eating but is having loose bowels currently they are a little dark. No significant pain. His shortness of breath is stable. Slight cough. Back pain improved with Lidoderm patch. 03/03: Still afebrile with 4 liters nasal cannula O2. His glucose has become very elevated. He feels no worse than yesterday. Afebrile, now on 6 L nasal cannula, he is having more diarrhea, he does not notice much blood. Glucose has been in the 400s, unfortunately he did not receive his Lantus in the evening yesterday evening. C diff negative 03/06/2020 Patient with increasing O2 requirements this morning. Patient has increasing dyspnea but still maintaining sats of 94% on 15 L Venturi mask. Pulmonary evaluated and recommends for patient to be transferred to the ICU with BiPAP. 03/08 Breathing on BiPAP. VTE held due to GI bleed, H&H stable. 03/09: Patient is off BiPAP currently breathing on 8 L high flow nasal cannula. H & H dropped to 6.6 today, transfuse 1 unit packed red blood cells. GI to navneet jernigan, thank you for your expertise. No scope plan due to COVID-19 positive. 03/13 : Per nursing staff, no acute events overnight. Breathing on 8L NC. bipap support Blood sugar improving. Continue steroids and blood pressure management. Vitals Vitals Vital Signs Date Time Temp Pulse Resp B/P (MAP) Pulse Ox O2 Delivery O2 Flow Rate FiO2 03/20/20 06:00 59 24 112/42 (65) 96 Ventilator 03/20/20 04:00 97.5 97.5 Physical Exam Physical Exam GEN: On the vent AC/22 100% 12 PEEP HEENT: Normal cephalic, atraumatic, NECK: Supple, no JVD, no thyromegaly was noted LUNGS: Bilateral crackles and wheezing HEART: RRR, S1, S2 present. Peripheral pulses intact, no obvious murmurs noted ABDOMEN: Soft, nontender. Positive bowel sounds, no organomegaly, normal bowel sounds EXTREMITIES: Without clubbing, cyanosis, or edema. General: Other (Sedated) Heart: Regular rate Abdomen: Soft, Other (Nondistended) Extremities: No clubbing, No cyanosis, No edema Skin: No rashes, No breakdown Labs LABS Laboratory Tests Test 03/19/20 12:28 03/19/20 17:25 03/19/20 23:57 03/20/20 06:08 Glucose (Fingerstick) 131 mg/dL (70-99) 131 mg/dL (70-99) 116 mg/dL (70-99) 143 mg/dL (70-99) Test 03/20/20 07:40 03/20/20 08:40 O2 Saturation 88 % (92-99) Arterial Blood pH 7.29 (7.35-7.45) Arterial Blood pCO2 at Patient Temp 45 mmHg (35-46) Arterial Blood pO2 at Patient Temp 62 mmHg (65-108) Arterial Blood HCO3 21 mmol/L (21-28) Arterial Blood Base Excess -5 mmol/L (-3-3) FiO2 100 Sodium Level 149 mmol/L (136-145) Potassium Level 4.8 mmol/L (3.5-5.1) Chloride Level 115 mmol/L (98-107) Carbon Dioxide Level 22 mmol/L (21-32) Anion Gap 12 (6-14) Blood Urea Nitrogen 67 mg/dL (8-26) Creatinine 1.2 mg/dL (0.7-1.3) Estimated GFR (Cockcroft-Gault) 57.7 Glucose Level 152 mg/dL (70-99) Calcium Level 7.5 mg/dL (8.5-10.1) Assessment and Plan Assessmemt and Plan Problems Medical Problems: (1) Acute renal failure Status: Acute (2) COPD exacerbation Status: Acute (3) GI bleeding Status: Acute Comment Review of Relevant I have reviewed the following items kamini (where applicable) has been applied. Labs Laboratory Tests Test 03/18/20 12:11 03/18/20 17:13 03/19/20 00:28 03/19/20 06:05 Glucose (Fingerstick) 167 mg/dL (70-99) 159 mg/dL (70-99) 129 mg/dL (70-99) 165 mg/dL (70-99) Test 03/19/20 07:35 03/19/20 12:28 03/19/20 17:25 03/19/20 23:57 O2 Saturation 88 % (92-99) Arterial Blood pH 7.28 (7.35-7.45) Arterial Blood pCO2 at Patient Temp 52 mmHg (35-46) Arterial Blood pO2 at Patient Temp 60 mmHg (65-108) Arterial Blood HCO3 24 mmol/L (21-28) Arterial Blood Base Excess -3 mmol/L (-3-3) FiO2 100 Glucose (Fingerstick) 131 mg/dL (70-99) 131 mg/dL (70-99) 116 mg/dL (70-99) Test 03/20/20 06:08 03/20/20 07:40 03/20/20 08:40 Glucose (Fingerstick) 143 mg/dL (70-99) O2 Saturation 88 % (92-99) Arterial Blood pH 7.29 (7.35-7.45) Arterial Blood pCO2 at Patient Temp 45 mmHg (35-46) Arterial Blood pO2 at Patient Temp 62 mmHg (65-108) Arterial Blood HCO3 21 mmol/L (21-28) Arterial Blood Base Excess -5 mmol/L (-3-3) FiO2 100 Sodium Level 149 mmol/L (136-145) Potassium Level 4.8 mmol/L (3.5-5.1) Chloride Level 115 mmol/L (98-107) Carbon Dioxide Level 22 mmol/L (21-32) Anion Gap 12 (6-14) Blood Urea Nitrogen 67 mg/dL (8-26) Creatinine 1.2 mg/dL (0.7-1.3) Estimated GFR (Cockcroft-Gault) 57.7 Glucose Level 152 mg/dL (70-99) Calcium Level 7.5 mg/dL (8.5-10.1) Laboratory Tests Test 03/19/20 12:28 03/19/20 17:25 03/19/20 23:57 03/20/20 06:08 Glucose (Fingerstick) 131 mg/dL (70-99) 131 mg/dL (70-99) 116 mg/dL (70-99) 143 mg/dL (70-99) Test 03/20/20 07:40 03/20/20 08:40 O2 Saturation 88 % (92-99) Arterial Blood pH 7.29 (7.35-7.45) Arterial Blood pCO2 at Patient Temp 45 mmHg (35-46) Arterial Blood pO2 at Patient Temp 62 mmHg (65-108) Arterial Blood HCO3 21 mmol/L (21-28) Arterial Blood Base Excess -5 mmol/L (-3-3) FiO2 100 Sodium Level 149 mmol/L (136-145) Potassium Level 4.8 mmol/L (3.5-5.1) Chloride Level 115 mmol/L (98-107) Carbon Dioxide Level 22 mmol/L (21-32) Anion Gap 12 (6-14) Blood Urea Nitrogen 67 mg/dL (8-26) Creatinine 1.2 mg/dL (0.7-1.3) Estimated GFR (Cockcroft-Gault) 57.7 Glucose Level 152 mg/dL (70-99) Calcium Level 7.5 mg/dL (8.5-10.1) Microbiology 02/29/20 Blood Culture - Final, Complete NO GROWTH AFTER 5 DAYS Medications Current Medications Albuterol/ Ipratropium (Duoneb) 6 ml 1X ONCE NEB Last administered on 02/29/20a t 11:24; Start 02/29/20 at 10:30; Stop 02/29/20 at 10:31; Status DC Methylprednisolone Sodium Succinate (SOLU-Medrol 125MG VIAL) 125 mg 1X ONCE IV Last administered on 02/29/20at 10:23; Start 02/29/20 at 10:30; Stop 02/29/20 at 10:31; Status DC Sodium Chloride 1,000 ml @ 1,000 mls/hr 1X ONCE IV Last administered on 02/29/20at 17:42; Start 02/29/20 at 13:15; Stop 02/29/20 at 14:14; Status DC Ondansetron HCl (Zofran) 4 mg PRN Q8HRS PRN IV NAUSEA/VOMITING; Start 02/29/20 at 13:30; Stop 03/01/20 at 13:29; Status DC Acetaminophen (Tylenol) 650 mg PRN Q4HRS PRN PO FEVER > 100.3'F; Start 02/29/20 at 13:30; Stop 03/01/20 at 13:29; Status DC Albuterol/ Ipratropium (Duoneb) 3 ml RTQID NEB ; Start 02/29/20 at 16:00; Stop 02/29/20 at 13:58; Status DC Albuterol/ Ipratropium (Duoneb) 3 ml PRN QID PRN NEB SHORTNESS OF BREATH; Start 02/29/20 at 14:00; Stop 03/01/20 at 13:59; Status DC Pantoprazole Sodium (Protonix) 40 mg DAILYAC PO Last administered on 03/18/20at 07:50; Start 03/01/20 at 07:30; Stop 03/18/20 at 13:52; Status DC Sucralfate (Carafate) 1 gm BID PO Last administered on 03/19/20at 21:17; Start 02/29/20 at 21:00 Polyethylene Glycol (miraLAX PACKET) 17 gm PRN DAILY PRN PO CONSTIPATION; Start 02/29/20 at 15:15 Ferrous Sulfate (Feosol) 325 mg BIDWMEALS PO Last administered on 03/19/20at 16:45; Start 03/01/20 at 17:00 Polyethylene Glycol (miraLAX PACKET) 17 gm PRN DAILY PRN PO CONSTIPATION; Start 03/01/20 at 10:15; Stop 03/01/20 at 10:12; Status DC Methylprednisolone Sodium Succinate (SOLU-Medrol 40MG VIAL) 40 mg DAILY IV Last administered on 03/02/20at 10:56; Start 03/01/20 at 11:00; Stop 03/02/20 at 11:11; Status DC Olanzapine (ZyPREXA ZYDIS) 5 mg PRN BID PRN PO AGITATION; Start 03/01/20 at 11:15 Sodium Cl/Sod Bicarb/Potass Cl/ PEG (Golytely) 4,000 ml 1X ONCE PO Last administered on 03/01/20at 14:47; Start 03/01/20 at 14:00; Stop 03/01/20 at 14:01; Status DC Ringer's Solution 1,000 ml @ 50 mls/hr Q20H IV ; Start 03/02/20 at 07:00; Stop 03/02/20 at 18:59; Status DC Diphenhydramine HCl (Benadryl) 25 mg PRN QHS PRN PO INSOMNIA Last administered on 03/08/20at 21:02; Start 03/01/20 at 22:15 Albuterol Sulfate (Ventolin Hfa) 1 puff PRN QID PRN INH SHORTNESS OF BREATH Last administered on 03/03/20at 12:43; Start 03/02/20 at 01:00; Stop 03/04/20 at 10:34; Status DC Acetaminophen (Tylenol) 650 mg PRN Q6HRS PRN PO temperature Last administered on 03/13/20at 21:11; Start 03/02/20 at 03:30 Methylprednisolone Sodium Succinate (SOLU-Medrol 40MG VIAL) 20 mg 1X ONCE IV Last administered on 03/02/20at 11:15; Start 03/02/20 at 11:15; Stop 03/02/20 at 11:16; Status DC Piperacillin Sod/ Tazobactam Sod (Zosyn Per Pharmacy) 1 each PRN DAILY PRN MC SEE COMMENTS; Start 03/02/20 at 11:15; Stop 03/08/20 at 14:48; Status DC Piperacillin Sod/ Tazobactam Sod 2.25 gm/Sodium Chloride 50 ml @ 100 mls/hr Q6HRS IV Last administered on 03/08/20at 12:38; Start 03/02/20 at 12:00; Stop 03/08/20 at 14:48; Status DC Methylprednisolone Sodium Succinate (SOLU-Medrol 40MG VIAL) 60 mg Q8HRS IV Last administered on 03/10/20at 06:13; Start 03/02/20 at 14:00; Stop 03/10/20 at 11:29; Status DC Lidocaine (Lidoderm) 1 patch DAILY TD Last administered on 03/16/20at 08:22; S tart 03/02/20 at 14:30 Miscellaneous (Lidoderm Patch Removal) 1 ea QHS MC Last administered on 9/6/20at 21:00; Start 03/02/20 at 21:00 Sertraline HCl (Zoloft) 25 mg DAILY PO Last administered on 03/05/20at 08:39; Start 03/03/20 at 09:00; Stop 03/05/20 at 19:23; Status DC Furosemide (Lasix) 20 mg 1X ONCE IVP Last administered on 03/04/20at 12:17; Start 03/04/20 at 11:00; Stop 03/04/20 at 11:01; Status DC Albuterol Sulfate (Ventolin Hfa) 2 puff Q4HRS INH Last administered on 03/07/20at 07:51; Start 03/04/20 at 12:00; Stop 03/07/20 at 17:37; Status DC Insulin Glargine (Lantus Syringe) 20 unit QHS SQ ; Start 03/04/20 at 21:00; Stop 03/05/20 at 15:08; Status DC Insulin Human Lispro (HumaLOG) 0-9 UNITS TIDACHC SQ Last administered on 03/16/20 08:24; Start 03/04/20 at 13:00; Stop 03/16/20 at 16:42; Status DC Dextrose (Dextrose 50%-Water Syringe) 12.5 gm PRN Q15MIN PRN IV SEE COMMENTS; Start 03/04/20 at 13:00 Lactobacillus Rhamnosus (Culturelle) 1 cap BID PO Last administered on 03/19/20at 21:17; Start 03/04/20 at 13:00 Insulin Human Lispro (HumaLOG) 9 units 1X ONCE SQ Last administered on 03/04/20at 13:53; Start 03/04/20 at 13:30; Stop 03/04/20 at 13:35; Status DC Insulin Human Lispro (HumaLOG) 5 units TIDAC SQ Last administered on 03/16/20 08:29; Start 03/05/20 at 08:00; Stop 03/16/20 at 16:42; Status DC Insulin Glargine (Lantus Syringe) 25 unit QHS SQ Last administered on 03/13/20at 21:22; Start 03/05/20 at 21:00; Stop 03/14/20 at 15:30; Status DC Loperamide HCl (Imodium) 2 mg PRN Q15MIN PRN PO DIARRHEA; Start 03/05/20 at 15:15 Sertraline HCl (Zoloft) 50 mg DAILY PO Last administered on 03/09/20at 08:33; Start 03/06/20 at 09:00; Stop 03/09/20 at 16:28; Status DC Sodium Chloride 1,000 ml @ 75 mls/hr [id number] IV Last administered on 03/07/20at 00:53; Start 03/06/20 at 14:00; Stop 03/07/20 at 13:50; Status DC Mirtazapine (Remeron) 15 mg QHS PO Last administered on 03/19/20at 21:17; Start 03/06/20 at 21:00 Hydralazine HCl (Apresoline Inj) 10 mg PRN Q4HRS PRN IVP ELEVATED BP, SEE COMMENTS Last administered on 03/15/20at 23:15; Start 03/07/20 at 09:30 Methylprednisolone Sodium Succinate (SOLU-Medrol 125MG VIAL) 125 mg 1X ONCE IV Last administered on 03/07/20at 10:48; Start 03/07/20 at 10:45; Stop 03/07/20 at 10:46; Status DC Fluticasone/ Vilanterol (Breo Ellipta 100-25 Mcg) 1 puff DAILY INH ; Start 03/07/20 at 11:30; Stop 03/07/20 at 11:02; Status DC Fluticasone/ Vilanterol (Breo Ellipta 100-25 Mcg) 1 puff DAILY INH ; Start 03/07/20 at 11:30; Stop 03/07/20 at 11:02; Status DC Fluticasone/ Vilanterol (Breo Ellipta 100-25 Mcg) 1 puff DAILY INH ; Start 03/07/20 at 11:30; Stop 03/07/20 at 17:37; Status DC Furosemide (Lasix) 40 mg 1X ONCE IVP Last administered on 03/07/20at 12:49; Start 03/07/20 at 12:45; Stop 03/07/20 at 12:46; Status DC Sodium Chloride 1,000 ml @ 75 mls/hr [id number] IV Last administered on 03/14/20at 08:07; Start 03/07/20 at 14:00; Stop 03/14/20 at 09:24; Status DC Non-Formulary Medication 1 ea/ Sodium Chloride 210 ml @ 210 mls/hr 1X ONCE IV Last administered on 03/08/20at 08:57; Start 03/08/20 at 09:00; Stop 03/08/20 at 09:59; Status DC Non-Formulary Medication 1 ea/ Sodium Chloride 230 ml @ 460 mls/hr Q24H IV Last administered on 03/12/20at 10:15; Start 03/09/20 at 09:00; Stop 03/12/20 at 09:29; Status DC Albuterol/ Ipratropium (Duoneb) 3 ml Q4HRS NEB Last administered on 03/20/20at 07:40; Start 03/07/20 at 20:00 Budesonide (Pulmicort) 0.5 mg RTBID NEB Last administered on 03/20/20at 07:40; Start 03/07/20 at 20:00 Sertraline HCl (Zoloft) 100 mg DAILY PO Last administered on 03/19/20at 09:10; Start 03/10/20 at 09:00 Methylprednisolone Sodium Succinate (SOLU-Medrol 40MG VIAL) 40 mg BID IV Last administered on 03/19/20at 21:17; Start 03/10/20 at 21:00 Furosemide (Lasix) 40 mg 1X ONCE IVP Last administered on 03/10/20at 21:03; Start 03/10/20 at 19:00; Stop 03/10/20 at 19:01; Status DC Metoprolol Tartrate (Lopressor) 25 mg PRN BID PRN PO TACHYCARDIA; Start 03/10/20 at 22:30 Dexmedetomidine HCl 400 mcg/ Sodium Chloride 100 ml @ 0 mls/hr CONT PRN IV SEE COMMENTS Last administered on 03/19/20at 20:30; Start 03/11/20 at 07:45 Sodium Chloride 500 ml @ 500 mls/hr 1X PRN PRN IV SEE COMMENTS; Start 03/11/20 at 07:45 Atropine Sulfate (ATROPINE 0.5mg SYRINGE) 0.5 mg PRN Q5MIN PRN IV SEE COMMENTS; Start 03/11/20 at 07:45 Furosemide (Lasix) 40 mg 1X ONCE IVP Last administered on 03/11/20at 10:30; Start 03/11/20 at 10:30; Stop 03/11/20 at 10:31; Status DC Amino Acids/ Glycerin/ Electrolytes 1,000 ml @ 80 mls/hr [id number] IV Last administered on 03/13/20at 16:09; Start 03/12/20 at 10:00; Stop 03/14/20 at 09:24; Status DC Enoxaparin Sodium (Lovenox 40mg Syringe) 40 mg BID SQ Last administered on 03/19/20at 21:17; Start 03/13/20 at 11:15 Furosemide (Lasix) 40 mg DAILY IVP Last administered on 03/18/20at 09:01; Start 03/14/20 at 09:00; Stop 03/18/20 at 09:00; Status DC Furosemide (Lasix) 40 mg 1X ONCE IVP Last administered on 03/13/20at 11:57; Start 03/13/20 at 11:15; Stop 03/13/20 at 11:18; Status DC Sterile Water (WATER for RESP) 1,000 ml CONT PRN INH VIA VAPOTHERM DEVICE Last administered on 03/15/20at 12:13; Start 03/13/20 at 12:45 Insulin Human Regular (HumuLIN R VIAL) 10 unit 1X ONCE IV Last administered on 03/13/20at 18:14; Start 03/13/20 at 18:00; Stop 03/13/20 at 18:03; Status DC Sodium Chloride 1,000 ml @ 75 mls/hr [id number] IV Last administered on 03/19/20at 23:04; Start 03/14/20 at 10:00 Insulin Glargine (Lantus Syringe) 35 unit QHS SQ Last administered on 03/15/20at 21:57; Start 03/14/20 at 21:00; Stop 03/16/20 at 22:17; Status DC Furosemide (Lasix) 20 mg 1X ONCE IVP Last administered on 03/15/20at 16:23; Start 03/15/20 at 16:30; Stop 03/15/20 at 16:31; Status DC Propofol 100 ml @ As Directed STK-MED ONCE IV ; Start 03/16/20 at 11:15; Stop 03/16/20 at 11:15; Status DC Succinylcholine Chloride (Anectine) 200 mg STK-MED ONCE .ROUTE ; Start 03/16/20 at 11:15; Stop 03/16/20 at 11:15; Status DC Succinylcholine Chloride (Anectine) 100 mg 1X ONCE IV Last administered on 03/16/20at 11:37; Start 03/16/20 at 11:30; Stop 03/16/20 at 11:31; Status DC Fentanyl Citrate 30 ml @ 2.5 mls/hr CONT PRN IV SEE PROTOCOL Last administered on 03/18/20at 21:18; Start 03/16/20 at 11:30; Stop 03/19/20 at 00:56; Status DC Midazolam HCl 100 ml @ 1 mls/hr CONT PRN IV SEE PROTOCOL Last administered on 03/20/20at 05:28; Start 03/16/20 at 11:30 Midazolam HCl (Versed) 5 mg 1X ONCE IV Last administered on 03/16/20at 11:36; Start 03/16/20 at 11:30; Stop 03/16/20 at 11:31; Status DC Midazolam HCl (Versed) 5 mg STK-MED ONCE .ROUTE ; Start 03/16/20 at 11:31; Stop 03/16/20 at 11:31; Status DC Propofol (Diprivan) 200 mg 1X ONCE IV Last administered on 03/16/20at 11:20; Start 03/16/20 at 11:45; Stop 03/16/20 at 11:46; Status DC Succinylcholine Chloride (Anectine) 200 mg 1X ONCE IV ; Start 03/16/20 at 11:45; Stop 03/16/20 at 11:46; Status DC Insulin Human Lispro (HumaLOG) 0-9 UNITS Q6HRS SQ Last administered on 03/19/20at 06:36; Start 03/16/20 at 18:00 Insulin Human Lispro (HumaLOG) 5 units Q6HRS SQ Last administered on 03/20/20at 06:17; Start 03/16/20 at 18:00 Pantoprazole Sodium (PROTONIX VIAL for IV PUSH) 40 mg DAILYAC IVP Last administered on 03/19/20at 07:55; Start 03/19/20 at 07:30 Fentanyl Citrate 55 ml @ 2.5 mls/hr CONT PRN IV pain Last administered on 03/19/20at 16:26; Start 03/19/20 at 01:00 Methylprednisolone Sodium Succinate (SOLU-Medrol 40MG VIAL) 80 mg 1X ONCE IV Last administered on 03/19/20at 03:20; Start 03/19/20 at 02:45; Stop 03/19/20 at 02:46; Status DC Furosemide (Lasix) 40 mg 1X ONCE IVP Last administered on 03/19/20at 03:24; Start 03/19/20 at 02:45; Stop 03/19/20 at 02:46; Status DC Active Scripts Active Reported Phospha 250 Neutral Tablet (Phosphorus #1) 250 Mg Tablet 1 Tab PO DAILY 30 Days Atorvastatin Calcium 20 Mg Tablet 1 Tab PO DAILYWSUP Levothyroxine Sodium 25 Mcg Tablet 1 Tab PO DAILY Iron (Ferrous Sulfate) 325 Mg Tablet 1 Tab PO BID 30 Days Flomax (Tamsulosin Hcl) 0.4 Mg Cap.er.24h 0.4 Mg PO DAILY Benicar (Olmesartan Medoxomil) 20 Mg Tablet 1 Tab PO DAILY 30 Days Cyclobenzaprine Hcl 10 Mg Tablet 1 Tab PO BID PRN Torsemide 20 Mg Tablet 4 Tab PO DAILY Benadryl (Diphenhydramine Hcl) 25 Mg Capsule 1 Cap PO QHS Quinapril Hcl 40 Mg Tablet 1 Tab PO DAILY Metformin Hcl 500 Mg Tablet 1 Tab PO DAILYBFRSUP Trazodone Hcl 50 Mg Tablet 50 Mg PO HS [place] 5-325 Tablet (Acetaminophen/Hydrocodone Bitart) 1 Each Tablet 1 Tab PO Q8HRS PRN Percocet 5-325 Mg Tablet (Oxycodone/Acetaminophen) 1 Each Tablet 1-2 Tab PO Q6HRS PRN Potassium Chloride 20 Meq Tab.er.prt 20 Meq PO BID Combivent Respimat Inhal (Ipratropium/Albuterol Sulfate) 4 Gm Aer.w.adap 2 Inh IH QID PRN Metformin Hcl 1,000 Mg Tablet 1 Tab PO DAILY08 Vitals/I & O Vital Sign - Last 24 Hours 03/19/20 03/19/20 03/19/20 03/19/20 10:00 11:00 11:15 12:00 Temp 98.1 98.1 Pulse 56 56 48 Resp 22 22 22 B/P (MAP) 92/46 (61) 87/47 (60) 88/44 (59) Pulse Ox 97 97 97 96 O2 Delivery Ventilator Ventilator Ventilator Ventilator 03/19/20 03/19/20 03/19/20 03/19/20 12:00 13:00 14:00 15:00 Pulse 45 44 43 Resp 22 22 21 B/P (MAP) 94/49 (64) 93/46 (62) 94/44 (61) Pulse Ox 95 95 96 O2 Delivery Mechanical Ventilator Ventilator Ventilator Ventilator 03/19/20 03/19/20 03/19/20 03/19/20 15:55 16:00 16:00 16:26 Temp 98.1 98.1 Pulse 45 Resp 22 21 B/P (MAP) 95/42 (59) Pulse Ox 98 94 94 O2 Delivery Ventilator Ventilator Mechanical Ventilator Ventilator 03/19/20 03/19/20 03/19/20 03/19/20 16:56 17:00 18:00 19:00 Pulse 48 50 45 Resp 22 21 22 B/P (MAP) 94/43 (60) 90/47 (61) 97/47 (64) Pulse Ox 97 97 97 97 O2 Delivery Ventilator Ventilator Ventilator Ventilator 03/19/20 03/19/20 03/19/20 03/19/20 20:00 20:00 20:22 20:22 Temp 98.2 98.2 Pulse 46 Resp 22 B/P (MAP) 98/48 (65) Pulse Ox 96 98 98 O2 Delivery Mechanical Ventilator Ventilator Ventilator Ventilator 03/19/20 03/19/20 03/19/20 03/20/20 21:00 22:00 23:00 00:00 Pulse 48 49 43 Resp 22 22 22 B/P (MAP) 101/48 (65) 103/50 (67) 96/51 (66) Pulse Ox 98 97 95 O2 Delivery Ventilator Ventilator Ventilator Mechanical Ventilator 03/20/20 03/20/20 03/20/20 03/20/20 00:00 00:13 01:00 02:00 Temp 97.7 97.7 Pulse 32 44 33 Resp 22 22 22 B/P (MAP) 100/51 (67) 102/52 (69) 96/49 (65) Pulse Ox 96 95 95 96 O2 Delivery Ventilator Ventilator Ventilator Ventilator 03/20/20 03/20/20 03/20/20 03/20/20 03:00 04:00 04:00 04:38 Temp 97.5 97.5 Pulse 42 55 Resp 22 22 B/P (MAP) 100/47 (64) 100/46 (64) Pulse Ox 97 99 95 O2 Delivery Ventilator Mechanical Ventilator Ventilator Ventilator 03/20/20 03/20/20 05:00 06:00 Pulse 61 59 Resp 22 24 B/P (MAP) 119/45 (69) 112/42 (65) Pulse Ox 100 96 O2 Delivery Ventilator Ventilator Intake and Output 03/19/20 03/19/20 03/20/20 15:00 23:00 07:00 Intake Total 250 ml 1400 ml 2070.4 ml Output Total 765 ml 785 ml 375 ml Balance -515 ml 615 ml 1695.4 ml Justicifation of Admission Dx: Justifications for Admission: Justification of Admission Dx: Yes ED HUSSEIN MD Mar 20, 2020 09:30
[2020-03-20 09:37] LABS: BASO % 0 % (0-3); EOS % 0 % (0-3); HEMATOCRIT 31.5 % (39.0-53.0); HEMOGLOBIN 9.8 g/dL (13.0-17.5); LYMPH # 0.2 x10^3/uL (1.0-4.8); LYMPH % 2 % (24-48); MEAN CORPUSCULAR HEMOGLOBIN 31 pg (25-35); MEAN CORPUSCULAR HGB CONC 31 g/dL (31-37); MEAN CORPUSCULAR VOLUME 98 fL (79-100); MONO # 0.2 x10^3/uL (0.0-1.1); MONO % 3 % (0-9); NEUT # 7.4 x10^3/uL (1.8-7.7); NEUT % 94 % (31-73); PLATELET COUNT 126 x10^3/uL (140-400); RED BLOOD COUNT 3.21 x10^6/uL (4.30-5.70); WHITE BLOOD COUNT 7.8 x10^3/uL (4.0-11.0)
--- NOTE | 2020-03-20 09:47 | PDOC ---
PULMONARY PROGRESS NOTES DATE: 03/20/20 TIME: 09:42 Subjective Intubated 03/16 due to persistent severe hypoxia, small ett secretion oxygenation worse earlier this am now on peep 12, fio2 100% on AC mode/ sedated on versed fentanyl precedex Vitals Vital Signs Date Time Temp Pulse Resp B/P (MAP) Pulse Ox O2 Delivery O2 Flow Rate FiO2 03/20/20 09:13 96 40.0 03/20/20 07:40 Ventilator 03/20/20 06:00 59 24 112/42 (65) 03/20/20 04:00 97.5 97.5 Comments pt. seen during pandemic visual exam preformed intubated/sedated nc at no distress no accessory muscle use no paradoxical abd motion trace edema no rash Labs Laboratory Tests Test 03/18/20 12:11 03/18/20 17:13 03/19/20 00:28 03/19/20 06:05 Glucose (Fingerstick) 167 mg/dL (70-99) 159 mg/dL (70-99) 129 mg/dL (70-99) 165 mg/dL (70-99) Test 03/19/20 07:35 03/19/20 12:28 03/19/20 17:25 03/19/20 23:57 O2 Saturation 88 % (92-99) Arterial Blood pH 7.28 (7.35-7.45) Arterial Blood pCO2 at Patient Temp 52 mmHg (35-46) Arterial Blood pO2 at Patient Temp 60 mmHg (65-108) Arterial Blood HCO3 24 mmol/L (21-28) Arterial Blood Base Excess -3 mmol/L (-3-3) FiO2 100 Glucose (Fingerstick) 131 mg/dL (70-99) 131 mg/dL (70-99) 116 mg/dL (70-99) Test 03/20/20 06:08 03/20/20 07:40 03/20/20 08:40 Glucose (Fingerstick) 143 mg/dL (70-99) O2 Saturation 88 % (92-99) Arterial Blood pH 7.29 (7.35-7.45) Arterial Blood pCO2 at Patient Temp 45 mmHg (35-46) Arterial Blood pO2 at Patient Temp 62 mmHg (65-108) Arterial Blood HCO3 21 mmol/L (21-28) Arterial Blood Base Excess -5 mmol/L (-3-3) FiO2 100 White Blood Count 7.8 x10^3/uL (4.0-11.0) Red Blood Count 3.21 x10^6/uL (4.30-5.70) Hemoglobin 9.8 g/dL (13.0-17.5) Hematocrit 31.5 % (39.0-53.0) Mean Corpuscular Volume 98 fL (79-100) Mean Corpuscular Hemoglobin 31 pg (25-35) Mean Corpuscular Hemoglobin Concent 31 g/dL (31-37) Red Cell Distribution Width 19.0 % (11.5-14.5) Platelet Count 126 x10^3/uL (140-400) Neutrophils (%) (Auto) 94 % (31-73) Lymphocytes (%) (Auto) 2 % (24-48) Monocytes (%) (Auto) 3 % (0-9) Eosinophils (%) (Auto) 0 % (0-3) Basophils (%) (Auto) 0 % (0-3) Neutrophils # (Auto) 7.4 x10^3/uL (1.8-7.7) Lymphocytes # (Auto) 0.2 x10^3/uL (1.0-4.8) Monocytes # (Auto) 0.2 x10^3/uL (0.0-1.1) Eosinophils # (Auto) 0.0 x10^3/uL (0.0-0.7) Basophils # (Auto) 0.0 x10^3/uL (0.0-0.2) Sodium Level 149 mmol/L (136-145) Potassium Level 4.8 mmol/L (3.5-5.1) Chloride Level 115 mmol/L (98-107) Carbon Dioxide Level 22 mmol/L (21-32) Anion Gap 12 (6-14) Blood Urea Nitrogen 67 mg/dL (8-26) Creatinine 1.2 mg/dL (0.7-1.3) Estimated GFR (Cockcroft-Gault) 57.7 Glucose Level 152 mg/dL (70-99) Calcium Level 7.5 mg/dL (8.5-10.1) Laboratory Tests Test 03/19/20 12:28 03/19/20 17:25 03/19/20 23:57 03/20/20 06:08 Glucose (Fingerstick) 131 mg/dL (70-99) 131 mg/dL (70-99) 116 mg/dL (70-99) 143 mg/dL (70-99) Test 03/20/20 07:40 03/20/20 08:40 O2 Saturation 88 % (92-99) Arterial Blood pH 7.29 (7.35-7.45) Arterial Blood pCO2 at Patient Temp 45 mmHg (35-46) Arterial Blood pO2 at Patient Temp 62 mmHg (65-108) Arterial Blood HCO3 21 mmol/L (21-28) Arterial Blood Base Excess -5 mmol/L (-3-3) FiO2 100 White Blood Count 7.8 x10^3/uL (4.0-11.0) Red Blood Count 3.21 x10^6/uL (4.30-5.70) Hemoglobin 9.8 g/dL (13.0-17.5) Hematocrit 31.5 % (39.0-53.0) Mean Corpuscular Volume 98 fL (79-100) Mean Corpuscular Hemoglobin 31 pg (25-35) Mean Corpuscular Hemoglobin Concent 31 g/dL (31-37) Red Cell Distribution Width 19.0 % (11.5-14.5) Platelet Count 126 x10^3/uL (140-400) Neutrophils (%) (Auto) 94 % (31-73) Lymphocytes (%) (Auto) 2 % (24-48) Monocytes (%) (Auto) 3 % (0-9) Eosinophils (%) (Auto) 0 % (0-3) Basophils (%) (Auto) 0 % (0-3) Neutrophils # (Auto) 7.4 x10^3/uL (1.8-7.7) Lymphocytes # (Auto) 0.2 x10^3/uL (1.0-4.8) Monocytes # (Auto) 0.2 x10^3/uL (0.0-1.1) Eosinophils # (Auto) 0.0 x10^3/uL (0.0-0.7) Basophils # (Auto) 0.0 x10^3/uL (0.0-0.2) Sodium Level 149 mmol/L (136-145) Potassium Level 4.8 mmol/L (3.5-5.1) Chloride Level 115 mmol/L (98-107) Carbon Dioxide Level 22 mmol/L (21-32) Anion Gap 12 (6-14) Blood Urea Nitrogen 67 mg/dL (8-26) Creatinine 1.2 mg/dL (0.7-1.3) Estimated GFR (Cockcroft-Gault) 57.7 Glucose Level 152 mg/dL (70-99) Calcium Level 7.5 mg/dL (8.5-10.1) Medications Active Scripts Medications Dose Route/Sig Max Daily Dose Days Date Category Phospha 250 Neutral Tablet (Phosphorus #1) 250 Mg Tablet 1 Tab PO DAILY 30 02/29/20 Reported Atorvastatin Calcium 20 Mg Tablet 1 Tab PO DAILYWSUP 02/29/20 Reported Levothyroxine Sodium 25 Mcg Tablet 1 Tab PO DAILY 02/29/20 Reported Iron (Ferrous Sulfate) 325 Mg Tablet 1 Tab PO BID 30 02/29/20 Reported Flomax (Tamsulosin Hcl) 0.4 Mg Cap.er.24h 0.4 Mg PO DAILY 02/29/20 Reported Benicar (Olmesartan Medoxomil) 20 Mg Tablet 1 Tab PO DAILY 30 02/29/20 Reported Cyclobenzaprine Hcl 10 Mg Tablet 1 Tab PO BID PRN 10/08/14 Reported Torsemide 20 Mg Tablet 4 Tab PO DAILY 10/08/14 Reported Benadryl (Diphenhydramine Hcl) 25 Mg Capsule 1 Cap PO QHS 10/08/14 Reported Quinapril Hcl 40 Mg Tablet 1 Tab PO DAILY 10/08/14 Reported Metformin Hcl 500 Mg Tablet 1 Tab PO DAILYBFRSUP 10/08/14 Reported Trazodone Hcl 50 Mg Tablet 50 Mg PO HS 10/08/14 Reported [place] 5-325 Tablet (Acetaminophen/Hydrocodone Bitart) 1 Each Tablet 1 Tab PO Q8HRS PRN 10/08/14 Reported Percocet 5-325 Mg Tablet (Oxycodone/Acetaminophen) 1 Each Tablet 1-2 Tab PO Q6HRS PRN 10/08/14 Reported Potassium Chloride 20 Meq Tab.er.prt 20 Meq PO BID 10/08/14 Reported Combivent Respimat Inhal (Ipratropium/Albuterol Sulfate) 4 Gm Aer.w.adap 2 Inh IH QID PRN 10/08/14 Reported Metformin Hcl 1,000 Mg Tablet 1 Tab PO DAILY08 10/07/14 Reported Comments CXR reviewed ett ok b lat infilt worse Impression . IMPRESSION: 1. Acute hypoxemic respiratory failure/multifactorial/acute exacerbation of COPD/[id number]/ INTUBATED 03/16 due to severe persistent hypoxia worse 2. abnl cxr, with bilateral interstitial infiltrates DUE TO COVID pneumonia. worse 3. Suspected severe chronic obstructive pulmonary disease, 60 years of tobacco use, quit 3 years ago. 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 5. Acute kidney injury-- 6. anemia/ dark stools -- s/p transfusion 7 abnormal chest x-ray Plan . RECOMMENDATIONS: cont vent support, AC mode, setting reviewed on peep 12 fio2 100% enteral nutrition. continue steroids, now off ABX, completed full course S/P plasma and S/P Remdesvir Follow renal function and nephrology recommendations Follow GI recs and monitor HGB Monitor D-Dimer, patient on high dose prophylaxis Lovenox. monitor h/h..May need to adjust dose if remains anemic COVID-19 positive DVT/GI PPX Monitor clinical course d/w daughter, updated her about his critical condition D/W RN /RT critically ill cct 30 min no overlap JIM DIAMOND MD Mar 20, 2020 09:47
[2020-03-20] MEDS: methylPREDNISolone SOD SUCC PF 40 MG/ML VIAL. IV SCH ×2 (15:53→21:53)
[2020-03-20] MEDS: IV NORMAL SALINE 1000ML BAG 1,000 ML IV SCH (15:54)
[2020-03-20 16:16] LABS: % BANDS 3 % (0-9); % LYMPHS 2 % (24-48); % SEGS 95 % (35-66)
[2020-03-20 16:17] LABS: PLT ESTIMATE DECREASED (ADEQUATE)
[2020-03-20 16:22] LABS: ANISOCYTOSIS SLIGHT; POLYCHROMASIA SLIGHT; TOXIC GRANULATION SLIGHT
--- NOTE | 2020-03-20 16:45 | PDOC ---
F/U PHYSCH PROG NOTE Objective: Vital Signs: Vital Signs Date Time Temp Pulse Resp B/P (MAP) Pulse Ox O2 Delivery O2 Flow Rate FiO2 03/20/20 16:00 98.3 88 22 143/62 (89) 97 Ventilator 98.3 03/20/20 09:43 40.0 Labs: Laboratory Tests Test 03/19/20 17:25 03/19/20 23:57 03/20/20 06:08 03/20/20 07:40 Glucose (Fingerstick) 131 mg/dL (70-99) H 116 mg/dL (70-99) H 143 mg/dL (70-99) H O2 Saturation 88 % (92-99) L Arterial Blood pH 7.29 (7.35-7.45) L Arterial Blood pCO2 at Patient Temp 45 mmHg (35-46) Arterial Blood pO2 at Patient Temp 62 mmHg (65-108) L Arterial Blood HCO3 21 mmol/L (21-28) Arterial Blood Base Excess -5 mmol/L (-3-3) L FiO2 100 Test 03/20/20 08:40 03/20/20 14:02 03/20/20 16:01 White Blood Count 7.8 x10^3/uL (4.0-11.0) Red Blood Count 3.21 x10^6/uL (4.30-5.70) L Hemoglobin 9.8 g/dL (13.0-17.5) L Hematocrit 31.5 % (39.0-53.0) L Mean Corpuscular Volume 98 fL (79-100) Mean Corpuscular Hemoglobin 31 pg (25-35) Mean Corpuscular Hemoglobin Concent 31 g/dL (31-37) Red Cell Distribution Width 19.0 % (11.5-14.5) H Platelet Count 126 x10^3/uL (140-400) L Neutrophils (%) (Auto) 94 % (31-73) H Lymphocytes (%) (Auto) 2 % (24-48) L Monocytes (%) (Auto) 3 % (0-9) Eosinophils (%) (Auto) 0 % (0-3) Basophils (%) (Auto) 0 % (0-3) Neutrophils # (Auto) 7.4 x10^3/uL (1.8-7.7) Lymphocytes # (Auto) 0.2 x10^3/uL (1.0-4.8) L Monocytes # (Auto) 0.2 x10^3/uL (0.0-1.1) Eosinophils # (Auto) 0.0 x10^3/uL (0.0-0.7) Basophils # (Auto) 0.0 x10^3/uL (0.0-0.2) Segmented Neutrophils % 95 % (35-66) H Band Neutrophils % 3 % (0-9) Lymphocytes % 2 % (24-48) L Toxic Granulation Slight Platelet Estimate Decreased (ADEQUATE) Polychromasia Slight Anisocytosis Slight Sodium Level 149 mmol/L (136-145) H Potassium Level 4.8 mmol/L (3.5-5.1) Chloride Level 115 mmol/L (98-107) H Carbon Dioxide Level 22 mmol/L (21-32) Anion Gap 12 (6-14) Blood Urea Nitrogen 67 mg/dL (8-26) H Creatinine 1.2 mg/dL (0.7-1.3) Estimated GFR (Cockcroft-Gault) 57.7 Glucose Level 152 mg/dL (70-99) H Calcium Level 7.5 mg/dL (8.5-10.1) L Glucose (Fingerstick) 161 mg/dL (70-99) H 163 mg/dL (70-99) H Laboratory Tests 03/20/20 08:40 Laboratory Tests 03/20/20 08:40 Medications: Current Medications Medications (Trade) Dose Ordered Sig/Ya Start Time Stop Time Status Last Admin Dose Admin Acetaminophen (Tylenol) 650 mg PRN Q6HRS PRN 03/02/20 03:30 03/13/20 21:11 650 MG Albuterol Sulfate (Ventolin Hfa) 2 puff Q4HRS 03/04/20 12:00 03/07/20 17:37 DC 03/07/20 07:51 2 PUFF Albuterol/ Ipratropium (Duoneb) 3 ml Q4HRS 03/07/20 20:00 03/20/20 11:32 3 ML Amino Acids/ Glycerin/ Electrolytes 1,000 ml @ 80 mls/hr [id number] 03/12/20 10:00 03/14/20 09:24 DC 03/13/20 16:09 80 MLS/HR Atropine Sulfate (ATROPINE 0.5mg SYRINGE) 0.5 mg PRN Q5MIN PRN 03/11/20 07:45 Budesonide (Pulmicort) 0.5 mg RTBID 03/07/20 20:00 03/20/20 07:40 0.5 MG Dexmedetomidine HCl 400 mcg/ Sodium Chloride 100 ml @ 0 mls/hr CONT PRN 03/11/20 07:45 03/19/20 20:30 8.6 MLS/HR Dextrose (Dextrose 50%-Water Syringe) 12.5 gm PRN Q15MIN PRN 03/04/20 13:00 Diphenhydramine HCl (Benadryl) 25 mg PRN QHS PRN 03/01/20 22:15 03/08/20 21:02 25 MG Enoxaparin Sodium (Lovenox 40mg Syringe) 40 mg BID 03/13/20 11:15 03/20/20 09:00 40 MG Fentanyl Citrate 55 ml @ 2.5 mls/hr CONT PRN 03/19/20 01:00 03/20/20 09:13 2.5 MLS/HR Ferrous Sulfate (Feosol) 325 mg BIDWMEALS 03/01/20 17:00 03/20/20 09:00 325 MG Fluticasone/ Vilanterol (Breo Ellipta 100-25 Mcg) 1 puff DAILY 03/07/20 11:30 03/07/20 17:37 DC Furosemide (Lasix) 40 mg 1X ONCE 03/19/20 02:45 03/19/20 02:46 DC 03/19/20 03:24 40 MG Hydralazine HCl (Apresoline Inj) 10 mg PRN Q4HRS PRN 03/07/20 09:30 03/15/20 23:15 10 MG Insulin Glargine (Lantus Syringe) 35 unit QHS 03/14/20 21:00 03/16/20 22:17 DC 03/15/20 21:57 35 UNIT Insulin Human Lispro (HumaLOG) 5 units Q6HRS 03/16/20 18:00 03/20/20 06:17 5 UNITS Insulin Human Regular (HumuLIN R VIAL) 10 unit 1X ONCE 03/13/20 18:00 03/13/20 18:03 DC 03/13/20 18:14 10 UNIT Lactobacillus Rhamnosus (Culturelle) 1 cap BID 03/04/20 13:00 03/20/20 09:00 1 CAP Lidocaine (Lidoderm) 1 patch DAILY 03/02/20 14:30 03/16/20 08:22 1 PATCH Loperamide HCl (Imodium) 2 mg PRN Q15MIN PRN 03/05/20 15:15 Methylprednisolone Sodium Succinate (SOLU-Medrol 40MG VIAL) 80 mg 1X ONCE 03/19/20 02:45 03/19/20 02:46 DC 03/19/20 03:20 80 MG Methylprednisolone Sodium Succinate (SOLU-Medrol 125MG VIAL) 125 mg 1X ONCE 03/07/20 10:45 03/07/20 10:46 DC 03/07/20 10:48 125 MG Metoprolol Tartrate (Lopressor) 25 mg PRN BID PRN 03/10/20 22:30 Midazolam HCl (Versed) 5 mg STK-MED ONCE 03/16/20 11:31 03/16/20 11:31 DC Mirtazapine (Remeron) 15 mg QHS 03/06/20 21:00 03/19/20 21:17 15 MG Miscellaneous (Lidoderm Patch Removal) 1 ea QHS 03/02/20 21:00 03/19/20 21:00 1 EA Non-Formulary Medication 1 ea/ Sodium Chloride 230 ml @ 460 mls/hr Q24H 03/09/20 09:00 03/12/20 09:29 DC 03/12/20 10:15 460 MLS/HR Olanzapine (ZyPREXA ZYDIS) 5 mg PRN BID PRN 03/01/20 11:15 Ondansetron HCl (Zofran) 4 mg PRN Q8HRS PRN 02/29/20 13:30 03/01/20 13:29 DC Pantoprazole Sodium (PROTONIX VIAL for IV PUSH) 40 mg DAILYAC 03/19/20 07:30 03/20/20 07:30 40 MG Pantoprazole Sodium (Protonix) 40 mg DAILYAC 03/01/20 07:30 03/18/20 13:52 DC 03/18/20 07:50 40 MG Piperacillin Sod/ Tazobactam Sod (Zosyn Per Pharmacy) 1 each PRN DAILY PRN 03/02/20 11:15 03/08/20 14:48 DC Piperacillin Sod/ Tazobactam Sod 2.25 gm/Sodium Chloride 50 ml @ 100 mls/hr Q6HRS 03/02/20 12:00 03/08/20 14:48 DC 03/08/20 12:38 100 MLS/HR Polyethylene Glycol (miraLAX PACKET) 17 gm PRN DAILY PRN 03/01/20 10:15 03/01/20 10:12 DC Propofol (Diprivan) 200 mg 1X ONCE 03/16/20 11:45 03/16/20 11:46 DC 03/16/20 11:20 200 MG Ringer's Solution 1,000 ml @ 50 mls/hr Q20H 03/02/20 07:00 03/02/20 18:59 DC Sertraline HCl (Zoloft) 100 mg DAILY 03/10/20 09:00 03/20/20 09:00 100 MG Sodium Chloride 1,000 ml @ 75 mls/hr [id number] 03/14/20 10:00 03/20/20 15:54 75 MLS/HR Sodium Cl/Sod Bicarb/Potass Cl/ PEG (Golytely) 4,000 ml 1X ONCE 03/01/20 14:00 03/01/20 14:01 DC 03/01/20 14:47 4,000 ML Sterile Water (WATER for RESP) 1,000 ml CONT PRN 03/13/20 12:45 03/15/20 12:13 1,000 ML Succinylcholine Chloride (Anectine) 200 mg 1X ONCE 03/16/20 11:45 03/16/20 11:46 DC Sucralfate (Carafate) 1 gm BID 02/29/20 21:00 03/20/20 09:00 1 GM Physical Exam: Physical Exam: Refer to Physician's note. NEIGHBORHOOD CONSERVATION OFFICER: No focal deficit MSK: No EPS, TDK, or abnormal involuntary movements VERONICA JACKSON MD Mar 20, 2020 16:45
[2020-03-20] MEDS: PATCH REMOVAL. MC SCH (20:00)
[2020-03-20] MEDS: MIRTAZAPINE 15 MG TABLET PO SCH (21:53)
[2020-03-21] VITALS: BP 156/58
[2020-03-21] MEDS: INSULIN LISPRO 300 UNITS/3 ML VIAL. SQ SCH ×2 (00:27→00:28)
[2020-03-21] MEDS: DEXMEDETOMIDINE 400 MCG in IV NORMAL SALINE 100ML 96 ML IV PRN (00:43)
[2020-03-21 01:00] VITALS: BP 158/65
[2020-03-21] MEDS: MIDAZOLAM 100mg/100ml NS BAG 100 ML IV PRN (01:10)
[2020-03-21] MEDS: IV NORMAL SALINE 1000ML BAG 1,000 ML IV SCH (01:27)
[2020-03-21 02:00] VITALS: BP 75/48
[2020-03-21 02:15] VITALS: BP 74/37
[2020-03-21 02:30] VITALS: BP 62/39
[2020-03-21] MEDS ORDERED: NOREPINEPHRINE VIAL 8 MG in IV DEXTROSE 5% 250 ML IV PRN (03:00)
--- NOTE | 2020-03-21 03:47 | NUR ---
Pt appeared not in sync with vent; HR 100s, [id number], SP02 low to mid 80s%, resps 22-26. Boluses given of Versed and Fentanyl to attempt to sedate patient further but unsuccessful therefore Precedex started. Precedex increased per orders, in attempt to achieve adequate sedation. HR remained > 60s. Became hypotensive at 2:00, Precedex stopped and PRN bolus of NS initiated. Daughter called and notified of change in condition. Daughter stated that she would like Levophed started if recommended by hospitalist. Dr. Arroyo called and given status updated. Orders received. Pt in PEA upon returning to room. TOD 3:05. Called daughter Colleen to notify of at 3:10. 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 home of choice is [place]. Left message with answering service for Dr. Arroyo at 3:15. MTN called at 3:20 to refer . Pt is not a candidate for organ, tissue or eye donations due to COVID.
--- NOTE | 2020-03-21 05:33 | NUR ---
Pt to mark at this time
--- NOTE | 2020-03-22 18:26 | PDOC3 ---
Discharge Summary Visit Information Date of Admission: Feb 29, 2020 Date of Discharge: Mar 20, 2020 Admitting Diagnosis Comment: Shortness of breath with probable COPD exacerbation, probable incidental finding of a GI bleed, azotemia, acute renal failure, elevated D-dimer, hypoxia. Final Diagnosis Problems Medical Problems: (1) Acute renal failure Status: Acute (2) COPD exacerbation Status: Acute (3) GI bleeding Status: Acute Dyspnea with no significant hypoxia based on the ABG, likely related to mild congestive heart failure. also with COVID-19 pneumonia. SARS-CoV-2 - with pneumonia. On steroids, Lovenox. Pulm consulted Abnormal chest x-ray with faint interstitial infiltrates - likely CHF and COVID 19 POSTIVE Severe chronic obstructive pulmonary disease, 60 years of tobacco use, quit 3 years ago. 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 Acute kidney injury likely vasomotor nephropathy - monitor Anemia - plans for EGD and colonoscopy on hold while treating COVID 19 Brief Hospital Course Allergies Allergies Coded Allergies Type Severity Reaction Last Updated Verified No Known Drug Allergies 10/07/14 No Lab Results Laboratory Tests Test 03/21/20 00:21 Glucose (Fingerstick) 231 mg/dL (70-99) Brief Hospital Course 84 yo M w/ PMHx tobacco use for 60 years, COPD on O2, 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 His BUN and creatinine was high as well as LFTs. He required 2 liters of oxygen. LFTs also elevated. 03/01: Still requiring O2. Significant wheezes and prolonged expiratory phase. He says he just wants to sleep. He says "Im 84 I have nothing to live for about my cats." 03/02: COVID-19 positive. He is having some back pain today. Still little hypoxic. EGD and colonoscopy on hold due to his COVID-19 positive status 03/03: Afebrile. Seen on 4 L nasal cannula, he is having a bowel movement, notes that he is having he is eating but is having loose bowels currently they are a little dark. No significant pain. His shortness of breath is stable. Slight cough. Back pain improved with Lidoderm patch. 03/03: Still afebrile with 4 liters nasal cannula O2. His glucose has become very elevated. He feels no worse than yesterday. Afebrile, now on 6 L nasal cannula, he is having more diarrhea, he does not notice much blood. Glucose has been in the 400s, unfortunately he did not receive his Lantus in the evening yesterday evening. C diff negative 03/06/2020 Patient with increasing O2 requirements this morning. Patient has increasing dyspnea but still maintaining sats of 94% on 15 L Venturi mask. Pulmonary evaluated and recommends for patient to be transferred to the ICU with BiPAP. 03-14-22 Patient seen and examined in the [place] [address] ICU He is currently on Vapotherm (30 L with 80% FiO2) In respiratory isolation Discussed with RN Discussed with case management Chart reviewed Patient is eating well glucose running a little high 03/15/2020 Patient seen in the [place] [address] ICU He is on Vapotherm at 30 L with 90% FiO2 Discussed with caser in discussed with RN Chart reviewed 03/16/2020 Patient seen and examined once again in the [place] [address] ICU Today he is on BiPAP with 100% FiO2 Currently satting in the low 90s Chart reviewed Discussed with the caser in Discussed with RN He remains critically ill I am concerned he may have to be intubated 03/17/2020 Patient seen in the [place] [facility] [address] ICU He is now intubated as of yesterday He is sedated with Versed and fentanyl Discussed with RN Discussed with case management Chart reviewed Patient hemoglobin has dropped some down to 7 I ordered 1 unit of packed red blood cells 03/18/2020 Patient seen and examined in the [place] [address] ICU He remains intubated AC 50/100% with 8 of PEEP Chart reviewed Discussed with RN He is critically ill 03/19/2022 Patient seen and examined in the [place] [address] ICU He remains mechanically ventilated Assist- with 1 her percent FiO2 and 12 of PEEP He is sedated with Precedex fentanyl Versed Chart reviewed 03/20/2020 Continues to require mechanical ventilation Continues on sedation No acute events reported overnight Prognosis guarded Patient unfortunately had a turn for the worse overnight, hospitalist telecommunications facility examiner notified of , nurses notes as follows: [facility] [place] Patient: Brant Jose Recinos : 1935 Age/Sex: 84/M Unit#: [id number] Room/Bed: User: Debi Marks RN Date: 03/21/20 03:47 Type: Nurse Notes Pt appeared not in sync with vent; HR 100s, [id number], SP02 low to mid 80s%, resps 22-26. Boluses given of Versed and Fentanyl to attempt to sedate patient further but unsuccessful therefore Precedex started. Precedex increased per orders, in attempt to achieve adequate sedation. HR remained > 60s. Became hypotensive at 2:00, Precedex stopped and PRN bolus of NS initiated. Daughter called and notified of change in condition. Daughter stated that she would like Levophed started if recommended by hospitalist. Dr. Arroyo called and given status updated. Orders received. Pt in PEA upon returning to room. TOD 3:05. Called daughter Colleen to notify of at 3:10. Daughter will tow picker patient's belongings in the morning. home of choice is [place]. Left message with answering service for Dr. Arroyo at 3:15. MTN called at 3:20 to refer . Pt is not a candidate for organ, tissue or eye donations due to COVID. Discharge Information Condition at Discharge: / Scheduled Atorvastatin Calcium (Atorvastatin Calcium) 20 Mg Tablet, 1 TAB PO DAILYWSUP, #30 Ref 5 (Reported) Entered as Reported by: PATRICK CARRASCO on 02/29/201044 Last Action: New Order on 02/29/201044 by PATRICK CARRASCO Diphenhydramine Hcl (Benadryl) 25 Mg Capsule, 1 CAP PO QHS, #30 (Reported) Entered as Reported by: Riya Li on 10/08/141940 Ferrous Sulfate (Iron) 325 Mg Tablet, 1 TAB PO BID for 30 Days, #60 Ref 0 (Reported) Entered as Reported by: PATRICK CARRASCO on 02/29/201042 Last Action: New Order on 02/29/201042 by PATRICK CARRASCO Levothyroxine Sodium (Levothyroxine Sodium) 25 Mcg Tablet, 1 TAB PO DAILY, #30 Ref 5 (Reported) Entered as Reported by: PATRICK CARRASCO on 02/29/201044 Last Action: New Order on 02/29/201044 by PATRICK CARRASCO Metformin Hcl (Metformin Hcl) 1,000 Mg Tablet, 1 TAB PO DAILY08, #60 Ref 5 (Reported) Entered as Reported by: Indigo Peterson on 10/07/142057 Metformin Hcl (Metformin Hcl) 500 Mg Tablet, 1 TAB PO DAILYBFRSUP, #60 Ref 3 (Reported) Entered as Reported by: Riya Li on 10/08/141940 Olmesartan Medoxomil (Benicar) 20 Mg Tablet, 1 TAB PO DAILY for 30 Days, #30 Ref 0 (Reported) Entered as Reported by: PATRICK CARRASCO on 02/29/201040 Last Action: New Order on 02/29/201040 by PATRICK CARRASCO Phosphorus #1 (Phospha 250 Neutral Tablet) 250 Mg Tablet, 1 TAB PO DAILY for 30 Days, #30 Ref 0 (Reported) Entered as Reported by: PATRICK CARRASCO on 02/29/201044 Last Action: New Order on 02/29/201044 by PATRICK CARRASCO Potassium Chloride (Potassium Chloride) 20 Meq Tab.er.prt, 20 MEQ PO BID, (Reported) Entered as Reported by: Riya Li on 10/08/141940 Quinapril Hcl (Quinapril Hcl) 40 Mg Tablet, 1 TAB PO DAILY, #30 Ref 5 (Reported) Entered as Reported by: Riya Li on 10/08/141940 Tamsulosin Hcl (Flomax) 0.4 Mg Cap.er.24h, 0.4 MG PO DAILY, (Reported) Entered as Reported by: PATRICK CARRASCO on 02/29/201041 Last Action: New Order on 02/29/201041 by PATRICK CARRASCO Torsemide (Torsemide) 20 Mg Tablet, 4 TAB PO DAILY, #90 Ref 1 (Reported) Entered as Reported by: Riya Li on 10/08/141940 Trazodone Hcl (Trazodone Hcl) 50 Mg Tablet, 50 MG PO HS, (Reported) Entered as Reported by: Riya Li on 10/08/141940 Scheduled PRN Cyclobenzaprine Hcl (Cyclobenzaprine Hcl) 10 Mg Tablet, 1 TAB PO BID PRN for MUSCLE SPASMS, #90 (Reported) Entered as Reported by: Riya Li on 10/08/141940 Hydrocodone/Apap 5-325 ([place] 5-325 Tablet) 1 Each Tablet, 1 TAB PO Q8HRS PRN for PAIN, Ref 0 (Reported) Entered as Reported by: Riya Li on 10/08/141940 Ipratropium/Albuterol Sulfate (Combivent Respimat Inhal) 4 Gm Aer.w.adap, 2 INH IH QID PRN for WHEEZING, (Reported) Entered as Reported by: Indigo Peterson on 10/08/1412 Oxycodone/Apap 5-325 (Percocet 5-325 Mg Tablet ) 1 Each Tablet, 1-2 TAB PO Q6HRS PRN for PAIN, #40 (Reported) Entered as Reported by: Riya Li on 10/08/141940 Justicifation of Admission Dx: Justifications for Admission: Justification of Admission Dx: Yes ED HUSSEIN MD Mar 22, 2020 18:26
== END 2020-03-21 06:26 | disposition expired | DRG 207 ==
LOC: ER 09:48 → 6 SOUTH 13:13 → 1 WEST ICU 03-07 14:41
PROVIDERS: ADMIT Internal Medicine; ATTEND Internal Medicine
PROC: 5A09457 Assistance with Respiratory Ventilation, 24-96 Consecutive Hours, Continuous Positive Airway Pressure (ICD-10-PCS; 2020-03-07)
PROC: XW033E5 Introduction of Remdesivir Anti-infective into Peripheral Vein, Percutaneous Approach, New Technology Group 5 (ICD-10-PCS; 2020-03-07)
PROC: XW13325 Transfusion of Convalescent Plasma (Nonautologous) into Peripheral Vein, Percutaneous Approach, New Technology Group 5 (ICD-10-PCS; 2020-03-08)
PROC: 30233N1 Transfusion of Nonautologous Red Blood Cells into Peripheral Vein, Percutaneous Approach (ICD-10-PCS; 2020-03-09)
PROC: 5A1935Z Respiratory Ventilation, Less than 24 Consecutive Hours (ICD-10-PCS; 2020-03-09)
PROC: 5A09357 Assistance with Respiratory Ventilation, Less than 24 Consecutive Hours, Continuous Positive Airway Pressure (ICD-10-PCS; 2020-03-15)
PROC: 5A1955Z Respiratory Ventilation, Greater than 96 Consecutive Hours (ICD-10-PCS; principal; 2020-03-16)
PROC: 0BH17EZ Insertion of Endotracheal Airway into Trachea, Via Natural or Artificial Opening (ICD-10-PCS; 2020-03-16)
PROC: 5A1935Z Respiratory Ventilation, Less than 24 Consecutive Hours (ICD-10-PCS; 2020-03-16)
DX: U07.1 COVID-19 (principal); J12.89 Other viral pneumonia; J96.01 Acute respiratory failure with hypoxia; N17.0 Acute kidney failure with tubular necrosis; E87.0 Hyperosmolality and hypernatremia; I13.0 Hypertensive heart and chronic kidney disease with heart failure and stage 1 through stage 4 chronic kidney disease, or unspecified chronic kidney disease; J44.0 Chronic obstructive pulmonary disease with (acute) lower respiratory infection; J44.1 Chronic obstructive pulmonary disease with (acute) exacerbation; D50.9 Iron deficiency anemia, unspecified; E03.9 Hypothyroidism, unspecified; E11.22 Type 2 diabetes mellitus with diabetic chronic kidney disease; E11.40 Type 2 diabetes mellitus with diabetic neuropathy, unspecified; E11.65 Type 2 diabetes mellitus with hyperglycemia; E78.5 Hyperlipidemia, unspecified; E87.5 Hyperkalemia; F17.200 Nicotine dependence, unspecified, uncomplicated; F32.9 Major depressive disorder, single episode, unspecified; F41.9 Anxiety disorder, unspecified; H91.90 Unspecified hearing loss, unspecified ear; G47.00 Insomnia, unspecified; I50.9 Heart failure, unspecified; K76.0 Fatty (change of) liver, not elsewhere classified; K76.89 Other specified diseases of liver; M40.209 Unspecified kyphosis, site unspecified; N18.3 Chronic kidney disease, stage 3 (moderate); Z66 Do not resuscitate; Z78.9 Other specified health status; Z79.899 Other long term (current) drug therapy; Z82.49 Family history of ischemic heart disease and other diseases of the circulatory system; Z83.3 Family history of diabetes mellitus; Z86.11 Personal history of tuberculosis; Z87.11 Personal history of peptic ulcer disease; Z99.81 Dependence on supplemental oxygen; K57.90 Diverticulosis of intestine, part unspecified, without perforation or abscess without bleeding
CPT/HCPCS: 36415; 36600; 71045; 78580; 78582; 80048; 80053; 80069; 80076; 81001; 82274; 82607; 82728; 82805; 82962; 83540; 83550; 83605; 83735; 83880; 84145; 84484; 85007; 85014; 85018; 85025; 85027; 85379; 86140; 86850; 86900; 86901; 86920; 86927; 87040; 87426; 87493; 87505; 93005; 94002; 94003; 94640; 94660; 94760; 96374; A9540; C9113; J0330; J0360; J1650; J1815; J1940; J2250; J2543; J2704; J2920; J2930; J3010; J3490; J7030; J7040; P9016; 99285-25; G0378; J7626; P9017; Q0163; U0003-CS